=== PATIENT | female | born 1960 | race Caucasian/White ===

== ENCOUNTER 2024-02-06 19:48 | Emergency (ER) | payer MEDICAID, SELFPAY ==
[2024-02-06 19:51] VITALS: BP 120/62; PULSE 126; RESP 20; TEMP 36.8; O2SAT 96; BMI 23.4
--- NOTE | 2024-02-06 20:04 | PC.NURSE ---
called lab, spoke with manav to come draw labs.
[2024-02-06 20:05] VITALS: BMI 23.4
--- NOTE | 2024-02-06 20:06 | XR_ITS ---
PROCEDURE INFORMATION: Exam: XR Chest Exam date and time: 02/06/2024 8:22 PM Age: 64 years old Clinical indication: Other: Congestion TECHNIQUE: Imaging protocol: Radiologic exam of the chest. Views: 2 views. Total images: 2 COMPARISON: No relevant prior studies available. FINDINGS: Lungs: Emphysema/COPD with flattening of the hemidiaphragms. No infiltrate, airspace consolidation or vascular congestion. No interstitial edema. Pleural spaces: Unremarkable. No pleural effusion. No pneumothorax. Heart/Mediastinum: Unremarkable. No cardiomegaly. No mediastinal widening or hilar enlargement. Vasculature: Atherosclerotic aortic arch. Bones/joints: Mild degenerative changes thoracic spine. Soft tissues: Breast attenuation artifact. IMPRESSION: 1. No radiographically acute cardiopulmonary process. 2. Emphysema/COPD.
--- NOTE | 2024-02-06 20:19 | ED_ITS ---
<Statement entered by Mark La MD - 02/06/24 22:51> I was consulted by the VINNIE, and we discussed the complexity of the problems being addressed. I approved the treatment and management plan for this patient's care in the emergency department, thus performing a substantive portion of the medical decision making. Mark La MD, ARCELIA, FACEP Discharge Plan Disposition Chief Complaint: Abdominal Pain Referrals Follow up/Referrals: Alexy Mendez MD [Primary Care Provider] - See instructions Clinical Impressions Clinical Impression: Diverticulitis of large intestine with perforation, Sepsis, Pneumatosis coli Stand Alone Forms Stand Alone Forms: Transfer Record - ED Instructions Patient Instructions: DI for Acute Abdominal Pain Discharge ED Provider: Mark La General Adult HPI <JOSE ANTONIO Jackson - Last Filed: 02/06/24 22:25> General Chief complaint: Abdominal Pain Stated complaint: Fever,vomiting,tumor on bladder Time Seen by Provider: 02/06/24 20:00 Mode of Arrival: Wheelchair Source of Information: Patient Limitations: No Limitations Description of Symptoms (Recalled from ER Triage Doc. by RN): Pt presents with N/V/D with abdominal pain since Tuesday. Pt states she feels SOA, has had a productive cough for a long time. Pt has hx of bladder tumor, has not followed up in the past 1.5 yrs. Denies any new urinary symptoms. History of Present Illness HPI narrative: Patient presents with nausea vomiting diarrhea and abdominal pain since Tuesday. Patient has a past medical history of COPD on chronic 2 L by nasal cannula and ongoing tobaccoism. Patient has a history of an unspecified bladder tumor that she was previously having removed by laser periodically. However patient has seen no regular medical provider in the last 2 years by her choice. Patient presents with lower abdominal pain that has persisted since Tuesday that then developed some nausea vomiting and diarrhea. Patient is intolerant of oral intake reportedly currently. Related Data Allergies Allergy/AdvReac Type Severity Reaction Status Date / Time No Known Allergies Allergy Verified 02/06/24 20:05 PFSH <JOSE ANTONIO Jackson - Last Filed: 02/06/24 22:25> PFS Disclaimer: The information contained in this section may have been updated after the patient was seen, as this information can be updated by other users. Social History Smoking Status: Current every day smoker alcohol intake: current current occupational status: retired Travel in the last 8 weeks: None <JOSE ANTONIO Jackson - Last Filed: 02/06/24 22:25> ROS Obtained: Yes Systems reviewed as appropriate & no additional complaints except as documented Physical Exam <JOSE ANTONIO Jackson - Last Filed: 02/06/24 22:25> General General appearance: alert and in no apparent distress Head Head exam: atraumatic and normal inspection Eye Eye exam: Present normal appearance, PERRL and EOMI ENT ENT exam: Present normal exam, normal oropharynx and mucous membranes moist Neck Neck exam: Present normal inspection and full ROM; Absent lymphadenopathy Chest Chest inspection: Present normal inspection and symmetric chest wall rise Respiratory Respiratory exam: Present normal lung sounds bilaterally, prolonged expiratory phase and other (Faint end expiratory wheezes in all 4 werner but no respiratory distress or accessory muscle use currently.); Absent accessory muscle use Cardiovascular Cardiovascular exam: Present regular rate, normal rhythm, normal heart sounds, +S1 and +S2 Abdominal Exam Abdominal exam: Present soft, tenderness (Patient is exquisitely tender to palpation diffusely but more focally so in the lower quadrant), guarding and normal bowel sounds; Absent rebound, rigidity or Palomares's sign Extremities Exam Extremities exam: Present normal inspection and full ROM Back Exam Back exam: Present normal inspection and full ROM; Absent tenderness Neurological Exam Neurological exam: Present alert and oriented X3 Psychiatric Psychiatric exam: Present normal affect and normal mood Skin Skin exam: Present warm, dry and normal color Lymphatic Lymphatic Findings: no adenopathy Medical Decision Making <JOSE ANTONIO Jackson - Last Filed: 02/06/24 22:25> Medical Records Medical records reviewed: Yes I reviewed the patient's medical records. Sergio Inquiry Pt receiving controlled substance: No Vital Signs: 02/06/24 19:51 02/06/24 20:36 02/06/24 21:00 Temperature 98.3 F Temperature Source Oral Pulse Rate 116 H 103 H Pulse Rate [Left] 126 H Respiratory Rate 20 18 20 Blood Pressure 120/58 L 108/61 L Blood Pressure [Right Arm] 120/62 Blood Pressure Mean 72 73 Blood Pressure Mean [Right Arm] 81 Blood Pressure Source Blood Pressure Source [Right Arm] Automatic Cuff Blood Pressure Position Blood Pressure Position [Right Arm] Sitting 02 Sat by Pulse Oximetry 96 99 99 Oxygen Delivery Method Nasal Cannula Room Air Room Air 02/06/24 22:05 Temperature 98.1 F Temperature Source Oral Pulse Rate 93 H Pulse Rate [Left] Respiratory Rate 20 Blood Pressure 113/54 L Blood Pressure [Right Arm] Blood Pressure Mean Blood Pressure Mean [Right Arm] Blood Pressure Source Automatic Cuff Blood Pressure Source [Right Arm] Blood Pressure Position Sitting Blood Pressure Position [Right Arm] 02 Sat by Pulse Oximetry 98 Oxygen Delivery Method Room Air Lab Data Lab results reviewed: Yes I reviewed the patient's lab results. Lab Results 02/06/24 20:18: WBC 22.1 H*, RBC 3.53 L, Hgb 11.6 L, Hct 35.9 L, MCV 101.8 H, M CH 32.9 H, MCHC 32.3, RDW 13.3, Plt Count 310, MPV 8.2, Neut % (Auto) 93.9 H, L ymph % (Auto) 2.5 L, Camas % (Auto) 2.3, Eos % (Auto) 1.1, Baso % (Auto) 0.2, N eut # (Auto) 20.7 H, Lymph # (Auto) 0.6 L, Camas # (Auto) 0.5, Eos # (Auto) 0.2, Baso # (Auto) 0.0, Total Counted 100, Neutrophils % (Manual) 94 H, Lymphocytes % (Manual) 5 L, Monocytes % (Manual) 1 L, Platelet Estimate Normal, Macrocytosis 1+, PT 10.3, INR 0.95, Sodium 131 L, Potassium 3.2 L, Chloride 97 L, Carbon Dioxide 26, Anion Gap 11.2, BUN 25 H, Creatinine 1.50 H, Estimated Creat Clear 33, Estimated GFR 35 L, Est GFR ( Amer) 42 L, Glucose 217 H, Lactate 1.7, Calcium 9.6, Total Bilirubin 0.6, AST 33, ALT 21, Alkaline Phosphatase 66, Total Protein 7.2, Albumin 4.0, Globulin 3.2, Albumin/Globulin Ratio 1.3, Lipase 74 02/06/24 20:18 02/06/24 20:18 Orders (Tests/Meds): ED MEDICATIONS Generic Name Dose Route Start Last Admin Trade Name Freq PRN Reason Stop Dose Admin Lactated Ringer's 1,000 mls @ 150 mls/hr 02/06/24 21:45 02/06/24 22:00 Lactated Ringer's 1000 Ml Bag IV 03/07/24 21:44 150 mls/hr .Q6H40M ISIDRO Administration Sodium Chloride 10 ml 02/06/24 21:12 02/06/24 21:13 Sodium Chloride 0.9% 10ml Syr (Rad Only) IV 03/07/24 21:11 10 ml NEEDED PRN Administration Maintain IV Site Discontinued Medications Generic Name Dose Route Start Last Admin Trade Name Ruq PRN Reason Stop Dose Admin Acetaminophen 1,000 mg 02/06/24 20:25 02/06/24 20:36 Acetaminophen 1,000mg/100ml Vial IV 02/06/24 20:26 1,000 mg ONCE ONE Administration Lactated Ringer's 1,000 mls @ 999 mls/hr 02/06/24 20:27 02/06/24 20:36 Lactated Ringer's 1000 Ml Bag IV 02/06/24 21:27 999 mls/hr .Q1H1M ONE Administration Piperacillin Sod/Tazobactam 50 mls @ 100 mls/hr 02/06/24 21:45 02/06/24 22:01 Sod 3.375 gm/ Sodium Chloride IV 02/06/24 22:14 100 mls/hr ONCE ONE Administration Iopamidol 75 ml 02/06/24 21:12 02/06/24 21:12 Iopamidol-370 (76%);100ml Bottle IV 02/06/24 21:13 75 ml ONCE ONE Administration Ketorolac Tromethamine 15 mg 02/06/24 20:25 02/06/24 20:36 Ketorolac 30mg/Ml Vial IV 02/06/24 20:26 15 mg ONCE ONE Administration Ondansetron HCl 4 mg 02/06/24 20:25 02/06/24 20:36 Ondansetron 4mg Odt SL 02/06/24 20:26 4 mg ONCE ONE Administration ORDERS Category Date Time Status CT abdomen pelvis w con Stat Cat Scan 02/06/24 20:25 Completed Chest XR 2 view (NOT portable) [XR chest 2V] Stat Exams 02/06/24 20:06 Completed Complete Blood Count Auto Diff Stat Lab 02/06/24 20:18 Completed Comprehensive Metabolic Panel Stat Lab 02/06/24 20:18 Completed INR [Prothrombin Time INR] Stat Lab 02/06/24 20:18 Completed Lactic Acid Stat Lab 02/06/24 20:18 Completed Lipase Stat Lab 02/06/24 20:18 Completed UA [Urinalysis and Microscopic] Stat Lab 02/06/24 20:26 Ordered Blood Culture Stat Micro 02/06/24 20:18 Received Medical Decision Narrative: In summary patient is a 64-year-old female who presents to the emergency department for evaluation of abdominal pain nausea vomiting diarrhea. Patient is normotensive tachycardic satting at 96% on her 2 L by nasal cannula upon arrival, and afebrile. Physical exam is remarkable for tenderness to palpation diffusely in the abdomen but predominantly in the lower quadrants with peritoneal signs, no bruits heard in the abdomen, bowel sounds are diminished but present and remainder of her physical exam is nonfocal and unremarkable.. Differential diagnosis includes gastroenteritis versus bowel obstruction versus complicated urinary tract infection versus pyelonephritis versus intra-abdominal infection versus bowel perforation versus bladder obstruction versus diverticulitis, etc. Initial workup will be conducted with hematologic labs CT scan of the abdomen pelvis with contrast. Initial interventions include fluid bolus NSAID Toradol. Initial workup reviewed by me shows a white count of 22,000 with a left shift, lactate of 1.7 creatinine 1.5 and my personal interpretation of appointment chest x-ray shows pneumatosis of the cecum and ascending colon with air under the diaphragm and diverticulitis of the sigmoid colon with contained perforation but radiologist read is pending. I discussed the findings with general surgery and given the patient's comorbidities felt that she was beyond the capabilities of our facility and recommend that we transfer to a tertiary care facility. I have originally reached out to the [facility] transfer center at 2145. As have not heard from the [facility] reached out to the [facility] at 2202. I spoke with Dr. Andino of general surgery and Dr. Mariano in the emergency department regarding patient management. Dr. Andino excepted and Dr. Mariano given update per Dr. Andino request. <Mark La MD - Last Filed: 02/06/24 21:40> Vital Signs: 02/06/24 19:51 02/06/24 20:36 02/06/24 21:00 Temperature 98.3 F Temperature Source Oral Pulse Rate 116 H 103 H Pulse Rate [Left] 126 H Respiratory Rate 20 18 20 Blood Pressure 120/58 L 108/61 L Blood Pressure [Right Arm] 120/62 Blood Pressure Mean 72 73 Blood Pressure Mean [Right Arm] 81 Blood Pressure Source Blood Pressure Source [Right Arm] Automatic Cuff Blood Pressure Position Blood Pressure Position [Right Arm] Sitting 02 Sat by Pulse Oximetry 96 99 99 Oxygen Delivery Method Nasal Cannula Room Air Room Air 02/06/24 22:05 Temperature 98.1 F Temperature Source Oral Pulse Rate 93 H Pulse Rate [Left] Respiratory Rate 20 Blood Pressure 113/54 L Blood Pressure [Right Arm] Blood Pressure Mean Blood Pressure Mean [Right Arm] Blood Pressure Source Automatic Cuff Blood Pressure Source [Right Arm] Blood Pressure Position Sitting Blood Pressure Position [Right Arm] 02 Sat by Pulse Oximetry 98 Oxygen Delivery Method Room Air Lab Data Lab Results 02/06/24 20:18: WBC 22.1 H*, RBC 3.53 L, Hgb 11.6 L, Hct 35.9 L, MCV 101.8 H, M CH 32.9 H, MCHC 32.3, RDW 13.3, Plt Count 310, MPV 8.2, Neut % (Auto) 93.9 H, L ymph % (Auto) 2.5 L, Camas % (Auto) 2.3, Eos % (Auto) 1.1, Baso % (Auto) 0.2, N eut # (Auto) 20.7 H, Lymph # (Auto) 0.6 L, Camas # (Auto) 0.5, Eos # (Auto) 0.2, Baso # (Auto) 0.0, Total Counted 100, Neutrophils % (Manual) 94 H, Lymphocytes % (Manual) 5 L, Monocytes % (Manual) 1 L, Platelet Estimate Normal, Macrocytosis 1+, PT 10.3, INR 0.95, Sodium 131 L, Potassium 3.2 L, Chloride 97 L, Carbon Dioxide 26, Anion Gap 11.2, BUN 25 H, Creatinine 1.50 H, Estimated Creat Clear 33, Estimated GFR 35 L, Est GFR ( Amer) 42 L, Glucose 217 H, Lactate 1.7, Calcium 9.6, Total Bilirubin 0.6, AST 33, ALT 21, Alkaline Phosphatase 66, Total Protein 7.2, Albumin 4.0, Globulin 3.2, Albumin/Globulin Ratio 1.3, Lipase 74 Orders (Tests/Meds): ED MEDICATIONS Generic Name Dose Route Start Last Admin Trade Name Freq PRN Reason Stop Dose Admin Lactated Ringer's 1,000 mls @ 150 mls/hr 02/06/24 21:45 02/06/24 22:00 Lactated Ringer's 1000 Ml Bag IV 03/07/24 21:44 150 mls/hr .Q6H40M ISIDRO Administration Sodium Chloride 10 ml 02/06/24 21:12 02/06/24 21:13 Sodium Chloride 0.9% 10ml Syr (Rad Only) IV 03/07/24 21:11 10 ml NEEDED PRN Administration Maintain IV Site Discontinued Medications Generic Name Dose Route Start Last Admin Trade Name Freq PRN Reason Stop Dose Admin Acetaminophen 1,000 mg 02/06/24 20:25 02/06/24 20:36 Acetaminophen 1,000mg/100ml Vial IV 02/06/24 20:26 1,000 mg ONCE ONE Administration Lactated Ringer's 1,000 mls @ 999 mls/hr 02/06/24 20:27 02/06/24 20:36 Lactated Ringer's 1000 Ml Bag IV 02/06/24 21:27 999 mls/hr .Q1H1M ONE Administration Piperacillin Sod/Tazobactam 50 mls @ 100 mls/hr 02/06/24 21:45 02/06/24 22:01 Sod 3.375 gm/ Sodium Chloride IV 02/06/24 22:14 100 mls/hr ONCE ONE Administration Iopamidol 75 ml 02/06/24 21:12 02/06/24 21:12 Iopamidol-370 (76%);100ml Bottle IV 02/06/24 21:13 75 ml ONCE ONE Administration Ketorolac Tromethamine 15 mg 02/06/24 20:25 02/06/24 20:36 Ketorolac 30mg/Ml Vial IV 02/06/24 20:26 15 mg ONCE ONE Administration Ondansetron HCl 4 mg 02/06/24 20:25 02/06/24 20:36 Ondansetron 4mg Odt SL 02/06/24 20:26 4 mg ONCE ONE Administration ORDERS Category Date Time Status CT abdomen pelvis w con Stat Cat Scan 02/06/24 20:25 Completed Chest XR 2 view (NOT portable) [XR chest 2V] Stat Exams 02/06/24 20:06 Completed Complete Blood Count Auto Diff Stat Lab 02/06/24 20:18 Completed Comprehensive Metabolic Panel Stat Lab 02/06/24 20:18 Completed INR [Prothrombin Time INR] Stat Lab 02/06/24 20:18 Completed Lactic Acid Stat Lab 02/06/24 20:18 Completed Lipase Stat Lab 02/06/24 20:18 Completed UA [Urinalysis and Microscopic] Stat Lab 02/06/24 20:26 Ordered Blood Culture Stat Micro 02/06/24 20:18 Received Critical Care <Mark La MD - Last Filed: 02/06/24 21:40> Critical Care Time Critical Care Time: Yes Attestation: On 02/06/24, the high probability of a clinically significant, sudden or life threatening deterioration of the following system(s) required my full and direct attention, intervention and personal management. The time I documented below is in addition to time spent performing reported procedures but includes the following listed in this critical care notation. Total Time Total Critical Care Time: 35
--- NOTE | 2024-02-06 20:25 | CT_ITS ---
PROCEDURE INFORMATION: Exam: CT Abdomen And Pelvis With Contrast Exam date and time: 02/06/2024 8:07 PM Age: 64 years old Clinical indication: Abdominal pain; Acute; Additional info: Acute abdominal pain, bladder tumor TECHNIQUE: Imaging protocol: Computed tomography of the abdomen and pelvis with contrast. Total images: 252 Radiation optimization: All CT scans at this facility use at least one of these dose optimization techniques: automated exposure control; mA and/or kV adjustment per patient size (includes targeted exams where dose is matched to clinical indication); or iterative reconstruction. Contrast material: ISOVUE; Contrast volume: 75 ml; Contrast route: IV; COMPARISON: No relevant prior studies available. FINDINGS: Lungs: Lung bases are clear. Heart: Trace pericardial effusion. Liver: Lobulated hepatic contour concerning for cirrhosis. Normal liver size. No mass. Gallbladder and bile ducts: Common bile duct is upper normal at 6 mm. No intrahepatic bile duct dilatation. No calcified gallstones. Pancreas: Normal. No ductal dilation. Spleen: Normal. No splenomegaly. Adrenal glands: Normal. No mass. 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 Additional subcentimeter upper pole right renal hypodensity is too small to characterize but statistically a cyst. Bilateral perinephric fat stranding. Stomach and bowel: Unremarkable stomach and duodenum. Diffuse small bowel wall thickening, greatest in the lower abdomen and pelvis. Unremarkable terminal ileum. Bowel wall pneumatosis referable to the cecum and ascending colon. The transverse and descending colon is collapsed. Moderate wall thickening of the sigmoid colon with associated diverticular formation and adjacent extraluminal free air compatible with acute perforated diverticulitis. No abscess. Collapsed rectum. Appendix: The appendix is not discretely visualized. No secondary signs of appendicitis. Intraperitoneal space: Small quantity free intraperitoneal air. Trace lower abdominal and pelvic ascites. Generalized mesenteric edema. Vasculature: 4 cm fusiform aneurysmal dilatation of the infrarenal abdominal aorta with severe atherosclerotic irregularity. No rupture. Caudal to the abdominal aortic aneurysm is suspected high-grade stenosis of the distal abdominal aorta, at the level of the bifurcation. Moderate atherosclerotic narrowing of the proximal superior mesenteric artery without occlusion. Lymph nodes: Unremarkable. No enlarged lymph nodes. Urinary bladder: Collapsed bladder. Reproductive: Status post hysterectomy. Bones/joints: Severe degenerative changes of the lumbar spine. Osteopenia. Rotary lumbar levocurvature. Mild degenerative changes bilateral hips and SI joints. Soft tissues: Unremarkable. IMPRESSION: 1. Acute perforated sigmoid diverticulitis. 2. Small quantity free intraperitoneal air secondary to bowel perforation. 3. Nonspecific bowel wall pneumatosis of the cecum and ascending colon possibly from transient bowel ischemia. 4. Diffuse wall thickening of the mid to distal small bowel likely reflecting infectious or inflammatory enteritis versus sequela of peritonitis. 5. Trace fluid in lower abdomen and pelvis with diffuse mesenteric edema. 6. 4 cm infrarenal abdominal aortic aneurysm. 7. High-grade atherosclerotic stenosis of the distal abdominal aorta, caudal to the aneurysm / just above the bifurcation. 8. Moderate atherosclerotic narrowing proximal superior mesenteric artery without visualized thrombotic occlusion. 9. Additional chronic and incidental findings. COMMENTS: Consistent with the [employer]'s Incidental Findings Committee white paper (J Am Tami Radiol 2018): Any incidental renal lesion less than 1 cm or classified as too small to characterize, or any incidental cystic renal lesion characterized as simple-appearing, is likely benign. No follow-up imaging is recommended for these lesions per consensus recommendations based on imaging criteria.
[2024-02-06 20:36] VITALS: BP 120/58; PULSE 116; RESP 18; O2SAT 99
[2024-02-06] MEDS: LACTATED RINGERS 1000ML 1,000 ML 999 ML IV (20:36)
[2024-02-06] MEDS: ACETAMINOPHEN 1,000MG/100ML VIAL 1000 MG IV (20:36)
[2024-02-06] MEDS: ONDANSETRON 4MG ODT 4 MG SL (20:36)
[2024-02-06] MEDS: KETOROLAC 30MG/ML VIAL 15 MG IV (20:36)
[2024-02-06 20:45] LABS: Basophils % 0.2 % (0.1-2.0); Chloride 97 mmol/L (98-107); Eosinophils # 0.2 K/mm3 (0.0-0.4); Eosinophils % 1.1 % (0.1-12.0); Hematocrit 35.9 % (37.0-47.0); Hemoglobin 11.6 g/dL (12.2-16.2); Lymphocytes # 0.6 K/mm3 (0.7-4.5); Lymphocytes % 2.5 % (10-50); Mean Corpuscular HGB Conc 32.3 g/dL (31.8-35.4); Mean Corpuscular Hemoglobin 32.9 pg (27.0-31.2); Mean Corpuscular Volume 101.8 fl (81-99); Mean Platelet Volume 8.2 fl (7.4-10.4); Monocytes # 0.5 K/mm3 (0.1-1.0); Monocytes % 2.3 % (1.7-9.3); Neutrophils # 20.7 K/mm3 (1.8-7.8); Neutrophils % 93.9 % (37.0-80.0); Platelet Count 310 K/mm3 (142-424); Potassium 3.2 mmoL/L (3.5-5.1); Red Blood Count 3.53 M/mm3 (4.20-5.40); Red Cell Distribution Width 13.3 % (11.5-17.5); Sodium 131 mmol/L (136-145); White Blood Count 22.1 K/mm3 (4.8-10.8)
[2024-02-06 20:46] LABS: MANUAL DIFFERENTIAL MANUAL DIFFERENTIAL (MANUAL DIFF)
[2024-02-06 20:47] LABS: Blood Urea Nitrogen 25 mg/dl (7-17); Creatinine Clearance Estimated 33 mL/min (50-200); Estimated Glomerular Filt Rate 35 ml/min (>60); GFR (African American) 42 ML/MIN (>60)
[2024-02-06 20:48] LABS: Alanine Aminotransferase 21 U/L (12-78); Albumin/Globulin Ratio 1.3 (1.1-1.8); Alkaline Phosphatase 66 U/L (38-126); Anion Gap 11.2 mEq/L (5-15); Aspartate Amino Transferase 33 U/L (14-36); Bilirubin,Total 0.6 mg/dl (0.2-1.3); Calcium 9.6 mg/dl (8.4-10.2); Carbon Dioxide 26 mmol/L (22.0-30.0); Globulin 3.2 g/dL (1.3-3.2); Glucose 217 mg/dl (74-100); Lipase 74 U/L (23-300); Total Protein,Serum 7.2 g/dl (6.3-8.2)
[2024-02-06 20:49] LABS: Lactic Acid 1.7 mmol/L (0.7-2.1)
[2024-02-06 20:51] LABS: INR 0.95 (0.9-1.1); Prothrombin Time 10.3 seconds (10.1-12.5)
[2024-02-06 21:00] VITALS: BP 108/61; PULSE 103; RESP 20; O2SAT 99
--- NOTE | 2024-02-06 21:05 | PC.NURSE ---
Pt aware of UA needed
[2024-02-06] MEDS: IOPAMIDOL-370 (76%);100ML BOTTLE 75 ML IV (21:12)
[2024-02-06] MEDS: SODIUM CHLORIDE 0.9% 10ML SYR (RAD ONLY) 10 ML IV (21:13)
--- NOTE | 2024-02-06 21:37 | PC.NURSE ---
Dr. Carney paged for mid level
--- NOTE | 2024-02-06 21:39 | PC.NURSE ---
Mid level on phone with Dr. Carney
[2024-02-06 21:42] LABS: Lymphocytes % 5 % (10-50); Monocytes % 1 % (2-9); Neutrophils % 94 % (42-76); Total Cells Counted 100
[2024-02-06 21:43] LABS: Macrocytosis 1+; Platelet Estimate Normal
--- NOTE | 2024-02-06 21:46 | PC.NURSE ---
[facility] transfer center notified for transfer
[2024-02-06] MEDS: LACTATED RINGERS 1000ML 1,000 ML 150 ML IV (22:00)
[2024-02-06] MEDS: PIPERCILLIN/TAZO 3.375 GM in 0.9 % SODIUM CHLORIDE 50 ML IV (22:01)
[2024-02-06 22:05] VITALS: BP 113/54; PULSE 93; RESP 20; TEMP 36.7; O2SAT 98
--- NOTE | 2024-02-06 22:08 | PC.NURSE ---
on phone with [facility] re transfer
--- NOTE | 2024-02-06 22:21 | PC.NURSE ---
Called [facility] about transfer, they are doing a weather check and will call us back momentarily. CR
[2024-02-06 22:55] VITALS: BP 113/54; PULSE 93; RESP 20; TEMP 36.8; O2SAT 98
== END 2024-02-06 22:57 | disposition critical access hospital (66) ==
PROVIDERS: Physician Assistant; Emergency Provider Student in an Organized Health Care Education/Training Program; PCP Family Medicine
DX: A41.9 Sepsis, unspecified organism (principal); K57.20 Diverticulitis of large intestine with perforation and abscess without bleeding; K63.89 Other specified diseases of intestine; R10.30 Lower abdominal pain, unspecified; R06.02 Shortness of breath; R05.9 Cough, unspecified; J44.9 Chronic obstructive pulmonary disease, unspecified; R11.2 Nausea with vomiting, unspecified; F17.200 Nicotine dependence, unspecified, uncomplicated
CPT/HCPCS: 36415; 71046; 74177; 80053; 83605; 83690; 85007; 85025; 85610; 87040; 96361; 96365; 96375; 99291; J0131; J2543; Q9967

== ENCOUNTER 2024-02-28 14:03 | Outpatient (CLI) | payer MEDICAID, SELFPAY | END 2024-02-28 14:20 | disposition home or self-care (01) | LOC: INF 14:04 | PROVIDERS: PCP Family Medicine | DX: Z45.2 Encounter for adjustment and management of vascular access device (principal) | CPT/HCPCS: 96523 ==

== ENCOUNTER 2024-03-06 13:59 | Outpatient (CLI) | payer MEDICAID, SELFPAY | END 2024-03-06 14:10 | disposition home or self-care (01) | LOC: INF 14:00 | PROVIDERS: Visit Provider Nurse Practitioner | DX: Z45.2 Encounter for adjustment and management of vascular access device (principal) | CPT/HCPCS: 96523 ==

== ENCOUNTER 2024-03-15 13:54 | Outpatient (CLI) | payer MEDICAID, SELFPAY | END 2024-03-15 14:19 | disposition home or self-care (01) | LOC: INF 13:54 | PROVIDERS: PCP Family Medicine; Visit Provider Nurse Practitioner | DX: Z45.2 Encounter for adjustment and management of vascular access device (principal) | CPT/HCPCS: 96523 ==

== ENCOUNTER 2024-03-16 08:38 | Outpatient (CLI) | payer MEDICAID, SELFPAY ==
--- NOTE | 2024-03-16 08:44 | CT_ITS ---
FINAL REPORT TECHNIQUE: After the administration of oral and intravenous contrast, axial images were obtained through the abdomen and pelvis by computed tomography. The study was performed with techniques to keep radiation dose as low as reasonably achievable, (ALARA). Individual dose reduction techniques using automated exposure control or adjustment of mA and/or kV according to the patient's size were employed. CLINICAL HISTORY: F/U DIVERTICULITIS COMPARISON: 02/07/2024 FINDINGS: Abdomen: The lung bases are clear. The liver parenchyma is homogeneous. The gallbladder is present. The spleen, pancreas, and adrenals appear unremarkable. There are small benign appearing cysts in the right kidney. The left kidney is unremarkable. There is an abdominal aortic aneurysm measuring 4.1 x 3.8 cm. There is moderate mural thrombus. There is dense calcification in the distal abdominal aorta and iliac vessels. Pelvis: The GI tract demonstrates no obstruction. There are scattered sigmoid diverticula with no inflammatory change. The appendix is not identified. The urinary bladder is incompletely distended. There are calcified phleboliths in the floor of the pelvis. There is no free fluid or adenopathy. IMPRESSION: Interval resolution of previously noted acute diverticulitis and extraluminal air. No residual abscess is identified. Incompletely distended urinary bladder. 4.1 cm abdominal aortic aneurysm. Reviewed, Interpreted and Dictated by Prieto Pena MD Transcribed by Charlotte Roberto Authenticated and [facility]
--- NOTE | 2024-03-16 08:58 | PC.NURSE ---
labs obtained as ordered per R upper arm PICC. PICC flushes easily, good blood return x 2 lumens. Patient to radiology for CT scan.
[2024-03-16 09:08] LABS: Blood Urea Nitrogen 21 mg/dl (7-17); Estimated Glomerular Filt Rate 72 ml/min (>60); GFR (African American) 88 ML/MIN (>60)
[2024-03-16] MEDS: IOPAMIDOL-370 (76%);100ML BOTTLE 75 ML IV (09:34)
[2024-03-16] MEDS: SODIUM CHLORIDE 0.9% 10ML SYR (RAD ONLY) 10 ML IV (09:34)
== END 2024-03-16 23:59 | disposition home or self-care (01) ==
LOC: RAD 08:39
DX: R10.84 Generalized abdominal pain (principal)
CPT/HCPCS: 36415; 74177; 82565; 84520; Q9967

== ENCOUNTER 2024-03-26 13:52 | Outpatient (CLI) | payer MEDICAID, SELFPAY | END 2024-03-26 14:40 | disposition home or self-care (01) | LOC: INF 13:57 | DX: Z45.2 Encounter for adjustment and management of vascular access device (principal) | CPT/HCPCS: G0463 ==

== ENCOUNTER 2024-04-01 23:23 | Observation (INO) | payer MEDICAID, SELFPAY ==
[2024-04-01 23:23] VITALS: BP 168/88; PULSE 102; RESP 20; TEMP 37.4; O2SAT 97; BMI 20.1
--- NOTE | 2024-04-01 23:24 | CT_ITS ---
PROCEDURE INFORMATION: Exam: CTA Abdomen and Pelvis With Contrast Exam date and time: 04/02/2024 12:18 AM Age: 64 years old Clinical indication: Abdominal pain; Generalized; Additional info: Lower abdominal pain, melena, rectal bleeding TECHNIQUE: Imaging protocol: Computed tomographic angiography of the abdomen and pelvis with contrast. Exam focused on the arteries. 3D rendering (Not supervised by radiologist): MIP and/or 3D reconstructed images were created by the technologist. Radiation optimization: All CT scans at this facility use at least one of these dose optimization techniques: automated exposure control; mA and/or kV adjustment per patient size (includes targeted exams where dose is matched to clinical indication); or iterative reconstruction. Contrast material: ISOVUE 370; Contrast volume: 100 ml; Contrast route: INTRAVENOUS (IV); COMPARISON: CT ABDOMEN PELVIS W CON 02/06/2024 8:07 PM FINDINGS: Aorta: Infrarenal abdominal aortic aneurysm is again noted measuring up to 4.1 cm in diameter on axial imaging. There is abundant mural thrombus present. Celiac trunk and mesenteric arteries: No occlusion or significant stenosis. Renal arteries: No occlusion. There is less than 50% stenosis at the origin of both main renal arteries. Bilateral accessory renal arteries are noted. Right iliac arteries: No occlusion or significant stenosis. Left iliac arteries: No occlusion or significant stenosis. Liver: No mass. Gallbladder and bile ducts: Unremarkable. No calcified stones. No ductal dilation. Pancreas: Unremarkable. No mass. No ductal dilation. Spleen: Unremarkable. No splenomegaly. Adrenal glands: Unremarkable. No mass. Kidneys and ureters: The kidneys demonstrate unobstructed function. The right kidney is mildly atrophied. 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 Subcentimeter cortical hypodensity upper pole cortex right kidney too small to characterize. Stomach and bowel: There is no contrast extravasation into the bowel lumen to suggest active hemorrhage. There is mucosal thickening of the transverse, descending and sigmoid colon as well as the rectum consistent with colitis. There is straightening of the perirectal fat. Small amount of free pelvic fluid is noted. Appendix: No evidence of appendicitis. Intraperitoneal space: Unremarkable. No free air. No significant fluid collection. Lymph nodes: Unremarkable. No enlarged lymph nodes. Urinary bladder: Unremarkable. No mass. Reproductive: Unremarkable as visualized. Bones/joints: No acute fracture. Soft tissues: Unremarkable. IMPRESSION: 1. Findings consistent with colitis involving the transverse, descending and sigmoid colon as well as the rectum. There is associated perirectal fat stranding and a small amount of free pelvic fluid. 2. No active GI bleeding is evident. 3. Stable infrarenal abdominal aortic aneurysm. 4. Other nonemergent findings as detailed. COMMENTS: Consistent with the [employer]'s Incidental Findings Committee white paper (J Am Tami Radiol 2018): Any incidental renal lesion less than 1 cm or classified as too small to characterize, or any incidental cystic renal lesion characterized as simple-appearing, is likely benign. No follow-up imaging is recommended for these lesions per consensus recommendations based on imaging criteria.
[2024-04-01] MEDS: LACTATED RINGERS 1000ML 1,000 ML 999 ML IV (23:32)
[2024-04-01] MEDS: MORPHINE 4MG/ML SYRINGE 4 MG IV (23:32)
[2024-04-01] MEDS: ONDANSETRON 4MG/2ML VIAL 4 MG IV (23:32)
[2024-04-01 23:33] LABS: Basophils # 0.1 K/mm3 (0-0.2); Basophils % 0.2 % (0.1-2.0); Eosinophils # 0.1 K/mm3 (0.0-0.4); Eosinophils % 0.6 % (0.1-12.0); Hematocrit 34.7 % (37.0-47.0); Hemoglobin 11.1 g/dL (12.2-16.2); Lymphocytes # 1.8 K/mm3 (0.7-4.5); Lymphocytes % 8.7 % (10-50); Mean Corpuscular Hemoglobin 31.7 pg (27.0-31.2); Mean Corpuscular Volume 98.9 fl (81-99); Mean Platelet Volume 7.8 fl (7.4-10.4); Monocytes # 0.9 K/mm3 (0.1-1.0); Monocytes % 4.2 % (1.7-9.3); Neutrophils # 17.6 K/mm3 (1.8-7.8); Neutrophils % 86.2 % (37.0-80.0); Platelet Count 469 K/mm3 (142-424); Red Blood Count 3.51 M/mm3 (4.20-5.40); White Blood Count 20.4 K/mm3 (4.8-10.8)
[2024-04-01 23:36] LABS: MANUAL DIFFERENTIAL MANUAL DIFFERENTIAL (MANUAL DIFF)
--- NOTE | 2024-04-01 23:36 | ED_ITS ---
Discharge Plan Disposition Patient Disposition: Admitted Condition: Good Clinical Impressions Clinical Impression: Colitis, Melena Discharge ED Provider: Brigitte Peter General Adult HPI General Chief complaint: Abdominal Pain Stated complaint: abd pain, n/v Time Seen by Provider: 04/01/24 23:27 Mode of Arrival: EMS Source of Information: Patient and EMS Limitations: No Limitations Description of Symptoms (Recalled from ER Triage Doc. by RN): 64 F presents from home via EMS after calling out lower abdominal pain with n/v/d which started 1 month ago. Patient reports a history of diverticulitis. Patient also comes in wear 2L/NC which is her baseline. Patient receievd a 20g to the LAC per EMS with 4mg IVP Zofran and 15mg IVP Toradol. NAD otherwise. History of Present Illness HPI narrative: This patient is a 64-year-old female with a history of COPD on 2 L nasal cannula, tobacco dependence, bladder cancer status posttreatment, as well as previous evaluation and diagnosis of perforated diverticulitis presenting with concern for lower abdominal pain, nausea, vomiting, and melena. Patient reports that she was evaluated here in January and was found to have diverticulitis with a hole in her bowels, so she was flown to [facility] for further evaluation and management. She states that she was admitted there for 6 weeks, and she was discharged home in the middle of February. She states that she did well for the first 2 weeks, then she started having some lower abdominal discomfort again. The pain has gotten much more severe over the last day or so, and she is having severe lower abdominal pain with nausea, nonbloody nonbilious emesis, and melanotic stools. No fevers, chest pain, or other concerns. She is currently taking baby aspirin but denies any use of anticoagulation otherwise. Related Data Allergies Allergy/AdvReac Type Severity Reaction Status Date / Time No Known Allergies Allergy Verified 02/06/24 20:05 [facility] Disclaimer: The information contained in this section may have been updated after the patient was seen, as this information can be updated by other users. Social History (Updated 04/02/24 @ 00:29 by Ryan No RN) Smoking Status: Current every day smoker alcohol intake: former current occupational status: disabled Travel in the last 8 weeks: None ROS Obtained: Yes All systems reviewed & no additional complaints except as documented Physical Exam General General appearance: alert Comment: Ill-appearing Head Head exam: atraumatic and normocephalic Eye Eye exam: Present normal appearance, PERRL and EOMI ENT ENT exam: Present normal exam, normal oropharynx, mucous membranes moist and normal external ear exam Neck Neck exam: Present normal inspection, full ROM and trachea midline; Absent tenderness Chest Chest inspection: Present normal inspection and symmetric chest wall rise; Absent tenderness Respiratory Respiratory exam: Present normal lung sounds bilaterally; Absent respiratory distress, wheezes, stridor or accessory muscle use Cardiovascular Cardiovascular exam: Present normal rhythm and tachycardia Abdominal Exam Abdominal exam: Present tenderness, guarding and rebound; Absent distention Abdominal tenderness: Present diffuse Comment: Generalized tenderness with rebound and guarding but worse in the suprapubic and left lower quadrant regions Extremities Exam Extremities exam: Present normal inspection, full ROM and normal capillary refill; Absent tenderness or edema Back Exam Back exam: Present normal inspection and full ROM; Absent tenderness Neurological Exam Neurological exam: Present alert, oriented X3, CN II-XII intact and normal gait; Absent motor sensory deficit Psychiatric Psychiatric exam: Present normal affect and normal mood Skin Skin exam: Present warm and dry Medical Decision Making Medical Records Medical records reviewed: Yes I reviewed the patient's medical records. Sergio Inquiry Pt receiving controlled substance: No Vital Signs: 04/01/24 23:23 04/02/24 00:15 Temperature 99.3 F Temperature Source Oral Pulse Rate 95 H Pulse Rate [Left] 102 H Respiratory Rate 20 Blood Pressure 173/81 H Blood Pressure [Right Arm] 168/88 H Blood Pressure Mean 111 Blood Pressure Mean [Right Arm] 114 Blood Pressure Source [Right Arm] Automatic Cuff Blood Pressure Position [Right Arm] Supine 02 Sat by Pulse Oximetry 97 98 Oxygen Delivery Method Nasal Cannula Room Air Oxygen Flow Rate (LPM) 2 Lab Data Lab results reviewed: Yes I reviewed the patient's lab results. Lab Results 04/01/24 00:07: Lactate 1.1, Blood Type A Positive, Antibody Screen Negative 04/01/24 23:24: WBC 20.4 H*, RBC 3.51 L, Hgb 11.1 L, Hct 34.7 L, MCV 98.9, MCH 31.7 H, MCHC 32.0, RDW 15.0, Plt Count 469 H, MPV 7.8, Neut % (Auto) 86.2 H, L ymph % (Auto) 8.7 L, [place] % (Auto) 4.2, Eos % (Auto) 0.6, Baso % (Auto) 0.2, N eut # (Auto) 17.6 H, Lymph # (Auto) 1.8, [place] # (Auto) 0.9, Eos # (Auto) 0.1, Baso # (Auto) 0.1, Total Counted 100, Neutrophils % (Manual) 82 H, Band Neutrophils % 1.0, Lymphocytes % (Manual) 13, Monocytes % (Manual) 4, Platelet Estimate Slight increase, RBC Morphology Normal, PT 10.3, INR 0.95, APTT 28.5, S odium 134 L, Potassium 3.3 L, Chloride 96 L, Carbon Dioxide 35 H, Anion Gap 6.3, BUN 11, Creatinine 0.80, Estimated Creat Clear 52, Estimated GFR 72, Est GFR ( Amer) 88, Glucose 111 H, Calcium 10.4 H, Total Bilirubin 0.5, AST 27, ALT 16, Alkaline Phosphatase 76, Total Protein 7.2, Albumin 3.9, Globulin 3.3 H, Albumin/Globulin Ratio 1.2, Lipase 82 04/02/24 00:40: Urine Color Yellow, Urine Appearance Clear, Urine pH 7.0, Ur Specific [place] 1.015, Urine Protein 1+, Urine Glucose (UA) Negative, Urine Ketones Trace, Urine Blood Trace-i, Urine Nitrate Negative, Urine Bilirubin Negative, Urine Urobilinogen 0.2, Ur Leukocyte Esterase 2+ A, Urine RBC Occasional, Urine WBC 10-20, Ur Squamous Epith Cells Occasional, Urine Bacteria 2+ 04/01/24 23:24 04/01/24 23:24 Orders (Tests/Meds): ED MEDICATIONS Generic Name Dose Route Start Last Admin Trade Name Freq PRN Reason Stop Dose Admin Acetaminophen 650 mg 04/02/24 03:19 Acetaminophen 325mg Tab PO 05/02/24 03:18 Q4HP PRN Fever or Mild Pain (1-3) Lactated Ringer's 1,000 mls @ 125 mls/hr 04/02/24 02:00 04/02/24 03:15 Lactated Ringer's 1000 Ml Bag IV 05/02/24 01:59 125 mls/hr .Q8H ISIDRO Administration Morphine Sulfate 4 mg 04/02/24 02:00 Morphine 4mg/Ml Syringe IV 05/02/24 01:59 Q2HP PRN pain Ondansetron HCl 4 mg 04/02/24 02:00 04/02/24 03:17 Ondansetron 4mg/2ml Vial IV 05/02/24 01:59 4 mg Q8HP PRN Administration Nausea And Vomiting Pantoprazole Sodium 40 mg 04/02/24 09:00 Pantoprazole 40mg Tablet PO 05/02/24 08:59 DAILY ISIDRO Sodium Chloride 10 ml 04/02/24 00:32 Sodium Chloride 0.9% 10ml Syr (Rad Only) IV 05/02/24 00:31 NEEDED PRN Maintain IV Site Discontinued Medications Generic Name Dose Route Start Last Admin Trade Name Freq PRN Reason Stop Dose Admin Hydromorphone HCl 1 mg 04/02/24 00:15 04/02/24 00:18 Hydromorphone 2mg/Ml Syringe IV 04/02/24 00:16 1 mg ONCE ONE Administration Lactated Ringer's 1,000 mls @ 999 mls/hr 04/01/24 23:25 04/01/24 23:32 Lactated Ringer's 1000 Ml Bag IV 04/02/24 00:25 999 mls/hr .Q1H1M ONE Administration Lactated Ringer's 1,780 mls @ 890 mls/hr 04/01/24 23:41 04/01/24 23:46 Lactated Ringer's 1000 Ml Bag 30 ml/kg infuse over 2 hr (1780 ml) 04/02/24 01:40 890 mls/hr IV Administration .Q2H ONE Piperacillin Sod/Tazobactam 50 mls @ 100 mls/hr 04/02/24 00:41 04/02/24 00:44 Sod 3.375 gm/ Sodium Chloride IV 04/02/24 01:10 100 mls/hr ONCE ONE Administration Iopamidol 100 ml 04/02/24 00:32 04/02/24 00:34 Iopamidol-370 (76%);100ml Bottle IV 04/02/24 00:33 100 ml ONCE ONE Administration Morphine Sulfate 4 mg 04/01/24 23:25 04/01/24 23:32 Morphine 4mg/Ml Syringe IV 04/01/24 23:26 4 mg ONCE ONE Administration Ondansetron HCl 4 mg 04/01/24 23:25 04/01/24 23:32 Ondansetron 4mg/2ml Vial IV 04/01/24 23:26 4 mg ONCE ONE Administration Sodium Chloride 50 ml 04/02/24 00:32 04/02/24 00:34 0.9 % Sodium Chloride 50 Ml Vial IV 04/02/24 00:33 50 ml ONCE ONE Administration ORDERS Category Date Time Status Type and Screen Stat BBK 04/01/24 00:[address] angio abdomen pelvis Stat Cat Scan 04/01/24 23:24 Completed Activated Partial Thrombo Time Stat Lab 04/01/24 23:24 Completed Complete Blood Count Auto Diff AMLAB Lab 04/02/24 06:00 Ordered Complete Blood Count Auto Diff Stat Lab 04/01/24 23:24 Completed Comprehensive Metabolic Panel AMLAB Lab 04/02/24 06:00 Ordered Comprehensive Metabolic Panel Stat Lab 04/01/24 23:24 Completed Diarrhea 6-11 Panel, Cdiff PCR Stat Lab 04/01/24 23:24 Ordered Lactic Acid Stat Lab 04/01/24 00:07 Completed Lipase Stat Lab 04/01/24 23:24 Completed Occult Blood,Stool Stat Lab 04/01/24 23:24 Ordered Prothrombin Time INR Stat Lab 04/01/24 23:24 Completed Urinalysis and Microscopic Stat Lab 04/02/24 00:40 Completed Blood Culture Stat Micro 04/01/24 23:45 Received Urine Culture Stat Micro 04/02/24 00:40 Received Medical Decision Narrative: In summary, this patient is a 64-year-old female presenting to the Emergency Department for evaluation of lower abdominal pain, nausea, vomiting, diarrhea, and melanotic stool. Differential diagnoses considered include but are not limited to bleeding diverticula, upper GI bleed, lower GI bleed, perforated diverticulitis, pelvic abscess, sepsis, symptomatic anemia. Ruling out the most morbid conditions drove assessment. It should be noted patient's history includes previous perforated diverticulitis as well as history of COPD which may or may not be at goal therapy. This complicates all aspects of care by increasing patient's risk for morbidity. I reviewed patient's past medical records and noted her evaluation here in January and subsequent transfer to [facility] as per HPI. On exam, the patient is well-appearing and is slightly tachycardic, but otherwise blood pressure is within normal limits. She is maintaining oxygen saturation on her home oxygen. She does have generalized abdominal tenderness with lower rebound or guarding. Workup included CBC, CMP, PT, PTT, type and screen, lactic acid, stool occult, diarrhea panel, urinalysis, and CT angiogram of abdomen pelvis with IV contrast. Patient was given a sepsis bolus of 30 cc/kg of IV fluids as well as IV morphine and Zofran for symptomatic improvement. I independently interpreted CT scan prior to the radiologist read and noted colitis with fat stranding. No obvious free air. Please see their read for final interpretation. Labs were obtained that demonstrated leukocytosis but normal lactic acid. BUN is normal, suggesting against upper GI bleed. Creatinine is also within normal limits. Hemoglobin is stable from the patient's prior labs. She has very mild hypokalemia. Patient has a complicated history of recent pneumatosis coli and perforated diverticulitis. She also presents with pancolitis with leukocytosis, tachycardia, and tachypnea. Given this, she was given IV Zosyn for empiric antibiotic treatment of intra-abdominal infection. Given that the patient was recently discharged from [facility] after complicated stay involving her colon, I called and had an indirect discussion with Dr. Vaughan with hospital medicine who advised that they would be happy to accept the patient to medical surgical bed. They are to call back if they are able to get a bed tonight, however if not, he will be discharged to [place] tomorrow afternoon. At 0200, patient was placed in ED observation status pending transfer to [facility] to determine whether or not the patient would be appropriate for discharge versus admission. The patient was provided serial reevaluations, continuous IV fluids, IV pain and nausea control, and cardiac monitoring while awaiting ultimate disposition. AT 0315, no bed at . This, decision was made to admit the patient here for continued monitoring until bed becomes available. I had an interactive discussion with the hospitalist to admit the patient. Total ED observation time was 1 hour 15 minutes. Critical Care Critical Care Time Critical Care Time: No
[2024-04-01 23:46] LABS: Activated Partial Thrombo Time 28.5 seconds (22.8-30.6); INR 0.95 (0.9-1.1); Prothrombin Time 10.3 seconds (10.1-12.5)
[2024-04-01] MEDS: LACTATED RINGERS 1000ML 1,780 ML 890 ML IV (23:46)
--- NOTE | 2024-04-01 23:54 | PC.NURSE ---
lab rep at bedside
[2024-04-02] VITALS (17 sets, daily range): BP systolic 145–185; BP diastolic 62–89; PULSE 80–101; RESP 0–22; TEMP 36.6–37.4; O2SAT 94–100
[2024-04-02 00:01] LABS: Chloride 96 mmol/L (98-107); Potassium 3.3 mmoL/L (3.5-5.1); Sodium 134 mmol/L (136-145)
[2024-04-02 00:03] LABS: Alanine Aminotransferase 16 U/L (12-78); Aspartate Amino Transferase 27 U/L (14-36); Blood Urea Nitrogen 11 mg/dl (7-17); Creatinine Clearance Estimated 52 mL/min (50-200); Estimated Glomerular Filt Rate 72 ml/min (>60); GFR (African American) 88 ML/MIN (>60)
[2024-04-02 00:04] LABS: Albumin Level 3.9 g/dl (3.5-5.0); Albumin/Globulin Ratio 1.2 (1.1-1.8); Alkaline Phosphatase 76 U/L (38-126); Anion Gap 6.3 mEq/L (5-15); Bilirubin,Total 0.5 mg/dl (0.2-1.3); Calcium 10.4 mg/dl (8.4-10.2); Carbon Dioxide 35 mmol/L (22.0-30.0); Globulin 3.3 g/dL (1.3-3.2); Glucose 111 mg/dl (74-100); Lipase 82 U/L (23-300); Total Protein,Serum 7.2 g/dl (6.3-8.2)
[2024-04-02] MEDS: HYDROMORPHONE 2MG/ML SYRINGE 1 MG IV ×2 (00:18→04:15)
[2024-04-02 00:21] LABS: Lactic Acid 1.1 mmol/L (0.7-2.1)
[2024-04-02] MEDS: 0.9 % SODIUM CHLORIDE 50 ML VIAL IV (00:34)
[2024-04-02] MEDS: IOPAMIDOL-370 (76%);100ML BOTTLE 100 ML IV (00:34)
[2024-04-02 00:39] LABS: Lymphocytes % 13 % (10-50); Monocytes % 4 % (2-9); Neutrophils % 82 % (42-76); Total Cells Counted 100
[2024-04-02 00:41] LABS: Platelet Estimate Slight Increase; RBC Morphology Normal
[2024-04-02] MEDS: PIPERACILLIN/TAZO 3.375 GM in 0.9 % SODIUM CHLORIDE 50 ML IV ×4 (00:44→22:05)
[2024-04-02 00:48] LABS: Microscopic, Urine URINE MICROSCOPIC (MICROSCOPIC)
[2024-04-02 00:51] LABS: Appearance,Urine CLEAR (Clear); Bilirubin,Urine Negative (Negative); Blood, Urine TRACE-I (Negative); Color,Urine YELLOW (Yellow); Glucose,Urine (UA) Negative (Negative); Ketones,Urine TRACE (Negative); Leukocyte Esterase,Urine 2+ (Negative); Nitrate,Urine Negative (Negative); Protein,Urine 1+ (Negative); Specific Gravity, Urine 1.015 (1.005-1.030); Urobilinogen,Urine 0.2 EU/dl (0.2)
--- NOTE | 2024-04-02 00:53 | PC.NURSE ---
rounded on patient, no needs at this time, family at bedside
[2024-04-02 01:16] LABS: Bacteria,Urine 2+ /lpf; RBC,Urine Occasional #/hpf (0-3); Squamous Epithelial Cell,Urine Occasional #/hpf (0-5)
--- NOTE | 2024-04-02 01:31 | PC.NURSE ---
paged dr lewis
--- NOTE | 2024-04-02 01:34 | PC.NURSE ---
dr lewis returned call
--- NOTE | 2024-04-02 01:43 | PC.NURSE ---
Contacted in regards to a transfer for this patient, Dr. Ornelas the hospitalist will be returning a our call.
--- NOTE | 2024-04-02 01:54 | PC.NURSE ---
DAVEY called back and transferred to Dr. Peter
[2024-04-02] MEDS: LACTATED RINGERS 1000ML 1,000 ML 125 ML IV (03:15)
[2024-04-02] MEDS: ONDANSETRON 4MG/2ML VIAL 4 MG IV (03:17)
--- NOTE | 2024-04-02 03:20 | EXP.HPDC ---
General Admission date:: 04/02/2024 *Admission Date: 04/02/24 *Chief complaint: abd pain *History of present illness: 64-year-old female who presents to the emergency department for evaluation of abdominal pain nausea vomiting diarrhea. Patient is normotensive tachycardic satting at 96% on her 2 L by nasal cannula upon arrival, and afebrile. Physical exam is remarkable for tenderness to palpation diffusely in the abdomen but predominantly in the lower quadrants with peritoneal signs, no bruits heard in the abdomen, bowel sounds are diminished but present and remainder of her physical exam is nonfocal and unremarkable.. Differential diagnosis includes gastroenteritis versus bowel obstruction versus complicated urinary tract infection versus pyelonephritis versus intra-abdominal infection versus bowel perforation versus bladder obstruction versus diverticulitis, etc. Initial workup will be conducted with hematologic labs CT scan of the abdomen pelvis with contrast. Initial interventions include fluid bolus NSAID Toradol. Initial workup reviewed by me shows a white count of 22,000 with a left shift, lactate of 1.7 creatinine 1.5 and my personal interpretation of appointment chest x-ray shows pneumatosis of the cecum and ascending colon with air under the diaphragm and diverticulitis of the sigmoid colon with contained perforation but radiologist read is pending. [facility] Disclaimer: The information contained in this section may have been updated after the patient was seen, as this information can be updated by other users. Medical History (Updated 04/02/24 @ 05:50 by Matthew Gomez APRN) Hyperlipidemia Hypertension COPD (chronic obstructive pulmonary disease) Surgical History (Updated 04/02/24 @ 04:55 by Barbie Chavez RN) Previous back surgery H/O: hysterectomy Social History (Updated 04/02/24 @ 00:29 by Ryan No RN) Smoking Status: Current every day smoker alcohol intake: former current occupational status: disabled Travel in the last 8 weeks: None Exam Data for Last 24 hours Vital signs and Labs for Last 24 Hours: Temp Pulse Resp BP Pulse Ox O2 Del Method O2 Flow Rate 99.3 F 95 H 20 173/81 H 98 Room Air 2 04/01/24 23:23 04/02/24 00:15 04/01/24 23:23 04/02/24 00:15 04/02/24 00:15 04/02/24 00:15 04/01/24 23:23 Laboratory Results - last 24 hr 04/01/24 00:07: Lactate 1.1, Blood Type A Positive, Antibody Screen Negative 04/01/24 23:24: WBC 20.4 H*, RBC 3.51 L, Hgb 11.1 L, Hct 34.7 L, MCV 98.9, MCH 31.7 H, MCHC 32.0, RDW 15.0, Plt Count 469 H, MPV 7.8, Neut % (Auto) 86.2 H, Lymph % (Auto) 8.7 L, [place] % (Auto) 4.2, Eos % (Auto) 0.6, Baso % (Auto) 0.2, Neut # (Auto) 17.6 H, Lymph # (Auto) 1.8, [place] # (Auto) 0.9, Eos # (Auto) 0.1, Baso # (Auto) 0.1, Total Counted 100, Neutrophils % (Manual) 82 H, Band Neutrophils % 1.0, Lymphocytes % (Manual) 13, Monocytes % (Manual) 4, Platelet Estimate Slight increase, RBC Morphology Normal, PT 10.3, INR 0.95, APTT 28.5, Sodium 134 L, Potassium 3.3 L, Chloride 96 L, Carbon Dioxide 35 H, Anion Gap 6.3, BUN 11, Creatinine 0.80, Estimated Creat Clear 52, Estimated GFR 72, Est GFR ( Amer) 88, Glucose 111 H, Calcium 10.4 H, Total Bilirubin 0.5, AST 27, ALT 16, Alkaline Phosphatase 76, Total Protein 7.2, Albumin 3.9, Globulin 3.3 H, Albumin/Globulin Ratio 1.2, Lipase 82 04/02/24 00:40: Urine Color Yellow, Urine Appearance Clear, Urine pH 7.0, Ur Specific [place] 1.015, Urine Protein 1+, Urine Glucose (UA) Negative, Urine Ketones Trace, Urine Blood Trace-i, Urine Nitrate Negative, Urine Bilirubin Negative, Urine Urobilinogen 0.2, Ur Leukocyte Esterase 2+ A, Urine RBC Occasional, Urine WBC 10-20, Ur Squamous Epith Cells Occasional, Urine Bacteria 2+ I & O for Last 24 hours: Intake & Output 03/30/24 03/31/24 04/01/24 04/02/24 23:59 23:59 23:59 23:59 Weight 56.699 kg *Routine HEENT Exam Head: Present normocephalic and atraumatic Eye: Present EOMI, PERRL and normal accommodation ENT: Present mucous membranes dry *Routine Respiratory Exam Respiratory: Present CTA bilaterally and wheezes *Routine Cardiovascular Exam Cardiovascular: Present RRR, Normal S1 and Normal S2 *Routine Abdominal Exam Abdominal: Present soft, normoactive bowel sounds, tenderness and guarding *Routine Rectal Exam Rectal:: deferred *Routine Genitalia Exam Genitalia:: deferred Meds Home Medications and Allergies Home Medications Medication Instructions Recorded Confirmed Type albuterol sulfate 90 mcg/actuation 1 puff inhalation Q4HP PRN 04/02/24 04/02/24 History aerosol inhaler (Ventolin HFA) Shortness Of Breath alendronate 70 mg tablet 70 mg PO WEEKLY 04/02/24 04/02/24 History budesonide-formoterol HFA 80 2 puff inhalation BID 04/02/24 04/02/24 History mcg-4.5 mcg/actuation aerosol inhaler (Symbicort) cyclobenzaprine 10 mg tablet 10 mg PO TIDP PRN muscle spasms 04/02/24 04/02/24 History duloxetine 60 mg capsule,delayed 60 mg PO DAILY 04/02/24 04/02/24 History release lisinopril 20 1 tab PO DAILY 04/02/24 04/02/24 History mg-hydrochlorothiazide 25 mg tablet trazodone 100 mg tablet 200 mg PO HS 04/02/24 04/02/24 History New Prescriptions to Start Prescriptions: Allergies Allergy/AdvReac Type Severity Reaction Status Date / Time No Known Allergies Allergy Verified 02/06/24 20:05 Hospital Course Hospital Course Hospital Course: Per ED: I discussed the findings with general surgery and given the patient's comorbidities felt that she was beyond the capabilities of our facility and recommend that we transfer to a tertiary care facility. I have originally reached out to the [facility] transfer center at [phone]. As have not heard from the [facility] reached out to the [facility] at [phone]. I spoke with Dr. Andino of general surgery and Dr. Mariano in the emergency department regarding patient management. Dr. Andino accepted and Dr. Mariano given update per Dr. Andino request. admitted awaiting bed assignment. Results Data Completed and Pending Labs on day of discharge: Labs from last 24 hours 04/02/24 04/01/24 04/01/24 00:40 23:24 00:07 WBC 20.4 H* RBC 3.51 L Hgb 11.1 L Hct 34.7 L MCV 98.9 MCH 31.7 H MCHC 32.0 RDW 15.0 Plt Count 469 H MPV 7.8 Neut % (Auto) 86.2 H Lymph % (Auto) 8.7 L [place] % (Auto) 4.2 Eos % (Auto) 0.6 Baso % (Auto) 0.2 Neut # (Auto) 17.6 H Lymph # (Auto) 1.8 [place] # (Auto) 0.9 Eos # (Auto) 0.1 Baso # (Auto) 0.1 Total Counted 100 Neutrophils % (Manual) 82 H Band Neutrophils % 1.0 Lymphocytes % (Manual) 13 Monocytes % (Manual) 4 Platelet Estimate Slight increase RBC Morphology Normal PT 10.3 INR 0.95 APTT 28.5 Sodium 134 L Potassium 3.3 L Chloride 96 L Carbon Dioxide 35 H Anion Gap 6.3 BUN 11 Creatinine 0.80 Estimated Creat Clear 52 Estimated GFR 72 Est GFR ( Amer) 88 Glucose 111 H Lactate 1.1 Calcium 10.4 H Total Bilirubin 0.5 AST 27 ALT 16 Alkaline Phosphatase 76 Total Protein 7.2 Albumin 3.9 Globulin 3.3 H Albumin/Globulin Ratio 1.2 Lipase 82 Urine Color Yellow Urine Appearance Clear Urine pH 7.0 Ur Specific [place] 1.015 Urine Protein 1+ Urine Glucose (UA) Negative Urine Ketones Trace Urine Blood Trace-i Urine Nitrate Negative Urine Bilirubin Negative Urine Urobilinogen 0.2 Ur Leukocyte Esterase 2+ A Urine RBC Occasional Urine WBC 10-20 Ur Squamous Epith Cells Occasional Urine Bacteria 2+ Blood Type A Positive Antibody Screen Negative Imaging and Cardiology CT scan - abdomen: Status: image reviewed by me, Preliminary report and final report EKG: Status: image reviewed by me, Preliminary report and final report DS: Diagnosis Discharge Diagnosis (1) Colitis: Status: Acute Code(s): K52.9 - Noninfective gastroenteritis and colitis, unspecified (2) AAA (abdominal aortic aneurysm) without rupture: Status: Acute Code(s): I71.40 - Abdominal aortic aneurysm, without rupture, unspecified Qualifiers: Abdominal aorta location: infrarenal aorta Qualified Code(s): I71.43 - Infrarenal abdominal aortic aneurysm, without rupture (3) COPD (chronic obstructive pulmonary disease): Status: Acute Code(s): J44.9 - Chronic obstructive pulmonary disease, unspecified Qualifiers: COPD type: unspecified COPD Qualified Code(s): J44.9 - Chronic obstructive pulmonary disease, unspecified (4) Hyperlipidemia: Status: Acute Code(s): E78.5 - Hyperlipidemia, unspecified Qualifiers: Hyperlipidemia type: unspecified Qualified Code(s): E78.5 - Hyperlipidemia, unspecified (5) Hypertension: Status: Acute Code(s): I10 - Essential (primary) hypertension Qualifiers: Hypertension type: unspecified Qualified Code(s): I10 - Essential (primary) hypertension Discharge Plan Disposition Patient Disposition: Xfer Short-Term Hosp Condition: Good Discharge Order Discharge Orders: Discharge Order (Routine); Ordered 04/02/24 Ordered By: Matthew Gomez Follow up Plan Prescriptions/Medication Reconciliation: Continued cyclobenzaprine 10 mg tablet 10 mg PO TIDP PRN (Reason: muscle spasms) trazodone 100 mg tablet 200 mg PO HS lisinopril-hydrochlorothiazide 20-25 mg tablet 1 tab PO DAILY albuterol sulfate [Ventolin HFA] 90 mcg/actuation HFA aerosol inhaler 1 puff INHALATION Q4HP PRN (Reason: Shortness Of Breath) duloxetine 60 mg capsule,delayed release(DR/EC) 60 mg PO DAILY budesonide-formoterol [Symbicort] 80-4.5 mcg/actuation HFA aerosol inhaler 2 puff INHALATION BID No Action alendronate 70 mg tablet 70 mg PO WEEKLY Patient Comments: TAKE 1 TABLET BY MOUTH EVERY 7 DAYS DIRECTED Problem Reconciliation Problems Reviewed?: Yes Patient Discharge Instructions ACTIVITY: Ambulate as tolerated DIET: NPO Patient Instructions: DI for Abdominal Pain-Adult Providers Primary Care Provider: Alexy Mendez Admit Provider: Carolina Hinojosa Attending Provider: Carolina Hinojosa
--- NOTE | 2024-04-02 04:00 | PC.NURSE ---
hotel houseman notified for bed assignment
--- NOTE | 2024-04-02 04:15 | PC.NURSE ---
report called to HUGO Valentin
--- NOTE | 2024-04-02 04:37 | PC.NURSE ---
pt to the floor
--- NOTE | 2024-04-02 04:42 | PC.NURSE ---
Patient arrived to floor via stretcher from ED at 4:34.
[2024-04-02] MEDS: PROMETHAZINE HCL 25MG/ML 1ML VIAL 25 MG IV (05:40)
[2024-04-02 06:50] LABS: Basophils % 0.3 % (0.1-2.0); Eosinophils # 0.1 K/mm3 (0.0-0.4); Eosinophils % 0.5 % (0.1-12.0); Hematocrit 32.3 % (37.0-47.0); Hemoglobin 10.4 g/dL (12.2-16.2); Mean Corpuscular HGB Conc 32.1 g/dL (31.8-35.4); Mean Corpuscular Hemoglobin 31.8 pg (27.0-31.2); Mean Corpuscular Volume 99.2 fl (81-99); Mean Platelet Volume 7.9 fl (7.4-10.4); Monocytes # 0.7 K/mm3 (0.1-1.0); Neutrophils # 14.9 K/mm3 (1.8-7.8); Neutrophils % 89.3 % (37.0-80.0); Platelet Count 376 K/mm3 (142-424); Red Blood Count 3.26 M/mm3 (4.20-5.40); White Blood Count 16.7 K/mm3 (4.8-10.8)
[2024-04-02] MEDS: MORPHINE 4MG/ML SYRINGE 4 MG IV ×8 (06:55→22:57)
[2024-04-02 06:58] LABS: Alanine Aminotransferase 15 U/L (12-78); Albumin Level 3.8 g/dl (3.5-5.0); Albumin/Globulin Ratio 1.2 (1.1-1.8); Alkaline Phosphatase 65 U/L (38-126); Anion Gap 11.9 mEq/L (5-15); Aspartate Amino Transferase 25 U/L (14-36); Bilirubin,Total 0.4 mg/dl (0.2-1.3); Blood Urea Nitrogen 10 mg/dl (7-17); Calcium 9.6 mg/dl (8.4-10.2); Carbon Dioxide 35 mmol/L (22.0-30.0); Chloride 92 mmol/L (98-107); Creatinine Clearance Estimated 52 mL/min (50-200); Estimated Glomerular Filt Rate 63 ml/min (>60); GFR (African American) 77 ML/MIN (>60); Globulin 3.2 g/dL (1.3-3.2); Glucose 115 mg/dl (74-100); Sodium 136 mmol/L (136-145)
[2024-04-02 07:10] LABS: Potassium 2.9 mmoL/L (3.5-5.1)
--- NOTE | 2024-04-02 07:11 | PC.NURSE ---
Tired to call critical K. Went to voicemail. Will pass along to dayshift to call again
[2024-04-02] MEDS: PANTOPRAZOLE 40MG TABLET 40 MG PO (08:11)
[2024-04-02] MEDS: KCl 10mEq/100ml 100 ML 100 MEQ IV ×2 (09:55→11:14)
--- NOTE | 2024-04-02 11:10 | P.PN_ITS ---
Subjective *Date: 04/02/24 *Time: 11:10 Interval history: patient is seen at bedside Exam Data for Last 24 hours Vital signs and Labs for Last 24 Hours: Temp Pulse Resp BP Pulse Ox O2 Del Method O2 Flow Rate 98 F 90 22 173/62 H 96 Nasal Cannula 2 04/02/24 08:00 04/02/24 08:00 04/02/24 08:00 04/02/24 08:00 04/02/24 08:00 04/02/24 08:00 04/02/24 06:57 Laboratory Results - last 24 hr 04/01/24 00:07: Lactate 1.1, Blood Type A Positive, Antibody Screen Negative 04/01/24 23:24: WBC 20.4 H*, RBC 3.51 L, Hgb 11.1 L, Hct 34.7 L, MCV 98.9, MCH 31.7 H, MCHC 32.0, RDW 15.0, Plt Count 469 H, MPV 7.8, Neut % (Auto) 86.2 H, Lymph % (Auto) 8.7 L, [place] % (Auto) 4.2, Eos % (Auto) 0.6, Baso % (Auto) 0.2, Neut # (Auto) 17.6 H, Lymph # (Auto) 1.8, [place] # (Auto) 0.9, Eos # (Auto) 0.1, Baso # (Auto) 0.1, Total Counted 100, Neutrophils % (Manual) 82 H, Band Neutrophils % 1.0, Lymphocytes % (Manual) 13, Monocytes % (Manual) 4, Platelet Estimate Slight increase, RBC Morphology Normal, PT 10.3, INR 0.95, APTT 28.5, Sodium 134 L, Potassium 3.3 L, Chloride 96 L, Carbon Dioxide 35 H, Anion Gap 6.3, BUN 11, Creatinine 0.80, Estimated Creat Clear 52, Estimated GFR 72, Est GFR ( Amer) 88, Glucose 111 H, Calcium 10.4 H, Total Bilirubin 0.5, AST 27, ALT 16, Alkaline Phosphatase 76, Total Protein 7.2, Albumin 3.9, Globulin 3.3 H, Albumin/Globulin Ratio 1.2, Lipase 82 04/02/24 00:40: Urine Color Yellow, Urine Appearance Clear, Urine pH 7.0, Ur Specific [place] 1.015, Urine Protein 1+, Urine Glucose (UA) Negative, Urine Ketones Trace, Urine Blood Trace-i, Urine Nitrate Negative, Urine Bilirubin Negative, Urine Urobilinogen 0.2, Ur Leukocyte Esterase 2+ A, Urine RBC Occasional, Urine WBC 10-20, Ur Squamous Epith Cells Occasional, Urine Bacteria 2+ 04/02/24 06:23: WBC 16.7 H, RBC 3.26 L, Hgb 10.4 L, Hct 32.3 L, MCV 99.2 H, MCH 31.8 H, MCHC 32.1, RDW 15.0, Plt Count 376, MPV 7.9, Neut % (Auto) 89.3 H, Lymph % (Auto) 6.0 L, [place] % (Auto) 4.0, Eos % (Auto) 0.5, Baso % (Auto) 0.3, Neut # (Auto) 14.9 H, Lymph # (Auto) 1.0, [place] # (Auto) 0.7, Eos # (Auto) 0.1, Baso # (Auto) 0.0, Sodium 136, Potassium 2.9 L*, Chloride 92 L, Carbon Dioxide 35 H, Anion Gap 11.9, BUN 10, Creatinine 0.90, Estimated Creat Clear 52, Estimated GFR 63, Est GFR ( Amer) 77, Glucose 115 H, Calcium 9.6, Total Bilirubin 0.4, AST 25, ALT 15, Alkaline Phosphatase 65, Total Protein 7.0, Albumin 3.8, Globulin 3.2, Albumin/Globulin Ratio 1.2 I & O for Last 24 hours: Intake & Output 03/30/24 03/31/24 04/01/24 04/02/24 23:59 23:59 23:59 23:59 Output Total 0 / 0 Balance 0 / 0 Weight 56.699 kg Assessment and Plan *Assessment and plan (1) Colitis: Status: Acute Category: Medical Code(s): K52.9 - Noninfective gastroenteritis and colitis, unspecified Plan Patient is awaiting bed at [place], [place]. See same day H&P for further recommendations, plan is to continue IV abx with zosyn and replace K level.
[2024-04-02] MEDS: LISINOPRIL/HCTZ 10-12.5MG TABLET 1 EACH PO (11:13)
[2024-04-02] MEDS: POTASSIUM CHLORIDE 10 MEQ, LIDOCAINE HCL/PF 3 ML in 0.9 % SODIUM CHLORIDE 100 ML 105 MEQ IV (13:42)
--- NOTE | 2024-04-02 16:37 | PC.NURSE ---
patient requested breathing treatment. no orders in chart. reviewed medications and spoke with patient and she has hx of COPD and uses Albuterol inhaler & nebulizer treatments at home in addition to symbicort. Called Hospitalist and respiratory.
[2024-04-02] MEDS: IPRATROPIUM/ALBUTEROL 3 ML NEB IH (17:00)
--- NOTE | 2024-04-02 17:00 | PC.NURSE ---
RESP CARE NOTE: ROOM AIR SAT 87% Pt placed back on 2LNC with sats at 94%
[2024-04-02] MEDS: LACTATED RINGERS 1000ML 1,000 ML 75 ML IV (20:27)
[2024-04-02 21:55] LABS: Adenovirus F 40/41, stool Not Detected (NotDetected); Astrovirus Not Detected (NotDetected); Campylobacter Not Detected (NotDetected); Cryptosporidium Not Detected (NotDetected); Cyclospora Cayetanesis Not Detected (NotDetected); Entamoeba histolytica Not Detected (NotDetected); Enteroaggregative E coli Not Detected (NotDetected); Enteropathogenic E coli Not Detected (NotDetected); Enterotoxigenic E coli Not Detected (NotDetected); Giardia lamblia Not Detected (NotDetected); Norovirus Not Detected (NotDetected); Plesimonas Shigalloides, PCR Not Detected (NotDetected); Rotavirus A Not Detected (NotDetected); Salmonella, PCR Not Detected (NotDetected); Sapovirus Not Detected (NotDetected); Shiga-like toxin E coli Not Detected (NotDetected); Shigella Enterovasive E coli Not Detected (NotDetected); Vibrio Cholerae Not Detected (NotDetected); Vibrio, PCR Not Detected (NotDetected); Yersinia Entercolitica, PCR Not Detected (NotDetected)
[2024-04-02 22:11] LABS: Occult Blood,Stool Negative (Negative)
[2024-04-03] VITALS (9 sets, daily range): BP systolic 139–194; BP diastolic 59–98; PULSE 84–94; RESP 16–22; TEMP 36.5–37.2; O2SAT 90–99; BMI 18.3
[2024-04-03 00:28] LABS: Clostridium Difficile A/B, PCR Detected (NotDetected)
--- NOTE | 2024-04-03 00:31 | PC.NURSE ---
Pt placed in precautions for CDIFF at this time.
[2024-04-03] MEDS: ALBUTEROL-HFA 90MCG/PUFF INHALER 8GM 1 PUFF IH (00:32)
[2024-04-03] MEDS: MORPHINE 4MG/ML SYRINGE 4 MG IV ×7 (02:07→21:17)
[2024-04-03] MEDS: cloNIDine 0.1MG TABLET 0.100000000000000006 MG PO (02:08)
[2024-04-03] MEDS: PIPERACILLIN/TAZO 3.375 GM in 0.9 % SODIUM CHLORIDE 50 ML IV ×4 (04:11→22:09)
--- NOTE | 2024-04-03 04:46 | PC.NURSE ---
Pt is alert and oriented. Tested + for CDiff this shift, GEN[employer] TECHNOLOGIST and patient aware and placed in precautions. Pt using 2L NC, O2 sat >90%. Standby assist in room. Uses toilet, multiple episodes diarrhea this shift. Complained of pain several times, treated per mar. Call light in reach.
[2024-04-03 07:51] LABS: Basophils % 0.5 % (0.1-2.0); Eosinophils # 0.2 K/mm3 (0.0-0.4); Eosinophils % 3.9 % (0.1-12.0); Hematocrit 31.1 % (37.0-47.0); Hemoglobin 9.7 g/dL (12.2-16.2); Lymphocytes # 1.2 K/mm3 (0.7-4.5); Lymphocytes % 21.5 % (10-50); Mean Corpuscular HGB Conc 31.4 g/dL (31.8-35.4); Mean Corpuscular Hemoglobin 31.3 pg (27.0-31.2); Mean Corpuscular Volume 99.6 fl (81-99); Mean Platelet Volume 7.6 fl (7.4-10.4); Monocytes # 0.3 K/mm3 (0.1-1.0); Monocytes % 4.8 % (1.7-9.3); Neutrophils % 69.2 % (37.0-80.0); Platelet Count 334 K/mm3 (142-424); Red Blood Count 3.12 M/mm3 (4.20-5.40); White Blood Count 5.8 K/mm3 (4.8-10.8)
[2024-04-03 08:13] LABS: Chloride 95 mmol/L (98-107); Sodium 134 mmol/L (136-145)
[2024-04-03 08:16] LABS: Alanine Aminotransferase 15 U/L (12-78); Alkaline Phosphatase 63 U/L (38-126); Aspartate Amino Transferase 29 U/L (14-36); Bilirubin,Total 0.5 mg/dl (0.2-1.3); Blood Urea Nitrogen 7 mg/dl (7-17); Creatinine Clearance Estimated 47 mL/min (50-200); Estimated Glomerular Filt Rate 72 ml/min (>60); GFR (African American) 88 ML/MIN (>60)
[2024-04-03 08:17] LABS: Albumin Level 3.5 g/dl (3.5-5.0); Albumin/Globulin Ratio 1.3 (1.1-1.8); Calcium 9.8 mg/dl (8.4-10.2); Carbon Dioxide 36 mmol/L (22.0-30.0); Globulin 2.8 g/dL (1.3-3.2); Glucose 80 mg/dl (74-100); Potassium 2.9 mmoL/L (3.5-5.1); Total Protein,Serum 6.3 g/dl (6.3-8.2)
[2024-04-03 08:18] LABS: Anion Gap 5.9 mEq/L (5-15)
[2024-04-03] MEDS: DULOXETINE 30MG CAPSULE.DR 60 MG PO (08:32)
[2024-04-03] MEDS: PANTOPRAZOLE 40MG TABLET 40 MG PO (08:32)
[2024-04-03] MEDS: LISINOPRIL/HCTZ 10-12.5MG TABLET 1 EACH PO (08:32)
[2024-04-03] MEDS: VANCOMYCIN HCL 50MG/ML 150ML KIT 125 MG PO ×4 (08:33→20:29)
[2024-04-03] MEDS: POTASSIUM CHLORIDE 20MEQ TAB 40 MEQ PO (10:51)
--- NOTE | 2024-04-03 11:40 | PC.NURSE ---
Left arm iv infiltrated and removed. Arm dressed and elevated on a pillow.
--- NOTE | 2024-04-03 15:32 | PC.NURSE ---
Pt is alert and oriented. Tested + for CDiff and on abx, Pt using 2L NC, O2 sat >90%, Standby assist in room, Uses toilet, 20g right upper arm with LR @ 75 ml/hr.
--- NOTE | 2024-04-03 15:54 | P.PN_ITS ---
Subjective *Date: 04/03/24 *Time: 15:54 Interval history: Patient was afebrile overnight. Feeling somewhat better. Tolerating advancement in diet. Wants to increase to full liquids. Stable on 2 L nasal cannula which is her baseline. Still having liquid stools but decreasing in frequency. Denies chest pain, shortness of breath, nausea or vomiting Medical Exam Vital signs and Labs for Last 24 Hours: Vital Signs Temp Pulse Pulse Resp BP Pulse Ox O2 Del Method 04/03/24 12:27 Nasal Cannula 04/03/24 10:14 Nasal Cannula 04/03/24 08:39 Nasal Cannula 04/03/24 08:00 97.7 F 87 19 161/86 H 97 Nasal Cannula 04/03/24 08:00 Nasal Cannula 04/03/24 06:57 Nasal Cannula 04/03/24 04:45 Nasal Cannula 04/03/24 04:00 98.1 F 84 18 139/59 L 97 Nasal Cannula 04/03/24 02:59 Nasal Cannula 04/03/24 01:00 Nasal Cannula 04/03/24 00:31 194/98 H 04/03/24 00:00 99.0 F 86 18 194/98 H 94 L Nasal Cannula 04/02/24 23:00 Nasal Cannula 04/02/24 21:00 Nasal Cannula 04/02/24 20:00 Nasal Cannula 04/02/24 20:00 98.6 F 82 18 173/82 H 97 Nasal Cannula 04/02/24 18:56 Nasal Cannula, Venturi Mask 04/02/24 17:01 84 04/02/24 17:01 94 L Nasal Cannula 04/02/24 17:00 Nasal Cannula 04/02/24 16:00 100 H 04/02/24 16:00 88 22 164/85 H 100 Nasal Cannula O2 Flow Rate 04/03/24 12:27 2 04/03/24 10:14 2 04/03/24 08:39 2 04/03/24 08:00 2 04/03/24 08:00 2 04/03/24 06:57 2 04/03/24 04:45 2 04/03/24 04:00 2 04/03/24 02:59 2 04/03/24 01:00 2 04/03/24 00:31 04/03/24 00:00 2 04/02/24 23:00 2 04/02/24 21:00 2 04/02/24 20:00 2 04/02/24 20:00 2 04/02/24 18:56 04/02/24 17:01 04/02/24 17:01 2 04/02/24 17:00 2 04/02/24 16:00 04/02/24 16:00 Intake and Output 04/02/24 04/03/24 04/03/24 23:59 07:59 15:59 Intake Total 1695 / 1795 460 / 460 Output Total 0 / 0 0 / 0 0 / 0 Balance 1695 / 1795 460 / 460 0 / 460 Intake: Intake, Oral Amount 420 / 420 Intake, Total IV Amount 1275 / 1375 460 / 460 KCl 10mEq/100ml 100 ml @ 100 200 / 200 mls/hr IV Q1H [facility] Rx#:[id number] Lactated Ringers 1000ML 1,000 875 / 875 360 / 360 ml @ 75 mls/hr IV .[id number] [facility] Rx#:[id number] Piperacillin/Tazo 3.375 gm In 0 100 / 200 100 / 100 .9 % Sodium Chloride 50 ml @ 100 mls/hr IV Q6H [facility] Rx#: [id number] Potassium Chloride 10 meq 100 / 100 Lidocaine HCl/Pf 3 ml In 0.9 % Sodium Chloride 100 ml @ 105 mls/hr IV ONCE ONE Rx#:[id number] Output: Output, Urine Amount 0 / 0 0 / 0 0 / 0 Other: Number of Voids 0 0 Number of Unmeasured Voids 1 1 1 Number of Bowel Movements 1 1 Weight 51.755 kg Patient Weight 04/03/24 23:59 Weight 51.755 kg Laboratory Results - last 24 hr 04/01/24 21:49: Stl Aeromonas (PCR) Not detected, Stl C. cayetanensis PCR Not detected, Stool Rotavirus (PCR) Not detected, Stl Adenov F 40/41 PCR Not detected, Stool Astrovirus (PCR) Not detected, Stool Campylobacter PCR Not detected, Stl C.difficile Tox PCR Detected A, Stool Cryptosporidium PCR Not dete cted, Stl E.coli Shiga Tox PCR Not detected, Stool E coli O157 PCR TNP, Stl Enterotoxigenic E PCR Not detected, Stool EPEC (PCR) Not detected, Stool EAEC (PCR) Not detected, Stl E. histolytica PCR Not detected, Stool Giardia Lamblia PCR Not detected, Stool Salmonella PCR Not detected, Stool Sapovirus (PCR) Not detected, Stl P. shigelloides PCR Not detected, Stl Shigella/EIEC PCR Not detected, St Y.enterocolitica PCR Not detected, Stool Vibrio (PCR) Not detected, Stl Vibrio cholerae PCR Not detected, Stl Norovirus GI/GII PCR Not detected 04/02/24 00:40: Urine Color Yellow, Urine Appearance Clear, Urine pH 7.0, Ur Specific [place] 1.015, Urine Protein 1+, Urine Glucose (UA) Negative, Urine Ketones Trace, Urine Blood Trace-i, Urine Nitrate Negative, Urine Bilirubin Nega tive, Urine Urobilinogen 0.2, Ur Leukocyte Esterase 2+ A, Urine RBC Occasional, Urine WBC 10-20, Ur Squamous Epith Cells Occasional, Urine Bacteria 2+ 04/02/24 21:49: Stool Occult Blood Negative 04/03/24 07:20: WBC 5.8 D, RBC 3.12 L, Hgb 9.7 L, Hct 31.1 L, MCV 99.6 H, MCH 31.3 H, MCHC 31.4 L, RDW 15.0, Plt Count 334, MPV 7.6, Neut % (Auto) 69.2, Lymph % (Auto) 21.5, [place] % (Auto) 4.8, Eos % (Auto) 3.9, Baso % (Auto) 0.5, Neut # (Auto) 4.0, Lymph # (Auto) 1.2, [place] # (Auto) 0.3, Eos # (Auto) 0.2, Baso # (Auto) 0.0, Sodium 134 L, Potassium 2.9 L*, Chloride 95 L, Carbon Dioxide 36 H, Anion Gap 5.9, BUN 7 D, Creatinine 0.80, Estimated Creat Clear 47, Estimated GFR 72, Est GFR ( Amer) 88, Glucose 80, Calcium 9.8, Total Bilirubin 0.5, AST 29, ALT 15, Alkaline Phosphatase 63, Total Protein 6.3, Albumin 3.5, Globulin 2.8, Albumin/Globulin Ratio 1.3 I & O for Labs for Last 24 Hours: Intake & Output 03/31/24 04/01/24 04/02/24 04/03/24 23:59 23:59 23:59 23:59 Intake Total 1695 / 1795 460 / 460 Output Total 0 / 0 0 / 0 Balance 1695 / 1795 460 / 460 Weight 56.699 kg 51.755 kg Microbiology Reports for the Last 24 Hours: Microbiology 04/02/24 00:40 Urine,Clean Catch Urine Culture - Preliminary Gram Negative Rods Constitutional: Present no acute distress, thin and chronically ill appearing Head: Present atraumatic and normocephalic ENT: Present normal exam Neck: Present normal inspection Respiratory: Present prolonged expiratory phase, wheezes and normal respiratory effort; Absent rhonchi or crackles Cardiac: Present Reg Rate and Rhythm GI: Present soft, tenderness (Nonfocal) and normal bowel sounds; Absent distention Extremities: Present normal inspection and full ROM Skin: Present intact; Absent erythema Neuro: Present Grossly Intact, alert, awake, oriented x 3 and moves all extremities Assessment and Plan *Assessment and plan (1) C. difficile colitis: Status: Acute Category: Medical Code(s): A04.72 - Enterocolitis due to Clostridium difficile, not specified as recurrent (2) Colitis: Status: Acute Category: Medical Code(s): K52.9 - Noninfective gastroenteritis and colitis, unspecified (3) AAA (abdominal aortic aneurysm) without rupture: Status: Acute Qualifiers: Abdominal aorta location: infrarenal aorta Qualified Code(s): I71.43 - Infrarenal abdominal aortic aneurysm, without rupture Category: Medical Code(s): I71.40 - Abdominal aortic aneurysm, without rupture, unspecified (4) COPD (chronic obstructive pulmonary disease): Status: Acute Qualifiers: COPD type: unspecified COPD Qualified Code(s): J44.9 - Chronic obstructive pulmonary disease, unspecified Category: Medical Code(s): J44.9 - Chronic obstructive pulmonary disease, unspecified (5) Hyperlipidemia: Status: Acute Qualifiers: Hyperlipidemia type: unspecified Qualified Code(s): E78.5 - Hyperlipidemia, unspecified Category: Medical Code(s): E78.5 - Hyperlipidemia, unspecified (6) Hypertension: Status: Acute Qualifiers: Hypertension type: unspecified Qualified Code(s): I10 - Essential (primary) hypertension Category: Medical Code(s): I10 - Essential (primary) hypertension Plan Ms. Solo is a 64-year-old female with COPD, recent prolonged course at [place] for perforated diverticulitis, stable AAA without rupture. She presented to the ER with nausea vomiting and diarrhea. Stool panel positive for C. difficile, imaging positive for colitis. Personally reviewed CT showing inflammation of large portion of the colon (transverse, sigmoid, descending). Does not appear to be any free air. Tolerating p.o. vancomycin. Currently on Zosyn for pericolonic stranding. Showing some improvement clinically. Continues to require inpatient management. On baseline oxygen. Problems addressed as follows: C. difficile colitis -Continue p.o. vancomycin 125 mg 4 times a day for 10 days -Given finding of pericolonic fat stranding, will continue Zosyn for the time being. White cell count is normalized at 5.8. -Repeat CBC, CMP, magnesium ordered for the morning. Will obtain ESR, CRP as well. -Advance diet to full liquid - Pain: Continue morphine 4 mg IV every 3 hours as needed, monitor for toxicity Hypokalemia: Potassium 2.9 this morning. Will replace with 40 mEq p.o. 3 times a day. Repeat BMP this afternoon. Creatinine 0.8, BUN 7. COPD: Stable on 2 L of oxygen, this is her baseline. Goal sats greater 90%. Continue Symbicort 1 puff twice daily scheduled, DuoNebs every 6 hours as needed for wheeze or shortness of breath Hypertension: Continue lisinopril/HCTZ 09/08-1/ daily Mood disorder: Continue Cymbalta 60 mg daily Full code Continues to require inpatient management, full liquid diet Patient mobile, holding on anticoagulation.
[2024-04-03 17:25] LABS: Anion Gap 15.1 mEq/L (5-15); Blood Urea Nitrogen 8 mg/dl (7-17); Calcium 9.7 mg/dl (8.4-10.2); Carbon Dioxide 26 mmol/L (22.0-30.0); Chloride 97 mmol/L (98-107); Creatinine Clearance Estimated 47 mL/min (50-200); Estimated Glomerular Filt Rate 72 ml/min (>60); GFR (African American) 88 ML/MIN (>60); Glucose 94 mg/dl (74-100); Potassium 4.1 mmoL/L (3.5-5.1); Sodium 134 mmol/L (136-145)
[2024-04-03] MEDS: FLUTICASONE/SALMETEROL 100/50MCG DISKUS 1 PUFF IH (18:53)
[2024-04-03] MEDS: MELATONIN 5MG TABLET 10 MG PO (21:18)
[2024-04-03] MEDS: IPRATROPIUM/ALBUTEROL 3 ML NEB IH (21:40)
[2024-04-04] MEDS: PIPERACILLIN/TAZO 3.375 GM in 0.9 % SODIUM CHLORIDE 50 ML IV ×2 (03:46→09:57)
[2024-04-04] MEDS: MORPHINE 4MG/ML SYRINGE 4 MG IV ×3 (03:49→11:50)
[2024-04-04 04:00] VITALS: BP 161/69; PULSE 82; RESP 16; TEMP 36.7; O2SAT 98; BMI 18.3
--- NOTE | 2024-04-04 05:59 | PC.NURSE ---
Alert and oriented. Independent in the room. 2L NC, O2 sat >90%. Complained of pain, treated per jan. No other complaints. Call light in reach.
[2024-04-04] MEDS: FLUTICASONE/SALMETEROL 100/50MCG DISKUS 1 PUFF IH (06:27)
[2024-04-04 06:29] VITALS: O2SAT 94
[2024-04-04 07:56] VITALS: BP 147/79; PULSE 89; RESP 16; TEMP 36.6; O2SAT 98
[2024-04-04 08:00] VITALS: O2SAT 98
--- NOTE | 2024-04-04 08:05 | PC.NURSE ---
[facility] CALLED TO CHECK ON PATIENT. UPDATED ON PATIENT STATUS. STILL NO BED AVAILABLE AT THIS TIME.
[2024-04-04] MEDS: PANTOPRAZOLE 40MG TABLET 40 MG PO (08:35)
[2024-04-04] MEDS: DULOXETINE 30MG CAPSULE.DR 60 MG PO (08:35)
[2024-04-04] MEDS: LISINOPRIL/HCTZ 10-12.5MG TABLET 1 EACH PO (08:35)
[2024-04-04] MEDS: VANCOMYCIN HCL 50MG/ML 150ML KIT 125 MG PO ×2 (08:38→12:12)
[2024-04-04 09:01] LABS: Basophils % 0.4 % (0.1-2.0); Eosinophils # 0.3 K/mm3 (0.0-0.4); Eosinophils % 3.9 % (0.1-12.0); Hemoglobin 9.5 g/dL (12.2-16.2); Lymphocytes # 1.3 K/mm3 (0.7-4.5); Lymphocytes % 17.4 % (10-50); Mean Corpuscular HGB Conc 32.7 g/dL (31.8-35.4); Mean Corpuscular Hemoglobin 31.4 pg (27.0-31.2); Mean Corpuscular Volume 96.2 fl (81-99); Mean Platelet Volume 7.5 fl (7.4-10.4); Monocytes # 0.4 K/mm3 (0.1-1.0); Monocytes % 5.6 % (1.7-9.3); Neutrophils # 5.3 K/mm3 (1.8-7.8); Neutrophils % 72.8 % (37.0-80.0); Platelet Count 358 K/mm3 (142-424); Red Blood Count 3.01 M/mm3 (4.20-5.40); Red Cell Distribution Width 15.3 % (11.5-17.5); White Blood Count 7.3 K/mm3 (4.8-10.8)
[2024-04-04 09:18] LABS: Alanine Aminotransferase 21 U/L (12-78); Albumin/Globulin Ratio 1.4 (1.1-1.8); Alkaline Phosphatase 62 U/L (38-126); Anion Gap 12.7 mEq/L (5-15); Aspartate Amino Transferase 39 U/L (14-36); Bilirubin,Total 0.5 mg/dl (0.2-1.3); Blood Urea Nitrogen 5 mg/dl (7-17); Calcium 9.7 mg/dl (8.4-10.2); Carbon Dioxide 34 mmol/L (22.0-30.0); Chloride 92 mmol/L (98-107); Creatinine Clearance Estimated 47 mL/min (50-200); Estimated Glomerular Filt Rate 63 ml/min (>60); GFR (African American) 77 ML/MIN (>60); Globulin 2.8 g/dL (1.3-3.2); Glucose 104 mg/dl (74-100); Magnesium 1.4 mg/dl (1.6-2.3); Potassium 3.7 mmoL/L (3.5-5.1); Sodium 135 mmol/L (136-145); Total Protein,Serum 6.8 g/dl (6.3-8.2)
[2024-04-04 09:23] LABS: C-Reactive Protein 75.7 mg/L (0-4)
[2024-04-04 09:28] LABS: Erythrocyte Sedimentation Rate 79 mm/hr (0-30)
--- NOTE | 2024-04-04 10:25 | EXP.DC.SUM ---
General Admission date:: 04/02/24 Discharge date: 04/04/24 HPI HPI HPI: 64-year-old female who presents to the emergency department for evaluation of abdominal pain nausea vomiting diarrhea. Patient is normotensive tachycardic satting at 96% on her 2 L by nasal cannula upon arrival, and afebrile. Physical exam is remarkable for tenderness to palpation diffusely in the abdomen but predominantly in the lower quadrants with peritoneal signs, no bruits heard in the abdomen, bowel sounds are diminished but present and remainder of her physical exam is nonfocal and unremarkable.. Differential diagnosis includes gastroenteritis versus bowel obstruction versus complicated urinary tract infection versus pyelonephritis versus intra-abdominal infection versus bowel perforation versus bladder obstruction versus diverticulitis, etc. Initial workup will be conducted with hematologic labs CT scan of the abdomen pelvis with contrast. Initial interventions include fluid bolus NSAID Toradol. Initial workup reviewed by me shows a white count of 22,000 with a left shift, lactate of 1.7 creatinine 1.5 and my personal interpretation of appointment chest x-ray shows pneumatosis of the cecum and ascending colon with air under the diaphragm and diverticulitis of the sigmoid colon with contained perforation but radiologist read is pending. Hospital Course Hospital Course Hospital Course: Ms. Solo is a 64-year-old female with COPD, recent prolonged course at [place] for perforated diverticulitis, stable AAA without rupture. She presented to the ER with nausea vomiting and diarrhea. Stool panel positive for C. difficile, imaging positive for colitis. Personally reviewed CT showing inflammation of large portion of the colon (transverse, sigmoid, descending). Does not appear to be any free air. Tolerating p.o. vancomycin. Currently on Zosyn for pericolonic stranding. Showed clinical improvement during admission. She is tolerating p.o. intake, having bowel movements, clinically improving, will discharge home to complete antibiotics as an outpatient. Stable on baseline oxygen. Problems addressed as follows: C. difficile colitis Urinary tract infection -Patient initiated on antibiotics with Zosyn. Diarrhea panel obtained. Returned positive for C. difficile. Was initiated on vancomycin 125 mg p.o. 4 times a day. Will complete 10 days of antibiotics. White cell count normalized to 7.3 by day of discharge. Able to advance diet and tolerating p.o. intake for over 24 hours prior to discharge. Initially concerned given her prolonged recent admission and pericolonic fat stranding that she may necessitate transfer. Given improvement however a diagnosis of C. difficile, patient deemed appropriate to continue treatment at [facility]. Pain improved. Discharged with short course of pain meds. In addition to C. difficile, patient urine returned positive for 100,000 CFU's of E cloacae A. Sensitive to levofloxacin. Antibiotics were transitioned to levofloxacin to complete 7-day course total for UTI. Discharged on oral regimen. Hypokalemia: Potassium low during admission. Improved with treatment. 3.7 by day of discharge. Kidney function normal. COPD: Stable on 2 L of oxygen, this is her baseline. Goal sats greater 90%. Continue Symbicort 1 puff twice daily scheduled, DuoNebs every 6 hours as needed for wheeze or shortness of breath Hypertension: Continue lisinopril/HCTZ 09/08-11/29 daily Mood disorder: Continue Cymbalta 60 mg daily Stable for discharge home. Exam Data for Last 24 hours Vital signs and Labs for Last 24 Hours: Temp Pulse Resp BP Pulse Ox O2 Del Method O2 Flow Rate 98 F 89 16 147/79 H 98 Nasal Cannula 2 04/04/24 07:56 04/04/24 07:56 04/04/24 07:56 04/04/24 07:56 04/04/24 08:00 04/04/24 08:55 04/04/24 08:55 FiO2 28 04/03/24 19:23 Laboratory Results - last 24 hr 04/03/24 16:40: Sodium 134 L, Potassium 4.1 D, Chloride 97 L, Carbon Dioxide 26, Anion Gap 15.1 H, BUN 8, Creatinine 0.80, Estimated Creat Clear 47, Estimated GFR 72, Est GFR ( Amer) 88, Glucose 94, Calcium 9.7 04/04/24 08:50: WBC 7.3 D, RBC 3.01 L, Hgb 9.5 L, Hct 29.0 L, MCV 96.2, MCH 31.4 H, MCHC 32.7, RDW 15.3, Plt Count 358, MPV 7.5, Neut % (Auto) 72.8, Lymph % (Auto) 17.4, [place] % (Auto) 5.6, Eos % (Auto) 3.9, Baso % (Auto) 0.4, Neut # (Auto) 5.3, Lymph # (Auto) 1.3, [place] # (Auto) 0.4, Eos # (Auto) 0.3, Baso # (Auto) 0.0, ESR 79 H, Sodium 135 L, Potassium 3.7, Chloride 92 L, Carbon Dioxide 34 H, Anion Gap 12.7, BUN 5 L D, Creatinine 0.90, Estimated Creat Clear 47, Estimated GFR 63, Est GFR ( Amer) 77, Glucose 104 H, Calcium 9.7, Magnesium 1.4 L, Total Bilirubin 0.5, AST 39 H D, ALT 21 D, Alkaline Phosphatase 62, C-Reactive Protein 75.7 H, Total Protein 6.8, Albumin 4.0 D, Globulin 2.8, Albumin/Globulin Ratio 1.4 I & O for Last 24 hours: Intake & Output 04/01/24 04/02/24 04/03/24 04/04/24 23:59 23:59 23:59 23:59 Intake Total 1694 580 / 580 Output Total 0 / 0 0 / 0 0 / 0 Balance 1694 580 / 580 Weight 56.699 kg 51.755 kg 51.8 kg Microbiology Reports for the Last 24 Hours: Microbiology 04/02/24 00:40 Urine,Clean Catch Urine Culture - Final Enterobacter cloacae Constitutional Constitutional: no acute distress, thin, chronically ill appearing and cooperative *Routine HEENT Exam Head: Present normocephalic Eye: Present EOMI and PERRL ENT: Present mucous membranes moist *Routine Neck Exam Neck: Present supple; Absent lymphadenopathy *Routine Respiratory Exam Respiratory: Present prolonged expiratory phase, rhonchi, wheezes and normal respiratory effort; Absent CTA bilaterally or crackles *Routine Cardiovascular Exam Cardiovascular: Present RRR *Routine Abdominal Exam Abdominal: Present soft, normoactive bowel sounds and tenderness (diffuse but improved); Absent distended or rebound *Routine Rectal Exam Patient deferred: visual exam *Routine Exam Patient deferred: external exam *Routine Extremities Exam Extremities: Absent cyanosis, clubbing or edema *Routine Skin Exam Skin: Present warm; Absent rash *Routine Neurological Exam Neurological: Present alert, oriented X3 and moving all extremities; Absent altered mental status Results Data Completed and Pending Labs on day of discharge: Labs from last 24 hours 04/04/24 04/03/24 08:50 16:40 WBC 7.3 D RBC 3.01 L Hgb 9.5 L Hct 29.0 L MCV 96.2 MCH 31.4 H MCHC 32.7 RDW 15.3 Plt Count 358 MPV 7.5 Neut % (Auto) 72.8 Lymph % (Auto) 17.4 [place] % (Auto) 5.6 Eos % (Auto) 3.9 Baso % (Auto) 0.4 Neut # (Auto) 5.3 Lymph # (Auto) 1.3 [place] # (Auto) 0.4 Eos # (Auto) 0.3 Baso # (Auto) 0.0 ESR 79 H Sodium 135 L 134 L Potassium 3.7 4.1 D Chloride 92 L 97 L Carbon Dioxide 34 H 26 Anion Gap 12.7 15.1 H BUN 5 L D 8 Creatinine 0.90 0.80 Estimated Creat Clear 47 47 Estimated GFR 63 72 Est GFR ( Amer) 77 88 Glucose 104 H 94 Calcium 9.7 9.7 Magnesium 1.4 L Total Bilirubin 0.5 AST 39 H D ALT 21 D Alkaline Phosphatase 62 C-Reactive Protein 75.7 H Total Protein 6.8 Albumin 4.0 D Globulin 2.8 Albumin/Globulin Ratio 1.4 DS: Diagnosis Discharge Diagnosis (1) C. difficile colitis: Status: Acute Code(s): A04.72 - Enterocolitis due to Clostridium difficile, not specified as recurrent (2) Colitis: Status: Acute Code(s): K52.9 - Noninfective gastroenteritis and colitis, unspecified (3) AAA (abdominal aortic aneurysm) without rupture: Status: Acute Code(s): I71.40 - Abdominal aortic aneurysm, without rupture, unspecified Qualifiers: Abdominal aorta location: infrarenal aorta Qualified Code(s): I71.43 - Infrarenal abdominal aortic aneurysm, without rupture (4) COPD (chronic obstructive pulmonary disease): Status: Acute Code(s): J44.9 - Chronic obstructive pulmonary disease, unspecified Qualifiers: COPD type: unspecified COPD Qualified Code(s): J44.9 - Chronic obstructive pulmonary disease, unspecified (5) Hyperlipidemia: Status: Acute Code(s): E78.5 - Hyperlipidemia, unspecified Qualifiers: Hyperlipidemia type: unspecified Qualified Code(s): E78.5 - Hyperlipidemia, unspecified (6) Hypertension: Status: Acute Code(s): I10 - Essential (primary) hypertension Qualifiers: Hypertension type: unspecified Qualified Code(s): I10 - Essential (primary) hypertension (7) UTI (urinary tract infection): Status: Acute Code(s): N39.0 - Urinary tract infection, site not specified Meds Home Medications and Allergies Home Medications Medication Instructions Recorded Confirmed Type albuterol sulfate 90 mcg/actuation 1 puff inhalation Q4HP PRN 04/02/24 04/02/24 History aerosol inhaler (Ventolin HFA) Shortness Of Breath alendronate 70 mg tablet 70 mg PO WEEKLY 04/02/24 04/02/24 History budesonide-formoterol HFA 80 2 puff inhalation BID 04/02/24 04/02/24 History mcg-4.5 mcg/actuation aerosol inhaler (Symbicort) cyclobenzaprine 10 mg tablet 10 mg PO TIDP PRN muscle spasms 04/02/24 04/02/24 History duloxetine 60 mg capsule,delayed 60 mg PO DAILY 04/02/24 04/02/24 History release lisinopril 20 1 tab PO DAILY 04/02/24 04/02/24 History mg-hydrochlorothiazide 25 mg tablet trazodone 100 mg tablet 200 mg PO HS 04/02/24 04/02/24 History hydrocodone 5 mg-acetaminophen 325 1 tab PO Q8H PRN pain 3 days #9 04/04/24 Rx mg tablet tabs levofloxacin 750 mg tablet 750 mg PO DAILY 4 days #4 tabs 04/04/24 Rx vancomycin 50 mg/mL oral solution 125 mg (2.5 mL) PO QID 8 days #0 mL 04/04/24 Rx (Firvanq) New Prescriptions to Start Prescriptions: hydrocodone-acetaminophen Isauro Whaley levofloxacin Isauro Whaley Allergies Allergy/AdvReac Type Severity Reaction Status Date / Time No Known Allergies Allergy Verified 02/06/24 20:05 Discharge Plan Disposition Patient Disposition: Home, Self-Care Condition: Fair Follow up Plan Follow up with: Alexy Mendez MD [Primary Care Provider] - 04/09/24 1:00 pm Prescriptions/Medication Reconciliation: New vancomycin [Firvanq] 50 mg/mL Recon Soln 125 mg PO QID 8 Days Qty: 0 0RF Rx Instructions: Sent patient with vile from inpatient setting. levofloxacin 750 mg tablet 750 mg PO DAILY 4 Days Qty: 4 0RF hydrocodone-acetaminophen 5-325 mg tablet 1 tab PO Q8H PRN (Reason: pain) 3 Days Qty: 9 0RF Continued cyclobenzaprine 10 mg tablet 10 mg PO TIDP PRN (Reason: muscle spasms) trazodone 100 mg tablet 200 mg PO HS lisinopril-hydrochlorothiazide 20-25 mg tablet 1 tab PO DAILY albuterol sulfate [Ventolin HFA] 90 mcg/actuation HFA aerosol inhaler 1 puff INHALATION Q4HP PRN (Reason: Shortness Of Breath) duloxetine 60 mg capsule,delayed release(DR/EC) 60 mg PO DAILY budesonide-formoterol [Symbicort] 80-4.5 mcg/actuation HFA aerosol inhaler 2 puff INHALATION BID alendronate 70 mg tablet 70 mg PO WEEKLY Patient Comments: TAKE 1 TABLET BY MOUTH EVERY 7 DAYS DIRECTED Problem Reconciliation Problems Reviewed?: Yes Patient Discharge Instructions ACTIVITY: Ambulate as tolerated DIET: NPO Patient Instructions: DI for Urinary Tract Infection (UTI), DI for Colitis, Clostridium difficile Infection Providers Primary Care Provider: Alexy Mendez Admit Provider: Carolina Hinojosa Attending Provider: Carolina Hinojosa
[2024-04-04] MEDS: LEVOFLOXACIN/D5W 750 MG/150 ML 750 MG/150 ML PIGGYBACK 100 MG IV (11:12)
--- NOTE | 2024-04-05 15:25 | CARE MANAGER ---
Contacted patient related to hospital discharge. She states she is having some abdominal cramping and feels like medications is making her jerk . She does continue to take both antibiotics. We discussed getting in to see her PCP sooner and she states that he is on vacation, so we discussed coming to the [facility] if the cramping didn't ease up. She denies any questions or concerns at this time.
== END 2024-04-04 13:35 | disposition home or self-care (01) ==
LOC: ER 04-02 03:18 → 2ND 04-02 04:17
PROVIDERS: Internal Medicine Adolescent Medicine; Nurse Practitioner Family; Admitting Provider Internal Medicine; Emergency Provider Emergency Medicine; PCP Family Medicine; Visit Provider Internal Medicine
DX: A04.72 Enterocolitis due to Clostridium difficile, not specified as recurrent (principal); J44.9 Chronic obstructive pulmonary disease, unspecified; E78.5 Hyperlipidemia, unspecified; I10 Essential (primary) hypertension; F17.210 Nicotine dependence, cigarettes, uncomplicated; I71.43 Infrarenal abdominal aortic aneurysm, without rupture; Z79.899 Other long term (current) drug therapy; N39.0 Urinary tract infection, site not specified; B96.89 Other specified bacterial agents as the cause of diseases classified elsewhere
CPT/HCPCS: 36415; 74174; 80048; 80053; 81001; 82272; 83605; 83690; 83735; 85007; 85025; 85610; 85651; 85730; 86140; 86850; 87040; 87086; 87088; 87186; 87506; 94640; 94761; 99285; G0328; G0378; J1956; J2405; J2543; Q9967

== ENCOUNTER 2024-04-17 18:00 | Outpatient (CLI) | payer MEDICAID, SELFPAY ==
[2024-04-17 18:59] LABS: Basophils % 0.4 % (0.1-2.0); Eosinophils # 0.5 K/mm3 (0.0-0.4); Eosinophils % 5.6 % (0.1-12.0); Hematocrit 35.3 % (37.0-47.0); Hemoglobin 10.8 g/dL (12.2-16.2); Lymphocytes # 2.1 K/mm3 (0.7-4.5); Lymphocytes % 24.1 % (10-50); Mean Corpuscular HGB Conc 30.7 g/dL (31.8-35.4); Mean Corpuscular Hemoglobin 31.1 pg (27.0-31.2); Mean Corpuscular Volume 101.4 fl (81-99); Mean Platelet Volume 9.1 fl (7.4-10.4); Monocytes # 0.5 K/mm3 (0.1-1.0); Monocytes % 5.7 % (1.7-9.3); Neutrophils # 5.6 K/mm3 (1.8-7.8); Neutrophils % 64.3 % (37.0-80.0); Platelet Count 393 K/mm3 (142-424); Red Blood Count 3.48 M/mm3 (4.20-5.40); Red Cell Distribution Width 15.7 % (11.5-17.5); White Blood Count 8.7 K/mm3 (4.8-10.8)
[2024-04-17 19:17] LABS: Alanine Aminotransferase 21 U/L (12-78); Albumin Level 4.2 g/dl (3.5-5.0); Albumin/Globulin Ratio 1.3 (1.1-1.8); Alkaline Phosphatase 54 U/L (38-126); Anion Gap 12.5 mEq/L (5-15); Aspartate Amino Transferase 33 U/L (14-36); Bilirubin,Total 0.3 mg/dl (0.2-1.3); Blood Urea Nitrogen 21 mg/dl (7-17); Carbon Dioxide 31 mmol/L (22.0-30.0); Chloride 100 mmol/L (98-107); Estimated Glomerular Filt Rate 63 ml/min (>60); GFR (African American) 77 ML/MIN (>60); Globulin 3.2 g/dL (1.3-3.2); Glucose 86 mg/dl (74-100); Potassium 4.5 mmoL/L (3.5-5.1); Sodium 139 mmol/L (136-145); Total Protein,Serum 7.4 g/dl (6.3-8.2)
[2024-04-24 18:51] LABS: Vitamin B12 565 pg/mL (239-931)
== END 2024-04-17 23:59 | disposition home or self-care (01) ==
LOC: LAB.DROPOF 04-18 09:20
PROVIDERS: PCP Family Medicine; Visit Provider Family Medicine
DX: A04.72 Enterocolitis due to Clostridium difficile, not specified as recurrent (principal); I10 Essential (primary) hypertension; D64.9 Anemia, unspecified; Z79.899 Other long term (current) drug therapy
CPT/HCPCS: 80053; 82607; 82746; 85025

== ENCOUNTER 2024-05-03 13:28 | Emergency (ER) | payer MEDICAID, SELFPAY ==
[2024-05-03] VITALS (9 sets, daily range): BP systolic 140–169; BP diastolic 64–93; PULSE 99–110; RESP 18–20; TEMP 36.6–36.7; O2SAT 97–100; BMI 21.2
--- NOTE | 2024-05-03 13:54 | CT_ITS ---
FINAL REPORT CLINICAL HISTORY: AAA, melena FINDINGS: Thin section axial CT images of the chest were obtained with contrast. 3D reformatted images were also obtained. This study was performed with techniques to keep radiation doses as low as reasonably achievable (ALARA). Individualized dose reduction techniques using automated exposure control or adjustment of mA and/or kV according to the patient''s size were employed. There is no evidence of pulmonary embolism. There is no evidence of thoracic aortic aneurysm or dissection. There is no evidence of mediastinal or hilar mass or adenopathy. There is no evidence of pulmonary mass or nodule. No localized inflammatory process is seen within the lungs. There is mild emphysema with mild pulmonary scarring. Limited images of the upper abdomen are unremarkable. IMPRESSION: No evidence of pulmonary embolism. No mass or localized inflammatory process. Reviewed, Interpreted and Dictated by José Miguel Valenzuela III, MD Transcribed by Adelia Lopez Authenticated and [facility]
--- NOTE | 2024-05-03 13:54 | CT_ITS ---
FINAL REPORT TECHNIQUE: Pre-and postcontrast images of the abdomen and pelvis were performed by computed tomography. Extensive 3-D reconstruction images were performed. A CTA was performed. This study was performed with techniques to keep radiation doses as low as reasonably achievable (ALARA). Individualized dose reduction techniques using automated exposure control or adjustment of mA and/or kV according to the patient''s size were employed. CLINICAL HISTORY: AAA, melena FINDINGS: ABDOMEN/PELVIS: The lung bases are clear. Precontrast images demonstrate no evidence of nephrolithiasis. No adrenal masses are identified. The liver, spleen and pancreas are unremarkable. There is wall thickening involving the distal transverse colon, splenic flexure, descending colon, sigmoid colon, and rectum. The appearance is consistent with colitis. There is a small amount of pelvic free fluid, likely reactive. Patient is status post hysterectomy. CTA: There is a 4.2 cm infrarenal abdominal aortic aneurysm with moderate mural thrombus. There is moderate stenosis of the proximal erlinda axis c and SMA. The LULU is occluded proximally. There is mild stenosis of the proximal left renal artery. The iliacs are normal without significant stenosis. IMPRESSION: Findings consistent with colitis. Infrarenal abdominal aortic aneurysm. LULU is occluded proximally. Mild stenosis of the proximal left renal artery. Reviewed, Interpreted and Dictated by José Miguel Valenzuela III, MD Transcribed by Adelia Lopez Authenticated and [facility]
--- NOTE | 2024-05-03 13:55 | XR_ITS ---
FINAL REPORT CLINICAL HISTORY: COPD exacerbation, productive cough FINDINGS: TWO-VIEW CHEST The heart size is normal. The mediastinum is normal. The lungs are hyperinflated consistent with COPD. There is no pneumothorax. IMPRESSION: COPD. Reviewed, Interpreted and Dictated by José Miguel Valenzuela III, MD Transcribed by Adelia Lopez Authenticated and [facility]
[2024-05-03 14:10] LABS: Alanine Aminotransferase 17 U/L (12-78); Albumin Level 4.1 g/dl (3.5-5.0); Albumin/Globulin Ratio 1.1 (1.1-1.8); Alkaline Phosphatase 70 U/L (38-126); Aspartate Amino Transferase 26 U/L (14-36); Bilirubin,Total 0.3 mg/dl (0.2-1.3); Blood Urea Nitrogen 13 mg/dl (7-17); Calcium 10.3 mg/dl (8.4-10.2); Carbon Dioxide 35 mmol/L (22.0-30.0); Chloride 95 mmol/L (98-107); Creatinine Clearance Estimated 43 mL/min (50-200); Estimated Glomerular Filt Rate 63 ml/min (>60); GFR (African American) 77 ML/MIN (>60); Globulin 3.6 g/dL (1.3-3.2); Glucose 118 mg/dl (74-100); Lipase 73 U/L (23-300); Sodium 140 mmol/L (136-145); Total Protein,Serum 7.7 g/dl (6.3-8.2)
[2024-05-03] MEDS: IPRATROPIUM/ALBUTEROL 3 ML NEB 9 ML IH (14:14)
[2024-05-03] MEDS: METHYLPREDNISOLONE SOD SUCC 125MG VIAL 125 MG IV (14:15)
[2024-05-03] MEDS: ONDANSETRON 4MG/2ML VIAL 4 MG IV (14:15)
[2024-05-03] MEDS: KETOROLAC 30MG/ML VIAL 15 MG IV (14:15)
[2024-05-03] MEDS: MORPHINE 4MG/ML SYRINGE 4 MG IV ×2 (14:15→18:00)
[2024-05-03 14:22] LABS: NT Pro Brain Natriuretic Pep. 433 pg/mL (0-125)
--- NOTE | 2024-05-03 14:22 | HMH.EDGENADL ---
Discharge Plan Disposition Patient Disposition: Xfer Short-Term Hosp Prescriptions Prescriptions: No Action alprazolam [Xanax] 0.25 mg tablet 0.25 mg PO BID PRN (Reason: panic attack(s)) Qty: 20 0RF hydrocodone-acetaminophen 5-325 mg tablet 1 tab PO TID PRN (Reason: pain) Qty: 15 0RF cyclobenzaprine 10 mg tablet 10 mg PO TIDP PRN (Reason: muscle spasms) trazodone 100 mg tablet 200 mg PO HS lisinopril-hydrochlorothiazide 20-25 mg tablet 1 tab PO DAILY albuterol sulfate [Ventolin HFA] 90 mcg/actuation HFA aerosol inhaler 1 puff INHALATION Q4HP PRN (Reason: Shortness Of Breath) duloxetine 60 mg capsule,delayed release(DR/EC) 60 mg PO DAILY budesonide-formoterol [Symbicort] 80-4.5 mcg/actuation HFA aerosol inhaler 2 puff INHALATION BID alendronate 70 mg tablet 70 mg PO WEEKLY Patient Comments: TAKE 1 TABLET BY MOUTH EVERY 7 DAYS DIRECTED Referrals Follow up/Referrals: Silvestre Shepherd MD [Primary Care Provider] - See instructions Clinical Impressions Clinical Impression: Colitis, Stenosis of inferior mesenteric artery, Acute exacerbation of chronic obstructive pulmonary disease, AAA (abdominal aortic aneurysm), SIRS (systemic inflammatory response syndrome) Stand Alone Forms Stand Alone Forms: Transfer Record - ED Instructions Patient Instructions: DI for Acute Abdominal Pain Discharge ED Provider: Brigitte Peter General Adult HPI <Bryan Armenta MD - Last Filed: 05/03/24 15:22> General Chief complaint: Abdominal Pain Stated complaint: abd pain Time Seen by Provider: 05/03/24 13:43 Mode of Arrival: Wheelchair Source of Information: Patient Limitations: No Limitations Description of Symptoms (Recalled from ER Triage Doc. by RN): Patient reports multiple bouts of abdomen pain since January. States that she had diverticulitis and was seen in [facility] over it. States that it is not getting any better and she just wants to feel better. Complaint of cramping, nausea and diarrhea. History of Present Illness HPI narrative: Please note that above description of symptoms, in this electronic medical record under categorization of recalled from ER triage doctor by RN are reflective of an initial nursing assessment, however, is not reflective of my full history and physical exam that was personally taken and clarified. Consequentially, this preceding description of symptoms, which may include the patient's categorized chief complaint in the EMR, do not reflect my personal clinical impression, and the ultimate description of history of present illness and patient stated complaints should be deferred to this section of the note. Unless stated otherwise or congruent with this section of the note, additional signs, symptoms, or incongruence should be interpreted as inaccurate with my clinical impression. Related Data Home Medications Medication Instructions Recorded Confirmed albuterol sulfate 90 mcg/actuation 1 puff inhalation Q4HP PRN 04/02/24 04/17/24 aerosol inhaler (Ventolin HFA) Shortness Of Breath alendronate 70 mg tablet 70 mg PO WEEKLY 04/02/24 04/17/24 budesonide-formoterol HFA 80 2 puff inhalation BID 04/02/24 04/17/24 mcg-4.5 mcg/actuation aerosol inhaler (Symbicort) cyclobenzaprine 10 mg tablet 10 mg PO TIDP PRN muscle spasms 04/02/24 04/17/24 duloxetine 60 mg capsule,delayed 60 mg PO DAILY 04/02/24 04/17/24 release lisinopril 20 1 tab PO DAILY 04/02/24 04/17/24 mg-hydrochlorothiazide 25 mg tablet trazodone 100 mg tablet 200 mg PO HS 04/02/24 04/17/24 Previous Rx's Medication Instructions Recorded alprazolam 0.25 mg tablet (Xanax) 0.25 mg PO BID PRN panic attack(s) 04/17/24 #20 tabs hydrocodone 5 mg-acetaminophen 325 1 tab PO TID PRN pain #15 tabs 04/27/24 mg tablet Allergies Allergy/AdvReac Type Severity Reaction Status Date / Time No Known Allergies Allergy Verified 04/17/24 14:19 [facility] <Bryan Armenta MD - Last Filed: 05/03/24 15:22> [facility] Disclaimer: The information contained in this section may have been updated after the patient was seen, as this information can be updated by other users. Medical History (Updated 05/03/24 @ 18:08 by Brigitte Peter DO) Diverticulitis of large intestine with perforation Tobacco use Anemia Colitis UTI (urinary tract infection) Melena Pneumatosis coli Sepsis Hyperlipidemia Hypertension COPD (chronic obstructive pulmonary disease) Surgical History Previous back surgery H/O: hysterectomy Social History Smoking Status: Current every day smoker alcohol intake: former current occupational status: disabled Travel in the last 8 weeks: None <Bryan Armenta MD - Last Filed: 05/03/24 15:22> ROS Obtained: Yes All systems reviewed & no additional complaints except as documented Physical Exam <Bryan Armenta MD - Last Filed: 05/03/24 15:22> General General appearance: alert and other (Appears to be in pain, uncomfortable, not ill-appearing) Head Head exam: atraumatic and normocephalic Eye Eye exam: Present normal appearance, PERRL and EOMI ENT ENT exam: Present mucous membranes moist and other (Nasal cannula in place 2 L) Neck Neck exam: Present normal inspection, full ROM and trachea midline Respiratory Respiratory exam: Present other (Decreased breath sounds diffusely, no focal breath sounds); Absent respiratory distress, wheezes, stridor, accessory muscle use or prolonged expiratory phase Cardiovascular Cardiovascular exam: Present normal rhythm and tachycardia Abdominal Exam Abdominal exam: Present soft, tenderness and guarding; Absent distention, rebound, rigidity or pulsatile mass Abdominal tenderness: Present LLQ and moderate Extremities Exam Extremities exam: Absent edema Neurological Exam Neurological exam: Present alert, oriented X3, CN II-XII intact and normal gait; Absent motor sensory deficit Skin Skin exam: Present warm and dry; Absent diaphoresis or erythema Medical Decision Making <Bryan Armenta MD - Last Filed: 05/03/24 15:22> Medical Records Medical records reviewed: Yes I reviewed the patient's medical records. Sergio Inquiry Pt receiving controlled substance: No Sergio was queried for this patient: No Vital Signs: 05/03/24 13:29 05/03/24 14:00 05/03/24 14:30 Temperature 97.9 F Temperature Source Oral Pulse Rate 99 H 106 H Pulse Rate [Radial] 110 H Respiratory Rate 20 Blood Pressure 169/93 H 147/66 H Blood Pressure [Right Arm] 163/91 H Blood Pressure Mean [Right Arm] 115 Blood Pressure Source [Right Arm] Automatic Cuff Blood Pressure Position [Right Arm] Sitting 02 Sat by Pulse Oximetry 97 100 99 Oxygen Delivery Method Room Air 05/03/24 15:00 05/03/24 15:30 05/03/24 16:00 Temperature Temperature Source Pulse Rate 102 H 102 H 103 H Pulse Rate [Radial] Respiratory Rate Blood Pressure 153/73 H 142/69 H 140/64 Blood Pressure [Right Arm] Blood Pressure Mean [Right Arm] Blood Pressure Source [Right Arm] Blood Pressure Position [Right Arm] 02 Sat by Pulse Oximetry 99 100 97 Oxygen Delivery Method 05/03/24 16:30 05/03/24 17:00 Temperature Temperature Source Pulse Rate 100 H 103 H Pulse Rate [Radial] Respiratory Rate Blood Pressure 143/68 H 152/80 H Blood Pressure [Right Arm] Blood Pressure Mean [Right Arm] Blood Pressure Source [Right Arm] Blood Pressure Position [Right Arm] 02 Sat by Pulse Oximetry 97 98 Oxygen Delivery Method Lab Data Lab Results 05/03/24 13:35: Urine Color Yellow, Urine Appearance Clear, Urine pH 8.0, Ur Specific [place] 1.015, Urine Protein 1+, Urine Glucose (UA) Trace, Urine Ketones Trace, Urine Blood 2+, Urine Nitrate Negative, Urine Bilirubin Negative, Urine Urobilinogen 0.2, Ur Leukocyte Esterase Trace, Urine RBC 3-5, Urine WBC Occasional, Ur Squamous Epith Cells Occasional, Urine Bacteria Trace 05/03/24 13:45: WBC 13.7 H, RBC 3.51 L, Hgb 10.8 L, Hct 34.0 L, MCV 96.9, MCH 30.9, MCHC 31.9, RDW 16.0, Plt Count 408, MPV 8.1, Neut % (Auto) 79.9, Lymph % (Auto) 15.0, [place] % (Auto) 4.0, Eos % (Auto) 0.8, Baso % (Auto) 0.3, Neut # (Auto) 11.0 H, Lymph # (Auto) 2.1, [place] # (Auto) 0.5, Eos # (Auto) 0.1, Baso # (Auto) 0.0, Sodium 140, Potassium 4.0, Chloride 95 L, Carbon Dioxide 35 H, Anion Gap 14.0, BUN 13, Creatinine 0.90, Estimated Creat Clear 43, Estimated GFR 63, Est GFR ( Amer) 77, Glucose 118 H, Calcium 10.3 H, Total Bilirubin 0.3, AST 26, ALT 17, Alkaline Phosphatase 70, Troponin I < 0.01, NT-Pro-B Natriuret Pep 433 H, Total Protein 7.7, Albumin 4.1, Globulin 3.6 H, Albumin/Globulin Ratio 1.1, Lipase 73 05/03/24 13:45: Lipase 84 05/03/24 14:35: Blood Type A Positive, Antibody Screen Negative 05/03/24 16:50: Lactate 1.0, Troponin I < 0.01 05/03/24 13:45 05/03/24 13:45 Orders (Tests/Meds): ED MEDICATIONS Discontinued Medications Generic Name Dose Route Start Last Admin Trade Name Freq PRN Reason Stop Dose Admin Albuterol/Ipratropium 9 ml 05/03/24 13:53 05/03/24 14:14 Ipratropium/Albuterol 3 Ml Neb IH 05/03/24 13:54 9 ml ONCE ONE Administration Ampicillin Sodium/Sulbactam 100 mls @ 200 mls/hr 05/03/24 15:11 05/03/24 15:32 Sodium 3 gm/ Sodium Chloride IV 05/03/24 15:12 200 mls/hr ONCE ONE Administration Iopamidol 100 ml 05/03/24 15:11 05/03/24 15:12 Iopamidol-370 (76%);100ml Bottle IV 05/03/24 15:12 100 ml ONCE ONE Administration Ketorolac Tromethamine 15 mg 05/03/24 13:53 05/03/24 14:15 Ketorolac 30mg/Ml Vial IV 05/03/24 13:54 15 mg ONCE ONE Administration Methylprednisolone Sodium Succinate 125 mg 05/03/24 13:53 05/03/24 14:15 Methylprednisolone Sod Succ 125mg Vial IV 05/03/24 13:54 125 mg ONCE ONE Administration Morphine Sulfate 4 mg 05/03/24 13:53 05/03/24 14:15 Morphine 4mg/Ml Syringe IV 05/03/24 13:54 4 mg ONCE ONE Administration Morphine Sulfate 4 mg 05/03/24 17:36 05/03/24 18:00 Morphine 4mg/Ml Syringe IV 05/03/24 17:37 4 mg ONCE ONE Administration Ondansetron HCl 4 mg 05/03/24 13:53 05/03/24 14:15 Ondansetron 4mg/2ml Vial IV 05/03/24 13:54 4 mg ONCE ONE Administration Sodium Chloride 10 ml 05/03/24 15:11 05/03/24 15:12 Sodium Chloride 0.9% 10ml Syr (Rad Only) IV 05/03/24 15:12 10 ml ONCE ONE Administration Sodium Chloride 50 ml 05/03/24 15:11 05/03/24 15:12 0.9 % Sodium Chloride 50 Ml Vial IV 05/03/24 15:12 50 ml ONCE ONE Administration ORDERS Category Date Time Status Type and Screen Stat BBK 05/03/24 14:[address] angio abdomen pelvis Stat Cat Scan 05/03/24 13:54 Completed CTA Chest [CT angio chest - dissection] Stat Cat Scan 05/03/24 13:54 Completed XR chest portable Stat Exams 05/03/24 13:55 Completed Complete Blood Count Auto Diff Stat Lab 05/03/24 13:45 Completed Comprehensive Metabolic Panel Stat Lab 05/03/24 13:45 Completed Lactic Acid Stat Lab 05/03/24 16:50 Completed Lipase Stat Lab 05/03/24 13:45 Completed Lipase Stat Lab 05/03/24 13:45 Completed NT Pro Brain Natriuretic Pep. Stat Lab 05/03/24 13:45 Completed Troponin I Q3H Lab 05/03/24 16:50 Completed Troponin I Q3H Lab 05/03/24 20:00 Ordered Troponin I Stat Lab 05/03/24 13:45 Completed UA [Urinalysis and Microscopic] Stat Lab 05/03/24 13:35 Completed Blood Culture Stat Micro 05/03/24 15:20 Received Medical Decision Narrative: 64-year-old female history of hypertension, hyperlipidemia, COPD on 2 L nasal cannula, AAA without repair, diverticulitis with perforation presenting with abdominal pain, shortness of breath, cough. Patient states that she has not felt any better since being discharged from [facility], to which she was transferred after being discharged in January. States that for the past few days she has also had cough productive of more sputum that is clear, no fevers or chills. Having worsening abdominal pain, intermittent melena and loose stools. Feeling generally weak. Unable to any p.o. intake secondary to nausea without vomiting. Was seen in the emergency department about a month prior to this, has had abdominal pain since that time, but has been increasing. Similar to what she was having in the past, although it feels it is not getting better. No syncope, chest pain, urinary symptoms, lower extremity weakness, or any other concerns. History was obtained via conversation with patient and . Should be noted that patient is still currently smoking which is likely complicating care and causing progression of AAA. On arrival, patient hemodynamically stable, alert, oriented x4, appropriate, GCS 15, moving all extremities spontaneously, pupils equal and reactive to light. Full physical exam performed and significant for patient appears to be uncomfortable, but not acutely ill. 2 L nasal cannula, which is her baseline. Decreased breath sounds diffusely, no focal breath sounds. No increased work of breathing. Abdomen is soft, nondistended, but moderately tender in left lower quadrant without overlying skin changes. No flank tenderness. Neurovascularly intact, no pulsatile abdominal mass within confines of patient comfort on exam. Pulses are equal and symmetric in upper and lower extremities. Differential includes COPD exacerbation, PUD, gastritis, enteritis, gastroenteritis, pancreatitis, SBO, colitis, diverticulitis, nephrolithiasis, UTI, , cholecystitis, choledocholithiasis, hepatitis, torsion, aortic pathology, mesenteric ischemia among others. Patient was given fluids, Zofran, Toradol, morphine, DuoNebs, Solu-Medrol for symptomatic management and correction of underlying abnormalities. Workup independently interpreted and significant for leukocytosis 13.7. Patient given empiric Unasyn for concern for intra-abdominal pathology. Chemistry nonactionable. BNP only mildly elevated, likely secondary to underlying COPD exacerbation. Chest x-ray without acute cardiopulmonary space disease, but diaphragm flattening consistent with COPD. See radiology read for full review of final results. Prior to CT imaging and final disposition, care handed off to oncoming physician. Curam Developer disclaimer Much of this encounter note is an electronic reacher spoken language to printed text. Electronic reacher of the spoken language may permit errors. Although I have reviewed the note, some errors may still exist. <Brigitte Peter, DO - Last Filed: 05/03/24 18:08> Vital Signs: 05/03/24 13:29 05/03/24 14:00 05/03/24 14:30 Temperature 97.9 F Temperature Source Oral Pulse Rate 99 H 106 H Pulse Rate [Radial] 110 H Respiratory Rate 20 Blood Pressure 169/93 H 147/66 H Blood Pressure [Right Arm] 163/91 H Blood Pressure Mean [Right Arm] 115 Blood Pressure Source [Right Arm] Automatic Cuff Blood Pressure Position [Right Arm] Sitting 02 Sat by Pulse Oximetry 97 100 99 Oxygen Delivery Method Room Air 05/03/24 15:00 05/03/24 15:30 05/03/24 16:00 Temperature Temperature Source Pulse Rate 102 H 102 H 103 H Pulse Rate [Radial] Respiratory Rate Blood Pressure 153/73 H 142/69 H 140/64 Blood Pressure [Right Arm] Blood Pressure Mean [Right Arm] Blood Pressure Source [Right Arm] Blood Pressure Position [Right Arm] 02 Sat by Pulse Oximetry 99 100 97 Oxygen Delivery Method 05/03/24 16:30 05/03/24 17:00 Temperature Temperature Source Pulse Rate 100 H 103 H Pulse Rate [Radial] Respiratory Rate Blood Pressure 143/68 H 152/80 H Blood Pressure [Right Arm] Blood Pressure Mean [Right Arm] Blood Pressure Source [Right Arm] Blood Pressure Position [Right Arm] 02 Sat by Pulse Oximetry 97 98 Oxygen Delivery Method Lab Data Lab Results 05/03/24 13:35: Urine Color Yellow, Urine Appearance Clear, Urine pH 8.0, Ur Specific [place] 1.015, Urine Protein 1+, Urine Glucose (UA) Trace, Urine Ketones Trace, Urine Blood 2+, Urine Nitrate Negative, Urine Bilirubin Negative, Urine Urobilinogen 0.2, Ur Leukocyte Esterase Trace, Urine RBC 3-5, Urine WBC Occasional, Ur Squamous Epith Cells Occasional, Urine Bacteria Trace 05/03/24 13:45: WBC 13.7 H, RBC 3.51 L, Hgb 10.8 L, Hct 34.0 L, MCV 96.9, MCH 30.9, MCHC 31.9, RDW 16.0, Plt Count 408, MPV 8.1, Neut % (Auto) 79.9, Lymph % (Auto) 15.0, [place] % (Auto) 4.0, Eos % (Auto) 0.8, Baso % (Auto) 0.3, Neut # (Auto) 11.0 H, Lymph # (Auto) 2.1, [place] # (Auto) 0.5, Eos # (Auto) 0.1, Baso # (Auto) 0.0, Sodium 140, Potassium 4.0, Chloride 95 L, Carbon Dioxide 35 H, Anion Gap 14.0, BUN 13, Creatinine 0.90, Estimated Creat Clear 43, Estimated GFR 63, Est GFR ( Amer) 77, Glucose 118 H, Calcium 10.3 H, Total Bilirubin 0.3, AST 26, ALT 17, Alkaline Phosphatase 70, Troponin I < 0.01, NT-Pro-B Natriuret Pep 433 H, Total Protein 7.7, Albumin 4.1, Globulin 3.6 H, Albumin/Globulin Ratio 1.1, Lipase 73 05/03/24 13:45: Lipase 84 05/03/24 14:35: Blood Type A Positive, Antibody Screen Negative 05/03/24 16:50: Lactate 1.0, Troponin I < 0.01 Orders (Tests/Meds): ED MEDICATIONS Discontinued Medications Generic Name Dose Route Start Last Admin Trade Name Freq PRN Reason Stop Dose Admin Albuterol/Ipratropium 9 ml 05/03/24 13:53 05/03/24 14:14 Ipratropium/Albuterol 3 Ml Neb IH 05/03/24 13:54 9 ml ONCE ONE Administration Ampicillin Sodium/Sulbactam 100 mls @ 200 mls/hr 05/03/24 15:11 05/03/24 15:32 Sodium 3 gm/ Sodium Chloride IV 05/03/24 15:12 200 mls/hr ONCE ONE Administration Iopamidol 100 ml 05/03/24 15:11 05/03/24 15:12 Iopamidol-370 (76%);100ml Bottle IV 05/03/24 15:12 100 ml ONCE ONE Administration Ketorolac Tromethamine 15 mg 05/03/24 13:53 05/03/24 14:15 Ketorolac 30mg/Ml Vial IV 05/03/24 13:54 15 mg ONCE ONE Administration Methylprednisolone Sodium Succinate 125 mg 05/03/24 13:53 05/03/24 14:15 Methylprednisolone Sod Succ 125mg Vial IV 05/03/24 13:54 125 mg ONCE ONE Administration Morphine Sulfate 4 mg 05/03/24 13:53 05/03/24 14:15 Morphine 4mg/Ml Syringe IV 05/03/24 13:54 4 mg ONCE ONE Administration Morphine Sulfate 4 mg 05/03/24 17:36 05/03/24 18:00 Morphine 4mg/Ml Syringe IV 05/03/24 17:37 4 mg ONCE ONE Administration Ondansetron HCl 4 mg 05/03/24 13:53 05/03/24 14:15 Ondansetron 4mg/2ml Vial IV 05/03/24 13:54 4 mg ONCE ONE Administration Sodium Chloride 10 ml 05/03/24 15:11 05/03/24 15:12 Sodium Chloride 0.9% 10ml Syr (Rad Only) IV 05/03/24 15:12 10 ml ONCE ONE Administration Sodium Chloride 50 ml 05/03/24 15:11 05/03/24 15:12 0.9 % Sodium Chloride 50 Ml Vial IV 05/03/24 15:12 50 ml ONCE ONE Administration ORDERS Category Date Time Status Type and Screen Stat BBK 05/03/24 14:[address] angio abdomen pelvis Stat Cat Scan 05/03/24 13:54 Completed CTA Chest [CT angio chest - dissection] Stat Cat Scan 05/03/24 13:54 Completed XR chest portable Stat Exams 05/03/24 13:55 Completed Complete Blood Count Auto Diff Stat Lab 05/03/24 13:45 Completed Comprehensive Metabolic Panel Stat Lab 05/03/24 13:45 Completed Lactic Acid Stat Lab 05/03/24 16:50 Completed Lipase Stat Lab 05/03/24 13:45 Completed Lipase Stat Lab 05/03/24 13:45 Completed NT Pro Brain Natriuretic Pep. Stat Lab 05/03/24 13:45 Completed Troponin I Q3H Lab 05/03/24 16:50 Completed Troponin I Q3H Lab 05/03/24 20:00 Ordered Troponin I Stat Lab 05/03/24 13:45 Completed UA [Urinalysis and Microscopic] Stat Lab 05/03/24 13:35 Completed Blood Culture Stat Micro 05/03/24 15:20 Received Medical Decision Narrative: 64-year-old female history of hypertension, hyperlipidemia, COPD on 2 L nasal cannula, AAA without repair, diverticulitis with perforation presenting with abdominal pain, shortness of breath, cough. Patient states that she has not felt any better since being discharged from [facility], to which she was transferred after being discharged in January. States that for the past few days she has also had cough productive of more sputum that is clear, no fevers or chills. Having worsening abdominal pain, intermittent melena and loose stools. Feeling generally weak. Unable to any p.o. intake secondary to nausea without vomiting. Was seen in the emergency department about a month prior to this, has had abdominal pain since that time, but has been increasing. Similar to what she was having in the past, although it feels it is not getting better. No syncope, chest pain, urinary symptoms, lower extremity weakness, or any other concerns. History was obtained via conversation with patient and . Should be noted that patient is still currently smoking which is likely complicating care and causing progression of AAA. On arrival, patient hemodynamically stable, alert, oriented x4, appropriate, GCS 15, moving all extremities spontaneously, pupils equal and reactive to light. Full physical exam performed and significant for patient appears to be uncomfortable, but not acutely ill. 2 L nasal cannula, which is her baseline. Decreased breath sounds diffusely, no focal breath sounds. No increased work of breathing. Abdomen is soft, nondistended, but moderately tender in left lower quadrant without overlying skin changes. No flank tenderness. Neurovascularly intact, no pulsatile abdominal mass within confines of patient comfort on exam. Pulses are equal and symmetric in upper and lower extremities. Differential includes COPD exacerbation, PUD, gastritis, enteritis, gastroenteritis, pancreatitis, SBO, colitis, diverticulitis, nephrolithiasis, UTI, , cholecystitis, choledocholithiasis, hepatitis, torsion, aortic pathology, mesenteric ischemia among others. Patient was given fluids, Zofran, Toradol, morphine, DuoNebs, Solu-Medrol for symptomatic management and correction of underlying abnormalities. Workup independently interpreted and significant for leukocytosis 13.7. Patient given empiric Unasyn for concern for intra-abdominal pathology. Chemistry nonactionable. BNP only mildly elevated, likely secondary to underlying COPD exacerbation. Chest x-ray without acute cardiopulmonary space disease, but diaphragm flattening consistent with COPD. See radiology read for full review of final results. Prior to CT imaging and final disposition, care handed off to oncoming physician. Curam Developer disclaimer Much of this encounter note is an electronic reacher spoken language to printed text. Electronic reacher of the spoken language may permit errors. Although I have reviewed the note, some errors may still exist. DO Rome: I assumed care of the patient at 1500. Patient is complaining of continued pain, for which another dose of IV morphine was ordered, and she remains slightly tachycardic. She does have leukocytosis as mentioned above. CT scans concerning for colitis. Patient has a known AAA with stable intramural thrombus. She also has LULU occlusion. I called and had and after discussion with hospitalist here who advised they would not feel comfortable keeping the patient here given her history of AAA and her complicated intra-abdominal history as of late, including her presumed perforated diverticulitis as well as her chronic and recurrent enterocolitis. They feel that she would benefit from transfer to higher level of care given that the patient has potentially chronic ischemic colitis in the setting of his LULU occlusion. Patient has had her abdominal care at [facility], however the patient refuses to go back there, as she states that she had a bad experience. Given this, I called and had an interactive discussion with Dr. Singletary with [facility]ascular surgery at [place] per the patient's request, as she does not want to go to any hospitals in [place] or otherwise. V[facility] surgery at [facility] advises that the findings are likely chronic and the patient would benefit from outpatient referral to vascular surgery, and he feels for the recurrent colitis the patient would benefit from evaluation by colorectal or general surgery. Given this, Dr. Santiago with general surgery called back and he advised that he would be happy to accept the patient to [facility] for transfer for management of this recurrent colitis. I had an interactive discussion with Dr. Martins hospitalist at [facility] who advised they would be happy to accept the patient for transfer. Patient was started on gentle maintenance fluids and was transferred by EMS in stable condition. Critical Care <Bryan Armenta MD - Last Filed: 05/03/24 15:22> Critical Care Time Critical Care Time: No
[2024-05-03 14:24] LABS: Basophils % 0.3 % (0.1-2.0); Eosinophils # 0.1 K/mm3 (0.0-0.4); Eosinophils % 0.8 % (0.1-12.0); Hemoglobin 10.8 g/dL (12.2-16.2); Lymphocytes # 2.1 K/mm3 (0.7-4.5); Mean Corpuscular HGB Conc 31.9 g/dL (31.8-35.4); Mean Corpuscular Hemoglobin 30.9 pg (27.0-31.2); Mean Corpuscular Volume 96.9 fl (81-99); Mean Platelet Volume 8.1 fl (7.4-10.4); Monocytes # 0.5 K/mm3 (0.1-1.0); Neutrophils % 79.9 % (37.0-80.0); Platelet Count 408 K/mm3 (142-424); Red Blood Count 3.51 M/mm3 (4.20-5.40); White Blood Count 13.7 K/mm3 (4.8-10.8)
[2024-05-03 14:25] LABS: Troponin I < 0.01 ng/ml (0.00-0.034)
[2024-05-03] MEDS: 0.9 % SODIUM CHLORIDE 50 ML VIAL IV (15:12)
[2024-05-03] MEDS: SODIUM CHLORIDE 0.9% 10ML SYR (RAD ONLY) 10 ML IV (15:12)
[2024-05-03] MEDS: IOPAMIDOL-370 (76%);100ML BOTTLE 100 ML IV (15:12)
[2024-05-03 15:23] LABS: Microscopic, Urine URINE MICROSCOPIC (MICROSCOPIC)
[2024-05-03] MEDS: AMPICILLIN/SULBACTAM 3 GM in 0.9 % SODIUM CHLORIDE 100 ML IV (15:32)
[2024-05-03 15:44] LABS: Lipase 84 U/L (23-300)
[2024-05-03 16:13] LABS: Appearance,Urine CLEAR (Clear); Blood, Urine 2+ (Negative); Color,Urine YELLOW (Yellow); Glucose,Urine (UA) TRACE (Negative); Ketones,Urine TRACE (Negative); Leukocyte Esterase,Urine TRACE (Negative); Nitrate,Urine Negative (Negative); Protein,Urine 1+ (Negative); Specific Gravity, Urine 1.015 (1.005-1.030); Urobilinogen,Urine 0.2 EU/dl (0.2)
[2024-05-03 16:16] LABS: Bacteria,Urine Trace /lpf; Bilirubin,Urine Negative (Negative); Squamous Epithelial Cell,Urine Occasional #/hpf (0-5); WBC,Urine Occasional #/hpf (0-3)
--- NOTE | 2024-05-03 16:53 | PC.NURSE ---
spoke with transfer center for [facility], states they will call back
--- NOTE | 2024-05-03 17:26 | PC.NURSE ---
DR GIRON SPEAKING WITH [facility]
[2024-05-03 17:28] LABS: Troponin I < 0.01 ng/ml (0.00-0.034)
[2024-05-03] MEDS: LACTATED RINGERS 1000ML 1,000 ML 50 ML IV (18:11)
== END 2024-05-03 19:01 | disposition short-term general hospital (02) ==
PROVIDERS: Emergency Medicine; Emergency Provider Emergency Medicine; PCP Family Medicine
DX: R10.84 Generalized abdominal pain (principal); K52.9 Noninfective gastroenteritis and colitis, unspecified; R65.10 Systemic inflammatory response syndrome (SIRS) of non-infectious origin without acute organ dysfunction; K55.1 Chronic vascular disorders of intestine; I71.40 Abdominal aortic aneurysm, without rupture, unspecified; J44.1 Chronic obstructive pulmonary disease with (acute) exacerbation; F17.210 Nicotine dependence, cigarettes, uncomplicated; I10 Essential (primary) hypertension; E78.5 Hyperlipidemia, unspecified
CPT/HCPCS: 71045; 71275; 74174; 80053; 81001; 83605; 83690; 83880; 84484; 85025; 86850; 87040; 96361; 96374; 96375; 96376; 99285; J2405; J7120; Q9967

== ENCOUNTER 2024-06-23 20:05 | Emergency (ER) | payer MEDICAID, SELFPAY ==
[2024-06-23 20:06] VITALS: BP 170/83; PULSE 93; RESP 22; TEMP 37.1; O2SAT 100; BMI 19.9
[2024-06-23 20:10] VITALS: BP 170/83; PULSE 96; O2SAT 99
--- NOTE | 2024-06-23 20:22 | XR_ITS ---
PROCEDURE INFORMATION: Exam: XR Chest Exam date and time: 06/23/2024 8:50 PM Age: 64 years old Clinical indication: Cough and shortness of breath; Additional info: SOA, HX copd, cough, congestion TECHNIQUE: Imaging protocol: Radiologic exam of the chest. Views: 1 view. COMPARISON: CT ANGIO CHEST 05/03/2024 3:12 PM and chest x-ray 05/03/2024 FINDINGS: Lungs: Unremarkable. No consolidation. Hyperinflation compatible with COPD redemonstrated. Pleural spaces: Unremarkable. No pleural effusion. No pneumothorax. Heart/Mediastinum: Unremarkable. No cardiomegaly. Bones/joints: Unremarkable. IMPRESSION: Stable chest x-ray with no acute disease.
[2024-06-23 20:29] LABS: Adenovirus,PCR Not Detected (NotDetected); Bordetella Pertussis Not Detected (NotDetected); Chlamydophila Pneumoniae, PCR Not Detected (NotDetected); Coronavirus 19, PCR Not Detected (NotDetected); Coronavirus 229E Not Detected (NotDetected); Coronavirus NL63 Not Detected (NotDetected); Coronavirus OC43 Not Detected (NotDetected); Coronovirus HKU1,PCR Not Detected (NotDetected); Human Metapneumovirus Not Detected (NotDetected); Influenza A, PCR Not Detected (NotDetected); Influenza AH1, 2009 Not Detected (NotDetected); Influenza AH1, PCR Not Detected (NotDetected); Influenza AH3,PCR Not Detected (NotDetected); Influenza B, PCR Not Detected (NotDetected); Mycoplasma Pneumoniae, PCR Not Detected (NotDetected); Parainfluenza 1, PCR Not Detected (NotDetected); Parainfluenza 2, PCR Not Detected (NotDetected); Parainfluenza 3, PCR Not Detected (NotDetected); Parainfluenza 4, PCR Not Detected (NotDetected); Respiratory Syncytial Virus Not Detected (NotDetected); Rhinovirus/Enterovirus Not Detected (NotDetected)
[2024-06-23] MEDS: IPRATROPIUM/ALBUTEROL 3 ML NEB IH (20:29)
--- NOTE | 2024-06-23 20:30 | ED_ITS ---
Discharge Plan Disposition Patient Disposition: Home, Self-Care Condition: Good Chief Complaint: Headache Prescriptions Prescriptions: No Action amlodipine 5 mg tablet 5 mg PO DAILY lisinopril 40 mg tablet 40 mg PO DAILY pregabalin 100 mg capsule 100 mg PO TID alprazolam [Xanax] 0.25 mg tablet 0.25 mg PO TID PRN (Reason: panic attack(s)) Qty: 90 0RF dextromethorphan polistirex [Cough DM ER] 30 mg/5 mL suspension,extended rel 12 hr 5 ml PO Q12H Qty: 89 0RF oxycodone-acetaminophen 5-325 mg tablet 1 tab PO BID PRN (Reason: pain) Qty: 15 0RF cyclobenzaprine 10 mg tablet 10 mg PO TIDP PRN (Reason: muscle spasms) trazodone 100 mg tablet 200 mg PO HS albuterol sulfate [Ventolin HFA] 90 mcg/actuation HFA aerosol inhaler 1 puff INHALATION Q4HP PRN (Reason: Shortness Of Breath) duloxetine 60 mg capsule,delayed release(DR/EC) 60 mg PO DAILY budesonide-formoterol [Symbicort] 80-4.5 mcg/actuation HFA aerosol inhaler 2 puff INHALATION BID alendronate 70 mg tablet 70 mg PO WEEKLY Patient Comments: TAKE 1 TABLET BY MOUTH EVERY 7 DAYS DIRECTED Referrals Follow up/Referrals: Silvestre Shepherd MD [Primary Care Provider] - See instructions Activity Restrictions/Add. Instructions Additional Instructions/Restrictions: Follow-up closely with your primary care provider for continued management and return for any new or worsening symptoms or if you at any time would like additional evaluation. Clinical Impressions Clinical Impression: Acute viral syndrome Headache Qualifiers: Headache type: tension-type Headache chronicity pattern: chronic headache I ntractability: not intractable Qualified Code(s): G44.229 - Chronic tension-type headache, not intractable Instructions Patient Instructions: DI for Headache Print Language Print Language: Peruvian Discharge ED Provider: Romy Campos Adult [facility] General Chief complaint: Headache Stated complaint: FOREMAN x 5day Time Seen by Provider: 06/23/24 20:17 Mode of Arrival: Wheelchair Source of Information: Patient and Spouse Limitations: No Limitations Description of Symptoms (Recalled from ER Triage Doc. by RN): Pt presents with complaints of headache x 5 day as well as increased SOA with cough and congestion. Pt has COPD, taken home nebulizer txs with no improvement. Pt wears 2l/nc daily. Denies any CP, fever, nausea or vomiting History of Present Illness HPI narrative: Patient is a 64-year-old female with past medical history COPD on baseline 2 L nasal cannula, AAA, hypertension, hyperlipidemia, diverticulitis with large intestine perforation and resection of several centimeters of bowel 1 month ago presenting with cough and congestion as well as headache. She reports increased shortness of breath over the past 5 days with some cough and congestion and has had a headache during this time. Headache has been refractory to home medications and shortness of breath refractory to home nebulizers. She has not gone up on her baseline 2 L nasal cannula but states she feels as though she did need to. She denies any chest pain, fevers, chills, nausea, vomiting. Denies any known sick contacts. Related Data Home Medications ?Medication ?Instructions ?Recorded ?Confirmed albuterol sulfate 90 mcg/actuation 1 puff inhalation Q4HP PRN 04/02/24 06/07/24 aerosol inhaler (Ventolin HFA) Shortness Of Breath alendronate 70 mg tablet 70 mg PO WEEKLY 04/02/24 06/07/24 budesonide-formoterol HFA 80 2 puff inhalation BID 04/02/24 06/07/24 mcg-4.5 mcg/actuation aerosol inhaler (Symbicort) cyclobenzaprine 10 mg tablet 10 mg PO TIDP PRN muscle spasms 04/02/24 06/07/24 duloxetine 60 mg capsule,delayed 60 mg PO DAILY 04/02/24 06/07/24 release trazodone 100 mg tablet 200 mg PO HS 04/02/24 06/07/24 amlodipine 5 mg tablet 5 mg PO DAILY 06/07/24 06/07/24 lisinopril 40 mg tablet 40 mg PO DAILY 06/07/24 06/07/24 pregabalin 100 mg capsule 100 mg PO TID 06/07/24 06/07/24 Previous Rx's ?Medication ?Instructions ?Recorded alprazolam 0.25 mg tablet (Xanax) 0.25 mg PO TID PRN panic attack(s) 06/07/24 #90 tabs dextromethorphan polistirex 30 5 ml PO Q12H #89 mL 06/07/24 mg/5 mL oral susp ext.release 12hr (Cough DM ER) oxycodone-acetaminophen 5 mg-325 1 tab PO BID PRN pain #15 tabs 06/21/24 mg tablet Allergies Allergy/AdvReac Type Severity Reaction Status Date / Time No Known Allergies Allergy Verified 06/07/24 14:13 PFSH PFS Disclaimer: The information contained in this section may have been updated after the patient was seen, as this information can be updated by other users. Medical History (Updated 06/23/24 @ 22:08 by Romy Campos MD) Postoperative wound breakdown Diverticulitis of large intestine with perforation Tobacco use Anemia Colitis UTI (urinary tract infection) Melena Pneumatosis coli Sepsis Hyperlipidemia Hypertension COPD (chronic obstructive pulmonary disease) Surgical History (Updated 06/07/24 @ 15:04 by Silvetsre Shepherd MD) Status post partial resection of colon Previous back surgery H/O: hysterectomy Social History Smoking Status: Current every day smoker alcohol intake: former current occupational status: disabled Travel in the last 8 weeks: None ROS Obtained: Yes Systems reviewed as appropriate & no additional complaints except as documented Physical Exam General General appearance: alert and other (In no acute distress but appears anxious and older than stated age) Head Head exam: atraumatic and normocephalic Eye Eye exam: Present PERRL and EOMI Chest Chest inspection: Present normal inspection and symmetric chest wall rise Respiratory Respiratory exam: Present wheezes and other (Coarse breath sounds bilaterally); Absent respiratory distress or accessory muscle use Cardiovascular Cardiovascular exam: Present regular rate and normal rhythm Abdominal Exam Abdominal exam: Present soft; Absent tenderness Extremities Exam Extremities exam: Present normal inspection Neurological Exam Neurological exam: Present alert and oriented X3 Psychiatric Psychiatric exam: Present normal affect Skin Skin exam: Present warm and dry Medical Decision Making Medical Records Medical records reviewed: Yes I reviewed the patient's medical records. Sergio Inquiry Pt receiving controlled substance: No Vital Signs: 06/23/24 20:06 06/23/24 20:10 06/23/24 21:00 Temperature 98.7 F Temperature Source Oral Pulse Rate 96 H 82 Pulse Rate [Left] 93 H Respiratory Rate 22 Blood Pressure 170/83 H 163/57 H Blood Pressure [Right Arm] 170/83 H Blood Pressure Mean [Right Arm] 112 Blood Pressure Source [Right Arm] Automatic Cuff Blood Pressure Position [Right Arm] Sitting 02 Sat by Pulse Oximetry 100 99 100 Oxygen Delivery Method Nasal Cannula Oxygen Flow Rate (LPM) 2 06/23/24 21:16 06/23/24 21:30 Temperature Temperature Source Pulse Rate 87 89 Pulse Rate [Left] Respiratory Rate Blood Pressure 163/70 H Blood Pressure [Right Arm] Blood Pressure Mean [Right Arm] Blood Pressure Source [Right Arm] Blood Pressure Position [Right Arm] 02 Sat by Pulse Oximetry 99 Oxygen Delivery Method Oxygen Flow Rate (LPM) Lab Data Lab results reviewed: Yes I reviewed the patient's lab results. Lab Results 06/23/24 20:30: WBC 7.7, RBC 3.32 L, Hgb 10.2 L, Hct 32.6 L, MCV 98.1, MCH 30.6, MCHC 31.2 L, RDW 16.8, Plt Count 238, MPV 9.5, Neut % (Auto) 68.2, Lymph % (Auto) 22.6, [place] % (Auto) 3.9, Eos % (Auto) 4.6, Baso % (Auto) 0.7, Neut # (Auto) 5.3, Lymph # (Auto) 1.7, [place] # (Auto) 0.3, Eos # (Auto) 0.4, Baso # (Auto) 0.1, Sodium 140, Potassium 4.7, Chloride 99, Carbon Dioxide 37 H, Anion Gap 8.7, BUN 14, Creatinine 0.90, Estimated Creat Clear 42, Estimated GFR 63, Est GFR ( Amer) 77, Glucose 92, Calcium 10.3 H, Total Bilirubin 0.4, AST 36, ALT 15, Alkaline Phosphatase 75, Troponin I < 0.01, Total Protein 8.1, Albumin 4.2, Globulin 3.9 H, Albumin/Globulin Ratio 1.1 06/23/24 20:30 06/23/24 20:30 Orders (Tests/Meds): ED MEDICATIONS Discontinued Medications Generic Name Dose Route Start Last Admin Trade Name Freq PRN Reason Stop Dose Admin Acetaminophen 1,000 mg 06/23/24 20:22 06/23/24 20:48 Acetaminophen 500mg Tab PO 06/23/24 20:23 Not Given ONCE ONE Albuterol/Ipratropium 3 ml 07/27/24 20:22 06/23/24 20:29 Ipratropium/Albuterol 3 Ml Neb IH 06/23/24 20:23 3 ml ONCE ONE Administration Diphenhydramine HCl 25 mg 06/23/24 20:22 06/23/24 20:50 Diphenhydramine 50mg/Ml Vial IV 06/23/24 20:23 25 mg ONCE ONE Administration Sodium Chloride 1,000 mls @ 999 mls/hr 06/23/24 20:22 06/23/24 20:48 Sod Chlor 0.9% 1000ml Bag IV 06/23/24 21:22 999 mls/hr .Q1H1M ONE Administration Ketorolac Tromethamine 15 mg 06/23/24 20:22 06/23/24 20:50 Ketorolac 30mg/Ml Vial IV 06/23/24 20:23 15 mg ONCE ONE Administration Methylprednisolone Sodium Succinate 125 mg 06/23/24 20:22 06/23/24 20:49 Methylprednisolone Sod Succ 125mg Vial IV 06/23/24 20:23 125 mg ONCE ONE Administration Prochlorperazine Edisylate 10 mg 06/23/24 20:22 06/23/24 20:52 Prochlorperazine 10mg/2ml Vial IV 06/23/24 20:23 10 mg ONCE ONE Administration ORDERS Category Date Time Status XR chest portable Stat Exams 06/23/24 20:22 Completed Complete Blood Count Auto Diff Stat Lab 06/23/24 20:30 Completed Comprehensive Metabolic Panel Stat Lab 06/23/24 20:30 Completed Full Resp Panel w/COVID ([facility]) Routine Lab 06/23/24 20:22 Received Trop I [Troponin I] Q3H Lab 06/23/24 21:00 Ordered Trop I [Troponin I] Stat Lab 06/23/24 20:30 Completed Troponin I Q3H Lab 06/23/24 23:30 Ordered Troponin I Q3H Lab 06/24/24 02:30 Ordered Medical Decision Narrative: Patient is a 64-year-old female with past medical history COPD on baseline 2 L nasal cannula, AAA, hyperlipidemia, hypertension, perforated diverticulitis status post resection of several centimeters of bowel 1 month ago presenting with cough, congestion and headache. Symptoms have been persistent for the past 5 days refractory to home therapies. She has no neurologic deficits on exam and has no increased oxygen requirement but does have some coarse breath sounds bilaterally and singly productive cough. Will obtain labs and treat symptoms at this time. CBC with no leukocytosis, chronic anemia to 9.8, coagulation studies within normal limits, chest x-ray on my review does not seem to show a pneumonia, respiratory virus panel had to be rerun per lab, troponin negative. While respiratory virus panel was pending patient was requesting to leave. I did discuss her reassuring results if she did note some mild symptomatic improvement in her headache. I offered to continue with additional medications while we wait for further workup but patient again requested to leave. I had a discussion about worsening symptoms and close follow-up with her PCP to which patient is agreeable and patient discharged at this time. Critical Care Critical Care Time Critical Care Time: No
[2024-06-23] MEDS: 0.9 % SODIUM CHLORIDE 1000ML 1,000 ML 999 ML IV (20:48)
[2024-06-23] MEDS: METHYLPREDNISOLONE SOD SUCC 125MG VIAL 125 MG IV (20:49)
[2024-06-23 20:50] LABS: Basophils # 0.1 K/mm3 (0-0.2); Basophils % 0.7 % (0.1-2.0); Eosinophils # 0.4 K/mm3 (0.0-0.4); Eosinophils % 4.6 % (0.1-12.0); Hematocrit 32.6 % (37.0-47.0); Hemoglobin 10.2 g/dL (12.2-16.2); Lymphocytes # 1.7 K/mm3 (0.7-4.5); Lymphocytes % 22.6 % (10-50); Mean Corpuscular HGB Conc 31.2 g/dL (31.8-35.4); Mean Corpuscular Hemoglobin 30.6 pg (27.0-31.2); Mean Corpuscular Volume 98.1 fl (81-99); Mean Platelet Volume 9.5 fl (7.4-10.4); Monocytes # 0.3 K/mm3 (0.1-1.0); Monocytes % 3.9 % (1.7-9.3); Neutrophils # 5.3 K/mm3 (1.8-7.8); Neutrophils % 68.2 % (37.0-80.0); Platelet Count 238 K/mm3 (142-424); Red Blood Count 3.32 M/mm3 (4.20-5.40); Red Cell Distribution Width 16.8 % (11.5-17.5); White Blood Count 7.7 K/mm3 (4.8-10.8)
[2024-06-23] MEDS: diphenhydrAMINE 50MG/ML VIAL 25 MG IV (20:50)
[2024-06-23] MEDS: KETOROLAC 30MG/ML VIAL 15 MG IV (20:50)
[2024-06-23] MEDS: PROCHLORPERAZINE 10MG/2ML VIAL 10 MG IV (20:52)
[2024-06-23 20:57] LABS: Albumin Level 4.2 g/dl (3.5-5.0); Chloride 99 mmol/L (98-107)
[2024-06-23 20:58] LABS: Potassium 4.7 mmoL/L (3.5-5.1); Sodium 140 mmol/L (136-145)
[2024-06-23 21:00] VITALS: BP 163/57; PULSE 82; O2SAT 100
[2024-06-23 21:00] LABS: Blood Urea Nitrogen 14 mg/dl (7-17); Creatinine Clearance Estimated 42 mL/min (50-200); Estimated Glomerular Filt Rate 63 ml/min (>60); GFR (African American) 77 ML/MIN (>60)
[2024-06-23 21:01] LABS: Alanine Aminotransferase 15 U/L (12-78); Albumin/Globulin Ratio 1.1 (1.1-1.8); Alkaline Phosphatase 75 U/L (38-126); Anion Gap 8.7 mEq/L (5-15); Aspartate Amino Transferase 36 U/L (14-36); Bilirubin,Total 0.4 mg/dl (0.2-1.3); Calcium 10.3 mg/dl (8.4-10.2); Carbon Dioxide 37 mmol/L (22.0-30.0); Globulin 3.9 g/dL (1.3-3.2); Glucose 92 mg/dl (74-100); Total Protein,Serum 8.1 g/dl (6.3-8.2)
--- NOTE | 2024-06-23 21:02 | PC.NURSE ---
Pt refused tylenol, states she took it at home
[2024-06-23 21:13] LABS: Troponin I < 0.01 ng/ml (0.00-0.034)
[2024-06-23 21:16] VITALS: PULSE 87
[2024-06-23 21:30] VITALS: BP 163/70; PULSE 89; O2SAT 99
--- NOTE | 2024-06-23 21:57 | PC.NURSE ---
Lab called and stated that they had to re-run the sample for the full respiratory panel.
--- NOTE | 2024-06-23 22:07 | PC.NURSE ---
patients spouse came to desk stating that she is ready to leave, updated him on what we are waiting for. Charge nurse informed and patients nurse went into room to discuss status with patient
[2024-06-23 22:09] VITALS: BP 168/88; PULSE 84; RESP 16; TEMP 36.7; O2SAT 98
== END 2024-06-23 22:10 | disposition home or self-care (01) ==
PROVIDERS: Emergency Provider Emergency Medicine; PCP Family Medicine
DX: G44.229 Chronic tension-type headache, not intractable (principal); R06.02 Shortness of breath; R05.9 Cough, unspecified; J44.9 Chronic obstructive pulmonary disease, unspecified; F17.210 Nicotine dependence, cigarettes, uncomplicated; B34.9 Viral infection, unspecified; I10 Essential (primary) hypertension; E78.5 Hyperlipidemia, unspecified; Z99.81 Dependence on supplemental oxygen
CPT/HCPCS: 71045; 80053; 84484; 85025; 87581; 87632; 87635; 87798; 93005; 96361; 96374; 96375; 99284; J0780; J1200; J1885; J2919; J7620

== ENCOUNTER 2024-09-27 13:23 | Outpatient (CLI) | payer MEDICAID, SELFPAY ==
[2024-09-27 14:11] LABS: Chloride 99 mmol/L (98-107); Potassium 4.4 mmoL/L (3.5-5.1); Sodium 136 mmol/L (136-145)
[2024-09-27 14:14] LABS: Blood Urea Nitrogen 15 mg/dl (7-17); Estimated Glomerular Filt Rate 63 ml/min (>60); GFR (African American) 77 ML/MIN (>60)
[2024-09-27 14:15] LABS: Anion Gap 7.4 mEq/L (5-15); Calcium 9.6 mg/dl (8.4-10.2); Carbon Dioxide 34 mmol/L (22.0-30.0); Glucose 99 mg/dl (74-100)
== END 2024-09-27 23:59 | disposition home or self-care (01) ==
LOC: LAB 13:23
PROVIDERS: PCP Family Medicine; Visit Provider Family Medicine
DX: I10 Essential (primary) hypertension (principal); Z72.0 Tobacco use
CPT/HCPCS: 36415; 80048

== ENCOUNTER 2024-11-12 15:00 | Outpatient (CLI) | payer MEDICAID, SELFPAY ==
[2024-11-12 18:40] LABS: Basophils % 0.5 % (0.1-2.0); Eosinophils # 0.2 K/mm3 (0.0-0.4); Eosinophils % 2.2 % (0.1-12.0); Hematocrit 35.3 % (37.0-47.0); Hemoglobin 11.3 g/dL (12.2-16.2); Lymphocytes # 1.7 K/mm3 (0.7-4.5); Lymphocytes % 22.3 % (10-50); Mean Corpuscular HGB Conc 31.9 g/dL (31.8-35.4); Mean Corpuscular Hemoglobin 31.2 pg (27.0-31.2); Mean Corpuscular Volume 97.6 fl (81-99); Mean Platelet Volume 8.9 fl (7.4-10.4); Monocytes # 0.5 K/mm3 (0.1-1.0); Monocytes % 6.2 % (1.7-9.3); Neutrophils # 5.4 K/mm3 (1.8-7.8); Neutrophils % 68.9 % (37.0-80.0); Platelet Count 260 K/mm3 (142-424); Red Blood Count 3.61 M/mm3 (4.20-5.40); Red Cell Distribution Width 14.3 % (11.5-17.5); White Blood Count 7.8 K/mm3 (4.8-10.8)
[2024-11-12 19:04] LABS: Albumin Level 4.1 g/dl (3.5-5.0); Chloride 97 mmol/L (98-107); Potassium 4.5 mmoL/L (3.5-5.1); Sodium 130 mmol/L (136-145)
[2024-11-12 19:07] LABS: Alanine Aminotransferase 19 U/L (12-78); Albumin/Globulin Ratio 1.6 (1.1-1.8); Alkaline Phosphatase 51 U/L (38-126); Anion Gap 4.5 mEq/L (5-15); Aspartate Amino Transferase 33 U/L (14-36); Bilirubin,Total 0.2 mg/dl (0.2-1.3); Blood Urea Nitrogen 18 mg/dl (7-17); Carbon Dioxide 33 mmol/L (22.0-30.0); Cholesterol 239 mg/dl (140-200); Estimated Glomerular Filt Rate 63 ml/min (>60); GFR (African American) 77 ML/MIN (>60); Globulin 2.5 g/dL (1.3-3.2); Total Protein,Serum 6.6 g/dl (6.3-8.2); Triglycerides 105 mg/dl (30-150); VLDL Cholesterol 21 mg/dL (0-40)
[2024-11-12 19:08] LABS: Calcium 9.9 mg/dl (8.4-10.2); Glucose 93 mg/dl (74-100); HDL Cholesterol 73 mg/dl (40-60)
[2024-11-12 19:18] LABS: Direct LDL Cholesterol 121.47 mg/dL (100-129)
[2024-11-12 19:33] LABS: Chol/HDL Ratio 3.3 (1-3.5)
== END 2024-11-12 23:59 | disposition home or self-care (01) ==
LOC: LAB.DROPOF 11-13 12:56
PROVIDERS: PCP Family Medicine; Visit Provider Family Medicine
DX: E78.5 Hyperlipidemia, unspecified (principal); D64.9 Anemia, unspecified; I10 Essential (primary) hypertension; Z72.0 Tobacco use
CPT/HCPCS: 80053; 80061; 85025

== ENCOUNTER 2025-02-06 08:09 | Outpatient (CLI) | payer MEDICAID, SELFPAY ==
--- NOTE | 2025-02-06 08:09 | MM_ITS ---
PROCEDURE INFORMATION: Exam: MG Bilateral Screening 3D Mammography Exam date and time: 02/06/2025 8:15 AM Age: 65 years old Clinical indication: Screening. No family history of breast cancer. TECHNIQUE: Imaging protocol: Bilateral Screening tomosynthesis and 2D mammography including computer-aided detection (CAD) when performed. COMPARISON: No relevant prior studies available. If prior mammograms are provided, I am happy to add an addendum. FINDINGS: MAMMOGRAPHY: Breast composition: There are scattered areas of fibroglandular density. Mass: None. Architectural distortion: None. Calcifications: No suspicious calcifications. Asymmetric density: None. Skin thickening: None. Axillary adenopathy: None. IMPRESSION: No mammographic evidence of malignancy. Annual screening is recommended unless otherwise clinically indicated. ASSESSMENT: BI-RADS Category 1: Negative.
--- NOTE | 2025-02-06 08:09 | XR_ITS ---
FINAL REPORT TECHNIQUE: Chest PA & Lateral CLINICAL HISTORY: copd COMPARISON: 06/23/2024 FINDINGS: 2 views of the chest were performed. The heart size is normal. The mediastinum is within normal limits. Hyperinflation with flattening of the hemidiaphragms is again visualized, consistent with changes of chronic obstructive pulmonary disease. There is no acute cardiopulmonary process. There are no pleural effusions. There is no pneumothorax. The bony thorax appears intact. IMPRESSION: No acute cardiopulmonary process. Reviewed, Interpreted and Dictated by Prieto Pena MD Transcribed by Annemarie Carcamo Authenticated and [facility]
--- NOTE | 2025-02-06 08:09 | US_ITS ---
FINAL REPORT CLINICAL HISTORY: follow-up AAA COMPARISON: CTA of the abdomen and pelvis 05/03/2024 FINDINGS: ULTRASOUND ABDOMINAL AORTA Findings: Sagittal and transverse images with Doppler exam was performed of the aorta. Aorta measures up to 4.3 cm, essentially unchanged since the prior CT of April. Moderate plaque disease is noted, with mural thrombus more evident anteriorly. Proximal iliac vessels are normal in caliber. Aorta is patent by Doppler exam without gross stenosis. IMPRESSION: 4.3 cm abdominal aortic aneurysm, given differences in technique essentially unchanged in size since the prior CT of 05/03/2024. Reviewed, Interpreted and Dictated by Prieto Pena MD Transcribed by Annemarie Carcamo Authenticated and [facility]
== END 2025-02-06 23:59 | disposition home or self-care (01) ==
LOC: RAD 08:09
PROVIDERS: PCP Family Medicine; Visit Provider Family Medicine
DX: I71.43 Infrarenal abdominal aortic aneurysm, without rupture (principal); J44.9 Chronic obstructive pulmonary disease, unspecified; Z12.31 Encounter for screening mammogram for malignant neoplasm of breast
CPT/HCPCS: 71046; 76770; 77063; 77067

== ENCOUNTER 2025-05-20 09:19 | Outpatient (CLI) | payer MEDICAID, SELFPAY ==
--- OUTSIDE RECORDS SUMMARY | 2019-10-10 10:47 | XMS_ITS | Encounter Summary ---
Author Organization [place] [address] Care Team Providers Care Quality Assurance Monitor Chassis Name Role Phone Alexy Mendez MD Primary Care Provider [phone] Encounter Details Date Type Department Care Team (Late st Contact Info) Description 10/10/2019 9:47 AM EST Hospital Encounter [facility] Referral Lab 1 [place], [place] [id number] Miguel Jaime MD [address] [place] [phone] Low back pain Social History Tobacco Use Types Packs/Day Years Used Date Smoking Tobacco: Every Day Cigarettes 1 42.9 Started: 07/01/1982 Smokeless Tobacco: Never Comments:currently down to . 5 ppd Alcohol Use Standard Drinks/Week Comments Yes 0 (1 standard drink = 0.6 oz pur e alcohol) rarely [facility] Utilities Answer Date Recorded In the past 12 months has e electric, gas, oil, or water company threatened to shut off services in your home? No 05/04/2024 Overall Financial Resource Strain (CARDIA) Answe r Date Recorded How hard is it for you to pa y for the very basics like food, housing, medical care, and heating? Not very hard 05/04/2024 PHQ-2 Answer Date Recorded PHQ-2 Total Score 2 05/04/2024 [facility] [place] of Occupat ional Health - Occupational Stress [...] money to get more. Never true 05/04/2024 [facility] IP Transportation Answer D ate Recorded [...] 05/03/2024 9:13 PM Juan Hernandez RN * [place] Suicide Severity Rating Scale (Q shift for [...] documented in this encounter Plan of Treatment Upcoming Encounters Date Type Department Care Team (Late st Contact Info) Description 07/16/2025 12:50 PM EDT Appointment [facility] [address] [place] [address] Anny Mcdaniel MD [address] [place] [address] Scheduled Orders Name Type Priority Associated Diagnoses Orde r Schedule CREATININE Lab Routine Low back pain ONCE for 1 Occurrences starting 10/10/2019 until 11/14/2019 documented as of this encounter Goals Goal Patient Goal Type Associated Problems Recent Progress Patient-Stated? Author Blood Pressure < 140/90 Blood Pressure 128/74(2023 3:26 PM EST) No Susan Santana RMA Maintain a healthy diet, exercise regularly and maintain an ideal body weight General No Norma Coleman RMA Stay Tobacco Free Lifestyle No Norma Coleman, RMA documented as of this encounter Visit Diagnoses Diagnosis Low back pain Lumbago documented in this encounter Additional Health Concerns Infection Onset Date Last Indicated Resolved Time R/O COVID-19 06/26/2021 06/26/2021 06/26/2021 5:52 PM EDT Assessment Noted Time PHQ-9 Depression Total Score: 2 08/07/20 9:56 AM EDT PHQ-2 Depression Total Score: 2 08/07/20 9:56 AM EDT documented as of this encounter Care Teams Quality Assurance Monitor Chassis Relationship Specialty Start Date End Date Alexy Mendez MD [address] [place] [address] PCP - General Family Medicine 08/07/19 06/17/24 documented as of this encounter
--- OUTSIDE RECORDS SUMMARY | 2025-05-06 23:59 | XMS_ITS | Encounter Summary ---
Author Organization [facility] [place] [address] Care Team Providers Care Porcelain Enamel Installer Name Role Phone No Pcp, Provider Not In [facility] Unavailable Encounter Details Date Type Department Care Team (Late st Contact Info) Description 05/07/2025 11:59 PM EDT Anesthesia Event [facility] [address] [place] [address] Yasmin Reinoso APRN [address] [place], [place] [id number] Anesthesia Record Procedure Summary Procedure Name Responsible Anesthesiologist Anesthesia Start Time Anesthesia Stop Time Events No events on file. Meds * Agents No agents on file. * Blood No blood administrations on file. Lines, Drains, and Airways No LDAs on file. documented in this encounter Social History Tobacco Use Types Packs/Day Years Used Date Smoking Tobacco: Every Day Cigarettes 1 42.9 Started: 07/01/1982 Smokeless Tobacco: Never Comments:currently down to . 5 ppd Alcohol Use Standard Drinks/Week Comments Yes 0 (1 standard drink = 0.6 oz pur e alcohol) rarely C Utilities Answer Date Recorded In the past 12 months has th e electric, gas, oil, or water company threatened to shut off services in your home? No 05/04/2024 Overall Financial Resource Strain (CARDIA) Answe r Date Recorded How hard is it for you to pa y for the very basics like food, housing, medical care, and heating? Not very hard 05/04/2024 PHQ-2 Answer Date Recorded PHQ-2 Total Score 2 05/04/2024 [facility] - Occupational Stress [...] money to get more. Never true 05/04/2024 [facility] IP Transportation Answer D ate Recorded In [...] on file Sexual Orientation Not on file documented as of this encounter Functional Status [...] 9:56 AM CIARAT Daniel Morgan MA documented as of this encounter Mental Status * Because of a physical, mental or emotional condition, does this person have serious difficulty concentrating, remembering or making decisions? Answer Entry Date Author No 08/07/2019 9:56 AM EDT Daniel Morgan MA documented in this encounter Miscellaneous Notes * PAT Pre Evaluation for Anesthesia - Yasmin Reinoso APRN - 05/06/2025 11:20 AM EDT Pre-Anesthesia Evaluation Note Patient Name: Merlyn Solo Sex: female Patient : 1960 Age: 65 y.o. Patient Date: May 06, 2025 COLONOSCOPY Anesthesia Evaluation Previous anesthesia. Airway Dental Pulmonary (+) Respiratory failure: acute on chronic COPD (2L): home oxygen Emphysema Bronchitis: Chronic Asthma History of tobacco use (42.8 pack year): current Cardiovascular (+)Hypertension: Hyperlipidemia Valvular problems/murmurs (AAA with mural thrombus, Stenosis of inferior mesenteric artery): Shortness of breath: Neuro/Psych (+) Psychiatric history: Anxiety and Depression Back or neck pain (s/p laminectomy): Spinal Stenosis Peripheral neuropathy GI/Hepatic/Renal Comments: Malignant neoplasm of urinary bladder- s/p treatment S/P Laparoscopic Hand assisted colectomy for colitis 05/08/2024 Colon Polyp (+)Hepatitis (s/p treatment): C Cirrhosis Endo/Other Comments: Age-related osteoporosis Glaucoma (+)Arthritis: Osteoarthritis Anemia Recreational drug use: Alcohol 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 Anesthesia Plan Anesthesia Plan: MAC Chart Reviewed documented in this encounter Plan of Treatment Upcoming Encounters Date Type Department Care Team (Late st Contact Info) Description 07/16/2025 12:50 PM EDT Appointment [facility] [address] [place] [id number] Anny Mcdaniel MD [address] [place] [address] documented as of this encounter Goals Goal Patient Goal Type Associated Problems Recent Progress Patient-Stated? Author Blood Pressure < 140/90 Blood Pressure 128/74(2023 3:26 PM EST) No Susan Santana RMAmos Maintain a healthy diet, exercise regularly and maintain an ideal body weight General No Norma Coleman, RMA Stay Tobacco Free Lifestyle No Jared Norma, RMA documented as of this encounter Visit Diagnoses Not on filedocumented in this encounter Additional Health Concerns Assessment Noted Time PHQ-9 Depression Total Score: 2 05/04/20 24 4:47 PM EDT PHQ-2 Depression Total Score: 2 05/04/20 24 4:47 PM EDT documented as of this encounter Care Teams Porcelain Enamel Installer Relationship Specialty Start Date End Date No Pcp, Provider Not In Epic PCP - General 06/18/24 documented as of this encounter
--- OUTSIDE RECORDS SUMMARY | 2025-05-20 09:29 | XMS_ITS | Encounter Summary ---
Author Organization [facility] [place] [place] [id number] Care Team Providers Care Electrical Equipment Assembler Name Role Phone No Pcp, Provider Not In [facility] Primary Care Provid er Unavailable Encounter Details Date Type Department Care Team (Latest Contact Info) Description 04/30/2025 Travel Social History Tobacco Use Types Packs/Day Years Used Date Smoking Tobacco: Every Day Cigarettes 1 42.9 Started: 07/01/1982 Smokeless Tobacco: Never Comments:currently down to . 5 ppd Alcohol Use Standard Drinks/Week Comments Yes 0 (1 standard drink = 0.6 oz pur e alcohol) rarely [facility] Utilities Answer Date Recorded In [...] Date Recorded PHQ-2 Total Score 2 05/04/2024 [facility] [place] of Occupat ional Health - Occupational Stress [...] money to get more. Never true 05/04/2024 [facility] IP Transportation Answer D ate Recorded In [...] No 08/07/2019 9:56 AM Daniel Fuentes MA documented as of this encounter Mental Status * Because of a physical, mental or emotional condition, does this person have serious difficulty concentrating, remembering or making decisions? Answer Entry Date Author No 08/07/2019 9:56 AM Daniel Fuentes MA documented in this encounter Plan of Treatment Upcoming Encounters Date Type Department Care Team (Late st Contact Info) Description 07/16/2025 12:50 PM EDT Appointment [facility] [address] [place]ATHAN Veronica [id number] Anny Mcdaniel MD [address] [place] [address] documented as of this encounter Goals Goal Patient Goal Type Associated Problems Recent Progress Patient-Stated? Author Blood Pressure < 140/90 Blood Pressure 128/74(2023 3:26 PM EST) No Susan Santana, RMA Maintain a healthy diet, exercise regularly and maintain an ideal body weight General No Ana Colemanice, RMA Stay Tobacco Free Lifestyle No Ana Colemanice, RMA documented as of this encounter Visit Diagnoses Not on filedocumented in this encounter Additional Health Concerns Assessment Noted Time PHQ-9 Depression Total Score: 2 05/04/20 24 4:47 PM EDT PHQ-2 Depression Total Score: 2 05/04/20 24 4:47 PM EDT documented as of this encounter Care Teams Electrical Equipment Assembler Relationship Specialty Start Date End Date No Pcp, Provider Not In [facility] PCP - General 06/18/24 documented as of this encounter
--- NOTE | 2025-05-20 09:30 | CT_ITS ---
FINAL REPORT CLINICAL HISTORY: lung cancer screening CURRENT SMOKER 1PPD X44 YEARS FINDINGS: CT CHEST LOW DOSE SCREENING HISTORY: Screening exam for lung cancer. Current smoker, 44 pack year smoking history DOSE: CTDIvol: 2.90 mGy, DLP: 104.73 mGy*cm COMPARISON: 05/03/2024. TECHNIQUE: Axial CT without IV contrast administration using low dose protocol. This study was performed with techniques to keep radiation doses as low as reasonably achievable, (ALARA). Individualized dose reduction techniques using automated exposure control or adjustment of mA and/or kV according to the patient''s size were employed. FINDINGS: No acute lung disease is present . There is a new, mildly spiculated, nodule in the right lower lobe measuring 10 mm seen on image 64 of series 3. There is a more medial, adjacent, vague oval opacity measuring 7 x 4 mm. Left lung is clear. No pleural or pericardial effusion is seen . No adenopathy is present . IMPRESSION: 1. Interval development of suspicious right lower lobe nodule. LUNG RADS CATEGORY 4B RECOMMENDATION: Recommend PET/CT for further evaluation. Reviewed, Interpreted and Dictated by Mendoza Vela MD Transcribed by Kiara Dahl Authenticated and [facility]
--- OUTSIDE RECORDS SUMMARY | 2025-05-20 09:30 | XMS_ITS | Encounter Summary ---
Author Organization [place] [address] Care Team Providers Care Supervisor Vat [employer] Name Role Phone No Pcp, Provider Not In [facility] Primary Care Provid er Unavailable Reason for Visit * Reason Onset Date Comments Other 04/25/2025 Encounter Details Date Type Department Care Team (Late st Contact Info) Description 04/25/2025 Telephone [facility] [address] [place] [address] Anny Mcdaniel MD [address] [place] [address] Other Social History Tobacco Use Types Packs/Day Years Used Date Smoking Tobacco: Every Day Cigarettes 1 42.9 Started: 07/01/1982 Smokeless Tobacco: Never Comments:currently down to . 5 ppd Alcohol Use Standard Drinks/Week Comments Yes 0 (1 standard drink = 0.6 oz pur e alcohol) rarely [facility] Utilities Answer Date Recorded In the [...] Date Recorded PHQ-2 Total Score 2 05/04/2024 [facility] [place] of Occupat ional Health - Occupational Stress [...] money to get more. Never true 05/04/2024 [facility] IP Transportation Answer D ate Recorded [...] 9:56 AM EDT Daniel Morgan MA documented as of this encounter Mental Status * Because of a physical, mental or emotional condition, does this person have serious difficulty concentrating, remembering or making decisions? Answer Entry Date Author No 08/07/2019 9:56 AM EDT Daniel Morgan MA documented in this encounter Miscellaneous Notes * Telephone Encounter - Romy Moralez NA - 04/25/2025 2:24 PM EDT pt called and was wanting to go over prep instructions and didn't know what meds she can take before her procedure on 05/07/25. pt aware instructions are on mychart and went over with her briefly. Went over some meds for morning of procedure but informed her the hospital should call and go over morein detail documented in this encounter Plan of Treatment Upcoming Encounters Date Type Department Care Team (Late st Contact Info) Description 07/16/2025 12:50 PM EDT Appointment [facility] [address] [place] [address] Anny Mcdaniel MD [address] [place] [address] documented as of this encounter Goals Goal Patient Goal Type Associated Problems Recent Progress Patient-Stated? Author Blood Pressure < 140/90 Blood Pressure 128/74(2023 3:26 PM EST) No Susan Santana RMA Maintain a healthy diet, exercise regularly and maintain an ideal body weight General No Coleman Norma, RMA Stay Tobacco Free Lifestyle No Ana Colemanice, RMA documented as of this encounter Visit Diagnoses Not on filedocumented in this encounter Additional Health Concerns Assessment Noted Time PHQ-9 Depression Total Score: 2 05/04/20 24 4:47 PM EDT PHQ-2 Depression Total Score: 2 05/04/20 24 4:47 PM EDT documented as of this encounter Care Teams Supervisor Vat House Relationship Specialty Start Date End Date No Pcp, Provider Not In Epic PCP - General 06/18/24 documented as of this encounter
--- OUTSIDE RECORDS SUMMARY | 2025-05-20 09:30 | XMS_ITS | Clinical Summary ---
Author Organization [facility] [[email or web address]] [facility] Address [address] [place] [address] Phone Care Team Providers Care Em Physician Name Role Phone No Pcp, Provider Not In [facility] Primary Care Provid er Unavailable Allergies Active Allergy Reactions Criticality Noted Date Comments Hydroxyzine Other (See Comments) 04/21/2018 aggitation Medications aspirin 81 mg Oral Tablet, Delayed Release (E.C.)Indications: Essential hypertension Take 1 Tab by mouth daily. 08/21/20 15 Active fish oil omega 3-dha-epa 300-1,000 mg Oral Capsule, Delayed Release(E.C.) Take 2 g by mouth daily. Active Nebulizers (MUKESH BABY NEBULIZER) Misc MiscIndications:CO PD (chronic obstructive pulmonary disease) with chronic bronchitis (HCC) Use to administer nebulizer solution prn 1 Each 10/17/20 19 Active Nebulizer & Compressor For Neb Misc DeviceIndications: COPD (chronic obstructive pulmonary disease) with chronic bronchitis (HCC) use as directed 1 Device 12 11/05/20 19 Active Nebulizers Misc MiscIndications:Ac [place] bronchitis, unspecified organism Used as directed prn 1 Each 09/18/20 22 Active Nebulizer Accessories Misc Kit Used as directed prn. Adult nebulizer mask for compressor device J43.9 G47.36 1 Kit 10/26/20 22 Active atorvastatin (LIPITOR) 80 mg Oral TabletIndications: Mixed hyperlipidemia Take 1 Tablet by mouth daily. 90 Tablet 1 05/03/20 23 Active tiotropium (SPIRIVA WITH HANDIHALER) 18 mcg Inhl Capsule, w/Inhalation DeviceIndications: COPD (chronic obstructive pulmonary disease) with chronic bronchitis (HCC),Nocturnal hypoxemia due to emphysema (HCC) Inhale 1 Capsule into the lungs daily. 90 Capsule 1 05/03/20 23 Active Additional Information Patient not taking.Reason: Therapy Completed, Informant: Self/Patient, Reported on 04/30/2025 VENTOLIN HFA 90 mcg/actuation Inhl HFA Aerosol InhalerIndications :COPD (chronic obstructive pulmonary disease) with chronic bronchitis (HCC) INHALE 2 PUFFS BY MOUTH EVERY 4 HOURS NEEDED FOR WHEEZING 90 g 2 07/20/20 23 Active alendronate (FOSAMAX) 70 mg Oral Tablet TAKE 1 TABLET BY MOUTH EVERY 7 DAYS DIRECTED 12 Tablet 1 08/05/20 23 Active ergocalciferol (DRISDOL) 1,250 mcg (50,000 unit) Oral CapsuleIndications :Vitamin D insufficiency TAKE 1 CAPSULE BY MOUTH EVERY WEEK ON SAME DAY EACH WEEK 12 Capsule 1 08/05/20 23 Active albuterol (PROVENTIL) 2.5 mg /3 mL (0.083 %) Inhl Solution for NebulizationIndica tions:COPD (chronic obstructive pulmonary disease) with chronic bronchitis (HCC) INHALE THE ENTIRE CONTENTS OF 1 VIAL(3ML) BY MOUTH INTO THE LUNGS EVERY 4 HOURS VIA NEBULIZER NEEDED FOR WHEEZING 1080 mL 1 08/10/20 23 Active DULoxetine (CYMBALTA) 60 mg Oral Capsule, Delayed Release(E.C.)Indic ations:TAMI (generalized anxiety disorder),Major depressive disorder, recurrent episode, moderate (HCC) TAKE 1 CAPSULE BY MOUTH TWICE DAILY 60 Capsule 01/26/20 24 Active cyclobenzaprine (FLEXERIL) 10 mg Oral TabletIndications: Neck pain TAKE 1 TABLET BY MOUTH EVERY 8 HOURS NEEDED 90 Tablet 1 02/22/20 24 Active SYMBICORT 80-4.5 mcg/actuation Inhl HFA Aerosol InhalerIndications :COPD (chronic obstructive pulmonary disease) with chronic bronchitis (HCC),Nocturnal hypoxemia due to emphysema (HCC) INHALE 2 PUFFS BY MOUTH TWICE DAILY 10.2 g 03/21/20 24 Active traZODone (DESYREL) 100 mg Oral TabletIndications: Major depressive disorder, recurrent episode, moderate (HCC),Primary insomnia TAKE 2 TABLETS BY MOUTH EVERY NIGHT 60 Tablet 04/30/20 24 Active amLODIPine (NORVASC) 5 mg Oral Tablet Take 1 Tablet by mouth daily. 90 Tablet 05/31/2024 2:34 PM EDT 06/01/20 24 Active lisinopriL (PRINIVIL;ZESTRIL) 40 mg Oral Tablet Take 1 Tablet by mouth daily. 90 Tablet 05/31/2024 2:34 PM EDT 06/01/20 24 Active pregabalin (LYRICA) 100 mg Oral Capsule Take 1 Capsule by mouth 3 times daily. 90 Capsule 05/31/2024 2:34 PM EDT 05/31/20 24 Active Additional Information Patient not taking.Reported on 04/30/2025 dextromethorphan (DELSYM) 30 mg/5 mL Oral Suspension, Sust.Release 12 hr Take 5 mL by mouth every 12 hours for up to 9 days 148 mL 05/31/2024 2:34 PM EDT 05/31/20 24 Active Additional Information Patient not taking.Reason: Therapy Completed, Reported on 04/30/2025 guaiFENesin (MUCINEX) 600 mg Oral Tablet Extended Release 12hr Take 1 Tablet by mouth 2 times daily. 30 Tablet 05/31/2024 2:34 PM EDT 05/31/20 24 Active Additional Information Patient not taking.Reason: Therapy Completed, Reported on 04/30/2025 ALPRAZolam (XANAX) 0.25 mg Oral Tablet Take 1 Tablet by mouth 3 times daily as needed for Anxiety. 30 Tablet 05/31/2024 2:34 PM EDT 05/31/20 24 Active dressing, collagen-silver 2 X 2.2 Top BandageIndications :Post-operative state Apply 1 'box' topically daily. 07/26/20 24 Active Additional Information Patient not taking.Reason: Therapy Completed, Reported on 04/30/2025 polyethylene glycol (GOLYTELY) 236-22.74-6.74 -5.86 gram Oral Recon Soln take as directed by office 1 Each 05/07/20 25 Active Active Problems Patient Care Coordination No te Formatting of this note migh t be different from the original. Per Dr Frye: Patient has voided contract no controlled medications including gabapentin to be prescribed from the [facility] Jennifer Hernandez office as of 07/24/18 02/27/[address] ADAM MENDEZ NO SHOW 03/02/27 DR NORMA NEWMAN Problem Noted Date Diagnosed Date Moderate protein-calorie malnutrition 05/11/2024 Infrarenal abdominal aortic aneurysm (AAA) witho ut rupture 05/04/2024 Chronic hypoxic respiratory failure, on home oxy gen therapy 05/04/2024 Stenosis of inferior mesenteric artery SIRS (systemic inflammatory response syndrome) 0 05/04/2024 Ischemic colitis 05/03/2024 Nocturnal hypoxemia due to emphysema 09/15/2022 Age-related osteoporosis wit hout current pathological fracture (06/2022, start fosamax) 07/08/2022 Abdominal aortic aneurysm (A AA) without rupture (HCC), 3.5 cm 06/202207/07/2022 COPD exacerbation 06/26/2021 Hyperglycemia 12/16/2019 Malignant neoplasm of urinary bladder (HCC) - Dr Doshi 12/13/2019 Overview (12/13/2019): Added automatically from request for surgery [id number] Spinal stenosis 07/11/2018 B12 deficiency 03/30/2018 TAMI (generalized anxiety disorder) 11/18/2015 Major depressive disorder, recurrent episode, mo derate 11/18/2015 Pure hypercholesterolemia 12/19/2014 Vitamin D insufficiency 12/19/2014 Essential hypertension 11/25/2014 Chronic hepatitis C without hepatic coma 014 COPD (chronic obstructive pu lmonary disease) with chronic bronchitis 11/25/2014 Tobacco abuse 11/25/2014 Resolved Problems Problem Noted Date Diagnosed Date Resolved Date Acute respiratory failure wi th hypoxia and hypercapnia 06/27/2021 07/03/2021 Overweight (BMI 25.0-29.9) 11/25/2014 0 07/18/2018 Encounters Date Type Department Care Team Description 05/07/2025 Telephone [facility] [address] [place] [address] Anny Mcdaniel MD Reschedule; Medication Management 05/06/2025 11:59 PM EDT Anesthesia Event [facility] [address] [place] [id number] Yasmin Reinoso, CHOCOLATE PRODUCTION MACHINE OPERATOR 04/30/2025 Travel 04/25/2025 Telephone [facility] [address] [place] [id number] Anny Mcdaniel MD Other 03/07/2025 Telephone [facility] [address] [place] [address] Ligia Garcia, Amos Other (Patient's) from Last 3 Months Immunizations Immunization Administration Dates Next Due Hepatitis A, Adult 2022 Pneumococcal Polysaccharide 23 Valent 2022 Surgical History Surgery Date Site/Laterality Comments HYSTERECTOMY, TOTAL ABDOMINAL 11/28/1992 - 11/27/1993 left ovary not removed; due to fibroids APPENDECTOMY SECTION 11/28/1980 - 11/27/1981 BLADDER SURGERY 02/26/2014 - 03/27/2014 benign tumor removed from bladder CARPAL TUNNEL RELEASE 05/02/2014 Hand/Left LEFT CARPAL TUNNEL RELEASE; Surgeon: Isauro Millard MD; Location: [facility]; Service: Hand LUMBAR DISC SURGERY 07/10/2018 N/A L2/3, L3/4 LAMINECTOMY ; Surgeon: Miguel Jaime MD; Location: [facility] OR; Service: Spine CYSTOSCOPY 12/25/2019 N/A CYSTOSCOPY ; Surgeon: Magan Doshi MD; Location: [facility] OR; Service: Urology CYSTOSCOPY 01/27/2021 N/A CYSTOSCOPY with BLADDER BIOPSY; Surgeon: Magan Doshi MD; Location: [facility] OR; Service: Urology CYSTOSCOPY 08/04/2021 N/A CYSTOSCOPY, BLADDER BIOPSY; Surgeon: Magan Doshi MD; Location: [facility] OR; Service: Urology COLECTOMY 05/08/2024 N/A LAPAROSCOPIC HAND ASSISTED COLECTOMY; Surgeon: Wai Ochoa MD; Location: [facility]; Service: General ABDOMINAL EXPLORATION SURGERY 05/18/2024 - 05/19/2024 N/A exploratory laparotomy and closure of incisional hernia with mesh; Surgeon: Wai Ochoa MD; Location: [facility]; Service: General Medical devices from this surgery are in the Medical Devices section. VENTRAL HERNIA REPAIR 05/18/2024 - 05/19/2024 Surgeon: Wai Ochoa MD; Location: [facility]IN [facility]; Service: General Medical devices from this surgery are in the Medical Devices section. Medical History Medical History Date Comments Hypertension Hyperlipidemia Back pain lumbar spinal st enosis. Herniated vertebral disc Carpal tunnel syndrome on left 03/2014 Asthma History of hepatitis C 2001 underwent treatment Arthritis Other specified disorder of kidney and ureter benign tumor removed from bl adder Vitamin D insufficiency COPD (chronic obstructive pu lmonary disease) (HCC) Pneumonia Shortness of breath Cancer (HCC) bladder cancer s urgery Glaucoma Acute respiratory failure wi th hypoxia and hypercapnia (HCC) 06/27/2021 Oxygen dependent 2 liters PRN COPD exacerbation (HCC) 06/26/2021 Family History Medical History Relation Name Comments Emphysema Father Heart Failure Maternal Grandmother Heart Disease Mother Hypertension Mother Diabetes Sister Anesth Problems Neg Hx Colon Cancer Neg Hx Esophageal Cancer Neg Hx Relation Name Status Comments Father Maternal Grandmother Mother Sister Social History Tobacco Use Types Packs/Day Years Used Date Smoking Tobacco: Every Day Cigarettes 1 42.9 Started: 07/01/1982 Smokeless Tobacco: Never Tobacco Cessation:Ready to Q uit: Not Asked; Counseling Given: Not Answered Comments:currently down to .5 ppd Alcohol Use Standard Drinks/Week Comments Yes 0 (1 standard drink = 0.6 oz pur e alcohol) rarely [facility] Utilities Answer Date Recorded In the past 12 months has e [employer], gas, oil, or water [employer] threatened to shut off services in your home? No 05/04/2024 Overall Financial Resource Strain (CARDIA) Answe r Date Recorded How hard is it for you to pa y for the very basics like food, housing, medical care, and heating? Not very hard 05/04/2024 PHQ-2 Answer Date Recorded PHQ-2 Total Score 2 05/04/2024 [facility] [place] [facility] - Occupational Stress [...] money to get more. Never true 05/04/2024 [facility] IP Transportation Answer D ate Recorded [...] on file Sexual Orientation Not on file Obstetrics History Last Filed Vital Signs Vital Sign Reading Time Taken Comments Blood Pressure 128/74 10/23/2024 3:26 PM EST Pulse 88 10/23/2024 3:26 PM EST Temperature 36.3 C (97.3 F) 10/23/2024 3:26 PM EST Respiratory Rate 20 10/23/2024 3:26 PM EST Oxygen Saturation 100% 05/31/2024 1:02 PM EDT Inhaled Oxygen Concentration - - Weight 46.7 kg (103 lb) 10/23/2024 3:26 PM EST Height 152.4 cm (5') 10/23/2024 3:26 PM EST Body Mass Index 20.12 10/23/2024 3:26 PM EST Plan of Treatment Upcoming Encounters Date Type Department Care Team (Late st Contact Info) Description 07/16/2025 12:50 PM EDT Appointment [facility] [address] [place] [address] Anny Mcdaniel MD [address] [place] [address] Health Maintenance Due Date Last Done Comments Annual Wellness Exam 1964 DTaP/TDaP/Td (1 - Tdap) 1980 Cologuard 2006 Colonoscopy 2006 Virtual Colonography 2006 Zoster (1 of 2) 2011 Breast Cancer Screening 01/07/2017 01/07/2015 Hepatitis B Vaccine (1 of 3 - Risk 3-dose series) 2021 RSV or 60+ (1 - Risk 60-74 years 1-dose series) 2021 Hepatitis A Vaccine (2 of 2 - Risk 2-dose series) 07/20/2022 2022 FIT 06/01/2023 06/01/2022 Low Dose Lung Cancer Screening 07/07/2023 07/07/2022, 07/31/2021, 11/05/2019, Additional history exists COVID-19 Vaccine ( season) 2024 Colon Cancer Screening 05/07/2029 Sigmoidoscopy 05/07/2029 05/07/2024 Influenza Vaccine Completed 09/04/2024, , 09/22/2017 (Declined), Additional history exists Pneumococcal Vaccine 50+ Completed 09/04/2024, 12/30 Meningococcal B Vaccine Aged Out No l onger eligible based on patient's age to complete this topic Goals Goal Patient Goal Type Associated Problems Recent Progress Patient-Stated? Author Blood Pressure < 140/90 Blood Pressure 128/74(2023 3:26 PM EST) Susan Kruger RMA Maintain a healthy diet, exercise regularly and maintain an ideal body weight General No Coleman, Norma, RMA Stay Tobacco Free Lifestyle No Coleman, Norma, RMA Medical Devices Implanted Type Area Director Workforce Management Device Identifier Shelf Expiration Date Model / Serial / Lot Strattice Reconstructive Tissue Matrix, 16cm X 20cm, Firm - [id number] Implanted:Qty: 1 on 05/18/2024 by Wai Ochoa MD at [facility] N/A: Abdomen [employer] 08/27/2024 [id number] / / [id number] Procedures Procedure Name Priority Date/Time Associated Diagnosis Comments FLEXIBLE SIGMOIDOSCOPY Routine 12:[address] CHEST W CONTRAST Routine 07/07/2022 8 :[address] of the chest FECAL HEME (FIT) CANCER SCREEN Routine 06/01/2022 12:45 PM EDT Screening for colon cancer MM MAMMO DIGITAL SCREENING W CAD BILAT Routine 01/07/2015 4:25 PM EST Other screening mammogram from Last 3 Months or Most Recently Relevant to Health Maintenance Results * FLEXIBLE SIGMOIDOSCOPY (05/07/2024 12:26 PM EDT) Anatomical Region Laterality Modality Endoscopy Addenda Addendum by Anny Mcdaniel MD on 05/07/2024 12:33 PM EDT Table formatting from the original result was not included. Findings Benign-appearing and inflamed stricture (not traversable) in the sigmoid colon. Located in area of sigmoid diverticulosis. This could not be traversed despite use of pediatric colonoscope. One sessile polyp measuring 5-9 mm in the rectum; performed cold snare with complete en bloc removal and retrieved specimen Internal medium hemorrhoids Recommendation Await pathology results Further management per surgery. Eventual completion colonoscopy in 6-12 months. Nothing further from GI standpoint at present. GI will sign off. Please feel free to call with questions or concerns. Indication Colitis Staff Staff Role DONALDO Morgan CRNA, MD Anesthesiologist Mackenzie Andrews RN Product Development Technician Natalie Keating RN Product Development Technician Anny Mcdaniel MD Performing Provider Hansel العراقي CRNA CRNA Medications See Anesthesia Record. Preprocedure A history and physical has been performed, and patient medication allergies have been reviewed. The patient's tolerance of previous anesthesia has been reviewed. The risks and benefits of the procedure and the sedation options and risks were discussed with the patient. All questions were answered and informed consent obtained. ASA 3 - Patient with severe systemic disease Details of the Procedure The patient underwent monitored anesthesia care, which was administered by an anesthesia professional. The patient's blood pressure, heart rate, level of consciousness, oxygen, respirations, ECG and ETCO2 were monitored throughout the procedure. A digital rectal exam was performed. The scope was introduced through the anus and advanced to the sigmoid colon. Retroflexion was performed in the rectum. Bowel prep was adequate. The patient experienced no blood loss. The procedure was not difficult. The patient tolerated the procedure well. There were no apparent adverse events. CO2 insufflation was used for the procedure. Patient provided education and educated on specific discharge instructions. Patient educated on medications given during the procedure and new medications for discharge. Patient verbalizes understanding of discharge education. Patient stable and awaiting transport for discharge. Events Procedure Events Event Event Time ENDO SCOPE IN TIME 05/07/2024 12:15 PM ENDO SCOPE OUT TIME 05/07/2024 12:25 PM Specimens ID Type Source Tests Collected by Time 1 : rectal polyp via cold snare Tissue Large Intestine, Rectum PATHOLOGY TISSUE REQUEST Anny Mcdaniel MD 05/07/2024 1224 Anesthesia Event Time In Patient In - Proc. Room 05/07 12:07 PM Patient Out - Proc. Room 05/07 12:26 PM Brooklyn Fritz APRN ENDOSCOPY PROCEDURE ORDER BREANA Edited Result - Final * CT CHEST W CONTRAST (07/07/2022 8:51 AM EDT) Anatomical Region Laterality Modality Chest Computed Tomogra phy 07/07/2022 8:51 AM EDT Impressions 07/07/2022 12:09 PM EDT 1. No significant change right lower lobe peribronchial thickening and endobronchial filling defect/mucous plugging. Resolution of prior similar findings in the right middle lobe. Overall, findings likely represent chronic mucous plugging/bronchitis/endobronchial infection. 2. Incompletely imaged 3.5 cm AAA. - Note: Radiology results need to be interpreted within a comprehensive clinical context. If you have questions about the radiology report, please contact the office of the ordering clinician. Narrative 07/07/2022 12:[address] CHEST WITH CONTRAST, 07/07/2022 8:51 AM CLINICAL HISTORY: R93.89-Abnormal findings on diagnostic imaging of other specified body [id number]. COMPARISON: 07/31/2021 PROCEDURE COMMENTS: Multi detector CT scanning of the chest. Multiplanar reconstructions per protocol. Isovue 370 IV contrast given as recorded in EPIC. Dose 1 : CT DLP Total : 77.43 mGycm DLP Spiral Max : 74.44 mGycm Maximum CTDI Vol : 1.99 mGy FINDINGS: No mediastinal or hilar lymphadenopathy. Small pericardial effusion. Incompletely imaged infrarenal AAA measuring at least 3.5 cm in diameter. No suspicious pulmonary nodules or masses. Right lower lobe peribronchial soft tissue thickening and endobronchial filling defects unchanged. Previously seen similar findings in the right middle lobe have resolved. Coronary artery calcification: None. Procedure Note Nicholas Gerber MD - 07/07/2022 CT CHEST WITH CONTRAST, 07/07/2022 8:51 AM CLINICAL HISTORY: R93.89-Abnormal findings on diagnostic imaging ofother specified body [id number]. COMPARISON: 07/31/2021 PROCEDURE COMMENTS: Multi detector CT scanning of the chest. Multiplanar reconstructions per protocol. Isovue 370 IV contrast given as recorded inEPIC. Dose 1 : CT DLP Total : 77.43 mGycm DLP Spiral Max : 74.44 mGycm Maximum CTDI Vol : 1.99 mGy FINDINGS: No mediastinal or hilar lymphadenopathy. Small pericardialeffusion. Incompletely imaged infrarenal AAA measuring at least 3.5 cm in diameter.No suspicious pulmonary nodules or masses. Right lower lobe peribronchialsoft tissue thickening and endobronchial filling defects unchanged. Previouslyseen similar findings in the right middle lobe have resolved. Coronary artery calcification: None. IMPRESSION: 1. No significant change right lower lobe peribronchial thickening and endobronchial filling defect/mucous plugging. Resolution of priorsimilar findings in the right middle lobe. Overall, findings likely representchronic mucous plugging/bronchitis/endobronchial infection. 2. Incompletely imaged 3.5 cm AAA. - Note: Radiology results need to be interpreted within a comprehensiveclinical context. If you have questions about the radiology report, please contactthe office of the ordering clinician. Alexy Mendez MD [facility] CT ORDERABLES Final Result * FECAL HEME (FIT) CANCER SCREEN (06/01/2022 12:45 PM EDT) Fecal Immunochemical Test Negative Negative 07/06/2022 3:54 PM EDT [employer] Stool COLON STRUCTURE / Unknown 06/01/2022 12:45 PM EDT 07/06/2022 2:48 PM EDT Alexy Mendez MD IMMUNOLOGY ORDERABLES Final Re sult [facility] [address] [facility], [place] [address] * MM MAMMO DIGITAL SCREENING W CAD BILAT (01/07/2015 4:25 PM EST) Anatomical Region Laterality Modality Breast Bilateral Mammography 01/08/2015 10:4 2 AM EST Impressions 01/08/2015 11:29 AM EST : Benign finding ([id number]) ~ RECOMMENDATION: Routine screening mammogram in 1 year. ~ * The patient with a palpable abnormality, unexplained by breast imaging, should be managed on clinical basis by the attending physician. * Breast imaging has a false negative rate of 15%. * The patient was notified by mail of the results of this examination. *The patient's information was entered into a reminder system with a target due date for the next mammogram. The mammogram was reviewed by a Radiologist and CAD. Narrative 01/08/2015 11:29 AM EST Procedure:MM MAMMO DIGITAL SCREENING W CAD BILAT ~ Reason for exam: screening (asymptomatic). ~ MM MAMMO DIG SCREEN CAD BILAT Bilateral CC and MLO view(s) were taken. Technologist: Gifty Neely, RT There are scattered fibroglandular densities. There are benign appearing nodules in the upper outer quadrant of the right breast, felt consistent with benign lymph nodes. There are 1-5 benign appearing calcifications in the 12:00 position of the right breast. Compared to prior studies the most recent being 10-08-02 ~ us Neeru Frye MD IMG MAMMOGRAPHY ORDERABLES Final Result from Last 3 Months or Most Recently Relevant to Health Maintenance Insurance [facility] [id number] [employer] [facility] [place] [id number] [facility] Advance Directives For more information, please contact: [phone] * Full Code (Latest Code Status on File) Date Activated Date Inactivated Comments 05/11/2024 10:43 AM 05/31/2024 8:36 PM * Full Code Date Activated Date Inactivated Comments 06/26/2021 9:45 PM 06/30/2021 8:00 PM * Full Code Date Activated Date Inactivated Comments 07/10/2018 5:51 PM 07/11/2018 6:53 PM Care Teams Em Physician Relationship Specialty Start Date End Date No Pcp, Provider Not In [facility] PCP - General 06/18/24
--- OUTSIDE RECORDS SUMMARY | 2025-05-20 09:30 | XMS_ITS | Clinical Summary ---
Author Organization Referral[facility] Address [address] [place] [address] Phone Care Team Providers Care Managed Care Provider Name Role Phone José Miguel Mckeon Primary Care Physician [phone] Conditions or Problems Problem Name Problem Code Onset Date Status Entry Date Provider Comment Standard Description Annotate ASTHMA 479420295 (SNOMED CT) 04/11 Active 04/11 José Miguel Mckeon Asthma BACK PAIN, LUMBAR, CHRONIC 724020092 (SNOMED CT) 03/21 Active 03/21 Belen Sholler HAND I BLOCKER Chronic low back pain DEGENERATIVE DISC DISEASE, LUMBAR SPINE 12047708 (SNOMED CT) 03/21 Active 03/21 Belen Sholler HAND I BLOCKER Degeneration of lumbar intervertebral disc HEPATITIS C NOS B19.20 (ICD-10-CM ) 04/26 Active 04/26 Sylwia Lincoln MANAGER GROCERY Unspecified viral hepatitis C without hepatic coma LIVER FUNCTION TESTS ABNORMAL 036730668 (SNOMED CT) 04/05 Active 04/05 Sylwia Lincoln MANAGER GROCERY Liver function tests outside reference range HYPERTRIGLYCE RIDEMIA 084693266 (SNOMED CT) 04/05 Active 04/05 Sylwia Lincoln MANAGER GROCERY Hypertriglycerid emia CARPAL TUNNEL 33204476 (SNOMED CT) 03/19 Active 03/19 Sylwia Lincoln MANAGER GROCERY Carpal tunnel syndrome COUGH 83581681 (SNOMED CT) Active Sylwia Lincoln MANAGER GROCERY Cough HYPERTENSION 70235386 (SNOMED CT) Active Sylwia Lincoln MANAGER GROCERY Hypertensive disorder Medications Medication Instructions Start Date Stop Date Generic Name NDC Provider VENTOLIN HFA 108 (90 Base) MCG/ACT AERS TAKE 2 INHALATIONS EVERY 4 HOURS NEEDED FOR WHEEZING 8 ALBUTEROL SULFATE [id number] Sophie Green MANAGER GROCERY LISINOPRIL-HYD ROCHLOROTHIAZI DE 20-12.5 MG TABS TAKE 1 TABLET BY MOUTH 1 TIME A DAY 8 LISINOPRIL-HYD ROCHLOROTHIAZI DE [id number] Sophie Green MANAGER GROCERY DULERA 100-5 MCG/ACT AERO USE 2 INHALATIONS TWICE A DAY 5 MOMETASONE FURO-FORMOTERO L FUM [id number] José Miguel Mckeon PROAIR HFA 108 (90 Base) MCG/ACT INHALATION AEROSOL SOLUTION USE 2 INHALATIONS 4 TIMES A DAY NEEDED FOR WHEEZING/shortne ss of breath 0 ALBUTEROL SULFATE [id number] José Miguel Linda NEURONTIN 100 MG CAPS TAKE ONE TABLET TWICE DAILY FOR PAIN 2 GABAPENTIN 78069673884 Sylwia Lincoln MANAGER GROCERY SPIRIVA HANDIHALER 18 MCG CAPS USE 1 INHALATION ONCE A DAY 0 TIOTROPIUM BROMIDE MONOHYDRATE 58863963790 Jose Carlos Santiago PREDNISONE 20 MG TABS 1 BY MOJTH 2 TIMES A DAY FOR 5 DAYS. 0 PREDNISONE [id number] Sylwia Lincoln MANAGER GROCERY LISINOPRIL-HYD ROCHLOROTHIAZI DE 20-12.5 MG TABS TAKE 1 TABLET BY MOUTH 1 TIME A DAY 0 LISINOPRIL-HYD ROCHLOROTHIAZI DE [id number] José Miguel Linda Medications Administered No information available. Allergies, Adverse Reactions, Alerts Observed no known allergies at Results Date Name Value Unit Range Flag Description Lab Report: CBC (INCLUDES DI FF/PLT), COMPREHENSIVE METABOLIC PANEL, TSH ... VIT D 25-OH 46 ng/mL 30-100 N 25-Hydrox ycalcifero l [Mass/volume] in Serum or Plasma B12 694 pg/mL 200-1100 N Cobalamin (V itamin B12) [Mass/volume] in Serum or Plasma TSHREFLX FT4 1.06 m[iU]/L N TSH (thy roid stimulating hormone) with reflex FT4 Lab Report: COMPREHENSIVE ME TABOLIC PANEL, HEMOGLOBIN A1c, LIPID PANEL W ... HGBA1C 5.6 % OF TOTAL HGB % <5.7 N Hemoglobin A1c/Hemoglobin, total in Blood - % Office Visit: f/u and get fa sting labs from last OV room 1 LDL GOAL <130 mg/dL LDL target l evel Lab Report: CBC (INCLUDES DI FF/PLT), COMPREHENSIVE METABOLIC PANEL, LIPI ... CHOL/HDL % 5.1 (calc) < OR = 5.0 H cholesterol/HDL ratio, serum, percent LDL 142 MG/DL (CALC) mg/dL <130 H Cholesterol in L DL [Mass/volume] in Serum or Plasma - mg/dL TRIGLYCRDES 186 mg/dL <150 H Triglycer madonna [Mass/volume] in Serum or Plasma - mg/dL HDL 44 mg/dL >OR = 46 L Cholesterol in HDL [Mass/volume] in Serum or Plasma - mg/dL CHOLESTEROL 223 mg/dL 125-200 H Cholester ol [Mass/volume] in Serum or Plasma - mg/dL SGPT (ALT) 47 U/L 6-29 H Alanine aminotransferase [Enzymatic activity/volume] in Serum or Plasma SGOT (AST) 47 U/L 10-35 H Aspartate aminotransferase [Enzymatic activity/volume] in Serum or Plasma ALK PHOS 77 U/L 33-130 N Alkaline phosphatase [Enzymatic activity/volume] in Blood BILI TOTAL 0.6 mg/dL 0.2-1.2 N Bilirubin. total [Mass/volume] in Serum or Plasma A/G RATIO 1.3 (calc) 1.0-2.5 N Albumin/ Globulin [Mass Ratio] in Serum or Plasma GLOBULIN TOT 3.5 G/DL (CALC) g/dL 1.9-3.7 N Globulin [Mass/volume] in Serum ALBUMIN EOP 4.5 g/dL 3.6-5.1 N Albumin [Mass/volume] in Serum or Plasma by Electrophoresis PROTEIN, TOT 8.0 g/dL 6.1-8.1 N Protein [Mass/volume] in Serum or Plasma CALCIUM 10.3 mg/dL 8.6-10.4 N Calcium [Moles/volume] in Serum or Plasma CO2 23 mmol/L 19-30 N Carbon dioxid e, total [Moles/volume] in Venous blood CHLORIDE BLD 102 mmol/L 98-110 N chloride , blood POTASSIUM 5.0 mmol/L 3.5-5.3 N Potassium [Moles/volume] in Serum or Plasma SODIUM 138 mmol/L 135-146 N Sodium [Moles/volume] in Serum or Plasma BUN/CREAT NOT APPLICABLE (calc) 6-22 Urea nitrogen/Creatinine [Mass Ratio] in Serum or Plasma EGFR 87 mL/min/1 .73m2 >OR = 60 N Glomerular filtration rate/1.73 sq M.predicted [Volume Rate/Area] in Serum, Plasma or Blood by Creatinine-based formula (MDRD) CREATININE 0.78 mg/dL 0.50-1.05 N Creatini ne [Mass/volume] in Serum or Plasma BUN 13 mg/dL 7-25 N Urea nitrogen [Mass/volume] in Serum or Plasma BG RANDOM 104 mg/dL 65-99 H Glucose [Mass/volume] in Blood BASO % MANU 1.3 % N basophils as percent of blood leukocytes, manual count EOS % MANU 1.5 % N eosinophil s as percent of blood leukocytes, manual count MONOCYTE % 4.9 % N Monocytes/ 100 leukocytes in Blood by Automated count LYMPH% P BLD 33.8 % N lymphocy jie as percent of blood leukocytes PMN % 58.5 % N Neutrophils/1 00 leukocytes in Blood by Automated count ABS BASOS 104 {Cells}/ uL 0-200 N Basophils [#/volume] in Blood ABS EOS 120 {Cells}/ uL 15-500 N Eosinophils [#/volume] in Blood ABS MONOS 392 {Cells}/ uL 200-950 N Monocytes [#/volume] in Blood ABSLYMPHCT 2704 {Cells}/ uL 850-3900 N Lymphocytes [#/volume] in Blood ABS NEUTROPH 4680 CELLS/UL 10*3/uL 5004-7926 N Neutrophils [#/volume] in Blood PLATELETK/UL 167 THOUSAND/UL 10*3/uL 140-400 N platelet count RDW 13.7 % 11.0-15.0 N Erythrocyte distribution width [Ratio] by Automated count OL-MCHC 34.0 g/dL 32.0-36.0 N mean corpus cular hemoglobin concentration, rbc MCH 33.3 pg 27.0-33.0 H MCH [Entiti c mass] by Automated count MCV 97.9 fL 80.0-100. 0 N MCV [Entitic volume] by Automated count HCT 45.0 % 35.0-45.0 N Hematocrit [Volume Fraction] of Blood by Automated count HGB 15.3 g/dL 11.7-15.5 N Hemoglobin [Mass/volume] in Blood RBC M/UL 4.59 MILLION/UL 10*6/uL 3.80-5.10 N red blood count WBC CT BLOOD 8.0 10*3/uL 3.8-10.8 N leukocy te count, blood Plan of Care Type Date Detail Referral Pain Management [facility], [address] [place], [address] Referral Pain Management Referral [facility], [address], [address] Referral Orthopedic Refer [facility] [address] [place] [address], [address] Referral Pain Management Referral [facility], [address] [place], [address] Referral excluded fr om report: Referral Hand Surgery Ref erral Hand Electrical Integrator Liam Carter MD, [address] [facility], [place], [address] Referral Hand Surgery Ref erral Hand Electrical Integrator Liam Carter MD, [address], [place], [address] Referral excluded fr om report: Referral Orthopedic Refer [facility] [address] [place], [address] Referral Orthopedic Refer [facility] [address] [place], [address] Referral excluded fr om report: Pending order X-Ray Chest Pending Order exclud ed from report: Pending order CBC with diff Pending order CMP Pending order Lipid Panel Pending order X-Ray Chest Pending order PFT Full Pending order CBC with diff Pending Order exclud ed from report: Pending order CMP Pending Order exclud ed from report: Pending order Lipid Panel Pending Order exclud ed from report: Pending order X-Ray Chest Pending order Lipid Panel Pending order CMP Pending order CBC with diff Pending order Urine Dip Auto 8 1003 Pending order Urine Dip Auto 8 1003 Pending Order exclud ed from report: Pending order EMG Electromyogr aphy Pending order Acute Hepatitis Panel Pending order Acute Hepatitis Panel Pending Order exclud ed from report: Pending order CMP Pending order HGBA1c Pending order Lipid Panel Pending order Mammogram Pending Order exclud ed from report: Pending order Mammogram Pending order CBC with diff Pending order CMP Pending order TSH reflex to fr ee T4 Pending order Vitamin D 25 Dih ydroxy Pending order B12 Procedures Code Procedure Name Date Entry Date ORTHO COMMON Orthopedic Referral [facility] 20 10/06/15 PAIN N [place] Pain Management Refe rral [facility] PAIN [place] Pain Management [facility] Chest X-Ray Chest PFT FULL ALVAREZ PFT Full 90855 [facility] # Lipid Panel 5 30353 [facility] # CMP 5 6399 [facility] # CBC with diff 5 X-Ray Chest X-Ray Chest 6399 [facility] # CBC with diff 0 [address] [facility] # CMP 0 [address]016 [facility] # Lipid Panel 0 CPT-20685 Urine Dip Auto 11481 HAND SX SPEC Hand Surgery Referral Hand Surgery Specia list ORTHO COMMON Orthopedic Referral [facility] 20 09/04/31 CPT-27871 Acute Hepatitis Panel 0 09 EMG ALVAREZ EMG Electromyography 84198 [facility] # CMP 8 496 [facility] # HGBA1c 43997 [facility] # Lipid Panel 8 Mammo ALVAREZ Mammogram 6399 [facility] # CBC with diff 0 [address]957 [facility] # CMP 0 [address]136 [facility] # TSH reflex to free T4 CPT-99613 Vitamin D 25 Dihydroxy 09/06 927 [facility] # B12 Vital Signs Date Name Value Unit Description BMI (Body Mass Index) 33.03 kg/m2 Bod y Mass Index (Ratio) Body Temperature 98.1 [degF] temperat ure E&M Body Temperature 36.7 Emeli temperat ure in centigrade E&M BP Diastolic 70 mm[Hg] blood pressu re, diastolic BP Systolic 148 mm[Hg] blood pressur e, systolic Heart Rate 85 /min pulse rate Height 152.4 cm height in cent imeters E&M Height 60 [in_us] height E&M Respiratory Rate 23 /min respirat ory rate E&M Weight Measured 168.5 [lb_av] weight E& M Weight Measured 168.5 [lb_av] weight E& M Weight Measured 76.59 kg weight in kilograms E&M Immunizations No information available. Advance Directives No information available.
--- OUTSIDE RECORDS SUMMARY | 2025-05-20 09:30 | XMS_ITS | Clinical Summary ---
Author Organization [facility] Address [address] [place] [address] Care Team Providers Care Fiction And Nonfiction Writer Prose Name Role Phone Alexy Mendez MD Primary Care Provider [phone] Source Comments This information has been disclosed to you from confidential records protectedfrom disclosure by state law. You shall make no further disclosure of thisinformation without the specific, written, and informed release of theindividual to whom it pertains, or as otherwise permitted by law. A generalauthorization for the release of medical or other information is not sufficientfor the purposes of therelease of HIV test results or diagnoses. [id number] [facility] Allergies Active Allergy Reactions Criticality Noted Date Comments Hydroxyzine Other (See Comments) 04/21/2018 aggitation Medications aspirin 81 MG EC tablet Take 1 tablet (81 mg total) by mouth daily. Active omega 3-bts-rll-fish oil (FISH OIL) 1,000 mg (120 mg-180 mg) Cap Take 2 capsules by mouth daily. Active atorvastatin (LIPITOR) 80 MG tablet Take 1 tablet (80 mg total) by mouth daily. Active tiotropium (SPIRIVA WITH HANDIHALER) 18 mcg Inhale 1 capsule (18 mcg total) into the lungs daily. Active albuterol (VENTOLIN HFA) 90 mcg/actuation Inhl inhaler Inhale 2 puffs into the lungs every 4 hours as needed for Wheezing. Active albuterol sulfate 2.5 mg, sodium chloride 2.5 mL Inhale 3 mLs by nebulization every 4 hours as needed. Active cyclobenzaprine (FLEXERIL) 10 MG tablet Take 1 tablet (10 mg total) by mouth 3 times a day as needed for Muscle spasms. Active alendronate (FOSAMAX) 70 MG tablet Take 1 tablet (70 mg total) by mouth every 7 days. On FRIDAYS Active ergocalciferol (ERGOCALCIFEROL ) 1,250 mcg (50,000 unit) capsule Take 1 capsule (50,000 Units total) by mouth once a week. On FRIDAYS Active traZODone (DESYREL) 100 MG tablet Take 2 tablets (200 mg total) by mouth at bedtime. Active budesonide-form oteroL (SYMBICORT) 80-4.5 mcg/actuation inhaler Inhale 2 puffs into the lungs 2 times a day. Active DULoxetine (CYMBALTA) 60 MG capsule Take 1 capsule (60 mg total) by mouth 2 times a day. Active acetaminophen (TYLENOL) 325 MG tablet Take 3 tablets (975 mg total) by mouth every 8 hours. 100 tablet 02/21/2024 4:41 PM EDT 4 Active polyethylene glycol (GLYCOLAX) 17 gram/dose powder Mix one capful in 8 ounces of liquid and drink by mouth daily. 238 g 02/21/2024 4:41 PM EDT 4 Active naloxone (NARCAN) 4 mg/actuation [place] Apply 1 spray in one nostril if needed. Call 911. May repeat dose in other nostril if no response in 3 minutes. 2 each 1 02/21/2024 4:41 PM EDT 4 Active ondansetron (ZOFRAN) 4 MG tabletIndicatio ns:Nausea Take 1 tablet (4 mg total) by mouth every 8 hours as needed for Nausea. 20 tablet 4 Active Active Problems Problem Noted Date Diagnosed Date Diverticulitis of large inte diana with perforation without abscess or bleeding 03/20/2024 Immunizations Immunization Administration Dates Next Due Influenza, quadrivalent, preservative-free 02/07 Social History Tobacco Use Types Packs/Day Years Used Date Smoking Tobacco: Every Day Cigarettes Smokeless Tobacco: Never Tobacco Cessation:Ready to Q uit: Not Asked; Counseling Given: Not Answered Alcohol Use Standard Drinks/Week Comments Not Currently 0 (1 standard drink = 0.6 oz pur e alcohol) Utilities Answer Date Recorded In the past 12 months has th e electric, gas, oil, or water company threatened to shut off services in your home? No 02/07/2024 AUDIT-C Answer Date Recorded Q1: How often do you have a drink containing alcohol? Never 02/07/2024 Q2: How many drinks containi ng alcohol do you have on a typical day when you are drinking? Patient does not drink Q3: How often do you have si x or more drinks on one occasion? Never 02/07/2024 Hunger Vital Sign Answer Date Recorded Within the past 12 months, y ou worried that your food would run out before you got the money to buy more. Never true 02/07/20 24 Within the past 12 months, t he food you bought just didn't last and you didn't have money to get more. Never true 02/07/2024 PRAPARE - Transportation Answer Date Re corded In the past 12 months, has l ack of transportation kept you from medical appointments or from getting medications? No 01/26 In the past 12 months, has l ack of transportation kept you from meetings, work, or from getting things needed for daily living? No 02/07/2024 Housing Stability Vital Sign Answer Robin e Recorded In the last 12 months, was t here a time when you were not able to pay the mortgage or rent on time? No 02/07/2024 In the last 12 months, how many places have you lived? 1 02/07/2024 In the last 12 months, was t here a time when you did not have a steady place to sleep or slept in a residential (including now)? No 02/07/2024 Comments Unknown Sex and Gender Information Value Date Recorded Sex Assigned at Not on file Legal Sex Female 6:43 PM EST Gender Identity Not on file Sexual Orientation Not on file Last Filed Vital Signs Vital Sign Reading Time Taken Comments Blood Pressure 102/51 03/21/2024 11:45 AM EDT Pulse 103 03/21/2024 11:45 AM EDT Temperature 36.5 C (97.7 F) 02/21/2024 3:42 PM EDT Respiratory Rate 17 02/21/2024 3:42 PM EDT Oxygen Saturation 98% 03/21/2024 11:45 AM EDT Inhaled Oxygen Concentration 98% 03/21/2024 1 1:45 AM EDT Weight 51.7 kg (114 lb) 03/21/2024 11:45 AM EDT Height 162.6 cm (5' 4 ) 03/21/2024 11:45 AM EDT Body Mass Index 19.57 03/21/2024 11:45 AM EDT Plan of Treatment Health Maintenance Due Date Last Done Comments Abnormal Colonoscopy Follow Up 1961 Depression Screening 1979 HIV Screening 1979 Immunization: DTaP/Tdap/Td (1 - Tdap) 1980 Cervical Cancer Screening/Pap Smear (MyChart) 01/20/19 91 Mammogram (MyChart) 2001 Cologuard (FIT-DNA) 2006 Colonoscopy 2006 Colorectal Cancer Screening (MyChart) 2006 Stool Testing (gFOBT) 2006 Immunization: Zoster (1 of 2) 2011 Lung Cancer Screening 2011 Immunization: Pneumococcal (2 of 2 - PCV) 2023 2022 Immunization: COVID-19 ( - season) 2024 Alcohol Misuse Screening 02/05/2025 02/06/2024 Immunization: Influenza (MyChart) (Season Ended) 07/2902/08/2024 Immunization: RSV (Adult) (1 - 1-dose 75+ series) 12/30 Hepatitis C Screening ([place]) Completed Procedures Procedure Name Priority Date/Time Associated Diagnosis Comments ED HCV AB REFLEX TO HCV QUANT Routine 02/07/2024 12:47 AM EDT from Last 3 Months or Most Recently Relevant to Health Maintenance Results * (ABNORMAL) ED HCV Ab Reflex To HCV Quant (02/07/2024 12:47 AM EDT) HCV Ab Reactive( A) Nonreactive 02/07/2024 3:25 AM EDT HEALTH LAB Comment:Health Department no tified in accordance with reportable infectious disease guidelines. HCVAB Number 6.70(H) 0.00 - 0.79 S/CO 02/07/2024 3:25 AM EDT [facility] Serum 02/07/2024 12:4 7 AM EDT 02/07/2024 12:54 AM EDT us Martin Sheldon MD LAB BLOOD ORDERABLES Final Resul t [facility] [address] [facility] [place] [address], [facility] from Last 3 Months or Most Recently Relevant to Health Maintenance Insurance [address] [place] [id number] [facility] [address] [place] [id number] Advance Directives For more information, please contact: [phone] * Full Code (Latest Code Status on File) Date Activated Date Inactivated Comments 02/07/2024 2:48 AM 02/21/2024 10:24 PM Care Teams Fiction And Nonfiction Writer Prose Relationship Specialty Start Date End Date Alexy Mendez MD [address] [facility] [place] [address] PCP - General Family Medicine 02/06/24
--- OUTSIDE RECORDS SUMMARY | 2025-05-20 09:30 | XMS_ITS | Encounter Summary ---
Author Organization [place] [address] Care Team Providers Care Marketing Compliance Manager Name Role Phone No Pcp, Provider Not In [facility] Primary Care Provid er Unavailable Reason for Visit * Reason Onset Date Comments Reschedule 05/07/2025 Medication Management 05/07/2025 Encounter Details Date Type Department Care Team (Late st Contact Info) Description 05/07/2025 Telephone [facility] [address] [place] [address] Anny Mcdaniel MD [address] [place] [address] Reschedule; Medication Management Social History Tobacco Use Types Packs/Day Years [...] Date Recorded PHQ-2 Total Score 2 05/04/2024 [facility] - Occupational Stress Questionnaire Answer Date Recorded [...] money to get more. Never true 05/04/2024 [facility] IP Transportation Answer D ate Recorded [...] Daniel Morgan MA documented in this encounter Ordered Prescriptions Prescription Sig Dispense Quantity Refills Last Filled Start Date End Date polyethylene glycol (GOLYTELY) 236-22.74-6.74 -5.86 gram Oral Recon Soln take as directed by office 1 Each 05/07/2025 documented in this encounter Miscellaneous Notes * Telephone Encounter - Romy Moralez NA - 05/07/2025 12:38 PM EDT instructions mailed * Telephone Encounter - Kenia Caldwell Clerical Staff - 05/07/2025 11:39 AM EDT Type of Prep: COLYTE SPLIT Procedure: COLON Location of procedure: [facility] Date: 07/16/25 Provider: Dr Mcdaniel Time: 12:50 pm Thinner? If so, what and how long to hold?: Diet/Diabetic Holds Pt address to mail to: [address] [place], [place] [id number] * Telephone Encounter - Kenia Caldwell Clerical Staff - 05/07/2025 11:38 AM EDT Please call in [facility] Thank you * Telephone Encounter - Kenia Caldwell Clerical Staff - 05/07/2025 11:35 AM EDT pt called she is needing to R/S states she is not cleaned out, 05/07/25 205pm @ [facility] and she is now scheduled 07/16/25 1250pm @ [facility] needs to have COLYTE resent to [facility] and prep instructions mailed documented in this encounter Plan of Treatment Upcoming Encounters Date Type Department Care Team (Late st Contact Info) Description 07/16/2025 12:50 PM EDT Appointment [facility] [address] [place] [address] Anny Mcdaniel MD [address] [place] [address] documented as of this encounter Goals Goal Patient Goal Type Associated Problems Recent Progress Patient-Stated? Author Blood Pressure < 140/90 Blood Pressure 128/74(2023 3:26 PM EST) No Susan Santana, RMA Maintain a healthy diet, exercise regularly and maintain an ideal body weight General No Coleman, Norma, RMA Stay Tobacco Free Lifestyle No Coleman, Norma, RMA documented as of this encounter Visit Diagnoses Not on filedocumented in this encounter Additional Health Concerns Assessment Noted Time PHQ-9 Depression Total Score: 2 05/04/20 24 4:47 PM EDT PHQ-2 Depression Total Score: 2 05/04/20 24 4:47 PM EDT documented as of this encounter Care Teams Marketing Compliance Manager Relationship Specialty Start Date End Date No Pcp, Provider Not In [facility] PCP - General 06/18/24 documented as of this encounter
[2025-05-20 10:55] VITALS: PULSE 90; PULSE 96
[2025-05-20] MEDS: ALBUTEROL 0.083% 2.5 MG/3 ML NEB IH (10:55)
--- NOTE | 2025-05-20 12:03 | RESP.PFTSS ---
Patient could not give a forceful exhalation to meet end criteria for DLCO. Patient attempted and could not complete nitrogen washout.
== END 2025-05-20 23:59 | disposition home or self-care (01) ==
LOC: RAD 09:20
PROVIDERS: PCP Family Medicine; Visit Provider Internal Medicine Pulmonary Disease
DX: R91.1 Solitary pulmonary nodule (principal); J44.9 Chronic obstructive pulmonary disease, unspecified; F17.210 Nicotine dependence, cigarettes, uncomplicated; Z12.2 Encounter for screening for malignant neoplasm of respiratory organs
CPT/HCPCS: 71271; 94010; 94618; 94640; 94727; 94729

== ENCOUNTER 2025-08-26 14:48 | Outpatient (CLI) | payer MEDICAID, SELFPAY ==
--- OUTSIDE RECORDS SUMMARY | 2019-10-10 10:47 | XMS_ITS | Encounter Summary ---
Author Organization [place] [address] Care Team Providers Care Artist Consultant Name Role Phone Alexy Mendez MD Primary Care Provider [phone] Encounter Details Date Type Department Care Team (Late st Contact Info) Description 10/10/2019 9:47 AM EST Hospital Encounter [facility] Referral Lab 1 [place], [place] [id number] Miguel Jaime MD [id number] [place] [id number] Low back pain Social History Tobacco Use Types Packs/Day Years Used Date Smoking Tobacco: Every Day Cigarettes 1 43.2 Started: 07/01/1982 Smokeless Tobacco: Never Comments:currently down to . 5 ppd Alcohol Use Standard Drinks/Week Comments Yes 0 (1 standard drink = 0.6 oz pur e alcohol) rarely [facility] Utilities Answer Date Recorded In the past 12 months has [employer] electric, gas, oil, or water company threatened to shut off services in your home? No 05/04/2024 Overall Financial Resource Strain (CARDIA) Answe r Date Recorded How hard is it for you to pa y for the very basics like food, housing, medical care, and heating? Not very hard 05/04/2024 PHQ-2 Answer Date Recorded PHQ-2 Total Score 2 05/04/2024 [facility] [place] of Occupat ional Health - Occupational Stress [...] money to get more. Never true 05/04/2024 [facility] IP Transportation Answer D ate Recorded In [...] as of this encounter Functional Status * Alcohol Screening Score Answer Date of Assessment Author 0 05/03/2024 9:00 PM EDT Juan Culver RN * Drug Screening Score Answer Date of Assessment Author 0 05/03/2024 9:00 PM EDT Juan Culver RN * Question Answer Date of Assessment Author How often do you have a drin k containing alcohol? 0 05/03/2024 9:00 PM EDT Jose Alberto Culver RN How many drinks containing a lcohol do you have on a typical day when you are drinking? 0 05/03/2024 9:00 PM EDT Jose Alberto Culver RN How often do you have six or more drinks on one occasion? 0 05/03/2024 9:00 PM Karen Hernandez RN AUDIT-C to Determine Rows 4-10 0 05/03/2024 9:00 PM Jose Alberto Hernandez RN * Is the person deaf or does he/she have serious difficulty hearing? Answer Date of Assessment Author No 08/07/2019 9:56 AM Daniel Fuentes MA * Is the person blind or does he/she have serious difficulty seeing even when wearing glasses? Answer Date of Assessment Author No 08/07/2019 9:56 AM Daniel Fuentes MA * Does this person have serious difficulty walking or climbing stairs? Answer Date of Assessment Author No 08/07/2019 9:56 AM Daniel Fuentes MA * Does this person have difficulty dressing or bathing? Answer Date of Assessment Author No 08/07/2019 9:56 AM Daniel Fuentes MA * Because of a physical, mental or emotional condition, does this person have difficulty doing errands alone such as visiting a doctor's office or shopping? Answer Date of Assessment Author No 08/07/2019 9:56 AM Daniel Fuentes MA * Question Answer Date of Assessment Author Little interest or pleasure in doing things 1 05/04/2024 4:47 PM Sandie Salcedo RN Feeling down, depressed, or hopeless 1 05/04/2024 4:47 PM Sandie Salcedo RN PHQ-2 Total Score 2 05/04/2024 4:47 PM Sandie Salcedo RN * PHQ-9 Total Score Answer Date of Assessment Author 2 05/04/2024 4:47 PM Sandie Salcedo RN * Suicide Severity Rating Answer Date of Assessment Author No Risk 05/03/2024 9:13 PM Juan Hernandez RN * [place] Suicide Severity Rating Scale (Q shift for moderate and high) Question Answer Date of Assessment Author 1. In the past month, have y ou wished you were or wished you could go to sleep and not wake up? 0 05/03/2024 9:13 PM Jose Alberto Friend RN 2. In the past month, have y ou actually had any thoughts of killing yourself? (If no, skip to question 6) 0 05/03/2024 9:13 PM EDT Jose Alberto Culver RN 6. Have you ever done anythi ng, started to do anything, or prepared to do anything to end your life? 0 05/03/2024 9:13 PM EDT Jose Alberto Culver RN documented as of this encounter Mental Status * Because of a physical, mental or emotional condition, does this person have serious difficulty concentrating, remembering or making decisions? Answer Entry Date Author No 08/07/2019 9:56 AM EDT Daniel Morgan MA documented in this encounter Plan of Treatment Scheduled Orders Name Type Priority Associated Diagnoses Orde r Schedule CREATININE Lab Routine Low back pain ONCE for 1 Occurrences starting 10/10/2019 until 11/14/2019 documented as of this encounter Goals Goal Patient Goal Type Associated Problems Recent Progress Patient-Stated? Author Blood Pressure < 140/90 Blood Pressure 131/81(2024 1:42 PM EDT) No Susan Santana RMAmos Maintain a healthy diet, exercise regularly and maintain an ideal body weight General No Ana Colemanice, RMA Stay Tobacco Free Lifestyle No Norma Coleman RMA documented as of this encounter Visit Diagnoses Diagnosis Low back pain Lumbago documented in this encounter Additional Health Concerns Infection Onset Date Last Indicated Resolved Time R/O COVID-19 06/26/2021 06/26/2021 06/26/2021 5:52 PM EDT Assessment Noted Time PHQ-9 Depression Total Score: 2 08/07/20 9:56 AM EDT PHQ-2 Depression Total Score: 2 08/07/20 9:56 AM EDT documented as of this encounter Care Teams Artist Consultant Relationship Specialty Start Date End Date Alexy Mendez MD [address] [facility] [place] [address] PCP - General Family Medicine 08/07/19 06/17/24 documented as of this encounter
--- OUTSIDE RECORDS SUMMARY | 2025-07-16 12:09 | XMS_ITS | Encounter Summary ---
Author Organization [place] [address] Care Team Providers Care Head Host/Hostess Name Role Phone No Pcp, Provider Not In [facility] Primary Care Provid er Unavailable Reason for Referral * Surgical (Routine) - Authorization Not Needed Specialty Diagnoses / Procedures Referred By Indio buchanan Referred To Contact Gastroenterology Diagnoses Encounter for colonoscopy due to history of colonic polyp Procedures COLONOSCOPY VT COLONOSCOPY FLX DX W/COLLJ SPEC WHEN PFRMD VT COLONOSCOPY FLX W/ENDOSCOPIC MUCOSAL RESECTION Anny Mcdaniel MD [address] [place] [address] Phone: tel: fax: Referral ID Status Reason Start Date Expiration Date Visits Requested Visits Authorized [id number] Authorization Not Needed 03/07/2025 03/07/2026 1 1 Reason for Visit * Surgical (Routine) - Authorization Not Needed Specialty Diagnoses / Procedures Referred By Indio buchanan Referred To Contact Gastroenterology Diagnoses Encounter for colonoscopy due to history of colonic polyp Procedures COLONOSCOPY VT COLONOSCOPY FLX DX W/COLLJ SPEC WHEN PFRMD VT COLONOSCOPY FLX W/ENDOSCOPIC MUCOSAL RESECTION Anny Mcdaniel MD [address] [place] [address] Phone: tel: fax: Referral ID Status Reason Start Date Expiration Date Visits Requested Visits Authorized [id number] Authorization Not Needed 03/07/2025 03/07/2026 1 1 Encounter Details Date Type Department Care Team (Late st Contact Info) Description 07/16/2025 12:09 PM EDT - 07/16/2025 11:59 PM EDT Hospital Encounter [facility] [address] [place] [address] Anny Mcdaniel MD [address] [place], [place] [id number] Karri Guevara MD [address] [facility] [address] [place] [address] Ander Mijares CRNA [address] [place] [address] Encounter for colonoscopy due to history of colonic polyp Discharge Disposition: Home or Self Care Social History Tobacco Use Types Packs/Day Years Used Date Smoking Tobacco: Every Day Cigarettes 1 43.2 Started: 07/01/1982 Smokeless Tobacco: Never Comments:currently down to . 5 ppd Alcohol Use Standard Drinks/Week Comments Yes 0 (1 standard drink = 0.6 oz pur e alcohol) rarely [facility] Utilities Answer Date Recorded In the past 12 months has [employer] electric, gas, oil, or water company threatened to shut off services in your home? No 05/04/2024 Overall Financial Resource Strain (CARDIA) Answe r Date Recorded How hard is it for you to pa y for the very basics like food, housing, medical care, and heating? Not very hard 05/04/2024 PHQ-2 Answer Date Recorded PHQ-2 Total Score 2 05/04/2024 [place] Citizen [place] [facility] - Occupational Stress [...] money to get more. Never true 05/04/2024 [facility] IP Transportation Answer D ate Recorded [...] on file documented as of this encounter Last Filed Vital Signs Vital Sign Reading Time Taken Comments Blood Pressure 131/81 07/16/2025 1:42 PM EDT Pulse 83 07/16/2025 1:42 PM EDT Temperature 37.3 C (99.1 F) 07/16/2025 1:16 PM EDT Respiratory Rate 18 07/16/2025 1:42 PM EDT Oxygen Saturation 100% 07/16/2025 1:42 PM EDT Inhaled Oxygen Concentration - - Weight 44.3 kg (97 lb 9.6 oz) 07/16/2025 12:32 P M EDT Height 154.9 cm (5' 1 ) 07/16/2025 12:32 PM EDT Body Mass Index 18.44 07/16/2025 12:32 PM EDT documented in this encounter Functional Status * Is the [...] Daniel Fuentes MA documented in this encounter Discharge Instructions * Discharge Instructions* Jaci Sanchez RN - 07/16/2025 1:39 PM EDT [facility] Discharge Instructions - Following Endoscopy A responsible adult, 18 years or older must be in attendance until the next A.M. Rest quietly today. May resume usual diet. Do not drive or operate any machinery until the next A.M., or as instructed. No alcoholic beverages for 24 hours. Do not make any legal or important decisions for the next 24 hours. Call the physician???s office for a follow-up visit or concerns Patient discharged to the care of family ADDITIONAL INSTRUCTIONS: Call Dr Mcdaniel at [phone] if the following occurs: Colonoscopy: Severe abdominal pains and swelling (mild abdominal cramps and gas pains can be expected), nausea and vomiting, rectal bleeding (with biopsy or polyps a small amount of blood can be expected), body temp. over 101 degrees, chills. Other Instructions: Recommendation Await pathology results Repeat colonoscopy in 5 years, due: 07/15/2030 No Changes Copy of Discharge Medication Instruction Sheet Given documented in this encounter Medications at Time of Discharge albuterol (PROVENTIL) 2.5 mg /3 mL (0.083 %) Inhl Solution for NebulizationIndicat ions:COPD (chronic obstructive pulmonary disease) with chronic bronchitis (HCC) INHALE THE ENTIRE CONTENTS OF 1 VIAL(3ML) BY MOUTH INTO THE LUNGS EVERY 4 HOURS VIA NEBULIZER NEEDED FOR WHEEZING 1080 mL 1 08/10/2023 alendronate (FOSAMAX) 70 mg Oral Tablet TAKE 1 TABLET BY MOUTH EVERY 7 DAYS DIRECTED 12 Tablet 1 08/05/2023 ALPRAZolam (XANAX) 0.25 mg Oral Tablet Take 1 Tablet by mouth 3 times daily as needed for Anxiety. 30 Tablet 05/31/2024 2:34 PM EDT 05/31/2024 amLODIPine (NORVASC) 5 mg Oral Tablet Take 1 Tablet by mouth daily. 90 Tablet 05/31/2024 2:34 PM EDT 06/01/2024 aspirin 81 mg Oral Tablet, Delayed Release (E.C.)Indications:E ssential hypertension Take 1 Tab by mouth daily. 08/21/2015 atorvastatin (LIPITOR) 80 mg Oral TabletIndications:M ixed hyperlipidemia Take 1 Tablet by mouth daily. 90 Tablet 1 05/03/2023 cyclobenzaprine (FLEXERIL) 10 mg Oral TabletIndications:N ailin pain TAKE 1 TABLET BY MOUTH EVERY 8 HOURS NEEDED 90 Tablet 1 02/22/2024 DULoxetine (CYMBALTA) 60 mg Oral Capsule, Delayed Release(E.C.)Indica tions:TAMI (generalized anxiety disorder),Major depressive disorder, recurrent episode, moderate (HCC) TAKE 1 CAPSULE BY MOUTH TWICE DAILY 60 Capsule 01/26/2024 ergocalciferol (DRISDOL) 1,250 mcg (50,000 unit) Oral CapsuleIndications: Vitamin D insufficiency TAKE 1 CAPSULE BY MOUTH EVERY WEEK ON SAME DAY EACH WEEK 12 Capsule 1 08/05/2023 fish oil omega 3-dha-epa 300-1,000 mg Oral Capsule, Delayed Release(E.C.) Take 2 g by mouth daily. lisinopriL (PRINIVIL;ZESTRIL) 40 mg Oral Tablet Take 1 Tablet by mouth daily. 90 Tablet 05/31/2024 2:34 PM EDT 06/01/2024 Nebulizer [facility] DeviceIndications:C OPD (chronic obstructive pulmonary disease) with chronic bronchitis (HCC) use as directed 1 Device 12 11/05/2019 Nebulizer Accessories [facility] Kit Used as directed prn. Adult nebulizer mask for compressor device J43.9 G47.36 1 Kit 09/22/2022 Nebulizers (MUKESH BABY NEBULIZER) [facility] MiscIndications:JAVA SWING DEVELOPER D (chronic obstructive pulmonary disease) with chronic bronchitis (HCC) Use to administer nebulizer solution prn 1 Each 10/17/2019 Nebulizers [facility] MiscIndications:Acu te bronchitis, unspecified organism Used as directed prn 1 Each 09/18/2022 SYMBICORT 80-4.5 mcg/actuation Inhl HFA Aerosol InhalerIndications: COPD (chronic obstructive pulmonary disease) with chronic bronchitis (HCC),Nocturnal hypoxemia due to emphysema (HCC) INHALE 2 PUFFS BY MOUTH TWICE DAILY 10.2 g 03/21/2024 traZODone (DESYREL) 100 mg Oral TabletIndications:M ajor depressive disorder, recurrent episode, moderate (HCC),Primary insomnia TAKE 2 TABLETS BY MOUTH EVERY NIGHT 60 Tablet 04/30/2024 VENTOLIN HFA 90 mcg/actuation Inhl HFA Aerosol InhalerIndications: COPD (chronic obstructive pulmonary disease) with chronic bronchitis (HCC) INHALE 2 PUFFS BY MOUTH EVERY 4 HOURS NEEDED FOR WHEEZING 90 g 2 07/20/2023 documented as of this encounter Discharge Disposition Disposition Code Departure Means Destination Home or Self Care documented in this encounter H&P Notes * Anny Mcdaniel MD - 07/16/2025 1:05 PM EDT [facility] Gastroenterology Pre-Procedural History and Physical Primary Care Physician: No Pcp, Provider Not In [facility] Pre-Procedural Diagnosis: Sigmoid diverticulitis Indication(s) For Procedure: same Procedure Planned: Colonoscopy --diagnostic, HISTORY OF PRESENT ILLNESS: Merlyn Solo is a 65 y.o. female who has a past medical history of Acute respiratory failure with hypoxia and hypercapnia ([facility]) (06/27/2021), Arthritis, Asthma, Back pain, Cancer (HCC), Carpal tunnel syndrome on left (03/2014), COPD (chronic obstructive pulmonary disease) ([facility]), COPD exacerbation (HCC) (06/26/2021), Glaucoma, Herniated vertebral disc, History of hepatitis C (2001), Hyperlipidemia, Hypertension, Other specified disorder of kidney and ureter, Oxygen dependent, Pneumonia, Shortness of breath, and Vitamin D insufficiency. who presents for the above procedure. Patient is not on anticoagulation. Past Medical History: Diagnosis Date Acute respiratory failure with hypoxia and hypercapnia (HCC) 06/27/2021 Arthritis Asthma Back pain lumbar spinal stenosis. 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 Oxygen dependent 2 liters PRN Pneumonia Shortness of breath Vitamin D insufficiency Past Surgical History: Procedure Laterality Date ABDOMINAL EXPLORATION SURGERY N/A 05/18/2024 exploratory laparotomy and closure of incisional hernia with mesh; Surgeon: Wai Ochoa MD; Location: [facility] MAIN OR; Service: General APPENDECTOMY BLADDER SURGERY 02/2014 benign tumor removed from bladder CARPAL TUNNEL RELEASE Left 05/02/2014 LEFT CARPAL TUNNEL RELEASE; Surgeon: Isauro Millard MD; [facility]; Service:Hand SECTION 1981 COLECTOMY N/A 05/08/2024 LAPAROSCOPIC HAND ASSISTED COLECTOMY; Surgeon: Wai Ochoa MD; Location: ED MAIN OR; Service: General CYSTOSCOPY N/A 12/25/2019 CYSTOSCOPY ; Surgeon: Magan Doshi MD; Location: ED MAIN OR; Service: Urology CYSTOSCOPY N/A 01/27/2021 CYSTOSCOPY with BLADDER BIOPSY; Surgeon: Magan Doshi MD; Location: [facility]; Service: Urology CYSTOSCOPY N/A 08/04/2021 CYSTOSCOPY, BLADDER BIOPSY; Surgeon: Magan Doshi MD; Location: [facility] MAIN OR; Service: Urology HYSTERECTOMY, TOTAL ABDOMINAL 1993 left ovary not removed; due to fibroids LUMBAR DISC SURGERY N/A 07/10/2018 L2/3, L3/4 LAMINECTOMY ; Surgeon: Miguel Jaime MD; Location: [facility] MAIN OR; Service: Spine VENTRAL HERNIA REPAIR 05/18/2024 Surgeon: Wai Ochoa MD; Location: ED MAIN OR; Service: General Medications: Current Outpatient Medications on File Prior to Encounter Medication Sig Dispense Refill albuterol (PROVENTIL) 2.5 mg /3 mL (0.083 %) Inhl Solution for Nebulization INHALE THE ENTIRE CONTENTS OF 1 VIAL(3ML) BY MOUTH INTO THE LUNGS EVERY 4 HOURS VIA NEBULIZER NEEDED FOR WHEEZING 1080 mL 1 alendronate (FOSAMAX) 70 mg Oral Tablet TAKE 1 TABLET BY MOUTH EVERY 7 DAYS DIRECTED 12 Tablet 1 ALPRAZolam (XANAX) 0.25 mg Oral Tablet Take 1 Tablet by mouth 3 times daily as needed for Anxiety. 30 Tablet 0 amLODIPine (NORVASC) 5 mg Oral Tablet Take 1 Tablet by mouth daily. 90 Tablet 0 aspirin 81 mg Oral Tablet, Delayed Release (E.C.) Take 1 Tab by mouth daily. cyclobenzaprine (FLEXERIL) 10 mg Oral Tablet TAKE 1 TABLET BY MOUTH EVERY 8 HOURS NEEDED 90 Tablet 1 DULoxetine (CYMBALTA) 60 mg Oral Capsule, Delayed Release(E.C.) TAKE 1 CAPSULE BY MOUTH TWICE DAILY60 Capsule 0 ergocalciferol (DRISDOL) 1,250 mcg (50,000 unit) Oral Capsule TAKE 1 CAPSULE BY MOUTH EVERY WEEK ONSAME DAY EACH WEEK 12 Capsule 1 fish oil omega 3-dha-epa 300-1,000 mg Oral Capsule, Delayed Release(E.C.) Take 2 g by mouth daily. lisinopriL (PRINIVIL;ZESTRIL) 40 mg Oral Tablet Take 1 Tablet by mouth daily. 90 Tablet 0 Nebulizer & Compressor For Neb [facility] Device use as directed 1 Device 12 Nebulizer Accessories [facility] Kit Used as directed prn. Adult nebulizer mask for compressor device J43.9 G47.36 1 Kit 0 Nebulizers (MUKESH BABY NEBULIZER) [facility] Use to administer nebulizer solution prn 1 Each 0 Nebulizers [facility] Used as directed prn 1 Each 0 SYMBICORT 80-4.5 mcg/actuation Inhl HFA Aerosol Inhaler INHALE 2 PUFFS BY MOUTH TWICE DAILY 10.2 g 0 traZODone (DESYREL) 100 mg Oral Tablet TAKE 2 TABLETS BY MOUTH EVERY NIGHT 60 Tablet 0 VENTOLIN HFA 90 mcg/actuation Inhl HFA Aerosol Inhaler INHALE 2 PUFFS BY MOUTH EVERY 4 HOURS NEEDED FOR WHEEZING 90 g 2 atorvastatin (LIPITOR) 80 mg Oral Tablet Take 1 Tablet by mouth daily. (Patient not taking: Reported on 07/16/2025) 90 Tablet 1 No current facility-administered medications on file prior to encounter. Allergies: Allergies Allergen Reactions Hydroxyzine Other (See Comments) aggitation Family History Problem Relation Age of Onset Heart Disease Mother Hypertension Mother Emphysema Father Diabetes Sister Heart Failure Maternal Grandmother Anesth Problems Neg Hx Colon Cancer Neg Hx Esophageal Cancer Neg Hx Social History Socioeconomic History Marital status: Spouse name: Not on file Number of children: Not on file Years of education: Not on file Highest education level: Not on file Occupational History Not on file Tobacco Use Smoking status: Every Day Current packs/day: 1.00 Average packs/day: 1 pack/day for 43.0 years (43.0 ttl pk-yrs) Types: Cigarettes Start date: 07/01/1982 Smokeless tobacco: Never Tobacco comments: currently down to .5 ppd Vaping Use Vaping status: Never Used Substance and Sexual Activity Alcohol use: Yes Alcohol/week: 0.0 oz Comment: rarely Drug use: No Sexual activity: Yes Partners: Male control/protection: Surgical Other Topics Concern Not on file Social History Narrative Not on file Social Drivers of Health Financial Resource Strain: Low Risk (05/04/2024) Overall Financial Resource Strain (CARDIA) Difficulty of Paying Living Expenses: Not very hard Food Insecurity: No Food Insecurity (05/04/2024) Hunger Vital Sign Worried About Running Out of Food in the Last Year: Never true Ran Out of Food in the Last Year: Never true Transportation Needs: No Transportation Needs (05/04/2024) [facility] IP Transportation In the past 12 months, has lack of reliable transportation kept you from medical appointments, meetings, work or from getting things needed for daily living?: No Physical Activity: Inactive (05/04/2024) Exercise Vital Sign Days of Exercise per Week: 0 days Minutes of Exercise per Session: 0 min Stress: No Stress Concern Present (05/04/2024) [place] Citizen [place] [facility] - Occupational Stress Questionnaire Feeling of Stress : Not at all Social Connections: Not on file Intimate Partner Violence: Not on file Housing Stability: Not on file PHYSICAL EXAM: Vitals: There were no vitals taken for this visit. CONSTITUTIONAL: Awake, alert, cooperative, no apparent distress EYES: PERRL, EOMI, no scleral icterus ENT: MMM NECK: supple, symmetrical, trachea midline HEMATOLOGIC/LYMPHATICS: no cervical lymphadenopathy and no supraclavicular lymphadenopathy LUNGS: normal respiratory effort CARDIOVASCULAR: regular rate and rhythm ABDOMEN: soft, non-distended, non-tender MUSCULOSKELETAL: there is no redness, warmth, or swelling of the joints NEUROLOGIC: awake and alert; cranial nerves II-XII are grossly intact SKIN: normal skin color, texture, turgor DATA: Lab Results Component Value Date WBC 11.7 (H) 05/31/2024 HGB 7.6 (L) 05/31/2024 HCT 24.9 (L) 05/31/2024 PLT 290 05/31/2024 CHOLESTEROL 214 (H) 07/05/2022 TRIG 103 07/05/2022 HDL 56 07/05/2022 LDLCALC 140 (H) 07/05/2022 ALT 8 05/04/2024 AST 18 05/04/2024 NA 136 05/31/2024 K 4.7 05/31/2024 CL 103 05/31/2024 CALCIUM 9.5 05/31/2024 BUN 20 05/31/2024 CREATININE 1.02 05/31/2024 GFRCKDEPI 62 05/31/2024 CO2 26 05/31/2024 INR 0.98 09/28/2017 GLU 110 (H) 05/31/2024 HGBA1C 5.5 05/04/2024 TSH 1.220 10/06/2020 TSHREFLEX 3.370 05/17/2024 [id number] 66.8 07/07/2021 Lab Results Component Value Date INR 0.98 09/28/2017 INR 0.99 11/29/2016 Last Oral Intake: Yesterday Previous Anesthesia Reaction: no Pre-Procedure Assessment: Risks, benefits, potential complications (including but not limited to missed lesions, sedation, bleeding and perforation) and alternatives were discussed with the patient or patient's legally authorized automotive sales representative. The patient's pre-procedural physical assessment indicates that the patient is suitable for and agrees to the planned sedation and procedure. Cardiovascular and Vital signs Stable: yes Adequate/Patient Oral Airway yes ASA: 3 ASSESSMENT / PLAN: Merlyn Solo is a 65 y.o. female who presents for the above specified procedure. Anny Mcdaniel MD documented in this encounter Plan of Treatment Not on file documented as of this encounter Goals Goal Patient Goal Type Associated Problems Recent Progress Patient-Stated? Author Blood Pressure < 140/90 Blood Pressure 131/81(2024 1:42 PM EDT) No Susan Santana, RMA Maintain a healthy diet, exercise regularly and maintain an ideal body weight General No Coleman, Norma, RMA Stay Tobacco Free Lifestyle No Coleman, Norma, RMA documented as of this encounter Procedures Procedure Name Priority Date/Time Associated Diagnosis Comments COLONOSCOPY Routine 07/16/2025 1:13 PM EDT Encounter for colonoscopy due to history of colonic polyp PATHOLOGY TISSUE REQUEST Routine 07/16/2025 1:05 PM EDT Encounter for colonoscopy due to history of colonic polyp documented in this encounter Results * COLONOSCOPY (07/16/2025 1:13 PM EDT) Anatomical Region Laterality Modality Endoscopy Addenda Addendum by Anny Mcdaniel MD on 07/16/2025 1:15 PM EDT Table formatting from the original result was not included. Findings Single medium diverticulum in the cecum One sessile and benign-appearing polyp measuring smaller than 5 mm in the ascending colon; performed cold forceps biopsy with complete en bloc removal One sessile polyp measuring 5-9 mm in the ascending colon; performed cold snare with complete en bloc removal and retrieved specimen Healthy end-to-side colocolonic anastomosis in the sigmoid colon Internal medium hemorrhoids Otherwise normal colonoscopy Recommendation Await pathology results Repeat colonoscopy in 5 years, due: 07/15/2030 Pre-Procedure Diagnosis / Indication Prior incomplete colonoscopy due to severe sigmoid diverticulitis and stricture. Post-Procedure Diagnosis None Staff Staff Role Brigitte Reyna, men's custom hair piece consultant Nurse Telma Cantor, [employer] Specialist Karri Guevara MD Anesthesiologist Ander Mijares, SHOP MECHANIC HELPER SHOP MECHANIC HELPER Anny Mcdaniel MD Performing Provider Medications See Anesthesia Record. Preprocedure A history and physical has been performed, and patient medication allergies have been reviewed. The patient's tolerance of previous anesthesia has been reviewed. The risks and benefits of the procedure and the sedation options and risks were discussed with the patient. All questions were answered and informed consent obtained. ASA 4 - Patient with severe systemic disease that is a constant threat to life Details of the Procedure The patient underwent monitored anesthesia care, which was administered by an anesthesia professional. The patient's blood pressure, heart rate, level of consciousness, oxygen saturation, respirations, ECG and ETCO2 were monitored throughout the procedure. A digital rectal exam was performed. The scope was introduced through the anus and advanced to the cecum. Insufflated with carbon dioxide. Retroflexion was performed in the rectum. Bowel prep was adequate. The patient experienced no blood loss. The procedure was not difficult. The patient tolerated the procedure well. There were no apparent adverse events. After withdrawing the scope to transverse colon, scope was reoriented and inserted back to the cecum and right colon was examined second time. Patient provided education and educated on specific discharge instructions. Patient educated on medications given during the procedure and new medications for discharge. Patient verbalizes understanding of discharge education. Patient stable and awaiting transport for discharge. Events Procedure Events Event Event Time ENDO SCOPE IN TIME 07/16/2025 12:59 PM ENDO CECUM REACHED 07/16/2025 1:02 PM ENDO SCOPE OUT TIME 07/16/2025 1:12 PM Specimens ID Type Source Tests Collected by Time 1 : ascending colon polyps x2 via forceps(1) and cold snare(1) Tissue Large Intestine, Right/Ascending Colon PATHOLOGY TISSUE REQUEST Anny Mcdaniel MD 07/16/2025 1305 Anesthesia Event Time In Patient In - Proc. Room 12:54 PM us Anny Mcdaniel MD ENDOSCOPY PROCEDURE ORDERABLES Edited Result - Final * PATHOLOGY TISSUE REQUEST (07/16/2025 1:05 PM EDT) CASE REPORT Surgical Pathology Case: [id number] Authorizing Provider: Anny Mcdaniel, Collected: 07/16/2025 1305 Ordering Location: [facility] END[facility]COPY Received: 07/16/2025 1346 Pathologist: Ekaterina Clark MD Specimen: Large Intestine, Right/Ascending Colon, ascending colon polyps x2 via forceps(1) and cold snare(1) 07/18/2025 8:14 AM EDT [facility] FINAL DIAGNOSIS Ascending colon polyps x2, biopsy: - Hyperplastic polyps x2. - No evidence of sessile serrated adenoma/polyp. - Negative for dysplasia or malignancy. 07/18/2025 8:14 AM EDT [facility] at 0814 EDT GROSS DESCRIPTION A. Received in formalin and labeled with the patient's name, medical record number, and ascending colon polyps x 2 are 2 fragments of ledesma tissue ranging from 0.4 to 0.5 cm in greatest dimension. Entirely submitted in A1. Jose Cruz Hernández 07/17/2025 07/18/2025 8:14 AM EDT [facility] MICROSCOPIC DESCRIPTION The microscopic examination may have been rendered in whole, or in part, by analyzing high-resolution digital images (whole slide images) on the [employer] Digital Pathology platform validated at [facility]. 07/18/2025 8:14 AM EDT [facility] EMBEDDED IMAGES 07/18/2025 8:14 AM EDT [facility] Tissue ASCENDING COLON STRUCTURE / Unknown 07/16/2025 1:05 PM EDT 07/16/2025 1:46 PM EDT us Anny Mcdaniel MD PATHOLOGY ORDERABLES Final Result [facility] [address] [phone] [place] [address] documented in this encounter Visit Diagnoses Diagnosis Encounter for colonoscopy due to history of colonic polyp Special screening for malignant neoplasms, colon documented in this encounter Administered Medications Inactive Administered Medications - up to 1 most recent administrations Medication Order MAR Action Action Date Dose Rate Site lactated ringers infusion Intravenous, at 75 mL/hr, CONTINUOUS, Starting on Tue07/16/25 at 1300, Until Tue07/17/25 at 0404 New Bag 07/16/2025 12:49 PM EDT 75 mL/hr documented in this encounter Discontinued Medications Medication Sig Discontinue Reason Start Date End Da te guaiFENesin (MUCINEX) 600 mg Oral Tablet Extended Release 12hr Take 1 Tablet by mouth 2 times daily. DELETE-Therapy completed 05/31/2024 07/03/2025 dressing, collagen-silver 2 X 2.2 Top BandageIndications:Pos t-operative state Apply 1 'box' topically daily. DELETE-Therapy completed 07/26/2024 07/03/2025 dextromethorphan (DELSYM) 30 mg/5 mL Oral Suspension, Sust.Release 12 hr Take 5 mL by mouth every 12 hours for up to 9 days DELETE-Therapy completed 05/31/2024 07/03/2025 pregabalin (LYRICA) 100 mg Oral Capsule Take 1 Capsule by mouth 3 times daily. Patient Reported not taking medication 05/31/2024 07/03/2025 tiotropium (SPIRIVA WITH HANDIHALER) 18 mcg Inhl Capsule, w/Inhalation DeviceIndications:COPD (chronic obstructive pulmonary disease) with chronic bronchitis (HCC),Nocturnal hypoxemia due to emphysema (HCC) Inhale 1 Capsule into the lungs daily. DELETE-Therapy completed 05/03/2023 07/03/2025 polyethylene glycol (GOLYTELY) 236-22.74-6.74 -5.86 gram Oral Recon Soln take as directed by office DELETE-Therapy completed 05/07/2025 07/16/2025 documented as of this encounter Orders Medications Ordered That Eric ht Not Have Been Administered Count Last Ordered Date First Ordered Date lactated ringers infusion 1 07/16/2025 Discharge Count Last Ordered Date First Orde red Date DISCHARGE PATIENT 1 07/16/2025 documented in this encounter Additional Health Concerns Assessment Noted Time PHQ-9 Depression Total Score: 2 05/04/20 4:47 PM EDT PHQ-2 Depression Total Score: 2 05/04/20 4:47 PM EDT documented as of this encounter Care Teams Head Host/Hostess Relationship Specialty Start Date End Date No Pcp, Provider Not In [facility] PCP - General 06/18/24 documented as of this encounter
--- OUTSIDE RECORDS SUMMARY | 2025-07-16 12:53 | XMS_ITS | Encounter Summary ---
Author Organization [place] [address] Care Team Providers Care Surgery Specialist Name Role Phone No Pcp, Provider Not In [facility] Primary Care Provid er Unavailable Encounter Details Date Type Department Care Team (Late st Contact Info) Description 07/16/2025 12:53 PM EDT Anesthesia Event [facility] [address] [place], [place] [id number] Karri Guevara MD 20 [facility] [address] [place] [address] Kermit Vitale, APPLIANCE TECHNICIAN [address] [place] [address] Anesthesia Record Procedure Summary Procedure Name Responsible Anesthesiologist Anesthesia Start Time Anesthesia Stop Time COLONOSCOPY Karri Guevara MD 07/16/25 1253 5 1314 Events Date Time Event Comment 07/16/2025 1231 1246 AN Equip Check 1253 An Start 1253 An Start Data 1253 Start Supplemental O2 Disabl es direct capture of O2 [ANES AGENT O2 [1521332449] and Air flow [ANES AGENT AIR [[id number]] variables into chart. 1258 Immediate Pre Anesthetic Ass es 1258 Anesthesia Ready 1259 Time out 1259 Incision 1312 an stop data 1314 An Stop 1314 Handoff I completed my SBAR handoff to the receiving nurse which has included the followin. Identification of the patient, family, or patient surrogate 2. Identification of the responsible practitioner 3. Pertinent medical history 4. Surgical procedure and reason for procedure 5. Intraoperative anesthetic management 6. All current lines, drains and respiratory support. 7. Outstanding follow up orders (X-rays, consults etc) 8. Expectations/Plans for the early post-procedure period 9. Opportunity for questions and acknowledgement of understanding from the receiving PACU/ICU cps team lead Meds Name Total propofol (DIPRIVAN) injection 60 mg propofol (DIPRIVAN) infusion 10 mg/mL 88 ,600 mcg lidocaine injection 1% 50 mg lactated ringers infusion 0 mL * Agents Name O2 N2O Air * Blood No blood administrations on file. Lines, Drains, and Airways Type Details Placement Removal Peripheral IV 07/16/25; 1247; 22; Posterior, Right; Forearm; Abida RN; 1; 07/16/25; 1347 07/16/25 1247 by Abida Singh RN 07/16/25 1347 by Jaci Sanchez RN documented in this encounter Social History Tobacco Use Types Packs/Day Years Used Date Smoking Tobacco: Every Day Cigarettes 1 43.2 Started: 07/01/1982 Smokeless Tobacco: Never Comments:currently down to . 5 ppd Alcohol Use Standard Drinks/Week Comments Yes 0 (1 standard drink = 0.6 oz pur e alcohol) rarely [facility] Utilities Answer Date Recorded In the [...] Date Recorded PHQ-2 Total Score 2 05/04/2024 [facility] Occupat ional Health - Occupational Stress [...] money to get more. Never true 05/04/2024 [facility] IP Transportation Answer D ate Recorded In [...] Daniel Fuentes MA documented in this encounter OR Notes * Anesthesia Postprocedure Evaluation - Karri Guevara MD - 07/16/2025 2:26 PM EDT Post-Anesthesia Evaluation Note Patient Name: Merlyn Solo Patient Date: July 16, 2025 Post-Anesthesia Evaluation Patient Location: ENDO Post op vitals: stable Difficult airway: no Nausea controlled: yes Level of consciousness: awake, alert and oriented Post anesthesia pain: adequate analgesia Long acting local anesthetic: n/a Airway patency: patent Respiratory status: spontaneous ventilation and room air Cardiovascular status: stable Hydration status: euvolemic Temperature: Normothermia Perioperative complications: NONE Vitals Value Taken Time BP 131/81 07/16/25 13:42 Resp 18 07/16/25 13:42 SpO2 100 % 07/16/25 13:42 Temp 37.3 ??C (99.1 ??F) 07/16/25 13:16 Pulse 83 07/16/25 13:42 * Anesthesia Preprocedure Evaluation - Karri Guevara MD - 07/16/2025 12:24 PM EDT Pre-Anesthesia Evaluation Note Patient Name: Merlyn Solo Sex: female Patient : 1960 Age: 65 y.o. Patient Date: July 16, 2025 Anesthesia Evaluation Previous anesthesia. No history of anesthetic complications: Airway Mallampati: I Dental - normal exam Dental exam findings: upper dentures and lower dentures Pulmonary (+) COPD: home oxygen Bronchitis: Asthma Pneumonia History of tobacco use: current Physical exam: Comments: Clear to auscultation Cardiovascular (+)Hypertension: Hyperlipidemia Shortness of breath: Physical exam: Rhythm: regular Rate: normal Neuro/Psych (+) Psychiatric history: Anxiety and Depression Peripheral neuropathy GI/Hepatic/Renal (+)Hepatitis: Endo/Other PLANT PATHOLOGIST Additional Pre-evaluation comments Opioids There is no height or weight on file to calculate BMI. Anesthesia Plan ASA 4 Last solid intake: The patient has not eaten within the last 8 hours. Last clear liquid intake: The patient has not had clear liquids within the last 2 hours. Last tobacco use: The patient has used tobacco today. Anesthesia Plan: MAC Induction: intravenous Monitors: STD Informed consent Anesthetic plan and risks discussed with: patient. Chart Reviewed and patient examined documented in this encounter Plan of Treatment Not on file documented as of this encounter Goals Goal Patient Goal Type Associated Problems Recent Progress Patient-Stated? Author Blood Pressure < 140/90 Blood Pressure 131/81(2024 1:42 PM EDT) Susan Kruger RMA Maintain a healthy diet, exercise regularly and maintain an ideal body weight General No Norma Coleman RMA Stay Tobacco Free Lifestyle No Norma Coleman RMA documented as of this encounter Visit Diagnoses Not on filedocumented in this encounter Administered Medications Inactive Administered Medications - up to 1 most recent administrations Medication Order MAR Action Action Date Dose Rate Site lidocaine 1% 10 mg/mL (1 %) injection Intravenous, PRN (Anesthesia), Starting on Tue07/16/25 at 1257, Until Tue07/16/25 at 1314, Anesthesia Intra-op Given 07/16/2025 12:57 PM EDT 50 mg propofol (DIPRIVAN) infusion 10 mg/mL Intravenous, CONTINUOUS PRN, Starting on Tue07/16/25 at 1257, Until Tue07/16/25 at 1314, Anesthesia Intra-op Rate/Dose Change 07/16/2025 1:02 PM EDT 125 mcg/kg/min 33.225 mL/hr propofoL (DIPRIVAN) injection Intravenous, PRN (Anesthesia), Starting on Tue07/16/25 at 1257, Until Tue07/16/25 at 1314, Anesthesia Intra-op Given 07/16/2025 12:57 PM EDT 60 mg documented in this encounter Additional Health Concerns Assessment Noted Time PHQ-9 Depression Total Score: 2 05/04/20 4:47 PM EDT PHQ-2 Depression Total Score: 2 05/04/20 4:47 PM EDT documented as of this encounter Care Teams Surgery Specialist Relationship Specialty Start Date End Date No Pcp, Provider Not In [facility] PCP - General 06/18/24 documented as of this encounter
--- OUTSIDE RECORDS SUMMARY | 2025-08-26 14:51 | XMS_ITS | Clinical Summary ---
Author Organization [facility] Address [address] [place] [address] Phone Care Team Providers Care Behavioral Health Rn Name Role Phone José Miguel Mckeon Primary Care Physician [phone] Conditions or Problems Problem Name Problem Code Onset Date Status Entry Date Provider Comment Standard Description Annotate ASTHMA 855465001 (SNOMED CT) 04/11 Active 04/11 José Miguel Mckeon Asthma BACK PAIN, LUMBAR, CHRONIC 248672716 (SNOMED CT) 03/21 Active 03/21 Belen Sholler AGRISCIENCE TECHNOLOGY INSTRUCTOR Chronic low back pain DEGENERATIVE DISC DISEASE, LUMBAR SPINE 49774699 (SNOMED CT) 03/21 Active 03/21 Belen Sholler AGRISCIENCE TECHNOLOGY INSTRUCTOR Degeneration of lumbar intervertebral disc HEPATITIS C NOS B19.20 (ICD-10-CM ) 04/26 Active 04/26 Sylwia Lincoln ORTHOPEDIC RN Unspecified viral hepatitis C without hepatic coma LIVER FUNCTION TESTS ABNORMAL 211345297 (SNOMED CT) 04/05 Active 04/05 Sylwia Lincoln ORTHOPEDIC RN Liver function tests outside reference range HYPERTRIGLYCE RIDEMIA 275876251 (SNOMED CT) 04/05 Active 04/05 Sylwia Lincoln ORTHOPEDIC RN Hypertriglycerid emia CARPAL TUNNEL 30243477 (SNOMED CT) 03/19 Active 03/19 Sylwia Ilncoln ORTHOPEDIC RN Carpal tunnel syndrome COUGH 30681411 (SNOMED CT) Active Sylwia Lincoln ORTHOPEDIC RN Cough HYPERTENSION 53521040 (SNOMED CT) Active Sylwia Lincoln ORTHOPEDIC RN Hypertensive disorder Medications Medication Instructions Start Date Stop Date Generic Name NDC Provider VENTOLIN HFA 108 (90 Base) MCG/ACT AERS TAKE 2 INHALATIONS EVERY 4 HOURS NEEDED FOR WHEEZING 8 ALBUTEROL SULFATE 36016439617 Sophie Green ORTHOPEDIC RN LISINOPRIL-HYD ROCHLOROTHIAZI DE 20-12.5 MG TABS TAKE 1 TABLET BY MOUTH 1 TIME A DAY 8 LISINOPRIL-HYD ROCHLOROTHIAZI DE 86323843513 Sophie Green ORTHOPEDIC RN DULERA 100-5 MCG/ACT AERO USE 2 INHALATIONS TWICE A DAY 5 MOMETASONE FURO-FORMOTERO L FUM 78279678011 José Miguel Mckeon PROAIR HFA 108 (90 Base) MCG/ACT INHALATION AEROSOL SOLUTION USE 2 INHALATIONS 4 TIMES A DAY NEEDED FOR WHEEZING/shortne ss of breath 0 ALBUTEROL SULFATE 21515883096 José Miguel Linda NEURONTIN 100 MG CAPS TAKE ONE TABLET TWICE DAILY FOR PAIN 2 GABAPENTIN 97608287993 Sylwia Lincoln ORTHOPEDIC RN SPIRIVA HANDIHALER 18 MCG CAPS USE 1 INHALATION ONCE A DAY 0 TIOTROPIUM BROMIDE MONOHYDRATE 38519958015 Jose Carlos Santiago PREDNISONE 20 MG TABS 1 BY MOJTH 2 TIMES A DAY FOR 5 DAYS. 0 PREDNISONE 80573370966 Sylwia Lincoln ORTHOPEDIC RN LISINOPRIL-HYD ROCHLOROTHIAZI DE 20-12.5 MG TABS TAKE 1 TABLET BY MOUTH 1 TIME A DAY 0 LISINOPRIL-HYD ROCHLOROTHIAZI DE 77148263515 José Miguel Linda Medications Administered No information [...] in Blood ABS NEUTROPH 4680 CELLS/UL 10*3/uL 7620-8944 N Neutrophils [#/volume] in Blood PLATELETK/UL 167 [...] [facility], [address] [place], [address] Referral Pain Management Referral [facility] Pain Relief [facility], [address], [address] Referral Orthopedic Refer [facility], [address] [place] [address], [address] Referral Pain Management Referral [facility], [address] [place], [address] Referral excluded fr om report: Referral Hand Surgery Ref erral Hand Electronic Lab Technician Liam Carter MD, [address] [facility], [place], [address] Referral Hand Surgery Ref erral Hand Electronic Lab Technician Liam Carter MD, [address], [place], [address] Referral excluded fr om report: Referral Orthopedic Refer [facility], [address] [place], [address] Referral Orthopedic Refer [facility], [address] [place], [address] Referral excluded fr om report: Pending order [...] Date Entry Date ORTHO COMMON Orthopedic Referral [facility]o 20 10/06/15 PAIN N [place] [facility] Refe rral [facility] PAIN [facility] Pain Management Referral [facility] X-Ray Chest X-Ray Chest PFT FULL ALVAREZ PFT Full 33623 [facility] # Lipid Panel 5 42130 [facility] # CMP 5 6399 [facility] # CBC with diff 5 X-Ray Chest X-Ray Chest 6399 [facility] # CBC with diff 0 [address]59 [facility] # CMP 0 36695 [facility] # Lipid Panel 0 CPT-37514 Urine Dip Auto 49190 HAND SX SPEC Hand Surgery Referral Hand Surgery Specia list ORTHO COMMON Orthopedic Referral [facility] Ortho 20 09/04/31 CPT-84278 Acute Hepatitis Panel 0 09 EMG ALV[facility]Z EMG Electromyography 05522 [facility] # CMP 8 496 [facility] # HGBA1c 19156 [facility] # Lipid Panel 8 Mammo AL[facility]Z Mammogram 6399 [facility] # [place] diff 0 [address] [facility] # CMP 0 [address] [facility] # TSH reflex to free T4 CPT-64022 Vitamin D 25 Dihydroxy 09/06 927 [facility] [...]
--- OUTSIDE RECORDS SUMMARY | 2025-08-26 14:52 | XMS_ITS | Clinical Summary ---
Author Organization [facility] Address [address] [place] [address] Phone Care Team Providers Care Spa Consultant Name Role Phone No Pcp, Provider Not In [facility] Primary Care Provid er Unavailable Allergies [...] 12 11/05/20 19 Active Nebulizers Misc MiscIndications:Ac jemma bronchitis, unspecified organism Used as directed prn 1 Each 09/18/20 22 Active Nebulizer Accessories Misc Kit Used as directed prn. Adult nebulizer mask for compressor device J43.9 G47.36 1 Kit 10/26/20 22 Active atorvastatin (LIPITOR) 80 mg Oral TabletIndications: Mixed hyperlipidemia Take 1 Tablet by mouth daily. 90 Tablet 1 05/03/20 23 Active Additional Information Patient not taking.Reason: Pt electing to not take the medication, Informant: Self/Patient, Reported on 07/16/2025 VENTOLIN HFA 90 mcg/actuation Inhl HFA Aerosol [...] 05/31/2024 2:34 PM EDT 06/01/20 24 Active ALPRAZolam (XANAX) 0.25 mg Oral Tablet Take 1 Tablet by mouth 3 times daily as needed for Anxiety. 30 Tablet 05/31/2024 2:34 PM EDT 05/31/20 24 Active Active Problems Patient Care Coordination No te Formatting of this note migh t be different from the original. Per Dr Frye: Patient has voided contract no controlled medications including gabapentin to be prescribed from the [facility] office as of 07/24/18 02/27/24 NO SHOW [...] (12/13/2019): Added automatically from request for surgery [id number] Spinal stenosis 07/11/2018 B12 deficiency 03/30/2018 TAMI [...] Encounters Date Type Department Care Team Description 07/18/2025 Results Follow-Up [facility] [address], 3RD FLOOR [place] [id number] Anny Mcdaniel MD PATHOLOGY TISSUE REQUEST 07/16/2025 12:53 PM EDT Anesthesia Event [facility] [address] [place] [address] Karri Guevara MD Salyer, Corey L, COMPUTER CONSOLE OPERATOR 07/16/2025 12:09 PM EDT - 07/16/2025 11:59 PM EDT Hospital Encounter [facility] [address] [place] [address] Anny Mcdaniel MD Dolan, Damian F, MD Hurst, Frankie A, CRNA Encounter for colonoscopy due to history of colonic polyp Discharge Disposition: Home or Self Care from Last 3 Months Immunizations Immunization Administration [...] TUNNEL RELEASE; Surgeon: Isauro Millard MD; Location: [facility]; Service: Hand LUMBAR DISC SURGERY 07/10/2018 N/A L2/3, L3/4 LAMINECTOMY ; Surgeon: Miguel Jaime MD; Location: [facility] MAIN OR; Service: Spine CYSTOSCOPY 12/25/2019 N/A CYSTOSCOPY ; Surgeon: Magan Doshi MD; Location: [facility] MAIN OR; Service: Urology CYSTOSCOPY 01/27/2021 N/A CYSTOSCOPY with BLADDER BIOPSY; Surgeon: Magan Doshi MD; Location: [facility]; Service: Urology CYSTOSCOPY 08/04/2021 N/A CYSTOSCOPY, BLADDER BIOPSY; Surgeon: Magan Doshi MD; Location: [facility]; Service: Urology COLECTOMY 05/08/2024 N/A LAPAROSCOPIC HAND ASSISTED COLECTOMY; Surgeon: Wai Ochoa MD; Location: [facility]; Service: General ABDOMINAL EXPLORATION SURGERY 05/18/2024 - 05/19/2024 N/A exploratory laparotomy and closure of incisional hernia with mesh; Surgeon: Wai Ochoa MD; Location: [facility]IN [facility]; Service: General Medical devices from this surgery are in the Medical Devices section. VENTRAL HERNIA REPAIR 05/18/2024 - 05/19/2024 Surgeon: Wai Ochoa MD; Location: [facility]IN [facility]; Service: General Medical devices from [...] 1 43.2 Started: 07/01/1982 Smokeless Tobacco: Never Tobacco Cessation:Ready to Q uit: Not Asked; Counseling Given: Not Answered Comments:currently down to .5 ppd Alcohol Use Standard Drinks/Week Comments Yes 0 (1 standard drink = 0.6 oz pur e alcohol) rarely C Utilities Answer Date Recorded In the past 12 months has e [employer], gas, oil, or water [employer] threatened to shut off services in your home? No 05/04/2024 Overall Financial Resource Strain (CARDIA) Answe r Date Recorded How hard is it for you to pa y for the very basics like food, housing, medical care, and heating? Not very hard 05/04/2024 PHQ-2 Answer Date Recorded PHQ-2 Total Score 2 05/04/2024 [facility] of Occupat ional Health - Occupational Stress [...] money to get more. Never true 05/04/2024 [facility] IP Transportation Answer D ate Recorded [...] Mass Index 18.44 07/16/2025 12:32 PM EDT Plan of Treatment Health Maintenance Due Date Last Done Comments Annual Wellness Exam 1964 DTaP/TDaP/Td (1 - Tdap) 1980 Cologuard 2006 Virtual Colonography 2006 Zoster (1 of [...] Additional history exists COVID-19 Vaccine ( season) 2025 Influenza Vaccine (#1) 2025 , 02/08/2024, 09/22/2017 (Declined), Additional history exists Sigmoidoscopy 05/07/2029 05/07/2024 Colon Cancer Screening 07/15/2030 Colonoscopy 07/15/2030 07/16/2025 Pneumococcal Vaccine 50+ Completed 09/04/2024, 12/30 Meningococcal [...] Coleman, RMA Stay Tobacco Free Lifestyle No Norma Coleman, RMA Medical Devices Implanted Type Area Oracle R12 Developer Device Identifier Shelf Expiration Date Model / Serial / Lot Strattice Reconstructive Tissue Matrix, 16cm X 20cm, Firm - [id number] Implanted:Qty: 1 on 05/18/2024 by Wai Ochoa MD at [facility] N/A: Abdomen [employer] 08/27/2024 [id number] / / [id number] Procedures Procedure Name Priority Date/Time Associated Diagnosis Comments COLONOSCOPY Routine 07/16/2025 1:13 PM EDT Encounter for colonoscopy due to history of colonic polyp PATHOLOGY TISSUE REQUEST Routine 07/16/2025 1:05 PM EDT Encounter for colonoscopy due to history of colonic polyp FLEXIBLE SIGMOIDOSCOPY Routine 4 12:[address] CHEST W CONTRAST Routine 07/07/2022 8 :[address] of the chest FECAL HEME (FIT) CANCER SCREEN Routine 06/01/2022 12:45 PM EDT Screening for colon cancer MM MAMMO DIGITAL SCREENING W CAD BILAT Routine 01/07/2015 4:25 PM EST Other screening mammogram from Last 3 Months or Most Recently Relevant to Health Maintenance Results * COLONOSCOPY (07/16/2025 1:13 PM EDT) [...] Post-Procedure Diagnosis None Staff Staff Role Brigitte Reyna RN Endoscopy Nurse Telma Cantor RN Public Weigher Karri Guevara MD Anesthesiologist Ander MijaresDONALDO CRNA, MD Performing Provider Medications See Anesthesia Record. [...] Patient In - Proc. Room 12:54 PM Anny Mcdaniel MD ENDOSCOPY PROCEDURE ORDERABLES Edited Result - Final * PATHOLOGY TISSUE REQUEST (07/16/2025 1:05 PM EDT) CASE REPORT Surgical Pathology Case: [id number] Authorizing Provider: Anny Mcdaniel, Collected: 07/16/2025 1305 Ordering Location: [facility] ENDOSCOPY Received: 07/16/2025 1346 Pathologist: Ekaterina Clark MD Specimen: Large Intestine, Right/Ascending Colon, ascending colon polyps x2 via forceps(1) and cold snare(1) 07/18/2025 8:14 AM EDT [facility] FINAL DIAGNOSIS Ascending colon polyps x2, biopsy: - Hyperplastic polyps x2. - No evidence of sessile serrated adenoma/polyp. - Negative for dysplasia or malignancy. 07/18/2025 8:14 AM EDT [facility] at 0814 EDT GROSS DESCRIPTION A. Received in formalin and labeled with the patient's name, medical record number, and ascending colon polyps x 2 are 2 fragments of ledesma tissue ranging from 0.4 to 0.5 cm in greatest dimension. Entirely submitted in A1. Norma Hernández 07/17/2025 07/18/2025 8:14 AM EDT [facility] MICROSCOPIC DESCRIPTION The microscopic examination may have been rendered in whole, or in part, by analyzing high-resolution digital images (whole slide images) on the [employer] Digital Pathology platform validated at [facility]. 07/18/2025 8:14 AM EDT [facility] EMBEDDED IMAGES 07/18/2025 8:14 AM EDT [facility] Tissue ASCENDING COLON STRUCTURE / Unknown 07/16/2025 1:05 PM EDT 07/16/2025 1:46 PM EDT us Anny Mcdaniel MD PATHOLOGY ORDERABLES Final Result [facility] [address] [place], [place] [id number] [place] [address] [facility] [address] [place] [address] * FLEXIBLE SIGMOIDOSCOPY (05/07/2024 12:26 PM EDT) [...] Morgan CRNA, MD Anesthesiologist Mackenzie Andrews RN Public Weigher Natalie Keating RN Public Weigher Anny Mcdaniel MD Performing Provider Hansel العراقي [...] Proc. Room 05/07 12:26 PM Brooklyn Fritz COMPUTER CONSOLE OPERATOR ENDOSCOPY PROCEDURE ORDER BREANA Edited Result - [...] on diagnostic imaging of other specified body [id number]. COMPARISON: 07/31/2021 PROCEDURE COMMENTS: Multi detector CT [...] findings on diagnostic imaging ofother specified body [id number]. COMPARISON: 07/31/2021 PROCEDURE COMMENTS: Multi detector CT [...] of the ordering clinician. Alexy Mendez MD IMG CT ORDERABLES Final Result * FECAL HEME (FIT) CANCER SCREEN (06/01/2022 12:45 PM EDT) Fecal Immunochemical Test Negative Negative 07/06/2022 3:54 PM EDT [employer] Stool COLON STRUCTURE / Unknown 06/01/2022 12:45 PM EDT 07/06/2022 2:48 PM EDT Alexy Mendez MD IMMUNOLOGY ORDERABLES Final Re sult [facility] [address] [facility] , [place] [address] * MM MAMMO DIGITAL SCREENING W CAD BILAT (01/07/2015 4:25 PM EST) Anatomical Region Laterality Modality Breast Bilateral Mammography 01/08/2015 10:4 2 AM EST Impressions 01/08/2015 11:29 AM EST : Benign finding ([id number]) ~ RECOMMENDATION: Routine screening mammogram in 1 [...] studies the most recent being 10-08-02 ~ Neeru Frye MD [facility] MAMMO[facility]AP[facility] ORDERABLES Final Result from Last 3 Months or Most Recently Relevant to Health Maintenance Insurance [employer] [address] Advance Directives For more information, please contact: [phone] * Full Code (Latest Code Status on File) Date Activated Date Inactivated Comments 05/11/2024 10:43 AM 05/31/2024 8:36 PM * Full Code Date Activated Date Inactivated Comments 06/26/2021 9:45 PM 06/30/2021 8:00 PM * Full Code Date Activated Date Inactivated Comments 07/10/2018 5:51 PM 07/11/2018 6:53 PM Care Teams Spa Consultant Relationship Specialty Start Date End Date No Pcp, Provider Not In Epic PCP - General 06/18/24
--- OUTSIDE RECORDS SUMMARY | 2025-08-26 14:52 | XMS_ITS | Encounter Summary ---
Author Organization [place] [address] Care Team Providers Care Automation Engineering Technician Name Role Phone No Pcp, Provider Not In [facility] Primary Care Provid er Unavailable Reason for Visit * Reason Onset Date Comments Results 07/18/2025 Encounter Details Date Type Department Care Team (Late st Contact Info) Description 07/18/2025 Results Follow-Up [facility] [address], 3RD [place] [address] Anny Mcdaniel MD [address] [place] [address] PATHOLOGY TISSUE REQUEST Social History Tobacco Use Types Packs/Day Years [...] Date Recorded PHQ-2 Total Score 2 05/04/2024 [facility] - Occupational Stress Questionnaire Answer Date [...] money to get more. Never true 05/04/2024 [facility] IP Transportation Answer D ate Recorded [...] encounter Miscellaneous Notes * Telephone Encounter - Mulugeta Delgadillo, Clerical Staff - 07/22/2025 9:26 AM EDT Pt returned call and aware of results documented in this encounter Plan of Treatment [...] documented as of this encounter Care Teams Automation Engineering Technician Relationship Specialty Start Date End Date No Pcp, Provider Not In [facility] PCP - General 06/18/24 documented as of this encounter
--- OUTSIDE RECORDS SUMMARY | 2025-08-26 14:52 | XMS_ITS | Clinical Summary ---
Author Organization [facility] Address [address] [place] [address] Care Team Providers Care Cream Tester Name Role Phone Alexy Mendez MD Primary Care Provider [phone] Source Comments This information has been disclosed [...] therelease of HIV test results or diagnoses. [id number] [facility] Allergies Active Allergy Reactions Criticality Noted Date Comments Hydroxyzine Other (See Comments) 04/21/2018 aggitation Medications aspirin 81 MG EC tablet Take 1 tablet (81 mg total) by mouth daily. Active omega 0-hqy-iuh-fish oil (FISH OIL) 1,000 mg (120 mg-180 [...] EDT 4 Active naloxone (NARCAN) 4 mg/actuation [place] Apply 1 spray in one nostril if [...] place to sleep or slept in a usp (including now)? No 02/07/2024 Comments Unknown Sex [...] (2 of 2 - PCV) 2023 2022 Alcohol Misuse Screening 02/05/2025 02/06/2024 Immunization: COVID-19 ( - season) 2025 Immunization: Influenza (MyChart) (#1) 2025 Immunization: RSV (Adult) (1 - 1-dose 75+ series) 12/30 Hepatitis C Screening (Altrujahart) Completed Procedures Procedure Name Priority Date/Time Associated [...] LAB BLOOD ORDERABLES Final Resul t [facility] [address] [facility] [place] [address], [facility] from Last 3 Months or Most Recently Relevant to Health Maintenance Insurance [address] [place] [id number] [facility] [address] [place] [id number] Advance Directives For more information, please contact: [phone] * Full Code (Latest Code Status on File) Date Activated Date Inactivated Comments 02/07/2024 2:48 AM 02/21/2024 10:24 PM Care Teams Cream Tester Relationship Specialty Start Date End Date Alexy Mendez MD [address] [facility] [place] [address] PCP - General Family Medicine 02/06/24
--- NOTE | 2025-08-26 15:00 | CT_ITS ---
FINAL REPORT TECHNIQUE: Axial CT images were performed from the lung apices through the upper abdomen. Coronal reformats were submitted. This study was performed with techniques to keep radiation doses as low as reasonably achievable (ALARA). Individualized dose reduction techniques using automated exposure control or adjustment of mA and/or kV according to the patient's size were employed. CLINICAL HISTORY: COPD COMPARISON: None FINDINGS: There is no significant mediastinal mass or adenopathy. There are advanced changes of centrilobular emphysema. There is 4 mm nodule in the medial right upper lobe on image 30 of series 3. There is a 3 mm nodule in the anterior right upper lobe on image 75 of series 3. There is abnormal peribronchial thickening likely due to chronic bronchitis. The heart size is normal. There is no pericardial or pleural effusion. Limited images of the upper abdomen are unremarkable. IMPRESSION: Moderate changes of centrilobular emphysema with associated chronic bronchitis. Two right upper lobe nodules, which are indeterminate. Recommend 1 year follow-up per Fleischner criteria. Reviewed, Interpreted and Dictated by Prieto Pena MD Transcribed by Callie Baltazar Authenticated and [facility]
== END 2025-08-26 23:59 | disposition home or self-care (01) ==
LOC: RAD 14:49
PROVIDERS: PCP Family Medicine; Visit Provider Internal Medicine Pulmonary Disease
DX: J43.2 Centrilobular emphysema (principal); J44.89 Other specified chronic obstructive pulmonary disease; R91.8 Other nonspecific abnormal finding of lung field
CPT/HCPCS: 71250

== ENCOUNTER 2025-09-05 14:54 | Outpatient (CLI) | payer MEDICAID, SELFPAY ==
[2025-09-05 20:22] LABS: Blood Urea Nitrogen 15 mg/dl (7-17); Creatinine,Serum 0.90 mg/dl (0.52-1.04); Estimated Glomerular Filt Rate 63 ml/min (>60); GFR (African American) 76 ML/MIN (>60)
== END 2025-09-05 23:59 | disposition home or self-care (01) ==
LOC: LAB 14:55
PROVIDERS: PCP Family Medicine; Visit Provider Urology
DX: N32.81 Overactive bladder (principal); N39.41 Urge incontinence
CPT/HCPCS: 36415; 82565; 84520

== ENCOUNTER 2025-09-09 11:24 | Outpatient (CLI) | payer MEDICAID, SELFPAY ==
--- OUTSIDE RECORDS SUMMARY | 2024-06-30 05:00 | XMS_ITS ---
Author Organization [facility] Address [address] [place] [address] Care Team Providers Care Restaurant Assistant Name Role Phone Sonido Sullivan Unavailable [phone] Migration, Provider Unavailable Unavailable Allergies Allergen (clinical [...] (1-3 times weekly) Travel outside of the [place]: Travel History: Uses seat belts Encounters Encounter Location Date Provider Diagnosis [facility] [address] [place] [address] 06/30/2024 Provider Migration Plan Of Treatment No Information Progress Notes * Snow AGUIAR: (65 yo F)Acc No.[id number]:06/30/2024 Patient: Sophie DENGra :1960 A ge:64 Y S ex:Female Address:[address], [place], [address] Subjective: * Chief Complaints: * Medical History: Arthritis Chronic lung disease Hypercholesteremia Anxiety HTN (hypertension) Depression Fibroid *NO SIGNIFICANT GENETIC HISTORY 7 [place]: Sexually active - No 7 [place]: Self breast exam- yes Vicodin take 1 tablet by oral route every 6 hours as needed for pain. Cymbalta, oral aspirin, oral, tablet, Notes: 81. Fish Oil 1 po daily. * Project Manager Senior History: S exual Activity/Contraception: C ontraception: S [...]
--- OUTSIDE RECORDS SUMMARY | 2025-09-09 11:28 | XMS_ITS | Clinical Summary ---
Author Organization [facility] Address [address] [place] [address] Phone Care Team Providers Care Barrer And Tacker Name Role Phone José Miguel Mckeon Primary Care Physician [phone] Conditions or Problems Problem Name Problem Code Onset Date Status Entry Date Provider Comment Standard Description Annotate ASTHMA 371616185 (SNOMED CT) 04/11 Active 04/11 José Miguel Mckeon Asthma BACK PAIN, LUMBAR, CHRONIC 263588754 (SNOMED CT) 03/21 Active 03/21 Belen Sholler SENIOR AUDITOR Chronic low back pain DEGENERATIVE DISC DISEASE, LUMBAR SPINE 08656631 (SNOMED CT) 03/21 Active 03/21 Belen Sholler SENIOR AUDITOR Degeneration of lumbar intervertebral disc HEPATITIS C NOS B19.20 (ICD-10-CM ) 04/26 Active 04/26 Sylwia Lincoln LONGITUDINAL FLOAT OPERATOR Unspecified viral hepatitis C without hepatic coma LIVER FUNCTION TESTS ABNORMAL 689523021 (SNOMED CT) 04/05 Active 04/05 Sylwia Lincoln LONGITUDINAL FLOAT OPERATOR Liver function tests outside reference range HYPERTRIGLYCE RIDEMIA 680470726 (SNOMED CT) 04/05 Active 04/05 Sylwia Lincoln LONGITUDINAL FLOAT OPERATOR Hypertriglycerid emia CARPAL TUNNEL 05086762 (SNOMED CT) 03/19 Active 03/19 Sylwia Lincoln LONGITUDINAL FLOAT OPERATOR Carpal tunnel syndrome COUGH 41932536 (SNOMED CT) Active Sylwia Lincoln LONGITUDINAL FLOAT OPERATOR Cough HYPERTENSION 97529308 (SNOMED CT) Active Sylwia Lincoln LONGITUDINAL FLOAT OPERATOR Hypertensive disorder Medications Medication Instructions Start Date Stop Date Generic Name NDC Provider VENTOLIN HFA 108 (90 Base) MCG/ACT AERS TAKE 2 INHALATIONS EVERY 4 HOURS NEEDED FOR WHEEZING 8 ALBUTEROL SULFATE [id number] Sophie Green LONGITUDINAL FLOAT OPERATOR LISINOPRIL-HYD ROCHLOROTHIAZI DE 20-12.5 MG TABS TAKE 1 TABLET BY MOUTH 1 TIME A DAY 8 LISINOPRIL-HYD ROCHLOROTHIAZI DE [id number] Sophie Green LONGITUDINAL FLOAT OPERATOR DULERA 100-5 MCG/ACT AERO USE 2 INHALATIONS TWICE A DAY 5 MOMETASONE FURO-FORMOTERO L FUM [id number] José Miguel Mckeon PROAIR HFA 108 (90 Base) MCG/ACT INHALATION AEROSOL SOLUTION USE 2 INHALATIONS 4 TIMES A DAY NEEDED FOR WHEEZING/shortne ss of breath 0 ALBUTEROL SULFATE 32379675376 José Miguel Linda NEURONTIN 100 MG CAPS TAKE ONE TABLET TWICE DAILY FOR PAIN 2 GABAPENTIN 34687942515 Yslwia Lincoln LONGITUDINAL FLOAT OPERATOR SPIRIVA HANDIHALER 18 MCG CAPS USE 1 INHALATION ONCE A DAY 0 TIOTROPIUM BROMIDE MONOHYDRATE 93280860485 Jose Carlos Santiago PREDNISONE 20 MG TABS 1 BY MOJTH 2 TIMES A DAY FOR 5 DAYS. 0 PREDNISONE [id number] Sylwia Lincoln LONGITUDINAL FLOAT OPERATOR LISINOPRIL-HYD ROCHLOROTHIAZI DE 20-12.5 MG TABS TAKE 1 TABLET BY MOUTH 1 TIME A DAY 0 LISINOPRIL-HYD ROCHLOROTHIAZI DE 60206414014 José Miguel Linda Medications Administered No information [...] in Blood ABS NEUTROPH 4680 CELLS/UL 10*3/uL 4885-9133 N Neutrophils [#/volume] in Blood PLATELETK/UL 167 [...] [facility], [address] [place], [address] Referral Pain Management Referral [facility] -[facility]CO[facility] & Mc[facility] Pain Relief [facility], [address], [address] Referral Orthopedic Refer [facility], [address] [place] [address], [address] Referral Pain Management Referral [facility], [address] [place], [address] Referral excluded fr om report: Referral Hand Surgery Ref erral Hand Foreign Service Officer Liam Carter MD, [address] [facility], [place], [address] Referral Hand Surgery Ref erral Hand Foreign Service Officer Liam Carter MD, [address], [place], [address] Referral excluded fr om report: Referral Orthopedic Refer [facility], [address] [place], [address] Referral Orthopedic Refer [facility], [address] [place], [address] Referral excluded fr om report: Pending order [...] Date Entry Date ORTHO COMMON Orthopedic Referral [facility] 20 10/06/15 PAIN N [place] Pain Management Refe rral [facility] [place] Pain Management Referral [facility] X-Ray Chest X-Ray Chest PFT FULL ALVAREZ PFT Full 08756 [facility] # Lipid Panel 5 62930 [facility] # CMP 5 6399 [facility] # CBC with diff 5 X-Ray Chest X-Ray Chest 6399 [facility] # CBC with diff 0 7[address]21 [facility] # CMP 0 84377 [facility] # Lipid Panel 0 CPT-39575 Urine Dip Auto 41089 HAND SX SPEC Hand Surgery Referral Hand Surgery Specia list ORTHO COMMON Orthopedic Referral [facility] 20 09/04/31 CPT-47246 Acute Hepatitis Panel 0 09 EMG ALVARE[facility] EMG Electromyography 87564 [facility] # CMP 8 496 [facility] # HGBA1c 85182 [facility] # Lipid Panel 8 Mammo ALVAREZ Mammogram 6399 [facility] # CBC with diff 0 33133 [facility] # CMP 0 39867 [facility] # TSH reflex to free T4 CPT-60604 Vitamin D 25 Dihydroxy 09/06 927 [facility] [...]
--- OUTSIDE RECORDS SUMMARY | 2025-09-09 11:29 | XMS_ITS | Clinical Summary ---
Author Organization [facility] Address [address] [place] [address] Care Team Providers Care Smoke Room Operator Name Role Phone Alexy Mendez MD Primary Care Provider [phone] Source Comments This information has been disclosed [...] therelease of HIV test results or diagnoses. [id number] [facility] Allergies Active Allergy Reactions Criticality Noted Date Comments Hydroxyzine Other (See Comments) 04/21/2018 aggitation Medications aspirin 81 MG EC tablet Take 1 tablet (81 mg total) by mouth daily. Active omega 5-lid-rmk-fish oil (FISH OIL) 1,000 mg (120 mg-180 [...] EDT 4 Active naloxone (NARCAN) 4 mg/actuation [place] Apply 1 spray in one nostril if [...] place to sleep or slept in a chcf (including now)? No 02/07/2024 Comments Unknown Sex [...] 1-dose 75+ series) 12/30 Hepatitis C Screening (Scaladohart) Completed Procedures Procedure Name Priority Date/Time Associated [...] MD LAB BLOOD ORDERABLES Final Resul t [facility] [address] [facility] [place] [address], [facility] from Last 3 Months or Most Recently Relevant to Health Maintenance Insurance [address] [place] [id number] [facility] [address] [place] [id number] Advance Directives For more information, please contact: [phone] * Full Code (Latest Code Status on File) Date Activated Date Inactivated Comments 02/07/2024 2:48 AM 02/21/2024 10:24 PM Care Teams Smoke Room Operator Relationship Specialty Start Date End Date Alexy Mendez MD [address] [facility] [place] [address] PCP - General Family Medicine 02/06/24
--- OUTSIDE RECORDS SUMMARY | 2025-09-09 11:29 | XMS_ITS | Patient Health Record ---
Author Organization [facility] Address [address] [place] [address] Care Team Providers Care Senior Engineering Tech Name Role Phone Sonido Sullivan Unavailable [phone] Allergies Allergen (clinical drug ingredient) Drug/Non Drug Allergy documented on EMR Reaction Allergy Type Onset Date Status Medications: NO KNOWN DRUG ALLERGIES (uncoded) Unspecified Allergy Active Reason For Referral No Information Medications Medication SIG (Take, Route, Frequency, Duration) [...] (1-3 times weekly) Travel outside of the [place]: Travel History: Uses seat belts Plan Of Treatment No Information Medical (General) History Medical History History ICD Code Arthritis Chronic lung disease Hypercholesteremia Anxiety HTN (hypertension) Depression Fibroid *NO SIGNIFICANT GENETIC HISTORY 7 [place]: Sexually active - No 7 [place]: Self breast exam- yes Surgical History Surgery Date(Month/Year) section Hysterectomy Left oophorectomy
--- NOTE | 2025-09-09 11:30 | CT_ITS ---
FINAL REPORT TECHNIQUE: Pre-and postcontrast axial imaging of the abdomen and pelvis was obtained.This study was performed with techniques to keep radiation doses as low as reasonably achievable, (ALARA). Individualized dose reduction technique using automated exposure control or adjustment of mA and/or kV according to the patient's size were employed. CLINICAL HISTORY: bladder pain COMPARISON: 05/03/2024 FINDINGS: The lung bases are clear. The liver is homogeneous. The gallbladder is partially contracted.. The spleen, adrenal glands, and pancreas are unremarkable. There is no hydronephrosis or solid renal mass. There is a small right renal cyst and small right angiomyolipoma. On precontrast imaging, no renal stones are identified. Abdominal GI tract is unremarkable. There is no lymphadenopathy or ascites. Urinary bladder is incompletely distended. No bladder wall thickening is seen. Pelvic portions of the GI tract are within normal limits. Appendix is not visualized. There are no secondary findings of appendicitis. There is a moderate amount of retained stool. Uterus is absent. There is no lymphadenopathy or ascites. No acute osseous abnormalities identified. There is a 4.6 cm abdominal aortic aneurysm, increased in size from 4.2 cm. IMPRESSION: No acute intra-abdominal or intrapelvic abnormality. Incompletely distended urinary bladder. Increase in size of abdominal aortic aneurysm. Reviewed, Interpreted and Dictated by Mayra Roberts MD Transcribed by Kiara Dahl Authenticated and [facility]
[2025-09-09] MEDS: IOPAMIDOL-370 (76%);100ML BOTTLE 75 ML IV (12:07)
== END 2025-09-09 23:59 | disposition home or self-care (01) ==
LOC: RAD 11:25
PROVIDERS: PCP Family Medicine; Visit Provider Urology
DX: I71.40 Abdominal aortic aneurysm, without rupture, unspecified (principal); N32.89 Other specified disorders of bladder; N32.81 Overactive bladder; N39.41 Urge incontinence
CPT/HCPCS: 74178; Q9967

== ENCOUNTER 2025-09-13 09:22 | Day surgery (SDC) | payer MEDICAID, SELFPAY ==
[2025-09-12 13:20] VITALS: BMI 20.9
[2025-09-13 09:37] VITALS: BP 197/89; PULSE 89; RESP 19; TEMP 36.8; O2SAT 99
--- NOTE | 2025-09-13 09:39 | P.PCN_ITS ---
[facility] Procedure Note Date: 09/13/25 Time: 09:40 Procedure Note:: Chart review: The patient had a prior history of bladder cancer. She got lost to follow-up and has not had a recent cystoscopy. Her CT scan with and without infusion on 09/20 shows a right renal cyst and a angiomyolipoma. She has an aortic aneurysm that we have shared with her primary care physician. The patient has severe COPD on room oxygen. She is troubled with urgency and urinary frequency. She has overactive bladder and stress urinary incontinence. She has been on Ditropan and Estrace vaginal cream but is refractory so far to medical intervention. Her insurance does not cover Myrbetriq. Operative note: The patient was brought to the cystoscopy suite. She was prepped and draped in the usual fashion. A catheterized urine culture and sensitivity has been set up. She underwent flexible cystoscopy. She has significant atrophic vaginitis and vaginal stenosis. Her urethra is moderately inflamed and tender to catheterization. The bladder itself, however, this barely [place] pink in color throughout without evidence of bladder stone tumor hemorrhage or infection. The ureteral openings are normal bilaterally with clear reflux of urine she tolerated the procedure well.
[2025-09-13] MEDS: 0.9 % SODIUM CHLORIDE 500 ML 25 ML IV (10:39)
[2025-09-13 10:43] VITALS: BP 147/67; PULSE 64; RESP 16; TEMP 36.2; O2SAT 92
== END 2025-09-13 10:56 | disposition home or self-care (01) ==
PROVIDERS: PCP Family Medicine; Visit Provider Urology
PROC: 0TJB8ZZ Inspection of Bladder, Via Natural or Artificial Opening Endoscopic (ICD-10-PCS; CPT 52000; principal; 2025-09-13 10:15)
DX: N95.2 Postmenopausal atrophic vaginitis (principal); N34.2 Other urethritis; N32.81 Overactive bladder; N39.41 Urge incontinence; N39.3 Stress incontinence (female) (male); I71.9 Aortic aneurysm of unspecified site, without rupture; I70.1 Atherosclerosis of renal artery; J96.01 Acute respiratory failure with hypoxia; J44.9 Chronic obstructive pulmonary disease, unspecified; I10 Essential (primary) hypertension; F17.200 Nicotine dependence, unspecified, uncomplicated; Z85.51 Personal history of malignant neoplasm of bladder; Z99.81 Dependence on supplemental oxygen
CPT/HCPCS: 52000; J7040

== ENCOUNTER 2025-11-24 14:08 | Inpatient (IN) | payer MEDICAID, SELFPAY ==
--- OUTSIDE RECORDS SUMMARY | 2019-10-10 09:47 | XMS_ITS | Encounter Summary ---
Author Organization [place] [address] Care Team Providers Care Pail Bailer Name Role Phone Alexy Mendez MD Primary Care Provider [phone] Encounter Details Date Type Department Care Team (Late st Contact Info) Description 10/10/2019 9:47 AM EST Hospital Encounter [facility] Referral Lab 1 [place], [place] [id number] Miguel Jaime MD [address] [place] [id number] Low back pain Social History Tobacco Use Types Packs/Day Years Used Date Smoking Tobacco: Every Day Cigarettes 1 43.4 Started: 07/01/1982 Smokeless Tobacco: Never Comments:currently down to . 5 ppd Alcohol Use Standard Drinks/Week Comments Yes 0 (1 standard drink = 0.6 oz pur e alcohol) rarely [facility] Utilities Answer Date Recorded In the past 12 months has [employer] electric, gas, oil, or water company threatened to shut off services in your home? No 05/04/2024 Overall Financial Resource Strain (CARDIA) Answe r Date Recorded How hard is it for you to pa y for the very basics like food, housing, medical care, and heating? Not very hard 05/04/2024 PHQ-2 Answer Date Recorded PHQ-2 Total Score 2 05/04/2024 [facility] of Occupat ional Health - Occupational Stress Questionnaire Answer Date Recorded Do you feel stress - tense, restless, nervous, or anxious, or unable to sleep at night because your mind is troubled all the time - these days? Not at all 05/04/2024 Exercise Vital Sign Answer Date Recorde d On average, how many days pe r week do you engage in moderate to strenuous exercise (like a brisk walk)? 0 days 05/04/2024 On average, how many minutes do you engage in exercise at this level? 0 min 05/04/2024 Hunger Vital Sign Answer Date Recorded Within the past 12 months, y ou worried that your food would run out before you got the money to buy more. Never true 05/04/20 24 Within the past 12 months, t he food you bought just didn't last and you didn't have money to get more. Never true 05/04/2024 [facility] IP Transportation Answer D ate Recorded In the past 12 months, has l ack of reliable transportation kept you from medical appointments, meetings, work or from getting things needed for daily living? No 05/04/2024 Sexually Active Control Partners Comments Yes Surgical Male Comments No Sex and Gender Information Value Date Recorded Sex Assigned at Not on file Legal Sex Female 7:13 PM EDT Gender Identity Not on file Sexual Orientation Not on file COVID-19 Exposure Response Date Recorded In the last 10 days, have yo u been in contact with someone who was confirmed or suspected to have Coronavirus/COVID-19? No / Unsure 07/07/2022 8:09 AM EDT documented as of this encounter Functional Status * Is the person deaf or does he/she have serious difficulty hearing? Answer Date of Assessment Author No 08/07/2019 9:56 AM EDT Daniel Morgan MA * Is the person blind or does he/she have serious difficulty seeing even when wearing glasses? Answer Date of Assessment Author No 08/07/2019 9:56 AM EDT Daniel Morgan MA * Does this person have serious difficulty walking or climbing stairs? Answer Date of Assessment Author No 08/07/2019 9:56 AM CIARAT Daniel Morgan MA * Does this person have difficulty dressing or bathing? Answer Date of Assessment Author No 08/07/2019 9:56 AM EDT Daniel Morgan MA * Because of a physical, mental or emotional condition, does this person have difficulty doing errands alone such as visiting a doctor's office or shopping? Answer Date of Assessment Author No 08/07/2019 9:56 AM Daniel Fuentes MA * Question Answer Date of Assessment Author Little interest or pleasure in doing things 1 05/04/2024 4:47 PM EDT Sandie Burt RN Feeling down, depressed, or hopeless 1 05/04/2024 4:47 PM EDT Sandie Burt RN PHQ-2 Total Score 2 05/04/2024 4:47 PM EDT Sandie Burt RN * PHQ-9 Total Score Answer Date of Assessment Author 2 05/04/2024 4:47 PM EDT Sandie Burt RN documented as of this encounter Mental Status * Because of a physical, mental or emotional condition, does this person have serious difficulty concentrating, remembering or making decisions? Answer Entry Date Author No 08/07/2019 9:56 AM CIARAT Daniel Morgan MA documented in this encounter Plan of Treatment Scheduled Orders Name Type Priority Associated Diagnoses Orde r Schedule CREATININE Lab Routine Low back pain ONCE for 1 Occurrences starting 10/10/2019 until 11/14/2019 documented as of this encounter Goals Goal Patient Goal Type Associated Problems Recent Progress Patient-Stated? Author Blood Pressure < 140/90 Blood Pressure 131/81(2024 1:42 PM EDT) No Susan Santana RMA Maintain a healthy diet, exercise regularly and maintain an ideal body weight General No Norma Coleman RMA Stay Tobacco Free Lifestyle No Norma Coleman RMAmos documented as of this encounter Visit Diagnoses Diagnosis Low back pain Lumbago documented in this encounter Additional Health Concerns Infection Onset Date Last Indicated Resolved Time R/O COVID-19 06/26/2021 06/26/2021 06/26/2021 5:52 PM EDT Assessment Noted Time PHQ-9 Depression Total Score: 2 08/07/20 9:56 AM EDT PHQ-2 Depression Total Score: 2 08/07/20 9:56 AM EDT documented as of this encounter Care Teams Pail Bailer Relationship Specialty Start Date End Date Alexy Mendez MD [address] [place] [address] PCP - General Family Medicine 08/07/19 06/17/24 documented as of this encounter
--- OUTSIDE RECORDS SUMMARY | 2024-06-30 04:00 | XMS_ITS ---
Author Organization [facility] Address [address] [place] [address] Care Team Providers Care Residential Appraiser Name Role Phone Sonido Sullivan Unavailable [phone] Migration, Provider Unavailable Unavailable Allergies Allergen (clinical drug ingredient) Drug/Non Drug Allergy documented on EMR Reaction Allergy Type Onset Date Status Medications: NO KNOWN DRUG ALLERGIES (uncoded) Unspecified Allergy Active Medications Medication SIG (Take, Route, Frequency, Duration) Notes Start Date End Date Status Lisinopril 1 tablet oral QD Ac tive Social History Tobacco Use: Social History Observation Description Date Smoking Status WARNING: Information temporarily unavailable Social History Drugs/Alcohol: Social Info Question Answer Notes Alcohol Screen Did you have a drink containing alcohol in the past year? Light Household: Social Info Question Answer Notes Household Marital status: Tobacco Use: Social Info Question Answer Notes Tobacco Control (Standard) Tobacco use: Current every day 04/26/2018 - 03/27/2018 - 1 ppd for 25 years Additional Details Category Social Info Options Details Miscellaneous: Exercise: Moderate Amou nt of Exercise (1-3 times weekly) Travel outside of the [place]: Travel History: Uses seat belts Encounters Encounter Location Date Provider Diagnosis [facility] [address] [place] [address] 06/30/2024 Provider Migration Plan Of Treatment No Information Progress Notes * Snow AGUIAR: (65 yo F)Acc No.[id number]:06/30/2024 Patient: Sophie DENGra :1960 A ge:64 Y S ex:Female Address:[address], [place], [address] Subjective: * Chief Complaints: * Medical History: Arthritis Chronic lung disease Hypercholesteremia Anxiety HTN (hypertension) Depression Fibroid *NO SIGNIFICANT GENETIC HISTORY 7 [place]: Sexually active - No 7 [place]: Self breast exam- yes Vicodin take 1 tablet by oral route every 6 hours as needed for pain. Cymbalta, oral aspirin, oral, tablet, Notes: 81. Fish Oil 1 po daily. * Anesthetist History: S exual Activity/Contraception: C ontraception: S terilization. * OB History: P regnancy History (GPA) T otal Pregnancies 3 , F ull Term 2 , P remature?0, A B. Induced 0 , A B. Spontaneous 1 , E ctopics 0 , M ultiple Births 0 , L iving 2 . G P G ravida: 3 , P hemanth: 2 . * Surgical History: section Hysterectomy Left oophorectomy * Family History: F amily History Verified.. Anxiety Disorder, Generalized, Asthma, Family history of COPD (chronic obstructive pulmonary disease), Family history of diabetes mellitus, FH: depression, FH: HTN (hypertension). * Social History: T obacco Use: T obacco Control (Standard) T obacco use: C urrent every day 04/26/2018 - 03/27/2018 - 1 ppd for 25 years. D rugs/Alcohol: A lcohol Screen D id you have a drink containing alcohol in the past year? L ight.? M iscellaneous: E xercise: Moderate Amount of Exercise (1-3 times weekly). Travel outside of the [place]: Travel History: Uses seat belts. H ousehold: H ousehold M arital status: . * Medications: T akingLisinopril 1 tablet oral QD Taking Lisinopril 1 tablet oral QD * Allergies: M edications: NO KNOWN DRUG ALLERGIES: Unspecified - AllergyyesAllergies Verified. * * Date:
[2025-11-24] VITALS (59 sets, daily range): BP systolic 77–207; BP diastolic 48–119; PULSE 89–128; RESP 10–27; TEMP 36.8–38.7; O2SAT 93–100; BMI 17.6; BMI 19.5
--- OUTSIDE RECORDS SUMMARY | 2025-11-24 14:12 | XMS_ITS | Clinical Summary ---
Author Organization [facility] Address [address] [place] [address] Phone Care Team Providers Care Archaeologist Name Role Phone José Miguel Mckeon Primary Care Physician [phone] Conditions or Problems Problem Name Problem Code Onset Date Status Entry Date Provider Comment Standard Description Annotate ASTHMA [id number] (SNOMED CT) 04/11 Active 04/11 José Miguel Mckeon Asthma BACK PAIN, LUMBAR, CHRONIC 516035731 (SNOMED CT) 03/21 Active 03/21 Belen Sholler ARABIC PROFESSOR Chronic low back pain DEGENERATIVE DISC DISEASE, LUMBAR SPINE 31080594 (SNOMED CT) 03/21 Active 03/21 Belen Sholler ARABIC PROFESSOR Degeneration of lumbar intervertebral disc HEPATITIS C NOS B19.20 (ICD-10-CM ) 04/26 Active 04/26 Sylwia Lincoln HOME DEMONSTRATION AGENT Unspecified viral hepatitis C without hepatic coma LIVER FUNCTION TESTS ABNORMAL 396844897 (SNOMED CT) 04/05 Active 04/05 Sylwia Lincoln HOME DEMONSTRATION AGENT Liver function tests outside reference range HYPERTRIGLYCE RIDEMIA 542019310 (SNOMED CT) 04/05 Active 04/05 Sylwia Lincoln HOME DEMONSTRATION AGENT Hypertriglycerid emia CARPAL TUNNEL 83158755 (SNOMED CT) 03/19 Active 03/19 Sylwia Lincoln HOME DEMONSTRATION AGENT Carpal tunnel syndrome COUGH 24330002 (SNOMED CT) Active Sylwia Lincoln HOME DEMONSTRATION AGENT Cough HYPERTENSION 83737895 (SNOMED CT) Active Sylwia Lincoln HOME DEMONSTRATION AGENT Hypertensive disorder Medications Medication Instructions Start Date Stop Date Generic Name NDC Provider VENTOLIN HFA 108 (90 Base) MCG/ACT AERS TAKE 2 INHALATIONS EVERY 4 HOURS NEEDED FOR WHEEZING 8 ALBUTEROL SULFATE 10227297563 Sophie Green HOME DEMONSTRATION AGENT LISINOPRIL-HYD ROCHLOROTHIAZI DE 20-12.5 MG TABS TAKE 1 TABLET BY MOUTH 1 TIME A DAY 8 LISINOPRIL-HYD ROCHLOROTHIAZI DE 15529420880 Sophie Green HOME DEMONSTRATION AGENT DULERA 100-5 MCG/ACT AERO USE 2 INHALATIONS TWICE A DAY 5 MOMETASONE FURO-FORMOTERO L FUM 74845054129 José Miguel Mckeon PROAIR HFA 108 (90 Base) MCG/ACT INHALATION AEROSOL SOLUTION USE 2 INHALATIONS 4 TIMES A DAY NEEDED FOR WHEEZING/shortne ss of breath 0 ALBUTEROL SULFATE 34852017706 José Miguel Linda NEURONTIN 100 MG CAPS TAKE ONE TABLET TWICE DAILY FOR PAIN 2 GABAPENTIN 24949730164 Sylwia Lincoln HOME DEMONSTRATION AGENT SPIRIVA HANDIHALER 18 MCG CAPS USE 1 INHALATION ONCE A DAY 0 TIOTROPIUM BROMIDE MONOHYDRATE 25351709204 oJse Carlos Santiago PREDNISONE 20 MG TABS 1 BY MOJTH 2 TIMES A DAY FOR 5 DAYS. 0 PREDNISONE 92144685988 Sylwia Lincoln HOME DEMONSTRATION AGENT LISINOPRIL-HYD ROCHLOROTHIAZI DE 20-12.5 MG TABS TAKE 1 TABLET BY MOUTH 1 TIME A DAY 0 LISINOPRIL-HYD ROCHLOROTHIAZI DE 48595307242 José Mgiuel Linda Medications Administered No information available. Allergies, [...] in Blood ABS NEUTROPH 4680 CELLS/UL 10*3/uL 5941-4521 N Neutrophils [#/volume] in Blood PLATELETK/UL 167 [...] [facility], [address] [place], [address] Referral Pain Management Referral [facility] for Pain -all MCOs & Mcare Pain Relief [facility], [address], [address] Referral Orthopedic Refer [facility], [address] [place] [address], [address] Referral Pain Management Referral [facility], [address] [place], [address] Referral excluded fr om report: Referral Hand Surgery Ref erral Hand Ophthalmic Surgical Assistant Liam Carter MD, [address] [place] [facility], [place], [address] Referral Hand Surgery Ref erral Hand Ophthalmic Surgical Assistant Liam Carter MD, [address], [place], [address] Referral excluded fr om report: Referral Orthopedic Refer [facility], [address] [place], [address] Referral Orthopedic Refer [facility], [address] [place], [address] Referral excluded fr om report: Pending order [...] Date Entry Date ORTHO COMMON Orthopedic Referral [facility] 20 10/06/15 PAIN N [place] Pain Management Refe rral [facility]IN [place] Pain Management Referral [facility] X-Ray Chest X-Ray Chest PFT FULL ALVAREZ PFT Full 38845 [facility] # Lipid Panel 5 21703 [facility] # CMP 5 6399 [facility] # CBC with diff 5 X-Ray Chest X-Ray Chest 6399 [facility] # CBC with diff 0 [address]194 [facility] # CMP 0 55582 [facility] # Lipid Panel 0 CPT-90148 Urine Dip Auto 66075 HAND SX SPEC Hand Surgery Referral Hand Surgery Specia list ORTHO COMMON Orthopedic Referral [facility] 20 09/04/31 CPT-47293 Acute Hepatitis Panel 0 09 EMG ALVAREZ EMG Electromyography 13333 [facility] # CMP 8 496 [facility] # HGBA1c 89850 [facility] # Lipid Panel 8 Mammo ALVAREZ Mammogram 6399 [facility] # CBC with diff 0 [address]88 [facility] Test # CMP 0 48117 [facility] # TSH reflex to free T4 CPT-57416 Vitamin D 25 Dihydroxy 09/06 927 [facility] [...]
--- OUTSIDE RECORDS SUMMARY | 2025-11-24 14:12 | XMS_ITS | Patient Health Record ---
Author Organization [facility] [place] Address [address] [place] [address] Care Team Providers Care Medtronics Technician Name Role Phone Sonido Sullivan Unavailable [phone] Allergies Allergen (clinical drug ingredient) Drug/Non Drug [...] Depression Fibroid *NO SIGNIFICANT GENETIC HISTORY 7 [place]: Sexually active - No 7 [place]: Self breast exam- yes Surgical History Surgery Date(Month/Year) section Hysterectomy Left oophorectomy
--- OUTSIDE RECORDS SUMMARY | 2025-11-24 14:12 | XMS_ITS | Clinical Summary ---
Author Organization [facility] Address [address] [place] [address] Phone Care Team Providers Care Cafe Assistant Name Role Phone No Pcp, Provider Not In [facility] Primary Care Provid er Unavailable Allergies [...] including gabapentin to be prescribed from the [facility] office as of 07/24/18 02/27/24 NO SHOW [...] (12/13/2019): Added automatically from request for surgery [id number] Spinal stenosis 07/11/2018 B12 deficiency 03/30/2018 TAMI [...] 07/03/2021 Overweight (BMI 25.0-29.9) 11/25/2014 0 07/18/2018 Immunizations Immunization Administration Dates Next Due Hepatitis A, Adult 2022 Pneumococcal Polysaccharide 23 Valent 2022 Surgical History Surgery Date Site/Laterality Comments HYSTERECTOMY, TOTAL ABDOMINAL 11/28/1992 - 11/27/1993 left ovary not removed; due to fibroids APPENDECTOMY SECTION 11/28/1980 - 11/27/1981 BLADDER SURGERY 02/26/2014 - 03/27/2014 benign tumor removed from bladder CARPAL TUNNEL RELEASE 05/02/2014 Hand/Left LEFT CARPAL TUNNEL RELEASE; Surgeon: Isauro Millard MD; Location: [facility]; Service: Hand LUMBAR DISC SURGERY 07/10/2018 N/A L2/3, L3/4 LAMINECTOMY ; Surgeon: Miguel Jaime MD; Location: [facility] MAIN OR; Service: Spine CYSTOSCOPY 12/25/2019 N/A CYSTOSCOPY ; Surgeon: Magan Dsohi MD; Location: [facility] MAIN OR; Service: Urology CYSTOSCOPY 01/27/2021 N/A CYSTOSCOPY with BLADDER BIOPSY; Surgeon: Magan Doshi MD; Location: [facility] MAIN OR; Service: Urology CYSTOSCOPY 08/04/2021 N/A CYSTOSCOPY, BLADDER BIOPSY; Surgeon: Magan Doshi MD; Location: ED MAIN OR; Service: Urology COLECTOMY 05/08/2024 N/A LAPAROSCOPIC HAND ASSISTED COLECTOMY; Surgeon: Wai Ochoa MD; Location: ED MAIN OR; Service: General ABDOMINAL EXPLORATION SURGERY [...] 1 43.4 Started: 07/01/1982 Smokeless Tobacco: Never Tobacco Cessation:Ready to Q uit: Not Asked; Counseling Given: Not Answered Comments:currently down to .5 ppd Alcohol Use Standard Drinks/Week Comments Yes 0 (1 standard drink = 0.6 oz pur e alcohol) rarely [facility] Utilities Answer Date Recorded In the past [...] Date Recorded PHQ-2 Total Score 2 05/04/2024 [facility] - Occupational Stress [...] money to get more. Never true 05/04/2024 [facility] IP Transportation Answer D ate Recorded [...] Tdap) 1980 Cologuard 2006 Virtual Colonography 2006 RSV or 60+ (1 - Risk 50-74 years 1-dose series) 2011 Zoster (1 of 2) 2011 Breast Cancer Screening 01/07/2017 01/07/2015 Hepatitis B Vaccine (1 of 3 - Risk 3-dose series) 2021 Hepatitis A Vaccine (2 of [...] Blood Pressure 131/81(2024 1:42 PM EDT) Susan Krugere RMAmos Maintain a healthy diet, exercise regularly and maintain an ideal body weight General No Coleman, Norma, RMA Stay Tobacco Free Lifestyle No Coleman, Norma, RMA Medical Devices Implanted Type Area Wood Miller Device Identifier Shelf Expiration Date Model / Serial / Lot Strattice Reconstructive Tissue Matrix, 16cm X 20cm, Firm - [id number] Implanted:Qty: 1 on 05/18/2024 by Wai Ochoa MD at [facility] N/A: Abdomen [employer] 08/27/2024 [id number] / / [id number] Procedures Procedure Name Priority Date/Time Associated [...] Reyna RN Endoscopy Nurse Telma Cantor RN [employer] Supervisor Karri Guevara MD Anesthesiologist Ander Mijares CRNA SPORTS REPORTER Anny Mcdaniel MD Performing Provider Medications See [...] PROCEDURE ORDERABLES Edited Result - Final * FLEXIBLE SIGMOIDOSCOPY (05/07/2024 12:26 PM EDT) [...] Role DONALDO Morgan CRNA, MD Anesthesiologist Mackenzie Andrews, HUGO [employer] Supervisor Natalie Keating, HUGO [employer] Supervisor Anny Mcdaniel MD Performing Provider Hansel العراقي [...] - Proc. Room 05/07 12:26 PM Brooklyn Roberts Catrina RANCH HAND SUPERVISOR ENDOSCOPY PROCEDURE ORDER BREANA Edited Result - [...] on diagnostic imaging of other specified body [id number]. COMPARISON: 07/31/2021 PROCEDURE COMMENTS: Multi detector CT [...] findings on diagnostic imaging ofother specified body [id number]. COMPARISON: 07/31/2021 PROCEDURE COMMENTS: Multi detector CT [...] please contactthe office of the ordering clinician. us Alexy Mendez MD [facility] CT ORDERABLES Final Result * FECAL HEME (FIT) CANCER SCREEN (06/01/2022 12:45 PM EDT) Fecal Immunochemical Test Negative Negative 07/06/2022 3:54 PM EDT PREFERRED [employer] Stool COLON STRUCTURE / Unknown 06/01/2022 12:45 PM EDT 07/06/2022 2:48 PM EDT Alexy Mendez MD IMMUNOLOGY ORDERABLES Final Re sult [employer] [address] [facility] , [place] [address] * MM MAMMO DIGITAL SCREENING W CAD BILAT (01/07/2015 4:25 PM EST) Anatomical Region Laterality Modality Breast Bilateral Mammography 01/08/2015 10:4 2 AM EST Impressions 01/08/2015 11:29 AM EST : Benign finding ([id number]) ~ RECOMMENDATION: Routine screening mammogram in 1 [...] recent being 10-08-02 ~ Neeru Frye MD [facility] MAMMOGRAPHY ORDERABLES Final Result from Last 3 Months or Most Recently Relevant to Health Maintenance Insurance Advance Directives For more information, please contact: [phone] * Full Code (Latest Code Status on File) Date Activated Date Inactivated Comments 05/11/2024 10:43 AM 05/31/2024 8:36 PM * Full Code Date Activated Date Inactivated Comments 06/26/2021 9:45 PM 06/30/2021 8:00 PM * Full Code Date Activated Date Inactivated Comments 07/10/2018 5:51 PM 07/11/2018 6:53 PM Care Teams Cafe Assistant Relationship Specialty Start Date End Date No Pcp, Provider Not In Epic PCP - General 06/18/24
--- OUTSIDE RECORDS SUMMARY | 2025-11-24 14:12 | XMS_ITS ---
Author Organization Unknown ENCOUNTERS Encounter Performer Location Date Diagnosis Diagnosis Status Emergency [facility] [address] [facility] [address] [place] [address] [id number] Pre Admit [facility] [address] [facility] [address] [place] [address] [id number] Emergency [facility] [address] [facility] [address] [place] [address] [id number] SHANIA Pre Admit [facility] [address] [facility] [address] [place] [address] [id number] Pre Admit Bryan Armenta [facility] [address] [facility] [address] [place] [address] [id number] Emergency [place] [id number] [facility] [address] [place] [address] [id number] XS Outpatient [facility] [address] [facility] [address] [place] [address] [id number] SHANIA Emergency [facility] [address] [facility] [address] [place] [address] [id number] A Pre Admit [facility] [address] [facility] [address] [place] [address] [id number] Emergency [facility] [address] [facility] [address] [place] [address] [id number] XCAH Pre Admit [facility] [address] [facility] [address] [place] [address] [id number] *Note: Encounters from your own facility or health system may be excluded. Allergies, Adverse Reactions, Alerts Allergen Type Severity Identification Date Medications Name Date Quantity Days Supplied GPI Number
--- OUTSIDE RECORDS SUMMARY | 2025-11-24 14:12 | XMS_ITS | Clinical Summary ---
Author Organization [facility] Address [address] [place] [address] Care Team Providers Care Card Doffer Name Role Phone Rich Mendez MD Primary Care Provider [phone] Source Comments This information has been disclosed [...] therelease of HIV test results or diagnoses. [id number] [facility] Allergies Active Allergy Reactions Criticality Noted Date Comments Hydroxyzine Other (See Comments) 04/21/2018 aggitation Medications aspirin 81 MG EC tablet Take 1 tablet (81 mg total) by mouth daily. Active omega 3-onz-bgc-fish oil (FISH OIL) 1,000 mg (120 mg-180 [...] EDT 4 Active naloxone (NARCAN) 4 mg/actuation [place] Apply 1 spray in one nostril if [...] drink = 0.6 oz pur e alcohol) [facility] Utilities Answer Date Recorded In the [...] place to sleep or slept in a custodial (including now)? No 02/07/2024 Comments Unknown Sex [...] Alcohol Misuse Screening 02/05/2025 02/06/2024 Immunization: COVID-19 (1 - season) 2025 Immunization: Influenza (MyChart) (#1) 2025 Immunization: RSV (Adult) (1 - 1-dose 75+ series) 12/30 Hepatitis C Screening (tapvivahart) Completed Procedures Procedure Name Priority Date/Time Associated [...] - 0.79 S/CO 02/07/2024 3:25 AM EDT [facility] Serum 02/07/2024 12:4 7 AM EDT 02/07/2024 12:54 AM EDT us Martin Sheldon MD LAB BLOOD ORDERABLES Final Resul t [facility] [address] [place] [address], [facility] from Last 3 Months or Most Recently Relevant to Health Maintenance Insurance [address] [place] [id number] [facility] [address] [place] [address] Advance Directives For more information, please contact: [phone] * Full Code (Latest Code Status on File) Date Activated Date Inactivated Comments 02/07/2024 2:48 AM 02/21/2024 10:24 PM Care Teams Card Doffer Relationship Specialty Start Date End Date Rich Mendez MD [address] [facility] [place] [address] PCP - General Family Medicine 02/06/24
--- OUTSIDE RECORDS SUMMARY | 2025-11-24 14:12 | XMS_ITS ---
Author Organization Unknown TREATMENT PLAN Planned Care Start Date Provider Encounter for Check-up [id number] [facility]
--- NOTE | 2025-11-24 14:23 | XR_ITS ---
PROCEDURE INFORMATION: Exam: XR Chest Exam date and time: 11/24/2025 2:37 PM Age: 65 years old Clinical indication: Device placement; Ett placement (vent status); Additional info: Copd intubated TECHNIQUE: Imaging protocol: Radiologic exam of the chest. Views: 1 view. COMPARISON: CT CHEST WO CON 08/26/2025 2:50 PM FINDINGS: Tubes, catheters and devices: The endotracheal tube is above the level of the susana. Lungs: Emphysema. Lungs are well aerated without a focal area of consolidation. Pleural spaces: Unremarkable. No pleural effusion. No pneumothorax. Heart/Mediastinum: Unremarkable. No cardiomegaly. Bones/joints: Unremarkable. IMPRESSION: Lungs are well aerated without a focal area of consolidation.
--- NOTE | 2025-11-24 14:25 | CT_ITS ---
PROCEDURE INFORMATION: Exam: CT Head Without Contrast Exam date and time: 11/24/2025 4:23 PM Age: 65 years old Clinical indication: Encephalopathy TECHNIQUE: Imaging protocol: Computed tomography of the head without contrast. Radiation optimization: All CT scans at this facility use at least one of these dose optimization techniques: automated exposure control; mA and/or kV adjustment per patient size (includes targeted exams where dose is matched to clinical indication); or iterative reconstruction. COMPARISON: No relevant prior studies available. FINDINGS: Brain: Age-related involutional changes and chronic microvascular ischemic disease. No evidence for acute transcortical infarct. No mass effect or midline shift. No extra-axial collection. No acute intracranial hemorrhage. Basal cisterns are patent. Cerebral ventricles: No ventriculomegaly. Paranasal sinuses: Visualized sinuses are unremarkable. No fluid levels. Mastoid air cells: Visualized mastoid air cells are well aerated. Bones: Unremarkable. No acute fracture. Soft tissues: Unremarkable. IMPRESSION: No evidence for acute transcortical infarct, acute intracranial hemorrhage, or mass effect.
[2025-11-24 14:31] LABS: Hematocrit 35.3 % (37.0-47.0); Hemoglobin 11.2 g/dL (12.2-16.2); Immature Granulocytes % 0.3 %; Mean Corpuscular HGB Conc 31.7 g/dL (31.8-35.4); Mean Corpuscular Hemoglobin 31.4 pg (27.0-31.2); Mean Corpuscular Volume 98.9 fl (81-99); Nucleated Red Blood Cells % 0 %; Platelet Count 107 K/mm3 (142-424); Red Blood Count 3.57 M/mm3 (4.20-5.40); Red Cell Distribution Width-SD 45.7 fL; White Blood Count 6.8 K/mm3 (4.8-10.8)
[2025-11-24 14:35] LABS: Alanine Aminotransferase 17 U/L (12-78); Albumin Level 4.3 g/dl (3.5-5.0); Albumin/Globulin Ratio 1.4 (1.1-1.8); Alkaline Phosphatase 53 U/L (38-126); Aspartate Amino Transferase 28 U/L (14-36); Bilirubin,Total 0.4 mg/dl (0.2-1.3); Blood Urea Nitrogen 15 mg/dl (7-17); Calcium 10.7 mg/dl (8.4-10.2); Chloride 95 mmol/L (98-107); Creatinine,Serum 0.70 mg/dl (0.52-1.04); Estimated Glomerular Filt Rate 84 ml/min (>60); GFR (African American) 102 ML/MIN (>60); Globulin 3.1 g/dL (1.3-3.2); Glucose 152 mg/dl (74-100); Potassium 4.3 mmoL/L (3.5-5.1); Sodium 140 mmol/L (136-145); Total Protein,Serum 7.4 g/dl (6.3-8.2)
--- NOTE | 2025-11-24 14:36 | ED_ITS ---
Discharge Plan Disposition Patient Disposition: Admitted Prescriptions Prescriptions: No Action estradiol [Estrace] 0.01 % (0.1 mg/gram) cream 1 appful vaginal DAILY Qty: 42.5 2RF Rx Instructions: Finger technique daily x 14 and then 3 x weekly alprazolam 0.5 mg tablet 0.5 mg PO QID Qty: 120 1RF prednisone 20 mg tablet 20 mg PO BID Qty: 10 0RF Gemtesa 75 mg tablet 75 mg PO DAILY Qty: 30 2RF albuterol sulfate [Ventolin HFA] 90 mcg/actuation HFA aerosol inhaler 1 puff INHALATION Q4HP PRN (Reason: Shortness Of Breath) Qty: 8.5 5RF trazodone 100 mg tablet See Rx Instructions .ROUTE .COMPLEX Qty: 180 1RF Dose Instruction: TAKE 2 TABLETS (200MG) ORALLY AT BEDTIME NIGHTLY FOR SLEEP Rx Instructions: TAKE 2 TABLETS (200MG) ORALLY AT BEDTIME NIGHTLY FOR SLEEP benzonatate 100 mg capsule See Rx Instructions .ROUTE .COMPLEX Qty: 90 1RF Dose Instruction: TAKE 1 CAPSULE BY MOUTH THREE TIMES A DAY NEEDED FOR COUGH Rx Instructions: TAKE 1 CAPSULE BY MOUTH THREE TIMES A DAY NEEDED FOR COUGH albuterol sulfate 0.63 mg/3 mL solution for nebulization See Rx Instructions .ROUTE .COMPLEX Qty: 360 1RF Dose Instruction: USE 3 ML IN NEBULIZER EVERY 6 HOURS DIRECTED Rx Instructions: USE 3 ML IN NEBULIZER EVERY 6 HOURS DIRECTED lisinopril 40 mg tablet See Rx Instructions .ROUTE .COMPLEX Qty: 90 0RF Dose Instruction: TAKE 1 TABLET BY MOUTH ONCE DAILY Rx Instructions: TAKE 1 TABLET BY MOUTH ONCE DAILY amlodipine 5 mg tablet See Rx Instructions .ROUTE .COMPLEX Qty: 90 2RF Dose Instruction: TAKE ONE (1) TABLET BY MOUTH ONCE DAILY Rx Instructions: TAKE ONE (1) TABLET BY MOUTH ONCE DAILY cholecalciferol (vitamin D3) 50 mcg (2,000 unit) capsule 50 mcg PO DAILY Qty: 90 3RF duloxetine 60 mg capsule,delayed release(DR/EC) See Rx Instructions .ROUTE .COMPLEX Qty: 60 3RF Dose Instruction: TAKE ONE (1) CAPSULE BY MOUTH TWICE DAILY FOR DEPRESSION Rx Instructions: TAKE ONE (1) CAPSULE BY MOUTH TWICE DAILY FOR DEPRESSION alendronate 70 mg tablet See Rx Instructions .ROUTE .COMPLEX Qty: 14 0RF Dose Instruction: TAKE 1 TABLET ORALLY WEEKLY ..DO NOT EAT/DRINK/LIE DOWN FOR 30 MINUTES AFTER DOSE ON AN EMPTY STOMACH Rx Instructions: TAKE 1 TABLET ORALLY WEEKLY ..DO NOT EAT/DRINK/LIE DOWN FOR 30 MINUTES AFTER DOSE ON AN EMPTY STOMACH guaifenesin 100 mg/5 mL liquid 200 mg PO Q6H PRN (Reason: cough) Qty: 500 2RF budesonide-formoterol [Symbicort] 160-4.5 mcg/actuation HFA aerosol inhaler 2 puff inhalation BID 90 Days Qty: 10.2 2RF oxycodone-acetaminophen 7.5-325 mg tablet 1 tab PO TID PRN (Reason: pain) Qty: 90 0RF Referrals Follow up/Referrals: Silvestre Shepherd MD [Primary Care Provider, [facility]] - See instructions Clinical Impressions Clinical Impression: Acute hypercapnic respiratory failure, Human metapneumovirus (hMPV) pneumonia, Exposure to natural gas Instructions Patient Instructions: DI for Altered Mental Status Print Language Print Language: Yi Discharge ED Provider: Tomas Crowe HPI <Tomas Crowe MD - Last Filed: 11/24/25 17:34> General Chief Complaint: Altered Mental Status Stated Complaint: SOB Time Seen by Provider: 11/24/25 14:09 History of Present Illness HPI narrative: Patient is 65-year-old female past medical history of COPD not on chronic oxygen [id number] smoking history who presents emergency department for altered sensorium. Patient has been feeling unwell for many days, decreased p.o. intake, cough, shortness of breath. On EMS arrival there was gas detectors that were going off for significant natural gas level in the house per [facility] [employer]. Patient presents for continued evaluation Related Data Previous Rx's ?Medication ?Instructions ?Recorded albuterol sulfate 90 mcg/actuation 1 puff inhalation Q 4HP PRN 04/11/25 aerosol inhaler (Ventolin HFA) Shortness Of Breath #8. 5 grams trazodone 100 mg tablet See Rx Instructions .Route 0 07/08/25 .COMPLEX #180 tabs benzonatate 100 mg capsule See Rx Instructions .Route 08/21/25 .COMPLEX #90 caps estradiol 0.01% (0.1 mg/gram) 1 appful vaginal DAILY # 42.5 grams 09/29/25 vaginal cream (Estrace) albuterol sulfate 0.63 mg/3 mL See Rx Instructions .[place] 09/05/25 solution for nebulization .COMPLEX #360 mL lisinopril 40 mg tablet See Rx Instructions .Route 1 .COMPLEX #90 tabs alprazolam 0.5 mg tablet 0.5 mg PO QID #120 tabs 08/29 03/22 prednisone 20 mg tablet 20 mg PO BID #10 tabs vibegron 75 mg tablet (Gemtesa) 75 mg PO DAILY #30 tab s 09/20/25 amlodipine 5 mg tablet See Rx Instructions .Route 1 .COMPLEX #90 tabs cholecalciferol (vitamin D3) 50 50 mcg PO DAILY #90 ca ps 09/27/25 mcg (2,000 unit) capsule duloxetine 60 mg capsule,delayed See Rx Instructions . Route 10/04/25 release .COMPLEX #60 caps alendronate 70 mg tablet See Rx Instructions .Route 1 12/18/24 .COMPLEX #14 tabs budesonide-formoterol HFA 160 2 puff inhalation BID 90 days 10/22/25 mcg-4.5 mcg/actuation aerosol #10.2 grams inhaler (Symbicort) guaifenesin 100 mg/5 mL oral liquid 200 mg (10 mL) PO Q6H PRN cough 10/22/25 #500 mL oxycodone-acetaminophen 7.5 mg-325 1 tab PO TID PRN pa in #90 tabs 11/18/25 mg tablet Allergies Allergy/AdvReac Type Severity Reaction Status Date / Time No Known Allergies Allergy Verified 09/19/25 13:19 [facility] [place] <Tomas Crowe MD - Last Filed: 11/24/25 17:34> [facility] Disclaimer: The information contained in this section may have been updated after the patient was seen, as this information can be updated by other users. Medical History Mixed incontinence Chronic respiratory failure with hypoxia Tobacco abuse counseling Tobacco abuse Smoking greater than 30 pack years Anxiety Screening for lung cancer Breast cancer screening Low back pain Postoperative wound breakdown Diverticulitis of large intestine with perforation Tobacco use Anemia Colitis UTI (urinary tract infection) Melena Pneumatosis coli Sepsis Hyperlipidemia Hypertension COPD (chronic obstructive pulmonary disease) Surgical History Status post partial resection of colon Previous back surgery H/O: hysterectomy Family History Other Family history of myocardial infarction Social History Smoking Status: Current every day smoker alcohol intake: former current occupational status: disabled Travel in the last 8 weeks?: None Have you lived/traveled outside US in past 30 days?: No Contact w/someone who lives/traveled outside US past 30 days?: No Exposure to someone with infectious disease in past 14 days?: No Do you have a fever (greater than 100.4 F or 38 C)?: No Have you tested positive for COVID-19?: No Exposed to someone with COVID-19 in past 14 days?: No Do you have a sore throat?: No Do you have a cough?: No Do you have any weakness?: No Do you have any diarrhea?: No Are you experiencing any unusual bleeding?: No Do you have any muscle aches/pain?: No Do you have any abdominal pain?: No Are you experiencing loss of taste or smell?: No Other Medical History Have you received the Flu Vaccine for this season: No Have you received the Pneumonia Vaccine: Yes <Tomas Crowe MD - Last Filed: 11/24/25 17:34> ROS Obtained: Yes Systems reviewed as appropriate & no additional complaints except as documented Physical Exam <Tomas Crowe MD - Last Filed: 11/24/25 17:34> General General appearance: lethargic and in distress Head Head exam: atraumatic and normocephalic Eye Eye exam: Present PERRL ENT ENT exam: Present mucous membranes moist Neck Neck exam: Present normal inspection and full ROM Chest Chest inspection: Present normal inspection and symmetric chest wall rise Respiratory Respiratory exam: Present respiratory distress, wheezes and accessory muscle use Cardiovascular Cardiovascular exam: Present regular rate and normal rhythm Abdominal Exam Abdominal exam: Present soft; Absent tenderness Extremities Exam Extremities exam: Present normal inspection Neurological Exam Neurological exam: Present other (Encephalopathic GCS 11); Absent motor sensory deficit (No gross motor or sensory deficit) Psychiatric Psychiatric exam: Present normal affect Skin Skin exam: Present warm and dry HEART Score <Tomas Crowe MD - Last Filed: 11/24/25 17:34> HEART Score HEART Score assessment performed?: Yes History (anamnesis): Slightly suspicious ECG: Non-specific disturbance Age: 45-65 years Risk factors: 3 or more risk factors Troponin: </= normal limit HEART Score: 4 <Dean Perez MD - Last Filed: 11/24/25 18:19> HEART Score HEART Score: 4 Procedures <Tomas Crowe MD - Last Filed: 11/24/25 17:34> Intubation Mallampati Score:: Class III Time out performed: No sedative: Etomidate Mg Given: 20 paralytic: Rocuronium Mg Given: 70 Laryngoscope: Rosa M ET Tube Size: 7.5 ET Tube Uncuffed: Yes Tube Secured Depth (cm): 22 Tube Secured Location: teeth Tube Placement Confirmation: visualized tube passing through cords, equal breath sounds bilaterally and confirmation by capnometry Critical Care <Tomas Crowe MD - Last Filed: 11/24/25 17:34> Critical Care Time Critical Care Time: Yes Attestation: On 11/24/25, the high probability of a clinically significant, sudden or life threatening deterioration of the following system(s) required my full and direct attention, intervention and personal management. The time I documented below is in addition to time spent performing reported procedures but includes the following listed in this critical care notation. Total Time Total Critical Care Time: 40 <Dean Perez MD - Last Filed: 11/24/25 18:19> Total Time Total Critical Care Time: 45 Medical Decision Making <Tomas Crowe MD - Last Filed: 11/24/25 17:34> Sergio Inquiry Pt receiving controlled substance: No Vital Signs Vital Signs: 11/24/25 14:20 11/24/25 14:20 11/24/25 14:55 Temperature 98.2 F 98.2 F Temperature Source Axillary Pulse Rate 98 H Pulse Rate [Right] 98 H Respiratory Rate 10 L 10 L 20 Blood Pressure 151/79 H Blood Pressure [Right Arm] 151/79 H Blood Pressure Mean [Right Arm] 103 02 Sat by Pulse Oximetry 100 100 96 Oxygen Delivery Method Fraction of Inspired Oxygen 50 11/24/25 15:05 11/24/25 15:10 11/24/25 15:15 Temperature 99.7 F H 99.9 F H 100.0 F H Temperature Source Pulse Rate 118 H 119 H 121 H Pulse Rate [Right] Respiratory Rate 20 20 21 Blood Pressure 165/94 H 182/105 H 143/94 H Blood Pressure [Right Arm] Blood Pressure Mean [Right Arm] 02 Sat by Pulse Oximetry 100 100 100 Oxygen Delivery Method Mechanical Ventilation Mechanical Ventilation Mechanical Ventilation Fraction of Inspired Oxygen 11/24/25 15:20 11/24/25 15:25 11/24/25 15:30 Temperature 100.2 F H 100.4 F H 100.6 F H Temperature Source Pulse Rate 123 H 124 H 119 H Pulse Rate [Right] Respiratory Rate 19 20 20 Blood Pressure 192/119 H 207/109 H 174/97 H Blood Pressure [Right Arm] Blood Pressure Mean [Right Arm] 02 Sat by Pulse Oximetry 100 100 100 Oxygen Delivery Method Mechanical Ventilation Mechanical Ventilation Mechanical Ventilation Fraction of Inspired Oxygen 11/24/25 15:35 11/24/25 15:40 11/24/25 15:45 Temperature 100.6 F H 100.8 F H 100.8 F H Temperature Source Pulse Rate 123 H 123 H 123 H Pulse Rate [Right] Respiratory Rate 19 21 20 Blood Pressure 201/102 H 158/91 H 184/102 H Blood Pressure [Right Arm] Blood Pressure Mean [Right Arm] 02 Sat by Pulse Oximetry 100 100 99 Oxygen Delivery Method Mechanical Ventilation Mechanical Ventilation Mechanical Ventilation Fraction of Inspired Oxygen 11/24/25 15:50 11/24/25 15:55 11/24/25 16:00 Temperature 100.8 F H 100.9 F H 101.1 F H Temperature Source Pulse Rate 128 H 122 H 121 H Pulse Rate [Right] Respiratory Rate 27 H 20 19 Blood Pressure 206/114 H 173/99 H 185/102 H Blood Pressure [Right Arm] Blood Pressure Mean [Right Arm] 02 Sat by Pulse Oximetry 98 95 98 Oxygen Delivery Method Mechanical Ventilation Mechanical Ventilation Mechanical Ventilation Fraction of Inspired Oxygen 11/24/25 16:05 11/24/25 16:11 11/24/25 16:15 Temperature 101.1 F H 101.3 F H Temperature Source Pulse Rate 121 H 119 H 118 H Pulse Rate [Right] Respiratory Rate 21 20 19 Blood Pressure 177/108 H 143/69 H 126/67 Blood Pressure [Right Arm] Blood Pressure Mean [Right Arm] 02 Sat by Pulse Oximetry 95 98 98 Oxygen Delivery Method Mechanical Ventilation Mechanical Ventilation Mechanical Ventilation Fraction of Inspired Oxygen 11/24/25 16:36 11/24/25 16:40 11/24/25 16:45 Temperature 101.7 F H 101.7 F H 101.7 F H Temperature Source Pulse Rate 110 H 109 H 110 H Pulse Rate [Right] Respiratory Rate 22 21 21 Blood Pressure 100/63 L 162/76 H 137/88 Blood Pressure [Right Arm] Blood Pressure Mean [Right Arm] 02 Sat by Pulse Oximetry 97 99 95 Oxygen Delivery Method Mechanical Ventilation Mechanical Ventilation Mechanical Ventilation Fraction of Inspired Oxygen 11/24/25 16:51 11/24/25 16:55 11/24/25 17:00 Temperature 101.7 F H 101.7 F H 101.5 F H Temperature Source Pulse Rate 108 H 100 H 105 H Pulse Rate [Right] Respiratory Rate 20 16 16 Blood Pressure 98/79 L 126/81 143/80 H Blood Pressure [Right Arm] Blood Pressure Mean [Right Arm] 02 Sat by Pulse Oximetry 99 97 99 Oxygen Delivery Method Mechanical Ventilation Mechanical Ventilation Mechanical Ventilation Fraction of Inspired Oxygen 11/24/25 17:05 11/24/25 17:10 11/24/25 17:15 Temperature 101.5 F H 101.3 F H 101.3 F H Temperature Source Pulse Rate 101 H 103 H 103 H Pulse Rate [Right] Respiratory Rate 20 20 21 Blood Pressure 130/74 149/69 H 147/60 H Blood Pressure [Right Arm] Blood Pressure Mean [Right Arm] 02 Sat by Pulse Oximetry 100 100 100 Oxygen Delivery Method Mechanical Ventilation Mechanical Ventilation Mechanical Ventilation Fraction of Inspired Oxygen 11/24/25 17:20 11/24/25 17:25 11/24/25 17:30 Temperature 101.3 F H 101.1 F H 100.9 F H Temperature Source Pulse Rate 103 H 101 H 99 H Pulse Rate [Right] Respiratory Rate 21 20 20 Blood Pressure 142/66 H 129/65 127/60 Blood Pressure [Right Arm] Blood Pressure Mean [Right Arm] 02 Sat by Pulse Oximetry 100 100 100 Oxygen Delivery Method Mechanical Ventilation Mechanical Ventilation Mechanical Ventilation Fraction of Inspired Oxygen 11/24/25 17:35 11/24/25 17:40 11/24/25 17:45 Temperature 100.9 F H 100.9 F H 100.9 F H Temperature Source Pulse Rate 98 H 100 H Pulse Rate [Right] Respiratory Rate 21 19 20 Blood Pressure 132/55 L 107/50 L 95/51 L Blood Pressure [Right Arm] Blood Pressure Mean [Right Arm] 02 Sat by Pulse Oximetry 100 100 Oxygen Delivery Method Mechanical Ventilation Mechanical Ventilation Fraction of Inspired Oxygen 11/24/25 17:50 11/24/25 17:55 11/24/25 18:00 Temperature 100.9 F H 101.1 F H 101.1 F H Temperature Source Pulse Rate 99 H 100 H 96 H Pulse Rate [Right] Respiratory Rate 20 17 20 Blood Pressure 101/56 L 103/55 L 119/59 L Blood Pressure [Right Arm] Blood Pressure Mean [Right Arm] 02 Sat by Pulse Oximetry 100 100 100 Oxygen Delivery Method Mechanical Ventilation Mechanical Ventilation Mechanical Ventilation Fraction of Inspired Oxygen Lab Data Labs: Lab Results 11/24/25 14:15: WBC 6.8, RBC 3.57 L, Hgb 11.2 L, Hct 35.3 L, MCV 98.9, MCH 31.4 H, MCHC 31.7 L, RDW 12.5, Plt Count 107 L, MPV 11.2 H, Neut % (Auto) 84.4 H, L ymph % (Auto) 7.6 L, Tate % (Auto) 7.5, Eos % (Auto) 0.1, Baso % (Auto) 0.1, Neut # (Auto) 5.7, Lymph # (Auto) 0.5 L, Tate # (Auto) 0.5, Eos # (Auto) 0.0, Baso # (Auto) 0.0, Total Counted 100, Neutrophils % (Manual) 82 H, Lymphocytes % (Manual) 9 L, Monocytes % (Manual) 9, Platelet Estimate Slight decrease, RBC Morphology Normal, Sodium 140, Potassium 4.3, Chloride 95 L, Carbon Dioxide 42 H*, Anion Gap 7.3, BUN 15, Creatinine 0.70, Estimated GFR 84, Est GFR ( Amer) 102, Glucose 152 H, Calcium 10.7 H, Total Bilirubin 0.4, AST 28, ALT 17, Alkaline Phosphatase 53, Troponin I < 0.01, Total Protein 7.4, Albumin 4.3, Globulin 3.1, Albumin/Globulin Ratio 1.4 11/24/25 14:42: Chlamy pneumoniae PCR Not detected, Adenovirus (PCR) Not detected, B. pertussis DNA (PCR) Not detected, Coronavirus OC43 (PCR) Not detected, Coronavirus HKU1 (PCR) Not detected, Coronavirus 229E (PCR) Not detected, SARS-CoV-2 (PCR) Not detected, Coronavirus NL63 (PCR) Not detected, H uman Metapneumovir PCR Detected A, Influenza A (H1) PCR Not detected, Influ A (H1N1/09) PCR Not detected, Influenza A (H3) PCR Not detected, Influenza Type A (PCR) Not detected, Influenza Type B (PCR) Not detected, M. pneumoniae (PCR) Not detected, Parainfluenza 1 (PCR) Not detected, Parainfluenza 2 (PCR) Not detected, Parainfluenza 3 (PCR) Not detected, Parainfluenza 4 (PCR) Not detected, RSV (PCR) Not detected, Entero/Rhino (PCR) Not detected 11/24/25 14:52: VBG pH 7.26 L, VBG pCO2 71.7 H, VBG pO2 159.0 H, VBG HCO3 31.5 H , VBG Total CO2 33.7 H, VBG O2 Saturation 99.0 H, VBG Base Excess 2.7 H, VBG Lactic Acid 0.8, Carboxyhemoglobin 2.0 11/24/25 16:10: Specimen Source Left radial, O2 % 30, ABG pH 7.44, ABG pCO2 43.3, ABG pO2 86.8, ABG HCO3 28.8 H, ABG Total CO2 30.1 H, ABG O2 Saturation 98, ABG Base Excess 4.7 H, Telly Test Patient unable, Vent Rate 20, Tidal Volume 420, PEEP 5 11/24/25 14:15 11/24/25 14:15 Response Orders (Tests/Meds): ED MEDICATIONS Generic Name Dose Route Start Last Admin Trade Name Freq PRN Reason Stop Dose Admin Propofol 100 mls @ 1.225 mls/hr 11/24/25 14:45 11/24/25 17:05 Diprivan 10mg/Ml 100ml Bottle IV 12/24/25 14:44 60 mcg/kg/min .Q24H ISIDRO 14.7 mls/hr Protocol Titration 5 MCG/KG/MIN Fentanyl Citrate 1,000 mcg/ 100 mls @ 1 mls/hr 11/24/25 14:46 11/24/25 16:40 Sodium Chloride IV 12/24/25 14:45 20 mcg/hr .Q24H ISIDRO 2 mls/hr Protocol Titration 10 MCG/HR Midazolam/Sodium Chloride 50 mg in 50 mls @ 0.816 mls/hr 11/24/25 17:00 11/24/25 17:58 Midazolam 50 Mg/50 Ml-0.9%Nacl IV 12/24/25 16:59 0.02 mg/kg/hr .Q24H ISIDRO 0.82 mls/hr Protocol Administration 0.02 MG/KG/HR Sodium Chloride 3 ml 11/24/25 14:43 Sodium Chloride 3% 15ml Neb 12/24/25 14:42 ONCE PRN INDUCE SPUTUM COLLECTION Sodium Chloride 10 ml 11/24/25 15:20 Sodium Chloride 0.9% 10ml Vial IV 12/24/25 15:19 NEEDED PRN dilute protonix Sodium Chloride 10 ml 11/24/25 16:33 11/24/25 16:34 Sodium Chloride 0.9% 10ml Syr (Rad Only) IV 12/24/25 16:32 10 ml NEEDED PRN Administration Maintain IV Site Discontinued Medications Generic Name Dose Route Start Last Admin Trade Name Freq PRN Reason Stop Dose Admin Acetaminophen 1,000 mg 11/24/25 16:10 11/24/25 16:41 Acetaminophen 1,000mg/100ml Vial IV 11/24/25 16:11 1,000 mg ONCE ONE Administration Albuterol Sulfate 20 mg 11/24/25 14:52 11/24/25 14:55 Albuterol 0.083% 2.5 Mg/3 Ml [facility] 11/24/25 14:53 20 mg ONCE ONE Administration Albuterol/Ipratropium 9 ml 11/24/25 14:23 11/24/25 15:42 Ipratropium/Albuterol 3 Ml Neb 11/24/25 14:24 9 ml ONCE ONE Administration Etomidate 20 mg 11/24/25 14:40 11/24/25 14:48 Etomidate 40mg/20ml Vial IV 11/24/25 14:41 20 mg ONCE ONE Administration Ceftriaxone Sodium 1 gm/ 50 mls @ 100 mls/hr 11/24/25 14:24 11/24/25 16:38 Sodium Chloride IV 11/24/25 14:53 Infused ONCE ONE Infusion Azithromycin 500 mg/ Sodium 250 mls @ 250 mls/hr 11/24/25 14:25 11/24/25 17:02 Chloride IV 11/24/25 14:26 250 mls/hr ONCE ONE Administration Lactated Ringer's 1,000 mls @ 999 mls/hr 11/24/25 15:22 11/24/25 17:42 Lactated Ringer's 1000 Ml Bag IV 11/24/25 16:22 Infused .Q1H1M ONE Infusion Iopamidol 80 ml 11/24/25 16:33 11/24/25 16:34 Iopamidol-370 (76%);100ml Bottle IV 11/24/25 16:34 80 ml ONCE ONE Administration Methylprednisolone Sodium Succinate 125 mg 11/24/25 14:23 11/24/25 15:55 Methylprednisolone Sod Succ 125mg Vial IV 11/24/25 14:24 125 mg ONCE ONE Administration Pantoprazole Sodium 40 mg 11/24/25 15:20 11/24/25 15:58 Pantoprazole 40mg Vial IV 11/24/25 15:21 40 mg ONCE ONE Administration Rocuronium [place] 70 mg 11/24/25 14:40 11/24/25 14:49 Rocuronium [place] 50mg/5ml Vial IV 11/24/25 14:41 70 mg ONCE ONE Administration Sodium Chloride 50 ml 11/24/25 16:33 11/24/25 16:34 0.9 % Sodium Chloride 50 Ml Vial IV 11/24/25 16:34 50 ml ONCE ONE Administration ORDERS Category Date Time Status CT angio abd/pel - GI Bleed Stat Cat Scan 11/24/25 15:[address] angio chest PE protocol Stat Cat Scan 11/24/25 15:[address] head/brain wo con Stat Cat Scan 11/24/25 14:25 Completed CXR --portable [XR chest portable] Stat Exams 11/24/25 14:23 Completed CBC [Complete Blood Count Auto Diff] Stat Lab 11/24/25 14:15 Completed CMP [Comprehensive Metabolic Panel] Stat Lab 11/24/25 14:15 Completed Full Resp Panel w/COVID ([facility]) Routine Lab 11/24/25 14:42 Completed Trop I [Troponin I] Stat Lab 11/24/25 14:15 Completed Troponin I Q3H Lab 11/24/25 17:30 Ordered Troponin I Q3H Lab 11/24/25 20:30 Ordered Urinalysis (cathed specimen) Stat Lab 11/24/25 18:15 Ordered Sputum Culture & Gram Stain Stat Micro 11/24/25 14:00 Results Arterial Blood Gas Routine RT 11/24/25 16:10 Results Carboxyhemoglobin Stat RT 11/24/25 14:52 Completed VBG [Venous Blood Gas] Stat RT 11/24/25 14:52 Completed ECG Data Tracing #1: ECG Narrative: Independently interpreted by me rate is 118, rhythm is regular, no ST elevation in anatomical contiguous leads, QTc 340. MDM Narrative Medical Decision Narrative: In summary this is a 65-year-old female with past medical history described above presents emergency department in respiratory distress encephalopathic in the setting of natural gas exposure. Patient is hemodynamically stable and lethargic upon arrival with coarse biphasic wheezing, afebrile. Differential diagnosis includes carbon monoxide poisoning, CO2 narcosis, pneumonia, among others. VBG was obtained and reportedly carbon oxide level was 2, CO2 elevated and pH was low consistent with CO2 narcosis. Patient is not protecting her airway and not ventilating appropriately DuoNebs will be administered and patient underwent rapid sequence intubation with success with etomidate and rocuronium. Her workup will be conducted with chest x-ray EKG troponins blood work antibiotics will be initiated gentle crystalloid resuscitation will be administered full sepsis bolus was considered but will be deferred at this time. Noncontrasted CT scan of the head will be obtained as part of the encephalopathic workup although I think it is likely that this is all driven from CO2 narcosis. contacted nursing to provide additional history reportedly blood was coming out of both ends yesterday . Given this we will broaden workup with CT pulmonary embolism protocol as well as CT GI bleed protocol. Protonix will be administered. Initial hematologic labs reviewed by me no significant leukocytosis, stable anemia, hypercarbic acidosis no KEENA or critical electrolyte abnormality initial troponin undetectably low. Repeat evaluation as well as CT imaging pending at time of transition of care to the oncoming physician, Dr. Perez. Adhesive Sprayer disclaimer Much of this encounter note is an electronic outer diameter grinder tool spoken language to printed text. Electronic outer diameter grinder tool of the spoken language may permit errors. Although I have reviewed the note, some errors may still exist. <Dean Perez MD - Last Filed: 11/24/25 18:19> Vital Signs Vital Signs: 11/24/25 14:20 11/24/25 14:20 11/24/25 14:55 Temperature 98.2 F 98.2 F Temperature Source Axillary Pulse Rate 98 H Pulse Rate [Right] 98 H Respiratory Rate 10 L 10 L 20 Blood Pressure 151/79 H Blood Pressure [Right Arm] 151/79 H Blood Pressure Mean [Right Arm] 103 02 Sat by Pulse Oximetry 100 100 96 Oxygen Delivery Method Fraction of Inspired Oxygen 50 11/24/25 15:05 11/24/25 15:10 11/24/25 15:15 Temperature 99.7 F H 99.9 F H 100.0 F H Temperature Source Pulse Rate 118 H 119 H 121 H Pulse Rate [Right] Respiratory Rate 20 20 21 Blood Pressure 165/94 H 182/105 H 143/94 H Blood Pressure [Right Arm] Blood Pressure Mean [Right Arm] 02 Sat by Pulse Oximetry 100 100 100 Oxygen Delivery Method Mechanical Ventilation Mechanical Ventilation Mechanical Ventilation Fraction of Inspired Oxygen 11/24/25 15:20 11/24/25 15:25 11/24/25 15:30 Temperature 100.2 F H 100.4 F H 100.6 F H Temperature Source Pulse Rate 123 H 124 H 119 H Pulse Rate [Right] Respiratory Rate 19 20 20 Blood Pressure 192/119 H 207/109 H 174/97 H Blood Pressure [Right Arm] Blood Pressure Mean [Right Arm] 02 Sat by Pulse Oximetry 100 100 100 Oxygen Delivery Method Mechanical Ventilation Mechanical Ventilation Mechanical Ventilation Fraction of Inspired Oxygen 11/24/25 15:35 11/24/25 15:40 11/24/25 15:45 Temperature 100.6 F H 100.8 F H 100.8 F H Temperature Source Pulse Rate 123 H 123 H 123 H Pulse Rate [Right] Respiratory Rate 19 21 20 Blood Pressure 201/102 H 158/91 H 184/102 H Blood Pressure [Right Arm] Blood Pressure Mean [Right Arm] 02 Sat by Pulse Oximetry 100 100 99 Oxygen Delivery Method Mechanical Ventilation Mechanical Ventilation Mechanical Ventilation Fraction of Inspired Oxygen 11/24/25 15:50 11/24/25 15:55 11/24/25 16:00 Temperature 100.8 F H 100.9 F H 101.1 F H Temperature Source Pulse Rate 128 H 122 H 121 H Pulse Rate [Right] Respiratory Rate 27 H 20 19 Blood Pressure 206/114 H 173/99 H 185/102 H Blood Pressure [Right Arm] Blood Pressure Mean [Right Arm] 02 Sat by Pulse Oximetry 98 95 98 Oxygen Delivery Method Mechanical Ventilation Mechanical Ventilation Mechanical Ventilation Fraction of Inspired Oxygen 11/24/25 16:05 11/24/25 16:11 11/24/25 16:15 Temperature 101.1 F H 101.3 F H Temperature Source Pulse Rate 121 H 119 H 118 H Pulse Rate [Right] Respiratory Rate 21 20 19 Blood Pressure 177/108 H 143/69 H 126/67 Blood Pressure [Right Arm] Blood Pressure Mean [Right Arm] 02 Sat by Pulse Oximetry 95 98 98 Oxygen Delivery Method Mechanical Ventilation Mechanical Ventilation Mechanical Ventilation Fraction of Inspired Oxygen 11/24/25 16:36 11/24/25 16:40 11/24/25 16:45 Temperature 101.7 F H 101.7 F H 101.7 F H Temperature Source Pulse Rate 110 H 109 H 110 H Pulse Rate [Right] Respiratory Rate 22 21 21 Blood Pressure 100/63 L 162/76 H 137/88 Blood Pressure [Right Arm] Blood Pressure Mean [Right Arm] 02 Sat by Pulse Oximetry 97 99 95 Oxygen Delivery Method Mechanical Ventilation Mechanical Ventilation Mechanical Ventilation Fraction of Inspired Oxygen 11/24/25 16:51 11/24/25 16:55 11/24/25 17:00 Temperature 101.7 F H 101.7 F H 101.5 F H Temperature Source Pulse Rate 108 H 100 H 105 H Pulse Rate [Right] Respiratory Rate 20 16 16 Blood Pressure 98/79 L 126/81 143/80 H Blood Pressure [Right Arm] Blood Pressure Mean [Right Arm] 02 Sat by Pulse Oximetry 99 97 99 Oxygen Delivery Method Mechanical Ventilation Mechanical Ventilation Mechanical Ventilation Fraction of Inspired Oxygen 11/24/25 17:05 11/24/25 17:10 11/24/25 17:15 Temperature 101.5 F H 101.3 F H 101.3 F H Temperature Source Pulse Rate 101 H 103 H 103 H Pulse Rate [Right] Respiratory Rate 20 20 21 Blood Pressure 130/74 149/69 H 147/60 H Blood Pressure [Right Arm] Blood Pressure Mean [Right Arm] 02 Sat by Pulse Oximetry 100 100 100 Oxygen Delivery Method Mechanical Ventilation Mechanical Ventilation Mechanical Ventilation Fraction of Inspired Oxygen 11/24/25 17:20 11/24/25 17:25 11/24/25 17:30 Temperature 101.3 F H 101.1 F H 100.9 F H Temperature Source Pulse Rate 103 H 101 H 99 H Pulse Rate [Right] Respiratory Rate 21 20 20 Blood Pressure 142/66 H 129/65 127/60 Blood Pressure [Right Arm] Blood Pressure Mean [Right Arm] 02 Sat by Pulse Oximetry 100 100 100 Oxygen Delivery Method Mechanical Ventilation Mechanical Ventilation Mechanical Ventilation Fraction of Inspired Oxygen 11/24/25 17:35 11/24/25 17:40 11/24/25 17:45 Temperature 100.9 F H 100.9 F H 100.9 F H Temperature Source Pulse Rate 98 H 100 H Pulse Rate [Right] Respiratory Rate 21 19 20 Blood Pressure 132/55 L 107/50 L 95/51 L Blood Pressure [Right Arm] Blood Pressure Mean [Right Arm] 02 Sat by Pulse Oximetry 100 100 Oxygen Delivery Method Mechanical Ventilation Mechanical Ventilation Fraction of Inspired Oxygen 11/24/25 17:50 11/24/25 17:55 11/24/25 18:00 Temperature 100.9 F H 101.1 F H 101.1 F H Temperature Source Pulse Rate 99 H 100 H 96 H Pulse Rate [Right] Respiratory Rate 20 17 20 Blood Pressure 101/56 L 103/55 L 119/59 L Blood Pressure [Right Arm] Blood Pressure Mean [Right Arm] 02 Sat by Pulse Oximetry 100 100 100 Oxygen Delivery Method Mechanical Ventilation Mechanical Ventilation Mechanical Ventilation Fraction of Inspired Oxygen Lab Data Labs: Lab Results 11/24/25 14:15: WBC 6.8, RBC 3.57 L, Hgb 11.2 L, Hct 35.3 L, MCV 98.9, MCH 31.4 H, MCHC 31.7 L, RDW 12.5, Plt Count 107 L, MPV 11.2 H, Neut % (Auto) 84.4 H, L ymph % (Auto) 7.6 L, Tate % (Auto) 7.5, Eos % (Auto) 0.1, Baso % (Auto) 0.1, Neut # (Auto) 5.7, Lymph # (Auto) 0.5 L, Tate # (Auto) 0.5, Eos # (Auto) 0.0, Baso # (Auto) 0.0, Total Counted 100, Neutrophils % (Manual) 82 H, Lymphocytes % (Manual) 9 L, Monocytes % (Manual) 9, Platelet Estimate Slight decrease, RBC Morphology Normal, Sodium 140, Potassium 4.3, Chloride 95 L, Carbon Dioxide 42 H*, Anion Gap 7.3, BUN 15, Creatinine 0.70, Estimated GFR 84, Est GFR ( Amer) 102, Glucose 152 H, Calcium 10.7 H, Total Bilirubin 0.4, AST 28, ALT 17, Alkaline Phosphatase 53, Troponin I < 0.01, Total Protein 7.4, Albumin 4.3, Globulin 3.1, Albumin/Globulin Ratio 1.4 11/24/25 14:42: Chlamy pneumoniae PCR Not detected, Adenovirus (PCR) Not detected, B. pertussis DNA (PCR) Not detected, Coronavirus OC43 (PCR) Not detected, Coronavirus HKU1 (PCR) Not detected, Coronavirus 229E (PCR) Not detected, SARS-CoV-2 (PCR) Not detected, Coronavirus NL63 (PCR) Not detected, H uman Metapneumovir PCR Detected A, Influenza A (H1) PCR Not detected, Influ A (H1N1/09) PCR Not detected, Influenza A (H3) PCR Not detected, Influenza Type A (PCR) Not detected, Influenza Type B (PCR) Not detected, M. pneumoniae (PCR) Not detected, Parainfluenza 1 (PCR) Not detected, Parainfluenza 2 (PCR) Not detected, Parainfluenza 3 (PCR) Not detected, Parainfluenza 4 (PCR) Not detected, RSV (PCR) Not detected, Entero/Rhino (PCR) Not detected 11/24/25 14:52: VBG pH 7.26 L, VBG pCO2 71.7 H, VBG pO2 159.0 H, VBG HCO3 31.5 H , VBG Total CO2 33.7 H, VBG O2 Saturation 99.0 H, VBG Base Excess 2.7 H, VBG Lactic Acid 0.8, Carboxyhemoglobin 2.0 11/24/25 16:10: Specimen Source Left radial, O2 % 30, ABG pH 7.44, ABG pCO2 43.3, ABG pO2 86.8, ABG HCO3 28.8 H, ABG Total CO2 30.1 H, ABG O2 Saturation 98, ABG Base Excess 4.7 H, Telly Test Patient unable, Vent Rate 20, Tidal Volume 420, PEEP 5 Response Orders (Tests/Meds): ED MEDICATIONS Generic Name Dose Route Start Last Admin Trade Name Freq PRN Reason Stop Dose Admin Propofol 100 mls @ 1.225 mls/hr 11/24/25 14:45 11/24/25 17:05 Diprivan 10mg/Ml 100ml Bottle IV 12/24/25 14:44 60 mcg/kg/min .Q24H ISIDRO 14.7 mls/hr Protocol Titration 5 MCG/KG/MIN Fentanyl Citrate 1,000 mcg/ 100 mls @ 1 mls/hr 11/24/25 14:46 11/24/25 16:40 Sodium Chloride IV 12/24/25 14:45 20 mcg/hr .Q24H ISIDRO 2 mls/hr Protocol Titration 10 MCG/HR Midazolam/Sodium Chloride 50 mg in 50 mls @ 0.816 mls/hr 11/24/25 17:00 11/24/25 17:58 Midazolam 50 Mg/50 Ml-0.9%Nacl IV 12/24/25 16:59 0.02 mg/kg/hr .Q24H ISIDRO 0.82 mls/hr Protocol Administration 0.02 MG/KG/HR Sodium Chloride 3 ml 11/24/25 14:43 Sodium Chloride 3% 15ml Neb 12/24/25 14:42 ONCE PRN INDUCE SPUTUM COLLECTION Sodium Chloride 10 ml 11/24/25 15:20 Sodium Chloride 0.9% 10ml Vial IV 12/24/25 15:19 NEEDED PRN dilute protonix Sodium Chloride 10 ml 11/24/25 16:33 11/24/25 16:34 Sodium Chloride 0.9% 10ml Syr (Rad Only) IV 12/24/25 16:32 10 ml NEEDED PRN Administration Maintain IV Site Discontinued Medications Generic Name Dose Route Start Last Admin Trade Name Freq PRN Reason Stop Dose Admin Acetaminophen 1,000 mg 11/24/25 16:10 11/24/25 16:41 Acetaminophen 1,000mg/100ml Vial IV 11/24/25 16:11 1,000 mg ONCE ONE Administration Albuterol Sulfate 20 mg 11/24/25 14:52 11/24/25 14:55 Albuterol 0.083% 2.5 Mg/3 Ml Neb 11/24/25 14:53 20 mg ONCE ONE Administration Albuterol/Ipratropium 9 ml 11/24/25 14:23 11/24/25 15:42 Ipratropium/Albuterol 3 Ml Neb IH 11/24/25 14:24 9 ml ONCE ONE Administration Etomidate 20 mg 11/24/25 14:40 11/24/25 14:48 Etomidate 40mg/20ml Vial IV 11/24/25 14:41 20 mg ONCE ONE Administration Ceftriaxone Sodium 1 gm/ 50 mls @ 100 mls/hr 11/24/25 14:24 11/24/25 16:38 Sodium Chloride IV 11/24/25 14:53 Infused ONCE ONE Infusion Azithromycin 500 mg/ Sodium 250 mls @ 250 mls/hr 11/24/25 14:25 11/24/25 17:02 Chloride IV 11/24/25 14:26 250 mls/hr ONCE ONE Administration Lactated Ringer's 1,000 mls @ 999 mls/hr 11/24/25 15:22 11/24/25 17:42 Lactated Ringer's 1000 Ml Bag IV 11/24/25 16:22 Infused .Q1H1M ONE Infusion Iopamidol 80 ml 11/24/25 16:33 11/24/25 16:34 Iopamidol-370 (76%);100ml Bottle IV 11/24/25 16:34 80 ml ONCE ONE Administration Methylprednisolone Sodium Succinate 125 mg 11/24/25 14:23 11/24/25 15:55 Methylprednisolone Sod Succ 125mg Vial IV 11/24/25 14:24 125 mg ONCE ONE Administration Pantoprazole Sodium 40 mg 11/24/25 15:20 11/24/25 15:58 Pantoprazole 40mg Vial IV 11/24/25 15:21 40 mg ONCE ONE Administration Rocuronium Clawson 70 mg 11/24/25 14:40 11/24/25 14:49 Rocuronium Clawson 50mg/5ml Vial IV 11/24/25 14:41 70 mg ONCE ONE Administration Sodium Chloride 50 ml 11/24/25 16:33 11/24/25 16:34 0.9 % Sodium Chloride 50 Ml Vial IV 11/24/25 16:34 50 ml ONCE ONE Administration ORDERS Category Date Time Status CT angio abd/pel - GI Bleed Stat Cat Scan 11/24/25 15:[address] angio chest PE protocol Stat Cat Scan 11/24/25 15:[address] head/brain wo con Stat Cat Scan 11/24/25 14:25 Completed CXR --portable [XR chest portable] Stat Exams 11/24/25 14:23 Completed CBC [Complete Blood Count Auto Diff] Stat Lab 11/24/25 14:15 Completed CMP [Comprehensive Metabolic Panel] Stat Lab 11/24/25 14:15 Completed Full Resp Panel w/COVID (H) Routine Lab 11/24/25 14:42 Completed Trop I [Troponin I] Stat Lab 11/24/25 14:15 Completed Troponin I Q3H Lab 11/24/25 17:30 Ordered Troponin I Q3H Lab 11/24/25 20:30 Ordered Urinalysis (cathed specimen) Stat Lab 11/24/25 18:15 Ordered Sputum Culture & Gram Stain Stat Micro 11/24/25 14:00 Results Arterial Blood Gas Routine RT 11/24/25 16:10 Results Carboxyhemoglobin Stat RT 11/24/25 14:52 Completed VBG [Venous Blood Gas] Stat RT 11/24/25 14:52 Completed MDM Narrative Medical Decision Narrative: In summary this is a 65-year-old female with past medical history described above presents emergency department in respiratory distress encephalopathic in the setting of natural gas exposure. Patient is hemodynamically stable and lethargic upon arrival with coarse biphasic wheezing, afebrile. Differential diagnosis includes carbon monoxide poisoning, CO2 narcosis, pneumonia, among others. VBG was obtained and reportedly carbon oxide level was 2, CO2 elevated and pH was low consistent with CO2 narcosis. Patient is not protecting her airway and not ventilating appropriately DuoNebs will be administered and patient underwent rapid sequence intubation with success with etomidate and rocuronium. Her workup will be conducted with chest x-ray EKG troponins blood work antibiotics will be initiated gentle crystalloid resuscitation will be administered full sepsis bolus was considered but will be deferred at this time. Noncontrasted CT scan of the head will be obtained as part of the encephalopathic workup although I think it is likely that this is all driven from CO2 narcosis. contacted nursing to provide additional history reportedly blood was coming out of both ends yesterday . Given this we will broaden workup with CT pulmonary embolism protocol as well as CT GI bleed protocol. Protonix will be administered. Initial hematologic labs reviewed by me no significant leukocytosis, stable anemia, hypercarbic acidosis no KEENA or critical electrolyte abnormality initial troponin undetectably low. Repeat evaluation as well as CT imaging pending at time of transition of care to the oncoming physician, Dr. Perez. Dean Perez MD At the time my assumption of care, plan was to follow-up patient CT imaging. Patient is currently intubated for hypercapnic respiratory failure and lethargy. She is on propofol and fentanyl drip. We had increased sedation due to continued hypertension and apparent discomfort while intubated. She seems much more comfortable now and vital signs have improved. A Versed drip was ordered, however this was not required as she improved after increasing propofol and fentanyl. CT imaging was interpreted by me personally. No acute intracranial hemorrhage, mass or midline shift. No pulmonary embolism. She has what appears to be pneumonitis consistent with her diagnosis of human metapneumovirus on respiratory panel. No acute findings within the abdomen or pelvis. Given her hypercapnic respiratory failure in the setting of viral illness requiring intubation, she will need admission for further management. I discussed patient's case with Dr. Mejia for admission at approximately 1750 and he accepted the patient for admitted. Patient's longtime partner did state that he thinks that she has had some bleeding from her rectum and vagina recently as well, however do not see any evidence on CT scan that could explain this. She was started on Versed drip as well as she continues to try to pull at her tube despite increasing the propofol and fentanyl drips. Adhesive Sprayer disclaimer Much of this encounter note is an electronic outer diameter grinder tool spoken language to printed text. Electronic outer diameter grinder tool of the spoken language may permit errors. Although I have reviewed the note, some errors may still exist.
[2025-11-24 14:47] LABS: Troponin I < 0.01 ng/ml (0.00-0.034)
[2025-11-24] MEDS: ETOMIDATE 40MG/20ML VIAL 20 MG IV (14:48)
[2025-11-24] MEDS: ROCURONIUM BROMIDE 50MG/5ML VIAL 70 MG IV (14:49)
[2025-11-24 14:50] LABS: RBC Morphology Normal; Total Cells Counted 100
--- NOTE | 2025-11-24 14:51 | PC.NURSE ---
Patient's upset in lobby. This nurse went to lobby and updated on situation. very thankful and states he just wants to be with his . told patient was getting situated and would come out to get him when she was settled. ok with this and very thankful to staff.
[2025-11-24 14:53] LABS: Adenovirus,PCR Not Detected (NotDetected); Chlamydophila Pneumoniae, PCR Not Detected (NotDetected); Coronavirus 19, PCR Not Detected (NotDetected); Coronovirus HKU1,PCR Not Detected (NotDetected); Influenza A, PCR Not Detected (NotDetected); Influenza AH1, 2009 Not Detected (NotDetected); Influenza AH1, PCR Not Detected (NotDetected); Influenza AH3,PCR Not Detected (NotDetected); Influenza B, PCR Not Detected (NotDetected); Mycoplasma Pneumoniae, PCR Not Detected (NotDetected); Parainfluenza 1, PCR Not Detected (NotDetected); Parainfluenza 2, PCR Not Detected (NotDetected); Parainfluenza 3, PCR Not Detected (NotDetected); Parainfluenza 4, PCR Not Detected (NotDetected)
[2025-11-24 14:54] LABS: VBG HCO3 31.5 mmol/L (23-30); VBG PCO2 71.7 mmol/L (35-51); VBG PH 7.26 mmol/L (7.31-7.41); VBG PO2 159.0 mmol/L (28-40)
--- NOTE | 2025-11-24 14:54 | PC.NURSE ---
Dr. Crowe notified of CO2 of 42.
[2025-11-24 14:55] LABS: Carboxyhemoglobin 2.0 (0.0-5.0); Lactate Venous 0.8 mmol/L (0.4-2.0)
[2025-11-24 14:55] LABS: Anion Gap 7.3 mEq/L (5-15); Carbon Dioxide 42 mmol/L (22.0-30.0)
[2025-11-24] MEDS: ALBUTEROL 0.083% 2.5 MG/3 ML NEB 20 MG IH (14:55)
--- NOTE | 2025-11-24 14:57 | ECG_ITS ---
APPROVED REPORT Exam: Resting ECG HR:118 bpm ECG Measurements Heart Rate 118 AXES DE 122 P 151 QRSd 88 QRS 145 QT 270 T -29 QTc 340 Conclusion ECTOPIC ATRIAL TACHYCARDIA POSSIBLE LEFT ATRIAL ENLARGEMENT [-0.1mV P-WAVE IN V1/V2] LEFT POSTERIOR FASCICULAR BLOCK [QRS AXIS > 109, INFERIOR Q] NONSPECIFIC ST & T-WAVE ABNORMALITY ABNORMAL ECG Electronically signed by : PIEDAD JAMISON, 11/26/2025 08:41:36
[2025-11-24] MEDS: FENTANYL CITRATE/PF 1,000 MCG in 0.9 % SODIUM CHLORIDE 80 ML 1 MCG IV (15:00)
--- NOTE | 2025-11-24 15:20 | CT_ITS ---
PROCEDURE INFORMATION: Exam: CTA Chest With Contrast Exam date and time: 11/24/2025 4:26 PM Age: 65 years old Clinical indication: Shortness of breath; Additional info: Encephalopathy SOB TECHNIQUE: Imaging protocol: Computed tomographic angiography of the chest with contrast. Exam focused on the arteries. 3D rendering (Not supervised by radiologist): MIP and/or 3D reconstructed images were created by the technologist. Radiation optimization: All CT scans at this facility use at least one of these dose optimization techniques: automated exposure control; mA and/or kV adjustment per patient size (includes targeted exams where dose is matched to clinical indication); or iterative reconstruction. Contrast material: ISOVUE; Contrast volume: 80 ml; Contrast route: INTRAVENOUS (IV); COMPARISON: CT ANGIO CHEST 05/03/2024 3:12 PM FINDINGS: Tubes, catheters and devices: Endotracheal tube tip in the midthoracic trachea. Pulmonary arteries: No acute pulmonary emboli. Aorta: Atherosclerotic disease of the thoracic aorta, without aneurysm or dissection. Lungs: Moderate centrilobular emphysema, with chronic obstructive pulmonary physiologic changes. Patchy ground-glass opacities within the upper lobes bilaterally, likely areas of pneumonitis. No focal consolidation or pulmonary edema. Moderate bilateral upper and lower lobe bronchial wall thickening, compatible with reactive airway disease or bronchitis. Pleural spaces: Unremarkable. No pneumothorax. No pleural effusion. Heart: Unremarkable. No cardiomegaly. No pericardial effusion. Lymph nodes: Unremarkable. No enlarged lymph nodes. Bones/joints: Multilevel thoracic spine degenerative disc space narrowing and osteophyte formation. Soft tissues: Unremarkable. IMPRESSION: 1. No acute pulmonary emboli. 2. Patchy ground-glass opacities within the upper lobes bilaterally, likely areas of pneumonitis. 3. Moderate bilateral upper and lower lobe bronchial wall thickening, compatible with reactive airway disease or bronchitis. COMMENTS: The presence of pulmonary emphysema on CT is an independent risk factor for lung cancer. In the absence of a history or active diagnosis of lung cancer, it is recommended that this patient with emphysema be evaluated for enrollment in a low dose CT lung cancer screening program.
--- NOTE | 2025-11-24 15:20 | CT_ITS ---
PROCEDURE INFORMATION: Exam: CTA Abdomen and Pelvis With Contrast Exam date and time: 11/24/2025 4:26 PM Age: 65 years old Clinical indication: Other: Reported bloody bm; Additional info: Reported bloody bm, encephalopathy TECHNIQUE: Imaging protocol: Computed tomographic angiography of the abdomen and pelvis with contrast. Exam focused on the arteries. 3D rendering (Not supervised by radiologist): MIP and/or 3D reconstructed images were created by the technologist. Radiation optimization: All CT scans at this facility use at least one of these dose optimization techniques: automated exposure control; mA and/or kV adjustment per patient size (includes targeted exams where dose is matched to clinical indication); or iterative reconstruction. Contrast material: ISOVUE; Contrast volume: 80 ml; Contrast route: INTRAVENOUS (IV); COMPARISON: CT ANGIO ABDOMEN PELVIS 05/03/2024 3:12 PM FINDINGS: Aorta: Atherosclerotic disease of the abdominal aorta and iliac arteries, with fusiform infrarenal abdominal aortic aneurysm measuring up to approximately 4.6 cm in maximal outer diameter, unchanged. No evidence of leakage or rupture. Celiac and mesenteric arteries: No occlusion or significant stenosis. Renal arteries: No occlusion or significant stenosis. Right iliac arteries: No occlusion or significant stenosis. Left iliac arteries: No occlusion or significant stenosis. Veins: Phleboliths within the pelvis. Liver: No mass. Gallbladder and biliary ducts: Cholelithiasis. No biliary dilation. Pancreas: Unremarkable. No mass. No ductal dilation. Spleen: Unremarkable. No splenomegaly. Adrenal glands: Mild bilateral adrenal hyperplasia. Kidneys and ureters: Moderate right renal atrophy. Simple right renal cyst, for which no further evaluation necessary. Stomach and bowel: Unremarkable. No obstruction. No mucosal thickening. Appendix: No evidence of appendicitis. Intraperitoneal space: Unremarkable. No free air. No significant fluid collection. Lymph nodes: Unremarkable. No enlarged lymph nodes. Urinary bladder: Urinary bladder decompressed by Kim catheter. Reproductive: Unremarkable as visualized. Bones/joints: No acute fracture. Soft tissues: Unremarkable. IMPRESSION: 1. No acute abdominal or pelvic abnormality. 2. Atherosclerotic disease of the abdominal aorta and iliac arteries, with fusiform infrarenal abdominal aortic aneurysm measuring up to approximately 4.6 cm in maximal outer diameter, unchanged. No evidence of leakage or rupture.
[2025-11-24] MEDS: IPRATROPIUM/ALBUTEROL 3 ML NEB 9 ML IH (15:42)
[2025-11-24] MEDS: METHYLPREDNISOLONE SOD SUCC 125MG VIAL 125 MG IV (15:55)
[2025-11-24] MEDS: PANTOPRAZOLE 40MG VIAL 40 MG IV (15:58)
[2025-11-24] MEDS: CEFTRIAXONE 1 GM 1 GM in 0.9 % SODIUM CHLORIDE 50 ML IV (16:02)
[2025-11-24 16:19] LABS: ABG HCO3 28.8 mmhg (22.0-26.0); ABG PCO2 43.3 mmhg (35.0-45.0); ABG PH 7.44 mmol/L (7.35-7.45); ABG PO2 86.8 mmhg (80-100); ABG TCO2 30.1 mmhg (23-27)
[2025-11-24 16:20] LABS: PEEP 5; Source Left Radial
[2025-11-24] MEDS: 0.9 % SODIUM CHLORIDE 50 ML VIAL IV (16:34)
[2025-11-24] MEDS: SODIUM CHLORIDE 0.9% 10ML SYR (RAD ONLY) 10 ML IV (16:34)
[2025-11-24] MEDS: IOPAMIDOL-370 (76%);100ML BOTTLE 80 ML IV (16:34)
[2025-11-24] MEDS: LACTATED RINGERS 1000ML 1,000 ML 999 ML IV (16:40)
[2025-11-24] MEDS: ACETAMINOPHEN 1,000MG/100ML VIAL 1000 MG IV (16:41)
[2025-11-24] MEDS: AZITHROMYCIN 500 MG in 0.9 % SODIUM CHLORIDE 250 ML 250 MG IV (17:02)
[2025-11-24] MEDS: MIDAZOLAM HCL IN 0.9 % NACL/PF 50 MG/50 ML PLAST..BAG IV (17:58)
[2025-11-24 18:19] LABS: Microscopic,Cath URINE MICROSCOPIC (MICROSCOPIC)
[2025-11-24 18:20] LABS: Appearance,Urine/Cath CLEAR (Clear); Bilirubin,Cath Negative (Negative); Blood, Urine/Cath TRACE-I (Negative); Color,Urine/Cath YELLOW (Yellow); Glucose,Urine/Cath (UA) Negative (Negative); Ketones,Urine/Cath 1+ (Negative); Leukocyte Esterase,Cath Negative (Negative); Nitrate,Cath Negative (Negative); PH,Urine/Cath 6.0 (5.0-8.5); Protein,Urine/Cath 2+ (Negative); Urobilinogen,Cath 0.2 EU/dl (0.2)
[2025-11-24 18:21] LABS: Specific Gravity, Urine/Cath 1.021 (1.005-1.030)
[2025-11-24 18:49] LABS: Bacteria,Urine/Cath 2+ /lpf; Mucus,Urine/Cath 3+ /lpf
--- NOTE | 2025-11-24 19:15 | EXP.HP ---
History of Present Illness *Admission Date: 11/24/25 *Reason for visit:: Shortness of breath *History of present illness: Merlyn Solo is a 65-year-old female with a medical history significant for COPD, hypertension, anxiety/depression, chronic pain syndrome on Percocet who presents with progressive weakness, shortness of breath, cough. At the time of my evaluation, patient was sedated and intubated. History obtained from chart review and ED staff. Patient had reportedly been feeling unwell for a few days, increased cough, shortness of breath. When EMS picked her up, they were gas detectors that were going off reportedly from natural gas leak per fire department. On arrival, patient had altered sensorium. She was somewhat alert, but not oriented. She had increased work of breathing, coarse wheezing and rhonchi bilaterally, with a GCS of 8. Given this presentation, decision was made to sedate and intubate patient. Workup in the ED significant for WBC 6.8, VBG pH 7.26, pCO2 71.7, lactic 0.8, bicarb 42, calcium 10.7, UA suggestive of UTI, respiratory panel positive for human metapneumovirus, CTA chest suggestive of bilateral upper lobe ground glass opacities, and bilateral bronchial wall thickening suggestive of bronchitis. CT head was nonacute CTA chest revealed 4.6 cm fusiform infrarenal AAA. She was started on propofol, fentanyl, as well as Versed due to agitation. Given DuoNeb, Solu-Medrol, Protonix, ceftriaxone, 1 L LR bolus, azithromycin. Poison control was contacted who recommended supportive management, allow natural gas to be metabolized. Given his presentation, ED provider discussed case with me and I decided to admit patient for further evaluation management. [facility] Disclaimer: The information contained in this section may have been updated after the patient was seen, as this information can be updated by other users. Medical History Mixed incontinence Chronic respiratory failure with hypoxia Tobacco abuse counseling Tobacco abuse Smoking greater than 30 pack years Anxiety Screening for lung cancer Breast cancer screening Low back pain Postoperative wound breakdown Diverticulitis of large intestine with perforation Tobacco use Anemia Colitis UTI (urinary tract infection) Melena Pneumatosis coli Sepsis Hyperlipidemia Hypertension COPD (chronic obstructive pulmonary disease) Surgical History Status post partial resection of colon Previous back surgery H/O: hysterectomy Family History Other Family history of myocardial infarction Social History Smoking Status: Current every day smoker alcohol intake: former current occupational status: disabled Travel in the last 8 weeks?: None Have you lived/traveled outside [place] in past 30 days?: No Contact w/someone who lives/traveled outside [place] past 30 days?: No Exposure to someone with infectious disease in past 14 days?: No Do you have a fever (greater than 100.4 F or 38 C)?: No Have you tested positive for COVID-19?: No Exposed to someone with COVID-19 in past 14 days?: No Do you have a sore throat?: No Do you have a cough?: No Do you have any weakness?: No Do you have any diarrhea?: No Are you experiencing any unusual bleeding?: No Do you have any muscle aches/pain?: No Do you have any abdominal pain?: No Are you experiencing loss of taste or smell?: No Other Medical History Have you received the Flu Vaccine for this season: No Have you received the Pneumonia Vaccine: Yes Meds Home Medications and Allergies Home Medications ?Medication ?Instructions ?Recorded ?Confirmed ?Type albuterol sulfate 90 mcg/actuation 1 puff inhalation Q4HP PRN 04/11/25 09/19/25 Rx aerosol inhaler (Ventolin HFA) Shortness Of Breath #8.5 grams trazodone 100 mg tablet See Rx Instructions .Route 07/08/25 09/19/25 Rx .COMPLEX #180 tabs benzonatate 100 mg capsule See Rx Instructions .Route 08/21/25 09/19/25 Rx .COMPLEX #90 caps estradiol 0.01% (0.1 mg/gram) 1 appful vaginal DAILY #42.5 grams 08/26/25 09/19/25 Rx vaginal cream (Estrace) albuterol sulfate 0.63 mg/3 mL See Rx Instructions .Route 09/05/25 09/19/25 Rx solution for nebulization .COMPLEX #360 mL lisinopril 40 mg tablet See Rx Instructions .Route 09/11/25 09/19/25 Rx .COMPLEX #90 tabs alprazolam 0.5 mg tablet 0.5 mg PO QID #120 tabs 09/20/25 09/20/25 Rx prednisone 20 mg tablet 20 mg PO BID #10 tabs 09/20/25 09/20/25 Rx vibegron 75 mg tablet (Gemtesa) 75 mg PO DAILY #30 tabs 09/20/25 09/20/25 Rx amlodipine 5 mg tablet See Rx Instructions .Route 09/24/25 Rx .COMPLEX #90 tabs cholecalciferol (vitamin D3) 50 50 mcg PO DAILY #90 caps 09/27/25 Rx mcg (2,000 unit) capsule duloxetine 60 mg capsule,delayed See Rx Instructions .Route 10/04/25 Rx release .COMPLEX #60 caps alendronate 70 mg tablet See Rx Instructions .Route 10/18/25 Rx .COMPLEX #14 tabs budesonide-formoterol HFA 160 2 puff inhalation BID 90 days 10/22/25 Rx mcg-4.5 mcg/actuation aerosol #10.2 grams inhaler (Symbicort) guaifenesin 100 mg/5 mL oral liquid 200 mg (10 mL) PO Q6H PRN cough 10/22/25 Rx #500 mL oxycodone-acetaminophen 7.5 mg-325 1 tab PO TID PRN pain #90 tabs 11/18/25 Rx mg tablet New Prescriptions to Start Prescriptions: Allergies Allergy/AdvReac Type Severity Reaction Status Date / Time No Known Allergies Allergy Verified 09/19/25 13:19 Exam Data for Last 24 hours Vital signs and Labs for Last 24 Hours: Temp Pulse Resp BP Pulse Ox O2 Del Method FiO2 101.1 F H 99 H 16 118/79 100 Mechanical Ventilation 50 11/24/25 19:05 11/24/25 19:05 11/24/25 19:05 11/24/25 19:05 11/24/25 18:00 11/24/25 19:05 11/24/25 14:55 Laboratory Results - last 24 hr 11/24/25 14:15: WBC 6.8, RBC 3.57 L, Hgb 11.2 L, Hct 35.3 L, MCV 98.9, MCH 31.4 H, MCHC 31.7 L, RDW 12.5, Plt Count 107 L, MPV 11.2 H, Neut % (Auto) 84.4 H, Lymph % (Auto) 7.6 L, Prentiss % (Auto) 7.5, Eos % (Auto) 0.1, Baso % (Auto) 0.1, Neut # (Auto) 5.7, Lymph # (Auto) 0.5 L, Prentiss # (Auto) 0.5, Eos # (Auto) 0.0, Baso # (Auto) 0.0, Total Counted 100, Neutrophils % (Manual) 82 H, Lymphocytes % (Manual) 9 L, Monocytes % (Manual) 9, Platelet Estimate Slight decrease, RBC Morphology Normal, Sodium 140, Potassium 4.3, Chloride 95 L, Carbon Dioxide 42 H*, Anion Gap 7.3, BUN 15, Creatinine 0.70, Estimated GFR 84, Est GFR ( Amer) 102, Glucose 152 H, Calcium 10.7 H, Total Bilirubin 0.4, AST 28, ALT 17, Alkaline Phosphatase 53, Troponin I < 0.01, Total Protein 7.4, Albumin 4.3, Globulin 3.1, Albumin/Globulin Ratio 1.4 11/24/25 14:42: Chlamy pneumoniae PCR Not detected, Adenovirus (PCR) Not detected, B. pertussis DNA (PCR) Not detected, Coronavirus OC43 (PCR) Not detected, Coronavirus HKU1 (PCR) Not detected, Coronavirus 229E (PCR) Not detected, SARS-CoV-2 (PCR) Not detected, Coronavirus NL63 (PCR) Not detected, Human Metapneumovir PCR Detected A, Influenza A (H1) PCR Not detected, Influ A (H1N1/09) PCR Not detected, Influenza A (H3) PCR Not detected, Influenza Type A (PCR) Not detected, Influenza Type B (PCR) Not detected, M. pneumoniae (PCR) Not detected, Parainfluenza 1 (PCR) Not detected, Parainfluenza 2 (PCR) Not detected, Parainfluenza 3 (PCR) Not detected, Parainfluenza 4 (PCR) Not detected, RSV (PCR) Not detected, Entero/Rhino (PCR) Not detected 11/24/25 14:47: Urine Color Yellow, Urine Appearance Clear, Urine pH 6.0, Ur Specific [place] 1.021, Urine Protein 2+, Urine Glucose (UA) Negative, Urine Ketones 1+, Urine Blood Trace-i, Urine Nitrate Negative, Urine Bilirubin Negative, Urine Urobilinogen 0.2, Ur Leukocyte Esterase Negative, Urine RBC 3-5, Urine WBC 5-10, Ur Squamous Epith Cells 3-5, Urine Bacteria 2+ A, Coarse Granular Casts 3-5 11/24/25 14:52: VBG pH 7.26 L, VBG pCO2 71.7 H, VBG pO2 159.0 H, VBG HCO3 31.5 H, VBG Total CO2 33.7 H, VBG O2 Saturation 99.0 H, VBG Base Excess 2.7 H, VBG Lactic Acid 0.8, Carboxyhemoglobin 2.0 11/24/25 16:10: Specimen Source Left radial, O2 % 30, ABG pH 7.44, ABG pCO2 43.3, ABG pO2 86.8, ABG HCO3 28.8 H, ABG Total CO2 30.1 H, ABG O2 Saturation 98, ABG Base Excess 4.7 H, Telly Test Patient unable, Vent Rate 20, Tidal Volume 420, PEEP 5 I & O for Last 24 hours: Intake & Output 11/21/25 11/22/25 11/23/25 11/24/25 23:59 23:59 23:59 23:59 Intake Total 1318.954 / 1318.954 Balance 1318.954 / 1318.954 Weight 40.823 kg Microbiology Reports for the Last 24 Hours: Microbiology 11/24/25 14:00 Sputum - Endotracheal Tube Aspirate Gram Stain - Final Constitutional Comments: Intubated and sedated. *Routine HEENT Exam Head: Present normocephalic Eye: Present EOMI and PERRL ENT: Present mucous membranes moist *Routine Neck Exam Neck: Present supple; Absent lymphadenopathy *Routine Respiratory Exam Respiratory: Present rhonchi, wheezes and diminished air movement; Absent CTA bilaterally *Routine Cardiovascular Exam Cardiovascular: Present RRR *Routine Abdominal Exam Abdominal: Present soft and normoactive bowel sounds; Absent tenderness *Routine Rectal Exam Rectal:: deferred *Routine Genitalia Exam Genitalia:: deferred *Routine Extremities Exam Extremities: Absent cyanosis, clubbing or edema *Routine Skin Exam Skin: Present warm; Absent rash *Routine Neurological Exam Comments: Intubated and sedated Assessment and Plan *Assessment and plan (1) Exposure to natural gas: Status: Acute Category: Medical Code(s): Z77.29 - Contact with and (suspected) exposure to other hazardous substances (2) Human metapneumovirus (hMPV) pneumonia: Status: Acute Category: Medical Code(s): J12.3 - Human metapneumovirus pneumonia (3) Acute hypercapnic respiratory failure: Status: Acute Category: Medical Code(s): J96.02 - Acute respiratory failure with hypercapnia Crystal Solo is a 65-year-old female with a medical history significant for COPD, hypertension, anxiety/depression, chronic pain syndrome on Percocet who presents with progressive weakness, shortness of breath, cough. At the time of my evaluation, patient was sedated and intubated. History obtained from chart review and ED staff. Patient had reportedly been feeling unwell for a few days, increased cough, shortness of breath. When EMS picked her up, they were gas detectors that were going off reportedly from natural gas leak per fire department. On arrival, patient had altered sensorium. She was somewhat alert, but not oriented. She had increased work of breathing, coarse wheezing and rhonchi bilaterally, with a GCS of 8. Given this presentation, decision was made to sedate and intubate patient. Workup in the ED significant for WBC 6.8, VBG pH 7.26, pCO2 71.7, lactic 0.8, bicarb 42, calcium 10.7, UA suggestive of UTI, respiratory panel positive for human metapneumovirus, CTA chest suggestive of bilateral upper lobe ground glass opacities, and bilateral bronchial wall thickening suggestive of bronchitis. CT head was nonacute CTA chest revealed 4.6 cm fusiform infrarenal AAA. She was started on propofol, fentanyl, as well as Versed due to agitation. Given DuoNeb, Solu-Medrol, Protonix, ceftriaxone, 1 L LR bolus, azithromycin. Poison control was contacted who recommended supportive management, allow natural gas to be metabolized. Given his presentation, ED provider discussed case with me and I decided to admit patient for further evaluation management. #Acute toxic metabolic encephalopathy #Natural gas exposure #Acute hypercapnic respiratory failure #COPD exacerbation #Community-acquired pneumonia #Human metapneumovirus infection #Sepsis ? Patient presented with progressive shortness of breath, weakness, altered mental status. EMS found gas factors to be going off, reportedly in natural gas late per fire department. ? Initial WBC 6.8, however persistent fevers of 101.1 Fahrenheit currently. ? Given GCS of 8, decision was made to intubate patient. Currently PEEP 5, FiO2 30%, tidal volume 420, respiratory 20. ? Continue fentanyl, propofol, Versed. Wean as tolerated. ? Initial VBG showed acute hypercapnia, pH 7.26 with pCO2 of 71.7. Lactic normal. ? Significant wheezing, rhonchi bilaterally on my exam. ? Started DuoNebs every 4 hours, Pulmicort twice daily. ? Continue IV Solu-Medrol 40 mg twice daily. ? Continue Zosyn 3.375 g every 6 hours, doxycycline 100 mg pending cultures. ? Follow-up blood, sputum cultures. ? Famotidine 20 mg twice daily for GI prophylaxis. ? Place Kim catheter. #UTI ? UA grossly abnormal, presented with generalized weakness. ? Continue Zosyn as above. Follow-up urine culture. #Hypercalcemia ? Initial calcium 10.7. Given 1 L LR bolus. Follow-up morning calcium. #AAA ? CTA chest revealing 4.6 fusiform infrarenal AAA. Strict blood pressure management. #Chronic pain syndrome #Anxiety ? Patient takes Percocet 7.5, Xanax. Significant other keeps these away from her, gives as needed. Possibly why patient is needing highest sedation. #Hypertension ? Hold home BP meds for now. BP stable. #Anxiety/depression ? Continue home medications when appropriate. Full code DVT prophylaxis: Lovenox 40 mg
--- NOTE | 2025-11-24 19:21 | PC.NURSE ---
Patient arrived to ICU unit via ED stretcher @18:52 from ED
[2025-11-24] MEDS: PIPERCILLIN/TAZO 3.375 GM in 0.9 % SODIUM CHLORIDE 50 ML IV (21:24)
[2025-11-24] MEDS: FAMOTIDINE 20MG/2ML VIAL 20 MG IV (21:26)
[2025-11-24] MEDS: METHYLPREDNISOLONE SOD SUCC 40MG VIAL 40 MG IV (21:27)
[2025-11-24] MEDS: IPRATROPIUM/ALBUTEROL 3 ML NEB IH (21:37)
[2025-11-24] MEDS: BUDESONIDE 0.5MG/2ML NEB 0.5 MG IH (21:37)
[2025-11-24] MEDS: DOXYCYCLINE HYCLATE 100 MG in 0.9 % SODIUM CHLORIDE 250 ML 166.67 MG IV (21:56)
[2025-11-25] VITALS (60 sets, daily range): BP systolic 77–198; BP diastolic 53–141; PULSE 76–110; RESP 14–30; TEMP 36.6–38.4; O2SAT 90–100; BMI 19.5
[2025-11-25] MEDS: PIPERCILLIN/TAZO 3.375 GM in 0.9 % SODIUM CHLORIDE 50 ML IV ×4 (01:02→19:58)
[2025-11-25] MEDS: IPRATROPIUM/ALBUTEROL 3 ML NEB IH ×4 (02:08→18:15)
[2025-11-25 05:39] LABS: Albumin Level 3.5 g/dl (3.5-5.0); Chloride 99 mmol/L (98-107); Sodium 137 mmol/L (136-145)
[2025-11-25 05:40] LABS: Potassium 3.5 mmoL/L (3.5-5.1)
[2025-11-25 05:42] LABS: Alanine Aminotransferase 17 U/L (12-78); Albumin/Globulin Ratio 1.5 (1.1-1.8); Anion Gap 12.5 mEq/L (5-15); Aspartate Amino Transferase 24 U/L (14-36); Blood Urea Nitrogen 19 mg/dl (7-17); Carbon Dioxide 29 mmol/L (22.0-30.0); Creatinine Clearance Estimated 41 mL/min (50-200); Creatinine,Serum 0.90 mg/dl (0.52-1.04); Estimated Glomerular Filt Rate 63 ml/min (>60); GFR (African American) 76 ML/MIN (>60); Globulin 2.4 g/dL (1.3-3.2); Hematocrit 27.3 % (37.0-47.0); Immature Granulocytes % 0.4 %; Mean Corpuscular HGB Conc 33.3 g/dL (31.8-35.4); Mean Corpuscular Hemoglobin 31.0 pg (27.0-31.2); Mean Corpuscular Volume 92.9 fl (81-99); Nucleated Red Blood Cells % 0 %; Platelet Count 123 K/mm3 (142-424); Red Blood Count 2.94 M/mm3 (4.20-5.40); Red Cell Distribution Width-SD 41.6 fL; Total Protein,Serum 5.9 g/dl (6.3-8.2); White Blood Count 2.4 K/mm3 (4.8-10.8)
[2025-11-25 05:43] LABS: Alkaline Phosphatase 46 U/L (38-126); Bilirubin,Total 0.3 mg/dl (0.2-1.3); Calcium 10.6 mg/dl (8.4-10.2); Glucose 182 mg/dl (74-100); Magnesium 1.6 mg/dl (1.6-2.3)
[2025-11-25] MEDS: BUDESONIDE 0.5MG/2ML NEB 0.5 MG IH ×2 (06:39→18:12)
[2025-11-25 06:54] LABS: Hemoglobin 9.1 g/dL (12.2-16.2)
[2025-11-25 06:57] LABS: ABG HCO3 26.2 mmhg (22.0-26.0); ABG PCO2 29.3 mmhg (35.0-45.0); ABG PO2 171.3 mmhg (80-100); ABG TCO2 27.1 mmhg (23-27)
[2025-11-25 07:01] LABS: PEEP 5; Source Right Radial
[2025-11-25 07:03] LABS: ABG PH 7.57 mmol/L (7.35-7.45)
[2025-11-25] MEDS: DOXYCYCLINE HYCLATE 100 MG in 0.9 % SODIUM CHLORIDE 250 ML 166.67 MG IV ×2 (08:30→20:30)
[2025-11-25] MEDS: FAMOTIDINE 20MG/2ML VIAL 20 MG IV ×2 (09:04→21:09)
[2025-11-25] MEDS: METHYLPREDNISOLONE SOD SUCC 40MG VIAL 40 MG IV ×2 (09:06→21:09)
--- NOTE | 2025-11-25 09:20 | [facility].PHAAMS2 ---
- Antimicrobial Stewardship Review culture & sensitivity review Stewardship interventions: culture & sensitivity review, reviewed - no change Comments: PATIENT ON DOXYCYCLINE/ZOSYN, SPUTUM AND URINE CXS PENDING.
--- NOTE | 2025-11-25 09:33 | EXP.PULM.CON ---
History of Present Illness History of present illness: Ms. Solo is a 65-year-old female presented for altered mentation, concern for natural gas leak inside the house. Upon presentation to the ER with concern for patient not protecting her airways with low tidal volumes and was intubated. [facility] Disclaimer: The information contained in this section may have been updated after the patient was seen, as this information can be updated by other users. Medical History (Updated 11/25/25 @ 11:30 by Dara Choi MD) Pneumonia Mixed incontinence Chronic respiratory failure with hypoxia Tobacco abuse counseling Tobacco abuse Smoking greater than 30 pack years Anxiety Screening for lung cancer Breast cancer screening Low back pain Postoperative wound breakdown Diverticulitis of large intestine with perforation Tobacco use Anemia Colitis UTI (urinary tract infection) Melena Pneumatosis coli Sepsis Hyperlipidemia Hypertension COPD (chronic obstructive pulmonary disease) Surgical History Status post partial resection of colon Previous back surgery H/O: hysterectomy Family History Other Family history of myocardial infarction Social History Smoking Status: Current every day smoker alcohol intake: former current occupational status: disabled Travel in the last 8 weeks?: None Have you lived/traveled outside [place] in past 30 days?: No Contact w/someone who lives/traveled outside [place] past 30 days?: No Exposure to someone with infectious disease in past 14 days?: No Do you have a fever (greater than 100.4 F or 38 C)?: No Have you tested positive for COVID-19?: No Exposed to someone with COVID-19 in past 14 days?: No Do you have a sore throat?: No Do you have a cough?: No Do you have any weakness?: No Do you have any diarrhea?: No Are you experiencing any unusual bleeding?: No Do you have any muscle aches/pain?: No Do you have any abdominal pain?: No Are you experiencing loss of taste or smell?: No Review of Systems Review of Systems Review of systems:: unable to obtain Pulmonology Exam Inpatient Vital signs and Labs for Last 24 Hours: Temp Pulse Resp BP Pulse Ox O2 Del Method FiO2 97.9 F 97 H 18 152/83 H 94 L Mechanical Ventilation 21 11/25/25 06:45 11/25/25 09:13 11/25/25 09:13 11/25/25 06:45 11/25/25 09:13 11/25/25 05:01 11/25/25 09:13 Laboratory Results - last 24 hr 11/24/25 14:15: WBC 6.8, RBC 3.57 L, Hgb 11.2 L, Hct 35.3 L, MCV 98.9, MCH 31.4 H, MCHC 31.7 L, RDW 12.5, Plt Count 107 L, MPV 11.2 H, Neut % (Auto) 84.4 H, Lymph % (Auto) 7.6 L, [place] % (Auto) 7.5, Eos % (Auto) 0.1, Baso % (Auto) 0.1, Neut # (Auto) 5.7, Lymph # (Auto) 0.5 L, [place] # (Auto) 0.5, Eos # (Auto) 0.0, Baso # (Auto) 0.0, Total Counted 100, Neutrophils % (Manual) 82 H, Lymphocytes % (Manual) 9 L, Monocytes % (Manual) 9, Platelet Estimate Slight decrease, RBC Morphology Normal, Sodium 140, Potassium 4.3, Chloride 95 L, Carbon Dioxide 42 H*, Anion Gap 7.3, BUN 15, Creatinine 0.70, Estimated GFR 84, Est GFR ( Amer) 102, Glucose 152 H, Calcium 10.7 H, Total Bilirubin 0.4, AST 28, ALT 17, Alkaline Phosphatase 53, Troponin I < 0.01, Total Protein 7.4, Albumin 4.3, Globulin 3.1, Albumin/Globulin Ratio 1.4 11/24/25 14:42: Chlamy pneumoniae PCR Not detected, Adenovirus (PCR) Not detected, B. pertussis DNA (PCR) Not detected, Coronavirus OC43 (PCR) Not detected, Coronavirus HKU1 (PCR) Not detected, Coronavirus 229E (PCR) Not detected, SARS-CoV-2 (PCR) Not detected, Coronavirus NL63 (PCR) Not detected, Human Metapneumovir PCR Detected A, Influenza A (H1) PCR Not detected, Influ A (H1N1/09) PCR Not detected, Influenza A (H3) PCR Not detected, Influenza Type A (PCR) Not detected, Influenza Type B (PCR) Not detected, M. pneumoniae (PCR) Not detected, Parainfluenza 1 (PCR) Not detected, Parainfluenza 2 (PCR) Not detected, Parainfluenza 3 (PCR) Not detected, Parainfluenza 4 (PCR) Not detected, RSV (PCR) Not detected, Entero/Rhino (PCR) Not detected 11/24/25 14:47: Urine Color Yellow, Urine Appearance Clear, Urine pH 6.0, Ur Specific [place] 1.021, Urine Protein 2+, Urine Glucose (UA) Negative, Urine Ketones 1+, Urine Blood Trace-i, Urine Nitrate Negative, Urine Bilirubin Negative, Urine Urobilinogen 0.2, Ur Leukocyte Esterase Negative, Urine RBC 3-5, Urine WBC 5-10, Ur Squamous Epith Cells 3-5, Urine Bacteria 2+ A, Coarse Granular Casts 3-5 11/24/25 14:52: VBG pH 7.26 L, VBG pCO2 71.7 H, VBG pO2 159.0 H, VBG HCO3 31.5 H, VBG Total CO2 33.7 H, VBG O2 Saturation 99.0 H, VBG Base Excess 2.7 H, VBG Lactic Acid 0.8, Carboxyhemoglobin 2.0 11/24/25 16:10: Specimen Source Left radial, O2 % 30, ABG pH 7.44, ABG pCO2 43.3, ABG pO2 86.8, ABG HCO3 28.8 H, ABG Total CO2 30.1 H, ABG O2 Saturation 98, ABG Base Excess 4.7 H, Telly Test Patient unable, Vent Rate 20, Tidal Volume 420, PEEP 5 11/25/25 04:48: WBC 2.4 L D, RBC 2.94 L, Hgb 9.1 L D, Hct 27.3 L, MCV 92.9, MCH 31.0, MCHC 33.3, RDW 12.1, Plt Count 123 L, MPV 11.5 H, Neut % (Auto) 81.9 H, Lymph % (Auto) 13.2, [place] % (Auto) 4.5, Eos % (Auto) 0.0 L, Baso % (Auto) 0.0 L, Neut # (Auto) 2.0, Lymph # (Auto) 0.3 L, [place] # (Auto) 0.1, Eos # (Auto) 0.0, Baso # (Auto) 0.0, Sodium 137, Potassium 3.5, Chloride 99, Carbon Dioxide 29, Anion Gap 12.5, BUN 19 H D, Creatinine 0.90 D, Estimated Creat Clear 41, Estimated GFR 63, Est GFR ( Amer) 76 D, Glucose 182 H, Calcium 10.6 H, Magnesium 1.6, Total Bilirubin 0.3, AST 24, ALT 17, Alkaline Phosphatase 46, Total Protein 5.9 L, Albumin 3.5 D, Globulin 2.4, Albumin/Globulin Ratio 1.5 11/25/25 06:44: Specimen Source Right radial, O2 % 21, ABG pH 7.57 H*, ABG pCO2 29.3 L, ABG pO2 171.3 H, ABG HCO3 26.2 H, ABG Total CO2 27.1 H, ABG O2 Saturation 100, ABG Base Excess 4.1 H, Telly Test Patient unable, Vent Rate 20, Tidal Volume 420, PEEP 5 I & O for Labs for Last 24 Hours: Intake & Output 11/22/25 11/23/25 11/24/25 11/25/25 23:59 23:59 23:59 23:59 Intake Total 1717.047 / 1717.047 235.015 / 235.015 Output Total 430 / 460 260 / 260 Balance 1287.047 / 1257.047 -24.985 / -24.985 Weight 99 lb 13.91 oz 99 lb 13.91 oz Microbiology Reports for the Last 24 Hours: Microbiology 11/24/25 20:47 Sputum - Expectorated Sputum Gram Stain - Final 11/24/25 14:00 Sputum - Endotracheal Tube Aspirate Gram Stain - Final Constitutional: Present severe distress Comment:: Intubated and Sedated Head: Present normocephalic and atraumatic Neck: Present normal inspection and trachea midline Respiratory: Present patient mechanically ventilated and rhonchi; Absent prolonged expiratory phase or wheezes Cardiac: Present S1/S2 and Tachycardia GI: Present soft; Absent distention or tenderness Skin: Present intact; Absent cyanosis Neuro: Present awake; Absent alert or oriented x 3 Comment:: Intubated and sedated Extremities: Present normal inspection; Absent clubbing or cyanosis Psychiatric: Present anxious and agitated Meds Home Medications and Allergies Home Medications ?Medication ?Instructions ?Recorded ?Confirmed ?Type estradiol 0.01% (0.1 mg/gram) 1 appful vaginal DAILY #42.5 grams 08/26/25 11/24/25 Rx vaginal cream (Estrace) alprazolam 0.5 mg tablet 0.5 mg PO QID #120 tabs 09/20/25 11/24/25 Rx vibegron 75 mg tablet (Gemtesa) 75 mg PO DAILY #30 tabs 09/20/25 11/24/25 Rx cholecalciferol (vitamin D3) 50 50 mcg PO DAILY #90 caps 09/27/25 11/24/25 Rx mcg (2,000 unit) capsule budesonide-formoterol HFA 160 2 puff inhalation BID 90 days 10/22/25 11/24/25 Rx mcg-4.5 mcg/actuation aerosol #10.2 grams inhaler (Symbicort) guaifenesin 100 mg/5 mL oral liquid 200 mg (10 mL) PO Q6H PRN cough 10/22/25 11/24/25 Rx #500 mL oxycodone-acetaminophen 7.5 mg-325 1 tab PO TID PRN pain #90 tabs 11/18/25 11/24/25 Rx mg tablet alendronate 70 mg tablet 70 mg PO WEEKLY 11/24/25 11/25/25 History amlodipine 5 mg tablet 5 mg PO DAILY 11/24/25 11/25/25 History duloxetine 60 mg capsule,delayed 60 mg PO BID 11/24/25 11/25/25 History release lisinopril 40 mg tablet 40 mg PO DAILY 11/24/25 11/24/25 History benzonatate 100 mg capsule 100 mg PO TID PRN coughing 11/25/25 11/25/25 History trazodone 100 mg tablet 200 mg PO HS PRN Sleep 11/25/25 11/25/25 History New Prescriptions to Start Prescriptions: Allergies Allergy/AdvReac Type Severity Reaction Status Date / Time No Known Allergies Allergy Verified 11/24/25 20:22 Results Laboratory Findings 11/25/25 04:48 11/25/25 04:48 ABG ABG pH 7.57 mmol/L (7.35-7.45) H* 11/25/25 06:44 ABG pCO2 29.3 mmhg (35.0-45.0) L 11/25/25 06:44 ABG pO2 171.3 mmhg (80-100) H 11/25/25 06:44 ABG O2 Saturation 100 % (90-100) 11/25/25 06:44 Abnormal lab findings: Abnormal Labs 11/24/25 11/24/25 11/24/25 14:15 14:42 14:47 WBC RBC 3.57 L Hgb 11.2 L Hct 35.3 L MCH 31.4 H MCHC 31.7 L Plt Count 107 L MPV 11.2 H Neut % (Auto) 84.4 H Lymph % (Auto) 7.6 L Eos % (Auto) Baso % (Auto) Lymph # (Auto) 0.5 L Neutrophils % (Manual) 82 H Lymphocytes % (Manual) 9 L ABG pH ABG pCO2 ABG pO2 ABG HCO3 ABG Total CO2 ABG Base Excess VBG pH VBG pCO2 VBG pO2 VBG HCO3 VBG Total CO2 VBG O2 Saturation VBG Base Excess Chloride 95 L Carbon Dioxide 42 H* BUN Glucose 152 H Calcium 10.7 H Total Protein Urine Bacteria 2+ A Human Metapneumovir PCR Detected A 11/24/25 11/24/25 11/25/25 14:52 16:10 04:48 WBC 2.4 L D RBC 2.94 L Hgb 9.1 L D Hct 27.3 L MCH MCHC Plt Count 123 L MPV 11.5 H Neut % (Auto) 81.9 H Lymph % (Auto) Eos % (Auto) 0.0 L Baso % (Auto) 0.0 L Lymph # (Auto) 0.3 L Neutrophils % (Manual) Lymphocytes % (Manual) ABG pH ABG pCO2 ABG pO2 ABG HCO3 28.8 H ABG Total CO2 30.1 H ABG Base Excess 4.7 H VBG pH 7.26 L VBG pCO2 71.7 H VBG pO2 159.0 H VBG HCO3 31.5 H VBG Total CO2 33.7 H VBG O2 Saturation 99.0 H VBG Base Excess 2.7 H Chloride Carbon Dioxide BUN 19 H D Glucose 182 H Calcium 10.6 H Total Protein 5.9 L Urine Bacteria Human Metapneumovir PCR 11/25/25 06:44 WBC RBC Hgb Hct MCH MCHC Plt Count MPV Neut % (Auto) Lymph % (Auto) Eos % (Auto) Baso % (Auto) Lymph # (Auto) Neutrophils % (Manual) Lymphocytes % (Manual) ABG pH 7.57 H* ABG pCO2 29.3 L ABG pO2 171.3 H ABG HCO3 26.2 H ABG Total CO2 27.1 H ABG Base Excess 4.1 H VBG pH VBG pCO2 VBG pO2 VBG HCO3 VBG Total CO2 VBG O2 Saturation VBG Base Excess Chloride Carbon Dioxide BUN Glucose Calcium Total Protein Urine Bacteria Human Metapneumovir PCR Assessment and Plan *Assessment and plan (1) Human metapneumovirus (hMPV) pneumonia: Status: Acute Category: Medical Code(s): J12.3 - Human metapneumovirus pneumonia (2) Acute hypercapnic respiratory failure: Status: Acute Category: Medical Code(s): J96.02 - Acute respiratory failure with hypercapnia (3) Pneumonia: Status: Acute Category: Medical Code(s): J18.9 - Pneumonia, unspecified organism Plan Ms. Solo is a 65-year-old female presented for altered mentation, concern for natural gas leak inside the house. Upon presentation to the ER with concern for patient not protecting her airways with low tidal volumes and was intubated. Afebrile Tmax of 99.7. Hemodynamically stable. Blood gas upon admission hypercarbic respiratory failure pH 7.26 and pCO2 71.7. Subsequent blood gases improved 7.57 pCO2 29.3. CTA upon admission no pulmonary embolism. Significant emphysematous changes. Upper lobe predominant minimal patchy airspace disease with no dense consolidative changes. Bronchial thickening noted. Respiratory PCR panel positive for human metapneumovirus Currently receiving methylprednisolone 40 twice daily Zosyn along with nebulization therapy. No acute respiratory distress upon examination. Appears agitated. No significant cuff leak appreciated. Receiving steroids. Plan: Continue Analgosedation with propofol and fentanyl. Will reevaluate cuff leak and then plan SBT and extubation next Continue methylprednisolone 40 mg twice daily Continue DuoNebs every 6 hours along with Pulmicort every 12 scheduled Continue Zosyn pending clinical improvement F/U CXR Abdomen soft nondistended. Continue tube feeds. Adequate urine output. Renally dose medications - Continue mechanical ventilatory support - Continue AnalgoSedation with Propofol and Fentanyl with CPOT gal less than or euqal to 2 and RASS goal of to 2 (No need for deep sedation) - VAP bundle Recommend elevate head of the bed at 30 to 45 degrees Recommend oral care with chlorhexidne Recommend GI ulcer prophylaxis - Famotidine 20mg IV BID Recommend chemical DVT prophylaxis Total critical care time spent on this patient is 35 minutes managing acute hypoxic respiratory failure needing mechanical ventilation. This time spent include reviewing test results including interpreting chest x-rays, labs and arterial blood gas, optimizing the ventilator settings,formulating plan of care, discussing the plan of care with the team and the nursing staff.
[2025-11-25 10:36] LABS: RBC Morphology Normal; Total Cells Counted 50
--- NOTE | 2025-11-25 11:33 | XR_ITS ---
FINAL REPORT CLINICAL HISTORY: Intubation COMPARISON: 11/24/2025 FINDINGS: A portable view of the chest was obtained. The tip of an endotracheal tube is in the mid thoracic trachea, approximately 7 cm above the susana. Cardiac and mediastinal silhouettes are within normal limits. There is new left basilar opacity, likely atelectasis. Developing pneumonia not excluded. Underlying emphysema is noted. There is no pleural effusion or pneumothorax. IMPRESSION: New left basilar opacity, favor atelectasis. Recommend continued follow-up. Authenticated and ERN
--- NOTE | 2025-11-25 12:54 | PC.NURSE ---
RESP CARE NOTE: Pt cuff deflated, to perform leak test. Inspired Vt at 420ml, and Vt at 557ml. No gurgle noted around ET tube.
--- NOTE | 2025-11-25 14:09 | PC.NURSE ---
PT SEDATION PAUSED 1300 SBT STARTED 1305 EXTUBATED 1409 PT PLACED ON 2L NC, TOLERATING WELL
--- NOTE | 2025-11-25 14:09 | PC.NURSE ---
Pt extubated to 2L NC at this time.
[2025-11-25] MEDS: ACETAMINOPHEN 325MG TAB 650 MG PO (15:39)
--- NOTE | 2025-11-25 18:07 | P.PN_ITS ---
Subjective *Date: 11/25/25 *Time: 18:51 Interval history: Patient did well overnight. Wean sedation this morning, spontaneous trial obtained. Did poorly. Was given a break temporarily and reattempted around lunch, did well and patient was extubated. Has been anxious since. Currently t olerating 2 L nasal cannula oxygen with sats in the high 90s. No nausea or vomiting. Alert to person and place. Low-grade fever Medical Exam Vital signs and Labs for Last 24 Hours: Vital Signs Temp Pulse Resp BP Pulse Ox O2 Del Method O2 Flow Rate 11/25/25 17:01 100.4 F H 98 H 30 H 100 11/25/25 17:01 185/82 H 11/25/25 17:00 Nasal Cannula 2 11/25/25 16:00 100 Nasal Cannula 2 11/25/25 16:00 100 Nasal Cannula 2 11/25/25 15:00 95 H 18 178/93 H 100 Nasal Cannula 2 11/25/25 15:00 100.4 F H 98 H 25 H 99 11/25/25 15:00 Nasal Cannula 2 11/25/25 14:09 97 2 11/25/25 14:00 198/141 H 11/25/25 14:00 100.6 F H 109 H 20 92 L 11/25/25 13:05 11/25/25 13:00 198/95 H 11/25/25 13:00 101.1 F H 105 H 15 95 11/25/25 13:00 Mechanical Ventilation 11/25/25 12:00 93 H 11/25/25 12:00 95 Mechanical Ventilation 11/25/25 12:00 163/82 H 11/25/25 12:00 100.9 F H 95 H 16 96 11/25/25 12:00 18 95 11/25/25 11:10 18 95 11/25/25 11:00 171/89 H 11/25/25 11:00 100.6 F H 105 H 18 93 L 11/25/25 11:00 Mechanical Ventilation 11/25/25 10:00 100.6 F H 98 H 14 93 L 11/25/25 10:00 187/89 H 11/25/25 09:13 97 H 11/25/25 09:13 97 H 11/25/25 09:13 18 94 L 11/25/25 09:00 198/95 H 11/25/25 09:00 99.7 F H 97 H 19 94 L 11/25/25 09:00 Mechanical Ventilation 11/25/25 08:00 99.7 F H 100 H 20 93 L 11/25/25 08:00 166/81 H 11/25/25 08:00 99 Mechanical Ventilation 11/25/25 08:00 99 Mechanical Ventilation 11/25/25 08:00 98 H 11/25/25 07:00 169/88 H 11/25/25 07:00 98.2 F 98 H 20 90 L 11/25/25 07:00 Mechanical Ventilation 11/25/25 06:45 97.9 F 94 H 20 152/83 H 93 L 11/25/25 06:40 97.9 F 91 H 20 161/95 H 97 11/25/25 06:40 93 H 11/25/25 06:40 93 H 11/25/25 06:40 20 98 11/25/25 06:31 97.9 F 88 20 77/58 L 100 11/25/25 06:15 98.1 F 77 20 99/62 L 99 11/25/25 06:00 98.2 F 78 20 101/64 L 99 11/25/25 05:45 98.4 F 80 20 93/61 L 98 11/25/25 05:30 98.8 F 82 20 92/59 L 98 11/25/25 05:15 99.1 F 84 20 91/59 L 98 11/25/25 05:01 Mechanical Ventilation 11/25/25 05:00 99.3 F 85 20 109/67 L 98 11/25/25 04:45 99.5 F 88 20 104/60 L 98 11/25/25 04:30 99.7 F H 91 H 20 90/62 L 98 11/25/25 04:20 90 11/25/25 04:15 99.7 F H 94 H 19 97/63 L 98 11/25/25 04:00 20 98 11/25/25 04:00 99.7 F H 95 H 20 107/68 L 98 11/25/25 03:59 98 Mechanical Ventilation 11/25/25 03:45 99.5 F 98 H 20 138/77 96 11/25/25 03:43 99.3 F 98 H 15 133/110 H 95 11/25/25 03:14 98.6 F 95 H 20 130/85 94 L 11/25/25 03:08 Mechanical Ventilation 11/25/25 03:01 98.4 F 94 H 20 164/86 H 94 L 11/25/25 02:45 98.6 F 91 H 20 103/67 L 98 11/25/25 02:30 98.6 F 90 20 98/64 L 98 11/25/25 02:15 98.8 F 88 20 98/68 L 100 11/25/25 02:09 81 11/25/25 02:09 85 11/25/25 02:09 20 98 11/25/25 02:00 98.8 F 84 20 94/63 L 98 11/25/25 01:45 99.0 F 85 20 92/62 L 98 11/25/25 01:30 99.0 F 86 20 99/55 L 98 11/25/25 01:15 99.1 F 86 20 95/60 L 98 11/25/25 01:13 Mechanical Ventilation 11/25/25 01:00 99.3 F 88 20 91/56 L 98 11/25/25 00:45 99.5 F 90 20 91/53 L 98 11/25/25 00:30 99.3 F 92 H 20 90/60 L 99 11/25/25 00:22 99 Mechanical Ventilation 11/25/25 00:16 99.1 F 93 H 20 147/82 H 96 11/25/25 00:00 90 11/25/25 00:00 99.1 F 88 20 111/70 98 11/25/25 00:00 96 Mechanical Ventilation 11/25/25 00:00 20 98 11/24/25 23:45 99.3 F 89 20 118/69 98 11/24/25 23:30 99.5 F 89 20 125/68 98 11/24/25 23:15 99.7 F H 91 H 20 113/66 98 11/24/25 23:07 Mechanical Ventilation 11/24/25 23:00 99.9 F H 92 H 20 106/64 L 97 11/24/25 22:45 100.2 F H 94 H 20 101/61 L 96 11/24/25 22:30 100.6 F H 96 H 20 88/63 L 96 11/24/25 22:15 100.8 F H 97 H 20 86/59 L 96 11/24/25 22:00 20 97 11/24/25 22:00 100.9 F H 99 H 20 87/54 L 95 11/24/25 21:45 100.9 F H 97 H 20 91/58 L 95 11/24/25 21:37 91 H 11/24/25 21:37 95 H 11/24/25 21:30 100.9 F H 95 H 20 102/64 L 93 L 11/24/25 21:15 101.1 F H 95 H 20 96/62 L 93 L 11/24/25 21:05 Mechanical Ventilation 11/24/25 21:00 100.9 F H 96 H 17 98/55 L 94 L 11/24/25 20:49 100.9 F H 95 H 20 106/60 L 95 11/24/25 20:47 99 H 20 11/24/25 20:38 90 11/24/25 20:30 101.1 F H 97 H 20 96/55 L 100 Mechanical Ventilation 11/24/25 20:30 95 Mechanical Ventilation 11/24/25 20:01 20 100 11/24/25 20:00 101.5 F H 99 H 20 77/54 L 100 Mechanical Ventilation 11/24/25 20:00 97 Mechanical Ventilation 11/24/25 19:30 101.7 F H 101 H 21 95/52 L 100 Mechanical Ventilation 11/24/25 19:21 101.5 F H 101 H 20 78/48 L 100 Mechanical Ventilation 11/24/25 19:20 100 H 11/24/25 19:05 101.1 F H 99 H 16 118/79 Mechanical Ventilation 11/24/25 19:00 Mechanical Ventilation FiO2 11/25/25 17:01 11/25/25 17:01 11/25/25 17:00 11/25/25 16:00 11/25/25 16:00 11/25/25 15:00 11/25/25 15:00 11/25/25 15:00 11/25/25 14:09 11/25/25 14:00 11/25/25 14:00 11/25/25 13:05 21 11/25/25 13:00 11/25/25 13:00 11/25/25 13:00 11/25/25 12:00 11/25/25 12:00 11/25/25 12:00 11/25/25 12:00 11/25/25 12:00 21 11/25/25 11:10 21 11/25/25 11:00 11/25/25 11:00 11/25/25 11:00 11/25/25 10:00 11/25/25 10:00 11/25/25 09:13 11/25/25 09:13 11/25/25 09:13 21 11/25/25 09:00 11/25/25 09:00 11/25/25 09:00 11/25/25 08:00 11/25/25 08:00 11/25/25 08:00 11/25/25 08:00 11/25/25 08:00 11/25/25 07:00 11/25/25 07:00 11/25/25 07:00 11/25/25 06:45 11/25/25 06:40 11/25/25 06:40 11/25/25 06:40 11/25/25 06:40 21 11/25/25 06:31 11/25/25 06:15 11/25/25 06:00 11/25/25 05:45 11/25/25 05:30 11/25/25 05:15 11/25/25 05:01 11/25/25 05:00 11/25/25 04:45 11/25/25 04:30 11/25/25 04:20 11/25/25 04:15 11/25/25 04:00 30 11/25/25 04:00 11/25/25 03:59 11/25/25 03:45 11/25/25 03:43 11/25/25 03:14 11/25/25 03:08 11/25/25 03:01 11/25/25 02:45 11/25/25 02:30 11/25/25 02:15 11/25/25 02:09 11/25/25 02:09 11/25/25 02:09 21 11/25/25 02:00 11/25/25 01:45 11/25/25 01:30 11/25/25 01:15 11/25/25 01:13 11/25/25 01:00 11/25/25 00:45 11/25/25 00:30 11/25/25 00:22 11/25/25 00:16 11/25/25 00:00 11/25/25 00:00 11/25/25 00:00 21 11/25/25 00:00 21 11/24/25 23:45 11/24/25 23:30 11/24/25 23:15 11/24/25 23:07 11/24/25 23:00 11/24/25 22:45 11/24/25 22:30 11/24/25 22:15 11/24/25 22:00 21 11/24/25 22:00 11/24/25 21:45 11/24/25 21:37 11/24/25 21:37 11/24/25 21:30 11/24/25 21:15 11/24/25 21:05 11/24/25 21:00 11/24/25 20:49 11/24/25 20:47 11/24/25 20:38 11/24/25 20:30 11/24/25 20:30 11/24/25 20:01 30 11/24/25 20:00 11/24/25 20:00 11/24/25 19:30 11/24/25 19:21 11/24/25 19:20 11/24/25 19:05 11/24/25 19:00 Intake and Output 11/25/25 11/25/25 11/25/25 07:59 15:59 23:59 Intake Total 209.498 / 626.698 367.200 / 626.698 50 / 626.698 Output Total 260 / 380 120 / 380 Balance -50.502 / 246.698 247.200 / 246.698 50 / 246.698 Intake: Intake, Oral Amount 0 / 0 0 / 0 Intake, Total IV Amount 209.498 / 626.698 367.200 / 626.698 50 / 626.698 Doxycycline Hyclate 100 mg In 0 250 / 250 .9 % Sodium Chloride 250 ml @ 166.667 mls/hr IV Q12H ISIDRO Rx#: [id number] Fentanyl Citrate/Pf 1,000 mcg 28.184 / 28.184 In 0.9 % Sodium Chloride 80 ml @ 20 MCG/HR 2 mls/hr IV .Q24H ISIDRO Rx#:[id number] Midazolam HCl in 0.9 % NaCl/Pf 7.803 / 7.803 50 mg In 50 ml @ 0.02 MG/KG/HR 0.816 mls/hr IV .Q24H ISIDRO Rx#: [id number] Pipercillin/Tazo 3.375 gm In 0. 50 / 150 50 / 150 50 / 150 9 % Sodium Chloride 50 ml @ 100 mls/hr IV Q6H ISIDRO Rx#:[id number] propofoL 100 ml @ 55 MCG/KG/MIN 151.695 / 190.711 39.016 / 190.711 13.472 mls/hr IV .Q7H26M ISIDRO Rx#:[id number] Output: Output, Urine Amount 120 / 120 Output, Urine Amount (Catheter) 260 / 260 Kim 260 / 260 Other: Number of Unmeasured Voids 0 Weight 45.3 kg Patient Weight 11/25/25 23:59 Weight 45.3 kg Laboratory Results - last 24 hr 11/24/25 14:47: Urine Color Yellow, Urine Appearance Clear, Urine pH 6.0, Ur Specific [place] 1.021, Urine Protein 2+, Urine Glucose (UA) Negative, Urine Ketones 1+, Urine Blood Trace-i, Urine Nitrate Negative, Urine Bilirubin Negative, Urine Urobilinogen 0.2, Ur Leukocyte Esterase Negative, Urine RBC 3-5, Urine WBC 5-10, Ur Squamous Epith Cells 3-5, Urine Bacteria 2+ A, Coarse Granular Casts 3-5 11/25/25 04:48: WBC 2.4 L D, RBC 2.94 L, Hgb 9.1 L D, Hct 27.3 L, MCV 92.9, MCH 31.0, MCHC 33.3, RDW 12.1, Plt Count 123 L, MPV 11.5 H, Neut % (Auto) 81.9 H, Lymph % (Auto) 13.2, Williams % (Auto) 4.5, Eos % (Auto) 0.0 L, Baso % (Auto) 0.0 L, Neut # (Auto) 2.0, Lymph # (Auto) 0.3 L, Williams # (Auto) 0.1, Eos # (Auto) 0.0, Baso # (Auto) 0.0, Total Counted 50, Neutrophils % (Manual) 88 H, Lymphocytes % (Manual) 12, Platelet Estimate Slight decrease, RBC Morphology Normal, Sodium 137, Potassium 3.5, Chloride 99, Carbon Dioxide 29, Anion Gap 12.5, BUN 19 H D, Creatinine 0.90 D, Estimated Creat Clear 41, Estimated GFR 63, Est GFR ( Amer) 76 D, Glucose 182 H, Calcium 10.6 H, Magnesium 1.6, Total Bilirubin 0.3, AST 24, ALT 17, Alkaline Phosphatase 46, Total Protein 5.9 L, Albumin 3.5 D, Globulin 2.4, Albumin/Globulin Ratio 1.5 11/25/25 06:44: Specimen Source Right radial, O2 % 21, ABG pH 7.57 H*, ABG pCO2 29.3 L, ABG pO2 171.3 H, ABG HCO3 26.2 H, ABG Total CO2 27.1 H, ABG O2 Saturation 100, ABG Base Excess 4.1 H, Telly Test Patient unable, Vent Rate 20, Tidal Volume 420, PEEP 5 I & O for Labs for Last 24 Hours: Intake & Output 11/22/25 11/23/25 11/24/25 11/25/25 23:59 23:59 23:59 23:59 Intake Total 1717.047 / 1717.047 626.698 / 626.698 Output Total 430 / 460 380 / 380 Balance 1287.047 / 1257.047 246.698 / 246.698 Weight 45.3 kg 45.3 kg Microbiology Reports for the Last 24 Hours: Microbiology 11/24/25 20:47 Sputum - Expectorated Sputum Gram Stain - Final 11/24/25 14:00 Sputum - Endotracheal Tube Aspirate Gram Stain - Final Constitutional: Present mild distress, thin, chronically ill appearing and cooperative Head: Present atraumatic and normocephalic ENT: Present normal exam Neck: Present normal inspection Respiratory: Present prolonged expiratory phase, wheezes and normal respiratory effort; Absent rhonchi or crackles Cardiac: Present Reg Rate and Rhythm GI: Present soft and normal bowel sounds; Absent distention or tenderness Extremities: Present normal inspection and full ROM Skin: Present intact; Absent erythema Neuro: Present Grossly Intact, alert, awake and moves all extremities Comment:: Oriented to self and place Assessment and Plan *Assessment and plan (1) Human metapneumovirus (hMPV) pneumonia: Status: Acute Category: Medical Code(s): J12.3 - Human metapneumovirus pneumonia (2) Acute hypercapnic respiratory failure: Status: Acute Category: Medical Code(s): J96.02 - Acute respiratory failure with hypercapnia (3) Exposure to natural gas: Status: Acute Category: Medical Code(s): Z77.29 - Contact with and (suspected) exposure to other hazardous substances (4) Tobacco abuse: Status: Acute Category: Medical Code(s): Z72.0 - Tobacco use (5) Chronic respiratory failure with hypoxia: Status: Acute Category: Medical Code(s): J96.11 - Chronic respiratory failure with hypoxia (6) COPD (chronic obstructive pulmonary disease): Status: Acute Qualifiers: COPD type: unspecified COPD Qualified Code(s): J44.9 - Chronic obstructive pulmonary disease, unspecified Category: Medical Code(s): J44.9 - Chronic obstructive pulmonary disease, unspecified (7) Hypertension: Status: Acute Qualifiers: Hypertension type: unspecified Qualified Code(s): I10 - Essential (primary) hypertension Category: Medical Code(s): I10 - Essential (primary) hypertension (8) Anxiety: Status: Chronic Category: Medical Code(s): F41.9 - Anxiety disorder, unspecified Plan Merlyn Solo is a 65-year-old female with a medical history significant for COPD, hypertension, anxiety/depression, chronic pain syndrome on Percocet who presents with progressive weakness, shortness of breath, cough. At the time of my evaluation, patient was sedated and intubated. History obtained from chart review and ED staff. Patient had reportedly been feeling unwell for a few days, increased cough, shortness of breath. When EMS picked her up, they were gas detectors that were going off reportedly from natural gas leak per fire de [facility]. On arrival, patient had altered sensorium. She was somewhat alert, but not oriented. She had increased work of breathing, coarse wheezing and rhonchi bilaterally, with a GCS of 8. Given this presentation, decision was made to sedate and intubate patient. Workup in the ED significant for WBC 6.8, VBG pH 7.26, pCO2 71.7, lactic 0.8, bicarb 42, calcium 10.7, UA suggestive of UTI, respiratory panel positive for human metapneumovirus, CTA chest suggestive of bilateral upper lobe ground glass opacities, and bilateral bronchial wall thickening suggestive of bronchitis. CT head was nonacute CTA chest revealed 4.6 cm fusiform infrarenal AAA. She was started on propofol, fentanyl, as well as Versed due to agitation. Given DuoNeb, Solu-Medrol, Protonix, ceftriaxone, 1 L LR bolus, azithromycin. Poison control was contacted who recommended supportive management, allow natural gas to be metabolized. Given his presentation, ED provider discussed case with me and I decided to admit patient for further evaluation management. Did well with spontaneous breathing trial today, extubated successfully to nasal cannula oxygen. Continues to require stepdown level of care overnight. Pulm analogy assisting with care. Reevaluate in the morning. Problems addressed as follows: #Acute toxic metabolic encephalopathy #Natural gas exposure #Acute hypercapnic respiratory failure #COPD exacerbation #Community-acquired pneumonia #Human metapneumovirus infection #Sepsis ? Patient presented with progressive shortness of breath, weakness, altered mental status. EMS found gas factors to be going off, reportedly in natural gas late per fire department. ? White count low at 2.4, still having intermittent fevers. ? Given GCS of 8, decision was made to intubate patient. Passed SBT today. On 2 L nasal cannula. Goal sats greater 90%. -Continue DuoNebs every 4 hours, Pulmicort twice daily? Started DuoNebs every 4 hours, Pulmicort twice daily. ? Discussed case with pulmonology, continue methylprednisolone 40 mg twice daily ? Continue Zosyn 3.375 g every 6 hours, doxycycline 100 mg pending cultures. ? Follow-up blood, sputum cultures. ? Famotidine 20 mg twice daily for GI prophylaxis. -Kidney function stable with BUN 19, creatinine 0.9. Magnesium 1.6. Potassium 3.5. - Blood gas this morning with mild alkalosis, pH 7.56, pCO2 29. #UTI: UA grossly abnormal, presented with generalized weakness; Continue Zosyn as above. Follow-up urine culture. #Hypercalcemia: Initial calcium 10.7. Given 1 L LR bolus. Seen this morning 10.6. Repeat CBC, CMP, magnesium ordered for the morning #AAA: CTA chest revealing 4.6 fusiform infrarenal AAA. Strict blood pressure management. #Chronic pain syndrome #Anxiety # Polypharmacy ? Patient takes Percocet 7.5, Xanax. Significant other keeps these away from her, gives as needed. Concern her polypharmacy put her at risk for her oversedation and hypercapnic failure in addition to exposure above. - Cautious resumption of regimen to decrease risk for withdrawal. Resume home Percocet every 8 hours as needed for moderate to severe pain. Resume Xanax 0.5 mg 8-hour hours as needed for anxiety. - Resume trazodone at half dose of 100 mg nightly as needed for insomnia #Hypertension: Resume amlodipine 5 mg once after extubation, continue daily. Resume lisinopril 40 mg daily for hypertension. Full code DVT prophylaxis: Lovenox 40 mg Bedside swallow eval pending, consider advancing diet if passes
[2025-11-25] MEDS: AMLODIPINE 5MG TABLET 5 MG PO (18:25)
[2025-11-25] MEDS: OXYCODONE 7.5MG W/APAP 325MG TABLET 1 EACH PO (18:25)
[2025-11-25] MEDS: SODIUM CHLORIDE 0.9% 10ML VIAL 8 ML IV (21:09)
[2025-11-25] MEDS: TRAZODONE 50MG TABLET 100 MG PO (21:09)
[2025-11-26] VITALS (29 sets, daily range): BP systolic 114–194; BP diastolic 65–103; PULSE 70–100; RESP 14–24; TEMP 36.4–37.4; O2SAT 81–100; BMI 19.7
[2025-11-26] MEDS: PIPERCILLIN/TAZO 3.375 GM in 0.9 % SODIUM CHLORIDE 50 ML IV ×4 (00:49→20:08)
[2025-11-26] MEDS: OXYCODONE 7.5MG W/APAP 325MG TABLET 1 EACH PO ×3 (03:57→23:32)
[2025-11-26] MEDS: IPRATROPIUM/ALBUTEROL 3 ML NEB IH (05:50)
[2025-11-26] MEDS: BUDESONIDE 0.5MG/2ML NEB 0.5 MG IH (05:50)
[2025-11-26 05:52] LABS: Hematocrit 29.8 % (37.0-47.0); Hemoglobin 9.7 g/dL (12.2-16.2); Immature Granulocytes % 0.4 %; Mean Corpuscular HGB Conc 32.6 g/dL (31.8-35.4); Mean Corpuscular Hemoglobin 30.3 pg (27.0-31.2); Mean Corpuscular Volume 93.1 fl (81-99); Nucleated Red Blood Cells % 0 %; Platelet Count 149 K/mm3 (142-424); Red Blood Count 3.20 M/mm3 (4.20-5.40); Red Cell Distribution Width-SD 44.4 fL; White Blood Count 8.3 K/mm3 (4.8-10.8)
[2025-11-26 06:03] LABS: Albumin Level 3.7 g/dl (3.5-5.0); Chloride 102 mmol/L (98-107); Potassium 3.5 mmoL/L (3.5-5.1); Sodium 140 mmol/L (136-145)
[2025-11-26 06:06] LABS: Alanine Aminotransferase 18 U/L (12-78); Albumin/Globulin Ratio 1.4 (1.1-1.8); Alkaline Phosphatase 44 U/L (38-126); Anion Gap 7.5 mEq/L (5-15); Aspartate Amino Transferase 40 U/L (14-36); Bilirubin,Total 0.4 mg/dl (0.2-1.3); Blood Urea Nitrogen 24 mg/dl (7-17); Calcium 10.0 mg/dl (8.4-10.2); Carbon Dioxide 34 mmol/L (22.0-30.0); Creatinine Clearance Estimated 41 mL/min (50-200); Creatinine,Serum 1.00 mg/dl (0.52-1.04); Estimated Glomerular Filt Rate 56 ml/min (>60); GFR (African American) 68 ML/MIN (>60); Globulin 2.7 g/dL (1.3-3.2); Glucose 138 mg/dl (74-100); Magnesium 1.8 mg/dl (1.6-2.3); Total Protein,Serum 6.4 g/dl (6.3-8.2)
--- NOTE | 2025-11-26 08:52 | HMH.PHAAMS2 ---
- Antimicrobial Stewardship Review culture & sensitivity review Stewardship interventions: culture & sensitivity review (CURRENTLY ON ZOSYN AND DOXYCYCLINE, WBC WNL, AFEBRILE, CX PENDING.)
--- NOTE | 2025-11-26 09:00 | HMH.PTEV ---
Physical Therapy Evaluation Rehab PT IP Evaluation Start: 11/24/25 20:38 Freq: ONCE Status: Active Protocol: Document 11/26/25 08:56 KYRIE (Rec: 11/26/25 09:00 KYRIE [id number]) Subjective/History History History Per H&P: Merlyn Solo is a 65-year-old female with a medical history significant for COPD, hypertension, anxiety/depression, chronic pain syndrome on Percocet who presents with progressive weakness, shortness of breath, cough. At the time of my evaluation, patient was sedated and intubated. History obtained from chart review and ED staff. Patient had reportedly been feeling unwell for a few days, increased cough, shortness of breath. When EMS picked her up, they were gas detectors that were going off reportedly from natural gas leak per fire department. On arrival, patient had altered sensorium. She was somewhat alert, but not oriented. She had increased work of breathing , coarse wheezing and rhonchi bilaterally, with a GCS of 8. Given this presentation, decision was made to sedate and intubate patient. Workup in the ED significant for WBC 6.8, VBG pH 7.26, pCO2 71.7, lactic 0.8, bicarb 42, calcium 10.7, UA suggestive of UTI, respiratory panel positive for human metapneumovirus, CTA chest suggestive of bilateral upper lobe ground glass opacities, and bilateral bronchial wall thickening suggestive of bronchitis. CT head was nonacute CTA chest revealed 4.6 cm fusiform infrarenal AAA. She was started on propofol, fentanyl, as well as Versed due to agitation. Given DuoNeb, Solu-Medrol, Protonix, ceftriaxone, 1 L LR bolus, azithromycin. Poison control was contacted who recommended supportive management, allow natural gas to be metabolized. Given his presentation, ED provider discussed case with me and I decided to admit patient for further evaluation management. Subjective Subjective PLOF: IND with mobility without AD use. HOME: Lives with her boyfriend in a SS home with 0 ALVAREZ. ASSIST: Boyfriend around 247 if needed. [facility] How much help from another person do you currently need... Turning from your None back to your side while in a flat bed without using bedrails? Moving from lying on None back to sitting on the side of a flat bed without using bedrails? Moving to and from a None bed to a chair ( including a wheelchair)? Standing up from a None chair using your arms? (e.g., wheelchair, bedside chair) Walking in hospital A little room? Climbing 3-5 steps A little with a railing? Mobility Score 22 Mobility Level [facility] Mobility 7 Walk 25 feet or more Mobility Calculator Rehab PT IP Eval Objective Appearance Patient Behavior Appropriate,Cooperative Patient Orientation Person,Place Difficulty following none instructions Speech Pattern Clear Ambulation Patient Able to No Ambulate Balance Ability to Arise Able, uses arms to help Sitting Balance Steady, safe Standing Balance Steady, wide stance Dynamic Sitting Good Balance Ability Dynamic Standing Fair Balance Ability Transfers Bed Transfer Ability Supervision/Stand by Sit to Stand Bed Contact Guard/Hand Hold Transfer Ability Rehab PT IP prob,goals,plan Problems Date of Evaluation: 11/26/25 PT IP Problems Bed Mobility,Transfers,Gait,Balance,Self care,Safety Rehab Potential Rehab Potential Good Plan PT Intervention Plan Bed Mobility,Transfers,Gait,Balance,Self care, Therapeutic Exercise PT Plan Frequency Daily Duration Goals Met Discharge Goals Bed Transfer Ability Independent Sit to Stand Chair Independent Transfer Ability Ambulation Assistive Rolling Walker Device Ambulation Distance 30 (feet) Discharge Plan PT Discharge Plan Initial PT evaluation performed and pt presents below baseline in strength and endurance. Pt not able to ambulate at this time d/t fatigue limiting her mobility assessment. Pt most appropriate for d/c home with PT services and 20/06 assistance provided by mirna. Pt would benefit from daily skilled PT to address deficits and prevent further functional decline. Eval Complexity Eval Charge Codes 60362 - Moderate Complexity PHYSICIAN CERTIFICATION: I certify the specified therapy services for Merlyn Solo are required, authorized, and reviewed every 30 days.
[2025-11-26] MEDS: LISINOPRIL 20MG TABLET 40 MG PO (09:06)
[2025-11-26] MEDS: FAMOTIDINE 20MG/2ML VIAL 20 MG IV ×2 (09:06→20:06)
[2025-11-26] MEDS: SODIUM CHLORIDE 0.9% 10ML VIAL 8 ML IV ×2 (09:06→20:06)
[2025-11-26] MEDS: METHYLPREDNISOLONE SOD SUCC 40MG VIAL 40 MG IV ×2 (09:06→20:06)
[2025-11-26] MEDS: AMLODIPINE 5MG TABLET 5 MG PO (09:08)
--- NOTE | 2025-11-26 09:13 | HMH.OTEV ---
OT Evaluation Rehab OT IP Evaluation Start: 11/25/25 09:41 Freq: ONCE Status: Active Protocol: Document 11/26/25 09:07 ALANA (Rec: 11/26/25 09:13 [facility] [id number]) Rehab OT IP Assessment Subjective History Per H&P: Merlyn Solo is a 65-year-old female with a medical history significant for COPD, hypertension, anxiety/depression, chronic pain syndrome on Percocet who presents with progressive weakness, shortness of breath, cough. At the time of my evaluation, patient was sedated and intubated. History obtained from chart review and ED staff. Patient had reportedly been feeling unwell for a few days, increased cough, shortness of breath. When EMS picked her up, they were gas detectors that were going off reportedly from natural gas leak per fire department. On arrival, patient had altered sensorium. She was somewhat alert, but not oriented. She had increased work of breathing , coarse wheezing and rhonchi bilaterally, with a GCS of 8. Given this presentation, decision was made to sedate and intubate patient. Workup in the ED significant for WBC 6.8, VBG pH 7.26, pCO2 71.7, lactic 0.8, bicarb 42, calcium 10.7, UA suggestive of UTI, respiratory panel positive for human metapneumovirus, CTA chest suggestive of bilateral upper lobe ground glass opacities, and bilateral bronchial wall thickening suggestive of bronchitis. CT head was nonacute CTA chest revealed 4.6 cm fusiform infrarenal AAA. She was started on propofol, fentanyl, as well as Versed due to agitation. Given DuoNeb, Solu-Medrol, Protonix, ceftriaxone, 1 L LR bolus, azithromycin. Poison control was contacted who recommended supportive management, allow natural gas to be metabolized. Given his presentation, ED provider discussed case with me and I decided to admit patient for further evaluation management. Subjective PLOF: IND with functional transfers without AD use; pt claims she required some assistance with ADLs as needed . She was dependent on her boyfriend to complete all IADLs. She no longer drives. She is on 2L of o2 at all times at home. HOME: Lives with her boyfriend in a [place] home with 0 ALVAREZ. ASSIST: Boyfriend around /7 if needed. Objective Patient Orientation Person,Birthday Right Upper Min Limitation <25% Extremity Gross ROM Left Upper Extremity Min Limitation <25% Gross ROM Bed Mobility bed mobility-scooting,bed mobility - supine/sit Assist Level Supervision/Stand by Transfer Training Sit/Stand Transfer Assist Level Contact Guard/Hand Hold Rehab OT IP prob,goals,plan Problems Date of Evaluation: 11/26/25 OT IP Problems Bed Mobility,Transfers,Balance,Self care,Safety Rehab Potential Rehab Potential Good Equipment Needs Assistive Devices Rolling / Wheeled Walker Plan OT intervention Plan Bed Mobility,Transfers,Balance,Self care,Safety, Therapeutic Exercise OT Plan Frequency Daily Duration LOS Discharge Goals Bed Mobility Ability Standby Assistance Sit to Stand Chair Contact Guard/Hand Hold Transfer Ability Chair Transfer Contact Guard/Hand Hold Ability Chair Transfer Sit to/from Ambulatory Technique Chair Transfer Rolling Walker Assistive Devices Lower Body Dressing Contact Guard Ability Upper Body Dressing Standby Assistance Ability Performing Toilet Contact Guard Hygiene Ability Overall Commode/ Contact Guard Toilet Transfer Ability Commode/Toilet Sit to/from Ambulatory Transfer Technique Discharge Plan OT Discharge Plan Initial OT evaluation performed and pt presents below baseline in strength, ADL independence, and endurance. Pt most appropriate for d/c home with HH OT services and 20/06 assistance provided by mirna. If unable to receive HH OT, therapist recommends outpatient therapy services. Pt would benefit from daily skilled OT to address deficits and prevent further functional decline. Eval Complexity Eval Charge Codes 52141 - Moderate Complexity PHYSICIAN CERTIFICATION: I certify the specified therapy services for Merlyn Solo are required, authorized, and reviewed every 30 days.
[2025-11-26] MEDS: DOXYCYCLINE HYCLATE 100 MG in 0.9 % SODIUM CHLORIDE 250 ML 166.67 MG IV ×2 (09:45→21:24)
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
[2025-11-26] MEDS: ONDANSETRON 4MG/2ML VIAL 4 MG IV (10:21)
--- NOTE | 2025-11-26 10:24 | PC.NURSE ---
PATIENT'S ROOM AIR SAT 81% WHILE AT REST IN BED
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
[2025-11-26 11:30] LABS: VBG HCO3 30.2 mmol/L (23-30); VBG PH 7.37 mmol/L (7.31-7.41); VBG PO2 58.1 mmol/L (28-40)
[2025-11-26 11:31] LABS: VBG PCO2 52.9 mmol/L (35-51)
[2025-11-26 11:32] LABS: Lactate Venous 2.1 mmol/L (0.4-2.0)
[2025-11-26] MEDS: FLUTICASONE/UMECLIDIN/VILANTER 100/62.5/25MCG INHALER 1 PUFF IH (12:11)
--- NOTE | 2025-11-26 12:22 | SW/DCPLANNER ---
Spoke with patient regarding outpatient therapy once she is medically stable and ready for discharge. Patient stated that she is not interested in outpatient therapy and that it hurts her to get out in the cold. Patient's insurance does not let her get home health services. Taye Brito
[2025-11-26] MEDS: POTASSIUM CHLORIDE 20MEQ TAB 40 MEQ PO ×2 (12:56→16:25)
[2025-11-26 15:31] LABS: Reflex Lactic Add Lactic Reflex
[2025-11-26 16:12] LABS: Lactic Acid Follow Up (RFLX 1) 1.6 mmol/L (0.7-2.1)
[2025-11-26] MEDS: TRAZODONE 50MG TABLET 100 MG PO (21:26)
[2025-11-27] VITALS (7 sets, daily range): BP systolic 159–174; BP diastolic 60–93; PULSE 69–94; RESP 18–25; TEMP 36.6–36.8; O2SAT 98–100; BMI 20.2
[2025-11-27] MEDS: PIPERCILLIN/TAZO 3.375 GM in 0.9 % SODIUM CHLORIDE 50 ML IV ×2 (01:57→08:00)
[2025-11-27] MEDS: IPRATROPIUM/ALBUTEROL 3 ML NEB IH (05:09)
[2025-11-27] MEDS: FLUTICASONE/UMECLIDIN/VILANTER 100/62.5/25MCG INHALER 1 PUFF IH (05:10)
[2025-11-27] MEDS: OXYCODONE 7.5MG W/APAP 325MG TABLET 1 EACH PO ×2 (05:33→12:11)
[2025-11-27] MEDS: FAMOTIDINE 20MG/2ML VIAL 20 MG IV (08:11)
[2025-11-27] MEDS: AMLODIPINE 5MG TABLET 5 MG PO (08:11)
[2025-11-27] MEDS: LISINOPRIL 20MG TABLET 40 MG PO (08:12)
[2025-11-27] MEDS: DOXYCYCLINE HYCLATE 100 MG in 0.9 % SODIUM CHLORIDE 250 ML 166.67 MG IV (09:04)
--- NOTE | 2025-11-27 09:05 | EXP.DC.SUM ---
General Admission date:: 11/24/25 Discharge date: 11/27/25 HPI HPI HPI: Merlyn Solo is a 65-year-old female with a medical history significant for COPD, hypertension, anxiety/depression, chronic pain syndrome on Percocet who presents with progressive weakness, shortness of breath, cough. At the time of my evaluation, patient was sedated and intubated. History obtained from chart review and ED staff. Patient had reportedly been feeling unwell for a few days, increased cough, shortness of breath. When EMS picked her up, they were gas detectors that were going off reportedly from natural gas leak per fire department. On arrival, patient had altered sensorium. She was somewhat alert, but not oriented. She had increased work of breathing, coarse wheezing and rhonchi bilaterally, with a GCS of 8. Given this presentation, decision was made to sedate and intubate patient. Workup in the ED significant for WBC 6.8, VBG pH 7.26, pCO2 71.7, lactic 0.8, bicarb 42, calcium 10.7, UA suggestive of UTI, respiratory panel positive for human metapneumovirus, CTA chest suggestive of bilateral upper lobe ground glass opacities, and bilateral bronchial wall thickening suggestive of bronchitis. CT head was nonacute CTA chest revealed 4.6 cm fusiform infrarenal AAA. She was started on propofol, fentanyl, as well as Versed due to agitation. Given DuoNeb, Solu-Medrol, Protonix, ceftriaxone, 1 L LR bolus, azithromycin. Poison control was contacted who recommended supportive management, allow natural gas to be metabolized. Given his presentation, ED provider discussed case with me and I decided to admit patient for further evaluation management. Hospital Course Hospital Course Hospital Course: Merlyn Solo is a 65-year-old female with a medical history significant for COPD, hypertension, anxiety/depression, chronic pain syndrome on Percocet who presents with progressive weakness, shortness of breath, cough. At the time of my evaluation, patient was sedated and intubated. History obtained from chart review and ED staff. Patient had reportedly been feeling unwell for a few days, increased cough, shortness of breath. When EMS picked her up, they were gas detectors that were going off reportedly from natural gas leak per fire department. On arrival, patient had altered sensorium. She was somewhat alert, but not oriented. She had increased work of breathing, coarse wheezing and rhonchi bilaterally, with a GCS of 8. Given this presentation, decision was made to sedate and intubate patient. Workup in the ED significant for WBC 6.8, VBG pH 7.26, pCO2 71.7, lactic 0.8, bicarb 42, calcium 10.7, UA suggestive of UTI, respiratory panel positive for human metapneumovirus, CTA chest suggestive of bilateral upper lobe ground glass opacities, and bilateral bronchial wall thickening suggestive of bronchitis. CT head was nonacute CTA chest revealed 4.6 cm fusiform infrarenal AAA. She was started on propofol, fentanyl, as well as Versed due to agitation. Given DuoNeb, Solu-Medrol, Protonix, ceftriaxone, 1 L LR bolus, azithromycin. Poison control was contacted who recommended supportive management, allow natural gas to be metabolized. Given his presentation, ED provider discussed case with me and I decided to admit patient for further evaluation management. Extubated 11/25. On 2 L oxygen. Diet advanced, overall doing better. Stable discharge home to complete treatment regimen. Problems addressed as follows: #Acute toxic metabolic encephalopathy #Natural gas exposure #Acute hypercapnic respiratory failure #COPD exacerbation #Community-acquired pneumonia #Human metapneumovirus infection #Sepsis ? Patient presented with progressive shortness of breath, weakness, altered mental status. EMS found gas factors to be going off, reportedly in natural gas late per fire department. White count improved to 8.3. Hemoglobin 9.7. GCS 15 by day of discharge. Strong concern that patient's presentation related to polypharmacy in addition to natural gas exposure. Overall doing better after extubation. Back to baseline mentation and oxygen requirement. Pulmonology consulted to assist with management, recommended transitioning antibiotics to cefdinir to complete course for pneumonia along with completing course of steroids with prednisone. Blood and sputum cultures remain negative. Follow-up with pulmonology as an outpatient. - Evaluated by therapy, recommended home health. Will have to set up with outpatient therapy. Needs rolling walker at discharge. Suspected UTI ruled out: UA grossly abnormal, presented with generalized weakness; initiated on Zosyn. Urine culture returned but negative. UTI ruled out. #Hypercalcemia: Initial calcium 10.7. Calcium normalized with treatment of her acute illness. Normal at 10 by day of discharge. #AAA Hypertension - CTA chest revealing 4.6 fusiform infrarenal AAA. Strict blood pressure management. Resumed home amlodipine 5 mg daily. Continue lisinopril 40 mg daily. Pressure doing better by discharge. #Chronic pain syndrome #Anxiety # Polypharmacy ? Patient takes Percocet 7.5, Xanax. Significant other keeps these away from her, gives as needed. Concern her polypharmacy put her at risk for her oversedation and hypercapnic failure in addition to exposure above. Cautious resumption of regimen to decrease risk for withdrawal. Continue home Percocet every 8 hours as needed for moderate to severe pain. Increase to Xanax back to baseline needs. Continue trazodone at half dose at discharge. No signs of sedation during admission to resuming home regimen. Counseled on need to adhere to strict dosing regimen to avoid polypharmacy and overdose. Total time spent on discharge 42 minutes in counseling, documentation, chart review, and direct care with patient. Exam Data for Last 24 hours Vital signs and Labs for Last 24 Hours: Temp Pulse Resp BP Pulse Ox O2 Del Method O2 Flow Rate 97.8 F 94 H 25 H 168/83 H 99 Nasal Cannula 2 11/27/25 08:00 11/27/25 08:00 11/27/25 08:00 11/27/25 08:00 11/27/25 08:00 11/27/25 08:00 11/27/25 08:00 FiO2 28 11/26/25 18:40 Laboratory Results - last 24 hr 11/26/25 11:25: VBG pH 7.37, VBG pCO2 52.9 H, VBG pO2 58.1 H, VBG HCO3 30.2 H, VBG Total CO2 31.8 H, VBG O2 Saturation 87.5 H, VBG Base Excess 5.0 H, VBG Lactic Acid 2.1 H 11/26/25 15:49: Lactate 1.6 I & O for Last 24 hours: Intake & Output 11/24/25 11/25/25 11/26/25 11/27/25 23:59 23:59 23:59 23:59 Intake Total 1717.047 / 1717.047 926.698 / 945.392 7096 / 1225 290 / 290 Output Total 430 / 460 1115 / 1265 1030 / 1030 800 / 800 Balance 1287.047 / 1257.047 -188.302 / -338.302 195 / 195 -510 / -510 Weight 45.3 kg 45.3 kg 45.6 kg 46.9 kg Microbiology Reports for the Last 24 Hours: Microbiology 11/24/25 19:08 Anus CRE Surveillance Culture - Final Negative 11/24/25 14:47 Urine,Catheterized Urine Culture - Final No growth. 11/24/25 14:00 Sputum - Endotracheal Tube Aspirate Gram Stain - Final 11/24/25 14:00 Sputum - Endotracheal Tube Aspirate Sputum Culture - Final 11/24/25 20:47 Sputum - Expectorated Sputum Gram Stain - Final 11/24/25 20:47 Sputum - Expectorated Sputum Sputum Culture - Final Constitutional Constitutional: no acute distress, thin, chronically ill appearing and cooperative *Routine HEENT Exam Head: Present normocephalic Eye: Present EOMI and PERRL ENT: Present mucous membranes moist *Routine Neck Exam Neck: Present supple; Absent lymphadenopathy *Routine Respiratory Exam Respiratory: Present prolonged expiratory phase, rhonchi, wheezes and normal respiratory effort; Absent CTA bilaterally or crackles *Routine Cardiovascular Exam Cardiovascular: Present RRR *Routine Abdominal Exam Abdominal: Present soft, normoactive bowel sounds and tenderness (diffuse but improved); Absent distended or rebound *Routine Rectal Exam Patient deferred: visual exam *Routine Exam Patient deferred: external exam *Routine Extremities Exam Extremities: Absent cyanosis, clubbing or edema *Routine Skin Exam Skin: Present warm; Absent rash *Routine Neurological Exam Neurological: Present alert, oriented X3 and moving all extremities; Absent altered mental status Results Data Completed and Pending Labs on day of discharge: Labs from last 24 hours 11/26/25 11/26/25 15:49 11:25 VBG pH 7.37 VBG pCO2 52.9 H VBG pO2 58.1 H VBG HCO3 30.2 H VBG Total CO2 31.8 H VBG O2 Saturation 87.5 H VBG Base Excess 5.0 H VBG Lactic Acid 2.1 H Lactate 1.6 DS: Diagnosis Discharge Diagnosis (1) Human metapneumovirus (hMPV) pneumonia: Status: Acute Code(s): J12.3 - Human metapneumovirus pneumonia (2) Acute hypercapnic respiratory failure: Status: Acute Code(s): J96.02 - Acute respiratory failure with hypercapnia (3) Exposure to natural gas: Status: Acute Code(s): Z77.29 - Contact with and (suspected) exposure to other hazardous substances (4) Tobacco abuse: Status: Acute Code(s): Z72.0 - Tobacco use (5) Chronic respiratory failure with hypoxia: Status: Acute Code(s): J96.11 - Chronic respiratory failure with hypoxia (6) COPD (chronic obstructive pulmonary disease): Status: Acute Code(s): J44.9 - Chronic obstructive pulmonary disease, unspecified Qualifiers: COPD type: unspecified COPD Qualified Code(s): J44.9 - Chronic obstructive pulmonary disease, unspecified (7) Hypertension: Status: Acute Code(s): I10 - Essential (primary) hypertension Qualifiers: Hypertension type: unspecified Qualified Code(s): I10 - Essential (primary) hypertension (8) Anxiety: Status: Chronic Code(s): F41.9 - Anxiety disorder, unspecified Meds Home Medications and Allergies Home Medications ?Medication ?Instructions ?Recorded ?Confirmed ?Type estradiol 0.01% (0.1 mg/gram) 1 appful vaginal DAILY #42.5 grams 08/26/25 11/24/25 Rx vaginal cream (Estrace) alprazolam 0.5 mg tablet 0.5 mg PO QID #120 tabs 09/20/25 11/24/25 Rx vibegron 75 mg tablet (Gemtesa) 75 mg PO DAILY #30 tabs 09/20/25 11/24/25 Rx cholecalciferol (vitamin D3) 50 50 mcg PO DAILY #90 caps 09/27/25 11/24/25 Rx mcg (2,000 unit) capsule guaifenesin 100 mg/5 mL oral liquid 200 mg (10 mL) PO Q6H PRN cough 10/22/25 11/24/25 Rx #500 mL oxycodone-acetaminophen 7.5 mg-325 1 tab PO TID PRN pain #90 tabs 11/18/25 11/24/25 Rx mg tablet alendronate 70 mg tablet 70 mg PO WEEKLY 11/24/25 11/25/25 History amlodipine 5 mg tablet 5 mg PO DAILY 11/24/25 11/25/25 History duloxetine 60 mg capsule,delayed 60 mg PO BID 11/24/25 11/25/25 History release lisinopril 40 mg tablet 40 mg PO DAILY 11/24/25 11/24/25 History benzonatate 100 mg capsule 100 mg PO TID PRN coughing 11/25/25 11/25/25 History trazodone 100 mg tablet 200 mg PO HS PRN Sleep 11/25/25 11/25/25 History cefdinir 300 mg capsule 300 mg PO BID #4 caps 11/27/25 Rx fluticasone fur. 100 mcg-umeclid 1 inh inhalation DAILY 30 days #60 11/27/25 Rx 62.5 mcg-vilant 25 mcg ea inhalat.powder (Trelegy Ellipta) prednisone 20 mg tablet 40 mg (2 x 20 mg) PO DAILY 2 days 11/27/25 Rx #4 tabs New Prescriptions to Start Prescriptions: Isauro Mccullough [id number] [Trelegy Ellipta] Isauro Whaley prednisone Isauro Whaley Allergies Allergy/AdvReac Type Severity Reaction Status Date / Time No Known Allergies Allergy Verified 11/24/25 20:22 Discharge Plan Disposition Patient Disposition: Home, Self-Care Condition: Fair Discharge Order Discharge Orders: Discharge Order (Routine); Ordered 11/27/25 Ordered By: Isauro Whaley Follow up Plan Follow up with: Dara Choi MD [Physician, Pulmonology] - 12/12/25 1:00 pm Silvestre Shepherd MD [Primary Care Provider, Family Practice] - 12/04/25 8:40 am Prescriptions/Medication Reconciliation: New Trelegy Ellipta 100-62.5-25 mcg Blister With Device 1 inh inhalation DAILY 30 Days Qty: 60 0RF prednisone 20 mg Tablet 40 mg PO DAILY 2 Days Qty: 4 0RF cefdinir 300 mg capsule 300 mg PO BID Qty: 4 0RF Continued estradiol [Estrace] 0.01 % (0.1 mg/gram) cream 1 appful vaginal DAILY Qty: 42.5 2RF Rx Instructions: Finger technique daily x 14 and then 3 x weekly alprazolam 0.5 mg tablet 0.5 mg PO QID Qty: 120 1RF Gemtesa 75 mg tablet 75 mg PO DAILY Qty: 30 2RF cholecalciferol (vitamin D3) 50 mcg (2,000 unit) capsule 50 mcg PO DAILY Qty: 90 3RF guaifenesin 100 mg/5 mL liquid 200 mg PO Q6H PRN (Reason: cough) Qty: 500 2RF oxycodone-acetaminophen 7.5-325 mg tablet 1 tab PO TID PRN (Reason: pain) Qty: 90 0RF duloxetine 60 mg capsule,delayed release(DR/EC) 60 mg PO BID alendronate 70 mg tablet 70 mg PO WEEKLY amlodipine 5 mg tablet 5 mg PO DAILY lisinopril 40 mg tablet 40 mg PO DAILY trazodone 100 mg tablet 200 mg PO HS PRN (Reason: Sleep) benzonatate 100 mg capsule 100 mg PO TID PRN (Reason: coughing) Discontinued budesonide-formoterol [Symbicort] 160-4.5 mcg/actuation HFA aerosol inhaler 2 puff inhalation BID 90 Days Qty: 10.2 2RF Problem Reconciliation Problems Reviewed?: Yes Patient Discharge Instructions ACTIVITY: Continue current activity DIET: continue same diet Patient Instructions: How to Use a Peak Flow Meter, The DASH Diet, Hypertension (Alternative Therapy), Pneumonia in Adults, Legionnaires Disease, Pneumocystis Pneumonia, DI for Chronic Obstructive Pulmonary Disease, DI for High Blood Pressure, DI for Severe Acute Respiratory Syndrome, 5 Tips for Increasing Calories - Diet, Tips for Adding Protein - Diet Print Language: [place] Citizen Providers Primary Care Provider: Silvestre Shepherd Admmarielena Provider: Miguel Mejia Attending Provider: Miguel Mejia
--- NOTE | 2025-11-27 10:59 | CARE MANAGER ---
Contacted as insurance is likely not to cover the Trelegy but would possibly cover Breztri. is changing prescription.
--- NOTE | 2025-11-27 11:16 | CARE MANAGER ---
Patient will require a walker for safe ambulation, and a cane would not provide sufficient support. Due to her severe respiratory status, she would benefit from a rollator for help with her portable O2 as well as when she gets short of air a place to sit and catch her breath.
[2025-11-27 11:59] LABS: Hematocrit 31.1 % (37.0-47.0); Hemoglobin 9.9 g/dL (12.2-16.2); Immature Granulocytes % 0.5 %; Mean Corpuscular HGB Conc 31.8 g/dL (31.8-35.4); Mean Corpuscular Hemoglobin 30.3 pg (27.0-31.2); Mean Corpuscular Volume 95.1 fl (81-99); Nucleated Red Blood Cells % 0 %; Platelet Count 132 K/mm3 (142-424); Red Blood Count 3.27 M/mm3 (4.20-5.40); Red Cell Distribution Width-SD 46.5 fL; White Blood Count 11.0 K/mm3 (4.8-10.8)
[2025-11-27 12:02] LABS: Albumin Level 4.0 g/dl (3.5-5.0); Chloride 104 mmol/L (98-107); Potassium 4.7 mmoL/L (3.5-5.1); Sodium 140 mmol/L (136-145)
[2025-11-27 12:04] LABS: Blood Urea Nitrogen 28 mg/dl (7-17); Creatinine Clearance Estimated 42 mL/min (50-200); Creatinine,Serum 0.90 mg/dl (0.52-1.04); Estimated Glomerular Filt Rate 63 ml/min (>60); GFR (African American) 76 ML/MIN (>60)
[2025-11-27 12:05] LABS: Alanine Aminotransferase 23 U/L (12-78); Albumin/Globulin Ratio 1.5 (1.1-1.8); Alkaline Phosphatase 38 U/L (38-126); Anion Gap 9.7 mEq/L (5-15); Aspartate Amino Transferase 40 U/L (14-36); Bilirubin,Total 0.6 mg/dl (0.2-1.3); Calcium 9.6 mg/dl (8.4-10.2); Carbon Dioxide 31 mmol/L (22.0-30.0); Globulin 2.6 g/dL (1.3-3.2); Glucose 121 mg/dl (74-100); Magnesium 1.9 mg/dl (1.6-2.3); Total Protein,Serum 6.6 g/dl (6.3-8.2)
--- NOTE | 2025-11-29 10:38 | SW/DCPLANNER ---
Spoke with patient on the phone. Patient stated that she is doing good but has diarrhea. Patient stated that she is aware of her upcoming appointments. Patient stated that she was able to cotton picker her new medicine from [facility]. Patient stated that she has no concerns or questions at this time. Taye Brito
== END 2025-11-27 14:20 | disposition home or self-care (01) | DRG 871 ==
LOC: ER 18:19 → ICU 18:19
PROVIDERS: Internal Medicine Pulmonary Disease; Student in an Organized Health Care Education/Training Program; Admitting Provider Student in an Organized Health Care Education/Training Program; Emergency Provider Emergency Medicine; PCP Family Medicine; Visit Provider Student in an Organized Health Care Education/Training Program
DX: A41.9 Sepsis, unspecified organism (principal); G92.8 Other toxic encephalopathy; J96.02 Acute respiratory failure with hypercapnia; J12.3 Human metapneumovirus pneumonia; J96.21 Acute and chronic respiratory failure with hypoxia; J44.1 Chronic obstructive pulmonary disease with (acute) exacerbation; J44.0 Chronic obstructive pulmonary disease with (acute) lower respiratory infection; E83.52 Hypercalcemia; I71.43 Infrarenal abdominal aortic aneurysm, without rupture; I10 Essential (primary) hypertension; G89.4 Chronic pain syndrome; F41.9 Anxiety disorder, unspecified; G47.00 Insomnia, unspecified; Z77.29 Contact with and (suspected) exposure to other hazardous substances; Z79.52 Long term (current) use of systemic steroids; F17.200 Nicotine dependence, unspecified, uncomplicated; F32.A Depression, unspecified
CPT/HCPCS: 0223U; 31500; 36415; 36600; 51702; 70450; 71045; 71275; 74174; 80053; 81001; 82375; 82803; 83605; 83735; 84484; 85007; 85025; 87070; 87081; 87086; 87205; 89220; 93005; 94002; 94640; 94761; 97110; 97162; 97166; 97530; 99285; J0131; J0456; J0696; J1308; J1650; J2251; J2405; J2470; J2543; J2704; J2919; J3010; J7050; J7120; Q9967